=== PATIENT | female | born 1945 | race Caucasian/White ===

== ENCOUNTER 2016-10-20 08:09 | Inpatient (IN) | payer MEDICARE ==
[2016-10-20] MEDS ORDERED: MECLIZINE 12.5 MG TAB PO STA (08:30)
[2016-10-20] MEDS ORDERED: ONDANSETRON 4 MG/2 ML VIAL IVP STA (08:30)
[2016-10-20] MEDS ORDERED: SODIUM CHLORIDE 0.9% 1,000 ML IV STA (08:30)
--- NOTE | 2016-10-20 08:46 | ED ---
General Adult HPI - General Chief complaint: Dizziness Stated complaint: vertigo symptoms Time Seen by Provider: 10/20/16 08:23 Source: patient, RN notes reviewed Mode of arrival: wheelchair Limitations: no limitations - History of Present Illness Initial comments: Patient 71-year-old female who presents emergency room today with chief complaint of feeling lightheaded dizzy when she woke at 7 AM. She states she got up to get ready for work and began feeling lightheaded and dizzy and nauseous. She does admit that she had a headache 2 days ago right side of her head. She states it was somewhat sharp and tender to the touch. She states that the one away on its own. Currently does not have any headache but if she looks down she feels nauseous and dizzy. She states she feels unsteady on her feet. States never had some symptoms the past. Denies any other complaints or symptoms at this time. Patient denies any recent fever, chills, shortness of breath, chest pain, back pain, abdominal pain, nausea or vomiting, numbness or tingling, dysuria or hematuria, constipation or diarrhea, headaches or visual changes, or any other complaints. - Related Data Home Medications Medication Instructions Recorded Confirmed Aspirin 81 mg PO HS 09/16/13 02/03/16 Levothyroxine Sodium [Synthroid] 100 mcg PO HS 11/10/15 02/03/16 Multivit-Min/FA/Lycopen/Lutein 1 each PO HS 11/10/15 02/03/16 [Centrum Silver Tablet] Venlafaxine HCl ER [Effexor Xr] 300 mg PO HS 11/10/15 02/03/16 Atenolol [Tenormin] 25 mg PO DAILY 02/03/16 02/03/16 Timolol [Betimol 0.5% Ophth Soln] 1 drop BOTH EYES HS 02/03/16 02/03/16 Allergies Allergy/AdvReac Type Severity Reaction Status Date / Time No Known Allergies Allergy Verified 10/20/16 08:13 Review of Systems ROS Statement: Those systems with pertinent positive or pertinent negative responses have been documented in the HPI. ROS Other: All systems not noted in ROS Statement are negative. Past Medical History Past Medical History: Cancer, CVA/TIA, Osteoarthritis (OA), Skin Disorder, Thyroid Disorder Additional Past Medical History / Comment(s): TIA-no effects, heartburn, hx skin cancer, "extra heartbeat" History of Any Multi-Drug Resistant Organisms: None Reported Past Surgical History: Back Surgery, Breast Surgery, Cholecystectomy, Hysterectomy, Orthopedic Surgery, Tonsillectomy Additional Past Surgical History / Comment(s): alejandro bunionectomy, thyroidectomy, alejandro hand-"core vein release", rt breast biopsy, rt nipple removed, EGD, alejandro myringotomy Past Anesthesia/Blood Transfusion Reactions: Previous Problems w/ Anesthesia, Motion Sickness Additional Past Anesthesia/Blood Transfusion Reaction / Comment(s): diff intubation " I was told I need a fiberoptic intubation"( not sure what surgery or where she was told this) Past Psychological History: Anxiety Smoking Status: Current every day smoker Past Alcohol Use History: None Reported Past Drug Use History: None Reported - Past Family History Mother Family Medical History: Cancer Father Additional Family Medical History / Comment(s): blood clots-no sure where General Exam - General Exam Comments Initial Comments: General: The patient is awake and alert, in no distress, and does not appear acutely ill. Eye: Pupils are equal, round and reactive to light, extra-ocular movements are intact. No nystagmus. There is normal conjunctiva bilaterally. No signs of icterus. Ears, nose, mouth and throat: There are moist mucous membranes and no oral lesions. Neck: The neck is supple, there is no tenderness or JVD. Cardiovascular: There is a regular rate and rhythm. No murmur, rub or gallop is appreciated. Respiratory: Lungs are clear to auscultation, respirations are non-labored, breath sounds are equal. No wheezes, stridor, rales, or rhonchi. Gastrointestinal: Soft, non-distended, non-tender abdomen without masses or organomegaly noted. There is no rebound or guarding present. No CVA tenderness. Bowel sounds are unremarkable. Musculoskeletal: Normal ROM, no tenderness. Strength 5/5. Sensation intact. Pulses equal bilaterally 2+. Neurological: A&O x 3. CN II-XII intact, There are no obvious motor or sensory deficits. Coordination appears grossly intact. Speech is normal. Skin: Skin is warm and dry and no rashes or lesions are noted. Psychiatric: Cooperative, appropriate mood & affect, normal judgment. Limitations: no limitations Course Vital Signs 06/10/20/16 10/20/16 08:11 09:17 10:15 Temperature 97.4 F L 98.1 F Pulse Rate 61 67 Respiratory 20 16 Rate Blood Pressure 148/64 137/64 O2 Sat by Pulse 98 98 96 Oximetry EKG Findings - EKG Comments: EKG Findings:: EKG performed at 0849: Shows normal sinus rhythm at 63 bpm. IA interval 130. QRS 76. QT/QTc is 406/415. No acute ST changes. Medical Decision Making - Medical Decision Making Patient's CT reviewed and does show 1. Intracranial arthrosclerotic changes including focal calcification within the basilar artery. 2. No midline shift or mass effect. 3. Nonspecific white matter changes. 4. There is concern for an acute ischemia considered diffusion weighted MRI. As read by radiology doctor Jeffery. Patient reexamined at this time showing no signs of distress. Stroke scale negative. States feeling better after fluids and medications here. Case was discussed with Dr Nunez who spoke with DR Ram who will admit the patient with consult to DR Tolliver if avaible. - Lab Data Result diagrams: 10/20/16 08:45 10/20/16 08:45 Lab Results 10/20/16 10/20/16 10/20/16 Range/Units 08:45 08:45 08:45 WBC 11.2 H (3.8-10.6) k/uL RBC 5.08 (3.80-5.40) m/uL Hgb 15.4 (11.4-16.0) gm/dL Hct 47.1 H (34.0-46.0) % MCV 92.6 (80.0-100.0) fL MCH 30.4 (25.0-35.0) pg MCHC 32.8 (31.0-37.0) g/dL RDW 14.2 (11.5-15.5) % Plt Count 321 (150-450) k/uL Neutrophils % 68 % Lymphocytes % 23 % Monocytes % 4 % Eosinophils % 3 % Basophils % 1 % Neutrophils # 7.7 (1.3-7.7) k/uL Lymphocytes # 2.5 (1.0-4.8) k/uL Monocytes # 0.5 (0-1.0) k/uL Eosinophils # 0.3 (0-0.7) k/uL Basophils # 0.1 (0-0.2) k/uL PT (9.0-12.0) sec INR (<1.1) APTT (22.0-30.0) sec Sodium 143 (137-145) mmol/L Potassium 4.5 (3.5-5.1) mmol/L Chloride 110 H (98-107) mmol/L Carbon Dioxide 23 (22-30) mmol/L Anion Gap 10 mmol/L BUN 17 (7-17) mg/dL Creatinine 0.68 (0.52-1.04) mg/dL Est GFR (MDRD) Af Amer >60 (>60 ml/min/1.73 sqM) Est GFR (MDRD) Non-Af >60 (>60 ml/min/1.73 sqM) Glucose 103 H (74-99) mg/dL Calcium 9.7 (8.4-10.2) mg/dL Total Bilirubin 0.7 (0.2-1.3) mg/dL AST 24 (14-36) U/L ALT 22 (9-52) U/L Alkaline Phosphatase 117 (38-126) U/L Total Creatine Kinase 70 (30-135) U/L CK-MB (CK-2) 1.3 (0.0-2.4) ng/mL CK-MB (CK-2) Rel Index 1.9 Troponin I <0.012 (0.000-0.034) ng/mL Total Protein 7.2 (6.3-8.2) g/dL Albumin 4.4 (3.5-5.0) g/dL Urine Color Urine Appearance (Clear) Urine pH (5.0-8.0) Ur Specific [place] (1.001-1.035) Urine Protein (Negative) Urine Glucose (UA) (Negative) Urine Ketones (Negative) Urine Blood (Negative) Urine Nitrite (Negative) Urine Bilirubin (Negative) Urine Urobilinogen (<2.0) mg/dL Ur Leukocyte Esterase (Negative) Urine RBC (0-5) /hpf Urine WBC (0-5) /hpf Ur Squamous Epith Cells (0-4) /hpf Urine Bacteria (None) /hpf Urine Mucus (None) /hpf 10/20/16 10/20/16 Range/Units 08:45 09:15 WBC (3.8-10.6) k/uL RBC (3.80-5.40) m/uL Hgb (11.4-16.0) gm/dL Hct (34.0-46.0) % MCV (80.0-100.0) fL MCH (25.0-35.0) pg MCHC (31.0-37.0) g/dL RDW (11.5-15.5) % Plt Count (150-450) k/uL Neutrophils % % Lymphocytes % % Monocytes % % Eosinophils % % Basophils % % Neutrophils # (1.3-7.7) k/uL Lymphocytes # (1.0-4.8) k/uL Monocytes # (0-1.0) k/uL Eosinophils # (0-0.7) k/uL Basophils # (0-0.2) k/uL PT 10.0 (9.0-12.0) sec INR 1.0 (<1.1) APTT 22.0 (22.0-30.0) sec Sodium (137-145) mmol/L Potassium (3.5-5.1) mmol/L Chloride (98-107) mmol/L Carbon Dioxide (22-30) mmol/L Anion Gap mmol/L BUN (7-17) mg/dL Creatinine (0.52-1.04) mg/dL Est GFR (MDRD) Af Amer (>60 ml/min/1.73 sqM) Est GFR (MDRD) Non-Af (>60 ml/min/1.73 sqM) Glucose (74-99) mg/dL Calcium (8.4-10.2) mg/dL Total Bilirubin (0.2-1.3) mg/dL AST (14-36) U/L ALT (9-52) U/L Alkaline Phosphatase (38-126) U/L Total Creatine Kinase (30-135) U/L CK-MB (CK-2) (0.0-2.4) ng/mL CK-MB (CK-2) Rel Index Troponin I (0.000-0.034) ng/mL Total Protein (6.3-8.2) g/dL Albumin (3.5-5.0) g/dL Urine Color Yellow Urine Appearance Cloudy H (Clear) Urine pH 5.0 (5.0-8.0) Ur Specific [place] 1.018 (1.001-1.035) Urine Protein Trace H (Negative) Urine Glucose (UA) Negative (Negative) Urine Ketones Negative (Negative) Urine Blood Small H (Negative) Urine Nitrite Negative (Negative) Urine Bilirubin Negative (Negative) Urine Urobilinogen <2.0 (<2.0) mg/dL Ur Leukocyte Esterase Trace H (Negative) Urine RBC 14 H (0-5) /hpf Urine WBC 3 (0-5) /hpf Ur Squamous Epith Cells 3 (0-4) /hpf Urine Bacteria Many H (None) /hpf Urine Mucus Occasional H (None) /hpf Disposition Clinical Impression: Lightheaded, Dizziness, Nausea Disposition: ADMITTED IP TO THIS [facility] Condition: Stable Time of Disposition: 10:40
--- NOTE | 2016-10-20 09:22 | CT ---
EXAMINATION TYPE: CT brain wo con DATE OF EXAM: 10/20/2016 COMPARISON: NONE HISTORY: Vertigo CT DLP: 1017.9 mGycm Automated exposure control for dose reduction was used. FINDINGS: Calcification within the basilar artery additional intracranial atherosclerotic changes noted. No midline shift. Low attenuation in the white matter is nonspecific. If there is concern for acute i schemia recommend MRI. Low attenuation right basal ganglia is most typical remote lacunar infarction. Noted. IMPRESSION: INTRACRANIAL ATHEROSCLEROTIC CHANGES INCLUDING FOCAL CALCIFICATION WITHIN THE BASILAR ARTERY. 2. NO MIDLINE SHIFT OR MASS EFFECT 3. NONSPECIFIC WHITE MATTER CHANGES. #4 THERE IS CONCERN FOR ACUTE ISCHEMIA CONSIDER DIFFUSION-WEIGHT ED MRI.
[2016-10-20 09:23] LABS: Basophils # (A) 0.1 k/uL (0-0.2); Basophils % (A) 1 %; CH 30.7; CHCM 33.3; Eosinophils # (A) 0.3 k/uL (0-0.7); Eosinophils % (A) 3 %; HCT 47.1 % (34.0-46.0); HDW 2.46; HGB 15.4 gm/dL (11.4-16.0); Luc # (Auto) 0.16; Luc % (Auto) 1; Lymphocytes # (A) 2.5 k/uL (1.0-4.8); Lymphocytes % (A) 23 %; MCH 30.4 pg (25.0-35.0); MCHC 32.8 g/dL (31.0-37.0); MCV 92.6 fL (80.0-100.0); Mean Platelet Volume 6.7; Monocytes # (A) 0.5 k/uL (0-1.0); Monocytes % (A) 4 %; Neutrophils # (A) 7.7 k/uL (1.3-7.7); Neutrophils % (A) 68 %; RBC 5.08 m/uL (3.80-5.40); RDW 14.2 % (11.5-15.5); WBC 11.2 k/uL (3.8-10.6); WBC (Perox) 10.91
[2016-10-20 09:31] LABS: Anion Gap 10 mmol/L; Blood Urea Nitrogen 17 mg/dL (7-17); Carbon Dioxide 23 mmol/L (22-30); Chloride 110 mmol/L (98-107); Glucose 103 mg/dL (74-99); Sodium 143 mmol/L (137-145)
[2016-10-20 09:32] LABS: ALT 22 U/L (9-52); AST 24 U/L (14-36); Alkaline Phosphatase 117 U/L (38-126); Calcium 9.7 mg/dL (8.4-10.2); Non-African American GFR(MDRD) >60 (>60 ml/min/1.73 sqM); Total Bilirubin 0.7 mg/dL (0.2-1.3); Total Protein 7.2 g/dL (6.3-8.2)
[2016-10-20 09:33] LABS: Potassium 4.5 mmol/L (3.5-5.1)
[2016-10-20 09:34] LABS: Appearance,Urine Cloudy (Clear); Bacteria,Urine Many /hpf; Bilirubin,Urine Negative (Negative); Glucose,Urine (UA) Negative (Negative); Ketones,Urine Negative (Negative); Leukocyte Esterase,Urine Trace (Negative); Mucus,Urine Occasional /hpf; Nitrite,Urine Negative (Negative); Particle Count 5895; Protein,Urine Trace (Negative); RBC,Urine 14 /hpf (0-5); Specific Gravity,Urine 1.018 (1.001-1.035); Squamous Epithelial Cell,Urine 3 /hpf (0-4); UA Billing (MACRO vs. MICRO) MICRO; Urobilinogen,Urine <2.0 mg/dL (<2.0); WBC,Urine 3 /hpf (0-5)
[2016-10-20 09:43] LABS: Creatine Kinase 70 U/L (30-135)
--- NOTE | 2016-10-20 09:52 | XR ---
EXAMINATION TYPE: XR chest 2V DATE OF EXAM: 10/20/2016 COMPARISON: 02/27/2016 TECHNIQUE: PA and lateral views submitted. HISTORY: Dizziness FINDINGS: The lungs are clear and there is no pneumothorax, pleural effusion, or focal pneumonia. Apical pleu ral thickening seen and there is degenerative and hypertrophic change of the spine. IMPRESSION: 1. No acute process.
[2016-10-20 09:56] LABS: Creatine Kinase MB 1.3 ng/mL (0.0-2.4); Troponin I <0.012 ng/mL (0.000-0.034)
[2016-10-20] MEDS ORDERED: SODIUM CHLORIDE 0.9% 1,000 ML IV ONE (10:58)
[2016-10-20] MEDS ORDERED: ASPIRIN 325 MG TAB PO STA (11:02)
--- NOTE | 2016-10-20 12:20 | US ---
EXAMINATION TYPE: US carotid duplex BILAT DATE OF EXAM: 10/20/2016 COMPARISON: US 2016 CLINICAL HISTORY: Stenosis. EC patient with dizziness today; smoker x 37 years. EXAM MEASUREMENTS: RIGHT: Peak Systolic Velocity (PSV) cm/sec ----- Right CCA: 74.0 ----- Right ICA: 94.3 ----- Right ECA: 109.1 ICA/CCA ratio: 1.3 RIGHT: End Diastole cm/sec ----- Right CCA: 17.3 ----- Right ICA: 21.7 ----- Right ECA: 13.9 LEFT: Peak Systolic Velocity (PSV) cm/sec ----- Left CCA: 60.3 ----- Left ICA: 121.0 ----- Left ECA: 71.3 ICA/CCA ratio: 2.0 LEFT: End Diastole cm/sec ----- Left CCA: 21.9 ----- Left ICA: 45.1 ----- Left ECA: 8.7 VERTEBRALS (direction of flow): Right Vertebral: Antegrade Left Vertebral: Antegrade Irregular mild to moderate intimal wall changes noted at bilateral carotid bifurcation, but PSV is wn l bilaterally. IMPRESSION: 1. Atherosclerotic changes. With findings suggestive of a 50-69% stenosis involving the left internal carotid artery.
[2016-10-20] MEDS ORDERED: RX INFO: IV CONTRAST WAS GIVEN 1 EACH MISC MISCELLANE PRN (15:16)
--- NOTE | 2016-10-20 16:13 | MR ---
EXAMINATION TYPE: MR brain wo con DATE OF EXAM: 10/20/2016 COMPARISON: NONE HISTORY: stroke Standard multiplanar, multisequence MRI departmental protocol Multiplanar, multisequence images of the brain were acquired. Diffusion weighted imaging was performe d. FINDINGS: Ventricles of normal size. There is no mass effect nor midline shift. There is no evidence of intracranial hemorrhage. There is patchy abnormal increased signal in the robert bilaterally. There are multiple areas that measure up to 5 mm. There is no evidence of a cortical infarct. There is no s ign of posterior fossa mass. Corpus callosum appears normal. Sella turcica is normal. IMPRESSION: Patchy abnormal increased signal on the T2 and FLAIR images in the robert consistent with chronic small vessel ischemia and lacunar infarct. No evidence of cerebral cortical infarct.
--- NOTE | 2016-10-20 16:17 | MR ---
EXAMINATION TYPE: MR angio head wo con DATE OF EXAM: 10/20/2016 COMPARISON: NONE HISTORY: stroke TECHNIQUE: Time of flight images focusing on the [place] were performed without contrast. FINDINGS: There is arterial flow in the vertebrobasilar artery system. Left vertebral artery is large r than the right. I see no definite flow in the posterior communicating arteries. There is arterial f low in the anterior middle and posterior cerebral arteries. I see no evidence of aneurysm or neovascu larity. There is no mass effect. There is patency of distal internal carotid arteries. Exam is limite d slightly by motion. There is possible stenosis of the proximal right anterior cerebral artery. IMPRESSION: No evidence of aneurysm. Possible 1 cm segment of significant stenosis of the proximal right anterior cerebral artery. Limited exam due to motion.
[2016-10-20] MEDS: ATORVASTATIN 80 MG TAB PO SCH (17:07)
--- NOTE | 2016-10-20 17:12 | CT ---
EXAMINATION TYPE: CT angio neck DATE OF EXAM: 10/20/2016 HISTORY: Patient complains of dizziness. COMPARISON: NONE CT DLP: 222.4 mGycm. Automated Exposure Control for Dose Reduction was Utilized. TECHNIQUE: CTA scan of the neck is performed with IV Contrast, patient injected with 65 mL of Omnipa que 350, axial images are obtained, coronal and sagittal reformatted images are reviewed. Three-D rec onstructed images are created on an independent workstation and reviewed. FINDINGS: There is normal branching pattern of the great vessels on the aortic arch. There is bilateral patency of the vertebral arteries which appear widely patent. There is bilateral patency of the common inter nal and external carotid arteries. There is some atherosclerotic plaque at the left carotid artery bi furcation. There is probably 25% stenosis of the origin of the left internal carotid artery. There is patency of the vertebrobasilar artery system. There is mild mucosal thickening in the spheno id sinus. There is arterial flow in the anterior middle and posterior cerebral arteries. There is no evidence of arterial dissection. IMPRESSION: There is some atherosclerotic plaque with minimal stenosis at the origin of the left inte rnal carotid artery. No evidence of arterial dissection or aneurysm. Mild sphenoid sinusitis.
--- NOTE | 2016-10-20 17:17 | P.CONS ---
History of Present Illness - Reason for Consult Consult date: 10/20/16 Requesting physician: Toro Ram - Chief Complaint Dizziness - History of Present Illness Is a pleasant 71-year-old female being evaluated by the neurology service for dizziness. She awoke at 7 AM this morning feeling lightheaded and dizzy. She went to stand up and became nauseous with some mild vertigo. She thinks there was also some weakness. She says she has had a mild headache for a couple days on the right side of her head. She denies headache currently. He continues to have some dizziness. She denies numbness tingling weakness or loss of consciousness. Her was no trouble with speech or swallowing. She has been afebrile with relatively benign vital signs. Her EKG was normal. Labs show a mildly elevated white count at 11.2. Cardiac markers were negative. CT of the brain showed some basilar artery calcification and chronic small vessel ischemic changes. Flory the brain did also show chronic small vessel ischemia with a right lacunar infarct the age of which was not specified. MRA showed no evidence of aneurysm, with a 1 cm segment of significant stenosis of the right proximal anterior cerebral artery. Her carotid Doppler showed 56 Percent stenosis of the left internal carotid artery. A CT of the neck was ordered and is still pending. At the time of my evaluation she is resting comfortably in bed in no acute distress. Review of Systems All systems: negative Past Medical History Past Medical History: Cancer, CVA/TIA, Osteoarthritis (OA), Skin Disorder, Thyroid Disorder Additional Past Medical History / Comment(s): TIA-no effects, heartburn, hx skin cancer, "extra heartbeat" History of Any Multi-Drug Resistant Organisms: None Reported Past Surgical History: Back Surgery, Breast Surgery, Cholecystectomy, Hysterectomy, Orthopedic Surgery, Tonsillectomy Additional Past Surgical History / Comment(s): alejandro bunionectomy, thyroidectomy, alejandro hand-"core vein release", rt breast biopsy, rt nipple removed, EGD, alejandro myringotomy Past Anesthesia/Blood Transfusion Reactions: Previous Problems w/ Anesthesia, Motion Sickness Additional Past Anesthesia/Blood Transfusion Reaction / Comm: diff intubation " I was told I need a fiberoptic intubation"( not sure what surgery or where she was told this) Past Psychological History: Anxiety Smoking Status: Current every day smoker Past Alcohol Use History: None Reported Past Drug Use History: None Reported - Past Family History Mother Family Medical History: Cancer Father Additional Family Medical History / Comment(s): blood clots-no sure where Medications and Allergies Home Medications Medication Instructions Recorded Confirmed Type Aspirin 81 mg PO HS 09/16/13 10/20/16 History Levothyroxine Sodium [Synthroid] 100 mcg PO HS 11/10/15 10/20/16 History Multivit-Min/FA/Lycopen/Lutein 1 tab PO HS 11/10/15 10/20/16 History [Centrum Silver Tablet] Venlafaxine HCl ER [Effexor Xr] 300 mg PO HS 11/10/15 10/20/16 History Atenolol [Tenormin] 25 mg PO HS 02/03/16 10/20/16 History ALPRAZolam [Xanax] 1 mg PO BID 10/20/16 10/20/16 History Allergies Allergy/AdvReac Type Severity Reaction Status Date / Time No Known Allergies Allergy Verified 10/20/16 11:38 Physical Exam Vitals: Vital Signs Temp Pulse Pulse Resp BP BP Pulse Ox 10/20/16 12:35 97.6 F 74 16 134/63 90 L 10/20/16 11:44 98 F 67 18 143/67 95 10/20/16 11:31 97.6 F 74 16 134/63 90 L 10/20/16 10:15 98.1 F 67 16 137/64 96 10/20/16 09:17 98 10/20/16 08:11 97.4 F L 61 20 148/64 98 Intake and Output 10/20/16 10/20/16 10/20/16 06:59 14:59 22:59 Other: Weight 67.132 kg Patient Weight 10/21/16 06:59 Weight 67.132 kg - Constitutional General appearance: average body habitus, cooperative, no acute distress - EENT Eyes: no abnormal pupil, EOMI, PERRLA, no ptosis ENT: hearing grossly normal - Neck Neck: normal ROM, no rigidity - Respiratory Respiratory: negative: prolonged expiration, prolonged inspiration - Cardiovascular Rhythm: regular - Gastrointestinal General gastrointestinal: no distended, no tenderness - Neurologic Patient is alert awake and oriented 3. Speech-language are normal. There is no facial asymmetry. Strength is 5 out of 5 in bilateral lower and upper extremities. There is no sensory deficit of the face or any extremity. Cranial nerves II through XII are intact globally. There is no dysmetria. There is no nystagmus. No tremors or seizure-like activities are seen. Results CBC & Chem 7: 10/20/16 08:45 10/20/16 08:45 Labs: Abnormal Lab Results - Last 24 Hours (Table) 10/20/16 10/20/16 10/20/16 Range/Units 08:45 08:45 09:15 WBC 11.2 H (3.8-10.6) k/uL Hct 47.1 H (34.0-46.0) % Chloride 110 H (98-107) mmol/L Glucose 103 H (74-99) mg/dL Urine Appearance Cloudy H (Clear) Urine Protein Trace H (Negative) Urine Blood Small H (Negative) Ur Leukocyte Esterase Trace H (Negative) Urine RBC 14 H (0-5) /hpf Urine Bacteria Many H (None) /hpf Urine Mucus Occasional H (None) /hpf Assessment and Plan (1) Right-sided lacunar infarction Status: Acute (2) Hyperlipidemia Status: Chronic (3) Carotid stenosis Status: Chronic (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 MRA testing did show an area of significant stenosis of the right proximal anterior cerebral artery. This did not contribute to her stroke. It should however be followed up by a neuro-interventionalist. I will refer her for this in outpatient setting. I will order physical and occupational and speech therapy. A lipid panel serum homocysteine level and EEG have been ordered. She will continue Lipitor 80 mg and we will change her aspirin to Plavix 75 mg. Continue neurological checks. Continue to follow and make further recommendations based on the rest of the workup. I have reviewed the history and physical on the above patient. I have reviewed the above note, and agree.
--- NOTE | 2016-10-20 19:04 | HP ---
DATE OF ADMISSION: 10/20/2016 REASON FOR ADMISSION: Persistent dizziness. HISTORY OF PRESENT ILLNESS: This is a 71-year-old female with ongoing tobacco use. History of hypertension with a past history of TIAs. Comes in the hospital with sudden onset dizziness. Patient states that she feels the room is spinning around her, has had persistent symptoms for the last 10 to 12 hours. States that there is no relief. Has associated nausea. Patient has had episode of transient ischemic attack where she lost consciousness. Patient is currently taking aspirin 81 mg. No statin has been included her medications. Currently denies having any headaches, change in vision, nausea, vomiting, chest pain, difficulty breathing, abdominal pain, any focal motor weakness. Patient's main complaints are persistent dizziness, not changed with any movement, and weakness and a tendency to the fall to the right. REVIEW OF SYSTEMS: Fourteen-point review of system was done; none pertinent other than what was mentioned above. Home medications include: 1. Effexor. 2. Centrum. 3. Synthroid. 4. Tenormin. 5. Aspirin. 6. Xanax. Those were reviewed and appropriately reconciled. ALLERGIES: No known drug allergies. Past medical history includes ongoing tobacco use, hypothyroidism, hypertension, anxiety, previous TIAs. PAST SURGICAL HISTORY: None reported. SOCIAL HISTORY: Ongoing tobacco use. No illicit drug use or alcohol use. PHYSICAL EXAM: VITALS: Temperature is 97.6, heart rate 74, respiratory rate 16, blood pressure 134/63. Saturating 98% on room air. GENERALLY: Patient appears to be alert, oriented x3. HEENT: The pupils are equal and reactive to light and accommodation. HEART: S1, S2 present. No murmur appreciated. LUNGS: Good air entry. No wheezing or rhonchi noted. ABDOMINAL EXAM: Soft, nontender, no organomegaly appreciated. GENITOURINARY: No [place] in place. EXTREMITIES: Pulses can be palpated distally. Denies any tenderness on gross palpation. SKIN: On a gross skin exam does not appear to have any purpura or any skin rashes that were noted. NEUROLOGICALLY: Cranial nerves II through XII grossly intact. Complaints of persistent dizziness. No reproducible symptoms on [place]-Hallpike maneuver. No nystagmus is noted. Strength is 5/5 in all 4 extremities. No dyskinesia. Gait is reported to be abnormal. LABORATORY DATA: Hemoglobin is 15.4, hematocrit 47. White count 11.2, platelets of 321. Sodium 142, potassium 4.4, chloride 110, bicarb 23, BUN 17, creatinine 0.68. UA is positive. ASSESSMENT: 1. Acute left MCA territory stroke, likely a cerebellar region stroke. 2. Ongoing tobacco use. 3. Hypothyroidism. 4. Asymptomatic bacteria. 5. Hypertension. PLAN: There is stroke risk factor delineation including telemetry monitoring, carotid study and echocardiogram. Patient's current EKG does not appear to show any signs of atrial fibrillation. Blood pressure treatment, there is no need for any change in her blood pressure at this time. I will obtain an MRI of the brain without contrast. Start the patient on atorvastatin 80 mg with acute cerebrovascular accident. Meclizine does not improve any symptomatology. We will have physical therapy, occupational therapy involved. Depending on patient's functional status, disposition will be entertained. However, patient has had an acute stroke, maybe even need a rehab placement thereafter. Neurology recommendation will also be appreciated. A consultation to on-call neurology will be placed.
[2016-10-20] MEDS: ATENOLOL 25 MG TAB PO SCH (21:11)
[2016-10-20] MEDS: LEVOTHYROXINE 100 MCG TAB PO SCH (21:11)
[2016-10-20] MEDS: ALPRAZolam 0.5 MG TAB PO SCH (21:11)
[2016-10-20] MEDS: VENLAFAXINE HCL ER 150 MG CAP PO SCH (21:11)
[2016-10-21 06:51] LABS: ALT 22 U/L (9-52); AST 18 U/L (14-36); Alkaline Phosphatase 113 U/L (38-126); Anion Gap 9 mmol/L; Blood Urea Nitrogen 15 mg/dL (7-17); Carbon Dioxide 23 mmol/L (22-30); Chloride 111 mmol/L (98-107); Cholesterol 163 mg/dL (<200); Glucose 100 mg/dL (74-99); HDL Cholesterol 59 mg/dL (40-60); Non-African American GFR(MDRD) >60 (>60 ml/min/1.73 sqM); Potassium 4.5 mmol/L (3.5-5.1); Sodium 143 mmol/L (137-145); Total Bilirubin 0.4 mg/dL (0.2-1.3); Triglycerides 79 mg/dL (<150)
[2016-10-21] MEDS: CLOPIDOGREL 75 MG TAB PO SCH (08:32)
[2016-10-21] MEDS: ATORVASTATIN 80 MG TAB PO SCH (08:32)
[2016-10-21] MEDS: ALPRAZolam 0.5 MG TAB PO SCH ×2 (08:32→20:38)
[2016-10-21] MEDS ORDERED: ASPIRIN 325 MG TAB PO SCH (09:00)
--- NOTE | 2016-10-21 12:59 | P.PN ---
Subjective DATE OF ADMISSION: 10/20/2016 REASON FOR ADMISSION: Persistent dizziness. HISTORY OF PRESENT ILLNESS: This is a 71-year-old female with ongoing tobacco use. History of hypertension with a past history of TIAs. Comes in the hospital with sudden onset dizziness. Patient states that she feels the room is spinning around her, has had persistent symptoms for the last 10 to 12 hours. States that there is no relief. Has associated nausea. Patient has had episode of transient ischemic attack where she lost consciousness. Patient is currently taking aspirin 81 mg. No statin has been included her medications. Currently denies having any headaches, change in vision, nausea, vomiting, chest pain, difficulty breathing, abdominal pain, any focal motor weakness. Patient's main complaints are persistent dizziness, not changed with any movement, and weakness and a tendency to the fall to the right. 10/21/2016 Patient states to have persistent vertigo no change in vision or headaches blurry vision chest pain dizziness nausea vomiting diarrhea PHYSICAL EXAM: ir. GENERALLY: Patient appears to be alert, oriented x3. HEENT: The pupils are equal and reactive to light and accommodation. HEART: S1, S2 present. No murmur appreciated. LUNGS: Good air entry. No wheezing or rhonchi noted. ABDOMINAL EXAM: Soft, nontender, no organomegaly appreciated. GENITOURINARY: No Solano in place. EXTREMITIES: Pulses can be palpated distally. Denies any tenderness on gross palpation. SKIN: On a gross skin exam does not appear to have any purpura or any skin rashes that were noted. NEUROLOGICALLY: Cranial nerves II through XII grossly intact. Complaints of persistent dizziness. No reproducible symptoms on [place]-Hallpike maneuver. No nystagmus is noted. Strength is 5/5 in all 4 extremities. No dyskinesia. Gait is reported to be abnormal. Objective - Vital Signs Vital signs: Vital Signs Temp 98.1 F 10/21/16 08:00 Pulse 60 10/21/16 08:00 Resp 17 10/21/16 08:00 BP 118/70 10/21/16 08:00 Pulse Ox 93 L 10/21/16 08:00 Intake & Output 10/20/16 10/21/16 10/21/16 18:59 06:59 18:59 Intake Total 375 75 Balance 375 75 Weight 67.132 kg 72 kg Intake: Intake, IV Titration 375 75 Amount Sodium Chloride 0.9% 1, 375 75 000 ml @ 75 mls/hr IV . [id number] ONE Rx#:[id number] Other: Voiding Method Bedpan Bedpan - Labs CBC & Chem 7: 10/20/16 08:45 10/21/16 06:03 Labs: Abnormal Lab Results - Last 24 Hours (Table) 10/21/16 Range/Units 06:03 Chloride 111 H (98-107) mmol/L Glucose 100 H (74-99) mg/dL Total Protein 6.0 L (6.3-8.2) g/dL Albumin 3.4 L (3.5-5.0) g/dL Assessment and Plan Plan: ASSESSMENT: 1. Acute lacunar infarct 2. Ongoing tobacco use. 3. Hypothyroidism. 4. Asymptomatic bacteria. 5. Hypertension. 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
[2016-10-21] MEDS: ATENOLOL 25 MG TAB PO SCH (20:37)
[2016-10-21] MEDS: LEVOTHYROXINE 100 MCG TAB PO SCH (20:37)
[2016-10-21] MEDS: VENLAFAXINE HCL ER 150 MG CAP PO SCH (20:37)
[2016-10-22] MEDS: ALPRAZolam 0.5 MG TAB PO SCH (08:12)
[2016-10-22] MEDS: ATORVASTATIN 80 MG TAB PO SCH (08:13)
[2016-10-22] MEDS: CLOPIDOGREL 75 MG TAB PO SCH (08:13)
[2016-10-22 08:18] VITALS: BP 144/68; PULSE 64; RESP 17; TEMP 98
--- NOTE | 2016-10-22 10:57 | ECHOF ---
Referral Reason:cva MEASUREMENTS -------- HEIGHT: 152.4 cm WEIGHT: 67.1 kg BP: 147/66 RVIDd: 2.7 cm (< 3.3) IVSd: 1.2 cm (0.6 - 1.1) LVIDd: 3.8 cm (3.9 - 5.3) LVPWd: 1.2 cm (0.6 - 1.1) IVSs: 1.5 cm LVIDs: 2.7 cm LVPWs: 1.4 cm LA Diam: 3.9 cm (2.7 - 3.8) LAESV Index (A-L): 34.69 ml/m Ao Diam: 2.6 cm (2.0 - 3.7) AV Cusp: 2.0 cm (1.5 - 2.6) MV EXCURSION: 17.310 mm (> 18.000) MV EF SLOPE: 141 mm/s (70 - 150) EPSS: 0.4 cm MV E Familia: 0.84 m/s MV DecT: 156 ms MV A Familia: 0.57 m/s MV E/A Ratio: 1.48 AR PHT: 555 ms RAP: 5.00 mmHg RVSP: 40.75 mmHg FINDINGS -------- This was a technically good study. The left ventricular size is normal. There is borderline concentric left ventricular hypertrophy. Overall left ventricular systolic function is normal with, an EF between 55 - 60 %. Mitral Doppler inflow pattern suggests diastolic filling abnormality 14.49. The right ventricle is normal in size and function. LA is midly dilated 29-33ml/m2. The right atrium is normal in size. There is mild aortic valve sclerosis. There is mild aortic regurgitation. The mitral valve leaflets are mildly thickened. Mild mitral regurgitation is present. Mild tricuspid regurgitation present. There is mild pulmonary hypertension. The right ventricular systolic pressure, as measured by Doppler, is 40.75mmHg. The pulmonic valve is normal. The aortic root size is normal. Normal inferior vena cava with normal inspiratory collapse consistent with estimated right atrial pressure of 5 mmHg. The pericardium is normal. CONCLUSIONS -------- 1. This was a technically good study. 2. The mitral valve leaflets are mildly thickened. 3. Mild mitral regurgitation is present. 4. There is mild pulmonary hypertension. 5. The right ventricular systolic pressure, as measured by Doppler, is 40.75mmHg. 6. The pulmonic valve is normal. 7. The aortic root size is normal. 8. Normal inferior vena cava with normal inspiratory collapse consistent with estimated right atrial pressure of 5 mmHg. 9. The pericardium is normal. 10. The left ventricular size is normal. 11. There is borderline concentric left ventricular hypertrophy. 12. Overall left ventricular systolic function is normal with, an EF between 55 - 60 %. 13. Mitral Doppler inflow pattern suggest diastolic filling abnormality 14.49. 14. The right ventricle is normal in size and function. 15. LA is midly dilated 29-33ml/m2. 16. There is mild aortic valve sclerosis. 17. There is mild aortic regurgitation. IT MANAGER: Mary Ann Campos RDCS
--- NOTE | 2016-10-22 18:23 | P.DS ---
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 HISTORY OF PRESENT ILLNESS: This is a 71-year-old female with ongoing tobacco use. History of hypertension with a past history of TIAs. Comes in the hospital with sudden onset dizziness. Patient states that she feels the room is spinning around her, has had persistent symptoms for the last 10 to 12 hours. States that there is no relief. Has associated nausea. Patient has had episode of transient ischemic attack where she lost consciousness. Patient is currently taking aspirin 81 mg. No statin has been included her medications. Currently denies having any headaches, change in vision, nausea, vomiting, chest pain, difficulty breathing, abdominal pain, any focal motor weakness. Patient's main complaints are persistent dizziness, not changed with any movement, and weakness and a tendency to the fall to the right. 10/21/2016 Patient states to have persistent vertigo no change in vision or headaches blurry vision chest pain dizziness nausea vomiting diarrhea 10/22/16 continues to have dizziness no headaches, blurry vision nausea, vomiting gait is stable PHYSICAL EXAM: ir. GENERALLY: Patient appears to be alert, oriented x3. HEENT: The pupils are equal and reactive to light and accommodation. HEART: S1, S2 present. No murmur appreciated. LUNGS: Good air entry. No wheezing or rhonchi noted. ABDOMINAL EXAM: Soft, nontender, no organomegaly appreciated. GENITOURINARY: No Solano in place. EXTREMITIES: Pulses can be palpated distally. Denies any tenderness on gross palpation. SKIN: On a gross skin exam does not appear to have any purpura or any skin rashes that were noted. NEUROLOGICALLY: Cranial nerves II through XII grossly intact. Complaints of persistent dizziness. No reproducible symptoms on [place]-Hallpike maneuver. No nystagmus is noted. Strength is 5/5 in all 4 extremities. No dyskinesia. Gait is reported to be abnormal. ASSESSMENT: 1. Acute lacunar infarct 2. Ongoing tobacco use. 3. Hypothyroidism. 4. Asymptomatic bacteria. 5. Hypertension. aspirin, statin to continue . Although pt has right TERRI occlusion her symptoms arent from that lesion. Risks are higher with dual anitplatelet therapy for post ischemic bleed in the future Patient does have a right TERRI occlusion which will be defer to neuro interventional was on a later date. Follow up with Dr Chahal for possible angiogram dc home Driving restriction SYncopal episodes: discussed follow up with cardiology may need a holter moniter Patient Condition at Discharge: Stable Plan - Discharge Summary New Discharge Prescriptions: New Atorvastatin [Lipitor] 80 mg PO DAILY #30 tab Continue Aspirin 81 mg PO HS Levothyroxine Sodium [Synthroid] 100 mcg PO HS Venlafaxine HCl ER [Effexor XR] 300 mg PO HS Multivit-Min/FA/Lycopen/Lutein [Centrum Silver Tablet] 1 tab PO HS Atenolol [Tenormin] 25 mg PO HS ALPRAZolam [Xanax] 1 mg PO BID Discharge Medication List Aspirin 81 mg PO HS 09/16/13 [History] Levothyroxine Sodium [Synthroid] 100 mcg PO HS 11/10/15 [History] Multivit-Min/FA/Lycopen/Lutein [Centrum Silver Tablet] 1 tab PO HS 11/10/15 [ History] Venlafaxine HCl ER [Effexor XR] 300 mg PO HS 11/10/15 [History] Atenolol [Tenormin] 25 mg PO HS 02/03/16 [History] ALPRAZolam [Xanax] 1 mg PO BID 10/20/16 [History] Atorvastatin [Lipitor] 80 mg PO DAILY #30 tab 10/22/16 [Rx] Follow up Appointment(s)/Referral(s): Jorge Shah MD [STAFF PHYSICIAN] - 1 Week (MRA shows Possible 1cm segment of significant proximal right anterior cerebral artery occlusion. Office will call with appointment. ) Neville Mike III, MD [Primary Care Provider] - 1-2 days Patient Instructions/Handouts: Stroke (DC) Activity/Diet/Wound Care/Special Instructions: No driving until follow-up with primary care provider. Discharge Disposition: HOME SELF-CARE
--- NOTE | 2016-10-23 18:56 | EEG ---
DATE OF SERVICE: 10/22/2016 INDICATIONS FOR EXAMINATION: Dizziness. AGE: 71Y DESCRIPTION OF PROCEDURE: This EEG was performed using a 21 channel digital electroencephalograph following international 10-20 system. DESCRIPTION OF THE RECORDING: From the beginning of the tracing, with the patient's eyes closed, the background rhythm was mostly consisting of 8 Hz alpha frequency in the posterior occipital lead. No obvious asymmetry was seen. Photic stimulation was performed with a minimal driving response seen. No pathological waves were elicited. Occasional movement and muscle artifacts are seen. Hyperventilation was not performed. The patient remained awake throughout the tracing. No epileptiform discharges were seen. Her EKG lead showed occasional irregularity. INTERPRETATION: This awake EEG can be considered within normal limits except her EKG lead showed occasional irregularity in rhythm. No epileptiform discharges were seen. The absence of epileptiform discharges does not rule out the diagnosis of epilepsy. Therefore, clinical correlation is recommended.
== END 2016-10-22 11:56 | disposition home or self-care (01) | DRG 66 ==
LOC: EC 08:09 → 6SEL 10:59 → OBSVTOIN 10-21 11:13
PROVIDERS: ADMIT Internal Medicine; ATTEND Internal Medicine
DX: I63.9 Cerebral infarction, unspecified (principal); I66.11 Occlusion and stenosis of right anterior cerebral artery; I10 Essential (primary) hypertension; E78.5 Hyperlipidemia, unspecified; F41.9 Anxiety disorder, unspecified; M19.90 Unspecified osteoarthritis, unspecified site; R26.81 Unsteadiness on feet; R11.2 Nausea with vomiting, unspecified; F17.200 Nicotine dependence, unspecified, uncomplicated; R29.700 NIHSS score 0; E89.0 Postprocedural hypothyroidism; I67.9 Cerebrovascular disease, unspecified; I65.22 Occlusion and stenosis of left carotid artery; R55 Syncope and collapse; R82.71 Bacteriuria; R11.0 Nausea; R53.1 Weakness; R12 Heartburn; D72.829 Elevated white blood cell count, unspecified; R51 Headache; Z79.82 Long term (current) use of aspirin; Z87.2 Personal history of diseases of the skin and subcutaneous tissue; Z80.9 Family history of malignant neoplasm, unspecified; Z82.49 Family history of ischemic heart disease and other diseases of the circulatory system; Z90.49 Acquired absence of other specified parts of digestive tract; Z90.710 Acquired absence of both cervix and uterus; Z86.73 Personal history of transient ischemic attack (TIA), and cerebral infarction without residual deficits; Z85.828 Personal history of other malignant neoplasm of skin; Z90.11 Acquired absence of right breast and nipple; Z79.899 Other long term (current) drug therapy
CPT/HCPCS: 36415; 70450; 70498; 70544; 70551; 71020; 80053; 80061; 81001; 82550; 82553; 83090; 84484; 85025; 85610; 85730; 93005; 93306; 93880; 95819; 96361; 96374; 99285

== ENCOUNTER → 2016-11-21 | Outpatient (CLI) | payer MEDICARE ==
--- NOTE | 2016-11-23 06:41 | ENG ---
VNG REPORT VNG INDICATIONS: A 71-year-old female with sudden onset of dizziness associated with a stroke, staying the same and constant. Dizziness can be precipitated by positional changes such as going from a lying to a seated position, looking up or head back position, turning the head left or right or bending over. No difficulty with hearing reported. Tinnitus bilateral and steady. VNG FINDINGS: Saccades shows intact peak velocities, accuracies and latencies. Gaze with fixation shows no nystagmus in any of the directions of gaze including centrally with vision denied. Tracking shows mild impairment at both faster and slower speeds. Optokinetic nystagmus shows no significant asymmetry. Static position testing in 6 different positions, eyes opened and with vision denied shows a weak upbeat nystagmus in the supine and left side position. [place]-Hallpike maneuvers are negative bilaterally. Caloric testing shows 30% unilateral left caloric weakness. IMPRESSION: This is an abnormal VNG with mixed findings. There are mild abnormalities of tracking and there are 2 mild responses to position of vertigo nystagmus. Both of these are features that suggest central nervous system dysfunction. The second finding is of left caloric weaknesses consistent with a mild chronic well compensated left vestibulopathy. Clinical correlation necessary. EDD
== END | disposition home or self-care (01) ==
LOC: NEUROMAIN 10:47
PROVIDERS: ATTEND Otolaryngology
DX: R93.0 Abnormal findings on diagnostic imaging of skull and head, not elsewhere classified (principal); R42 Dizziness and giddiness
CPT/HCPCS: 92537; 92540

== ENCOUNTER → 2016-12-20 | Outpatient (CLI) | payer MEDICARE ==
--- NOTE | 2016-12-20 20:07 | CT ---
EXAMINATION TYPE: CT abdomen pelvis w con DATE OF EXAM: 12/20/2016 COMPARISON: 07/27/2012 HISTORY: Left lower quadrant pain x [address] DLP: 497.10 mGycm Automated exposure control for dose reduction was used. TECHNIQUE: Helical acquisition of images was performed from the lung bases through the pelvis. CONTRAST: Performed with Oral Contrast and with IV Contrast, patient injected with 100 mL of Omnipaque 300. FINDINGS: Lung bases are clear of consolidation. There is no pleural effusion. Heart size is fairly normal. Liver spleen pancreas appear normal. There are clips from cholecystectomy. Bile ducts are not dilated . There is no adrenal mass. Kidneys show satisfactory contrast opacification. There is no hydronephro sis. There is no retroperitoneal adenopathy. There is no ascites. Bladder distends smoothly. I see no pelvic mass. Appendix is not seen. There is no sign of appendicitis. There is mild thoracolumbar dextroscoliosis. I see no intestinal wall thickening. There are no dilated loops. There is no sign of a hernia. There are spondylotic changes in the lumbar spine. IMPRESSION: DEXTROSCOLIOSIS. SPONDYLOTIC CHANGES IN THE LUMBAR SPINE. NO SIGN OF ACUTE ABDOMEN AND PELVIS. NO ADV ERSE CHANGE COMPARED TO OLD EXAM.
== END ==
LOC: RADCTMAIN 19:34
PROVIDERS: ATTEND Family Medicine
DX: R10.32 Left lower quadrant pain (principal); R11.0 Nausea
CPT/HCPCS: 74177; Q9967

== ENCOUNTER → 2018-09-19 | Outpatient (CLI) | payer MEDICARE ==
--- NOTE | 2018-09-19 13:47 | ECHOF ---
Referral Reason:I65.29 Occulsion and Stenosis, R00.2 Palptiations MEASUREMENTS -------- HEIGHT: 152.4 cm WEIGHT: 63.5 kg BP: RVIDd: 2.7 cm (< 3.3) IVSd: 1.3 cm (0.6 - 1.1) LVIDd: 3.9 cm (3.9 - 5.3) LVPWd: 1.4 cm (0.6 - 1.1) IVSs: 1.6 cm LVIDs: 2.9 cm LVPWs: 1.6 cm LAESV Index (A-L): 29.80 ml/m Ao Diam: 2.3 cm (2.0 - 3.7) AV Cusp: 1.8 cm (1.5 - 2.6) LA Diam: 3.9 cm (2.7 - 3.8) EPSS: 0.8 cm MV E Familia: 0.60 m/s MV DecT: 274 ms MV A Familia: 0.69 m/s MV E/A Ratio: 0.86 AR PHT: 541 ms RAP: 5.00 mmHg RVSP: 43.49 mmHg MV EF SLOPE: 86.83 mm/s (70 - 150) MV EXCURSION: 1.50 cm (> 18.000) FINDINGS -------- Sinus rhythm. This was a technically adequate study. The left ventricular size is normal. There is mild concentric left ventricular hypertrophy. Overa ll left ventricular systolic function is normal with, an EF between 55 - 60 %. The right ventricle is normal in size. LA is midly dilated 29-33ml/m2. The right atrial size is normal. Interatrial and interventricular septum intact. The aortic valve is trileaflet and appears structurally normal. There is mild aortic regurgitation. The mitral valve is normal. Zfrz-bw-ydwdzdho mitral regurgitation is present. Cljj-yg-vcxdbmxy tricuspid regurgitation present. There is mild pulmonary hypertension. The right ventricular systolic pressure, as measured by Doppler, is 43.49mmHg. Trace/mild (physiologic) pulmonic regurgitation. The aortic root size is normal. Normal inferior vena cava with normal inspiratory collapse consistent with estimated right atrial pre ssure of 5 mmHg. Echo free space indicative of a pericardial fat pad. CONCLUSIONS -------- 1. Sinus rhythm. 2. This was a technically adequate study. 3. The left ventricular size is normal. 4. There is mild concentric left ventricular hypertrophy. 5. Overall left ventricular systolic function is normal with, an EF between 55 - 60 %. 6. The right ventricle is normal in size. 7. LA is midly dilated 29-33ml/m2. 8. The right atrial size is normal. 9. Interatrial and interventricular septum intact. 10. The aortic valve is trileaflet and appears structurally normal. 11. There is mild aortic regurgitation. 12. The mitral valve is normal. 13. Eajl-kp-ppadozcl mitral regurgitation is present. 14. Ahhz-sa-hsviqtxl tricuspid regurgitation present. 15. There is mild pulmonary hypertension. 16. The right ventricular systolic pressure, as measured by Doppler, is 43.49mmHg. 17. Trace/mild (physiologic) pulmonic regurgitation. 18. The aortic root size is normal. 19. Normal inferior vena cava with normal inspiratory collapse consistent with estimated right atrial pressure of 5 mmHg. 20. Echo free space indicative of a pericardial fat pad. RABBET OPERATOR: Edith Cornell RDCS
--- NOTE | 2018-09-19 13:50 | US ---
EXAMINATION TYPE: US carotid duplex BILAT DATE OF EXAM: 09/19/2018 COMPARISON: 10/20/2016 CLINICAL HISTORY: I65.29 Occulsion and Stenosis. No HTN, current smoker EXAM MEASUREMENTS: RIGHT: Peak Systolic Velocity (PSV) cm/sec ----- Right CCA: 63.4 ----- Right ICA: 69.5 ----- Right ECA: 119.0 ICA/CCA ratio: 1.1 RIGHT: End Diastole cm/sec ----- Right CCA: 18.3 ----- Right ICA: 25.0 ----- Right ECA: 13.9 LEFT: Peak Systolic Velocity (PSV) cm/sec ----- Left CCA: 72.2 ----- Left ICA: 109.3 ----- Left ECA: 117.4 ICA/CCA ratio: 1.5 LEFT: End Diastole cm/sec ----- Left CCA: 20.5 ----- Left ICA: 38.2 ----- Left ECA: 18.8 VERTEBRALS (direction of flow): Right Vertebral: Antegrade Left Vertebral: Antegrade Rhythm: Arrhythmia Plaque seen in bilateral bulbs. No wall thickening, significant stenosis or elevated velocities. IMPRESSION: 1. Bilateral atherosclerotic plaque with no significant hemodynamic stenosis. 2. Correlate for cardiac dysrhythmia. Criteria for Assigning % of Stenosis / Diameter reduction (Estimation based on the indirect measurements of the internal carotid artery velocities (ICA PSV). 1. Normal (no stenosis)=ICA PSV < 125 cm/s: ratio < 2.0: ICA EDV<40 cm/s. 2. Less than 50% stenosis=ICA PSV < 125 cm/s: ratio < 2.0: ICA EDV<40 cm/s. 3. 50 to 69% stenosis=ICA PSV of 125 to 230 cm/s: ration 2.0 ? 4.0: ICA EDV 40-100 cm/s. 4. Greater than 70% stenosis to near occlusion= ICA PSV > 230 cm/s: ratio > 4.0: ICA EDV > 100 cm/s. 5. Near occlusion= ICA PSV velocities may be low or undetectable: variable ratio and ICA EDV. 6. Total occlusion=unable to detect flow.
== END | disposition home or self-care (01) ==
LOC: RADECHMAIN 11:36
PROVIDERS: ATTEND Family Medicine
DX: I65.23 Occlusion and stenosis of bilateral carotid arteries (principal); I08.3 Combined rheumatic disorders of mitral, aortic and tricuspid valves; I27.0 Primary pulmonary hypertension; I49.1 Atrial premature depolarization
CPT/HCPCS: 93225; 93226; 93306; 93880

== ENCOUNTER 2019-02-22 20:43 | Inpatient (IN) | payer MEDICARE ==
[2019-02-22] MEDS ORDERED: ASPIRIN 81 MG PO STA (20:58)
[2019-02-22] MEDS ORDERED: SODIUM CHLORIDE 0.9% 1,000 ML IV STA (20:58)
--- NOTE | 2019-02-22 21:04 | ED ---
Chest Pain HPI - General Chief Complaint: Chest Pain Stated Complaint: Chest pressure Time Seen by Provider: 02/22/19 20:50 Source: patient, family, RN notes reviewed Mode of arrival: ambulatory Limitations: no limitations - History of Present Illness Initial Comments: This is a 73-year-old female with a history of valvular heart disease and family history heart disease who states she's been having episodes of chest pain that feels like a heaviness over last week or so. It is intermittent and initially started 3 second bursts of discomfort today she had one lasted 30-45 minutes. She has shortness of breath with it no fevers or sweats she does states she has some chills. No nausea no vomiting. 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 She denies any other modifying factors at this time. No recent illnesses no cough or phlegm production she has had a cholecystectomy in the past. MD Complaint: chest pain - Related Data Home Medications Medication Instructions Recorded Confirmed Aspirin 81 mg PO HS 09/16/13 02/22/19 Levothyroxine Sodium [Synthroid] 100 mcg PO HS 11/10/15 02/22/19 Multivit-Min/FA/Lycopen/Lutein 1 tab PO HS 11/10/15 02/22/19 [Centrum Silver Tablet] Venlafaxine HCl ER [Effexor XR] 150 mg PO BID 11/10/15 02/22/19 ALPRAZolam [Xanax] 1 mg PO BID 10/20/16 02/22/19 Metoprolol Tartrate [Lopressor] 50 mg PO BID 02/22/19 02/22/19 Allergies Allergy/AdvReac Type Severity Reaction Status Date / Time No Known Allergies Allergy Verified 02/22/19 21:16 Review of Systems ROS Statement: Those systems with pertinent positive or pertinent negative responses have been documented in the HPI. ROS Other: All systems not noted in ROS Statement are negative. EKG Findings - EKG Results: EKG: interpreted by ZAK, sinus rhythm (Sinus rhythm rate is 84. Interval 114 QRS 76 QT since QTC 364/4:[address]-T wave configuration inferior leads compared to an EKG dated this is a change of. Today shows some T-wave inversion in leads II, III, and F aVF this was during pain) Past Medical History Past Medical History: Cancer, CVA/TIA, Osteoarthritis (OA), Skin Disorder, Thyroid Disorder Additional Past Medical History / Comment(s): TIA-no effects, heartburn, hx skin cancer, "extra heartbeat" History of Any Multi-Drug Resistant Organisms: None Reported Past Surgical History: Back Surgery, Breast Surgery, Cholecystectomy, Hysterectomy, Orthopedic Surgery, Tonsillectomy Additional Past Surgical History / Comment(s): alejandro bunionectomy, thyroidectomy, alejandro hand-"core vein release", rt breast biopsy, rt nipple removed, EGD, alejandro myringotomy Past Anesthesia/Blood Transfusion Reactions: Previous Problems w/ Anesthesia, Motion Sickness Additional Past Anesthesia/Blood Transfusion Reaction / Comment(s): diff intubation " I was told I need a fiberoptic intubation"( not sure what surgery or where she was told this) Past Psychological History: Anxiety Smoking Status: Current every day smoker Past Alcohol Use History: None Reported Past Drug Use History: None Reported - Past Family History Mother Family Medical History: Cancer Father Additional Family Medical History / Comment(s): blood clots-no sure where General Exam - General Exam Comments Initial Comments: This a well-developed well-nourished awake alert oriented 3 female Limitations: no limitations General appearance: alert, in no apparent distress Head exam: Present: atraumatic, normocephalic, normal inspection Eye exam: Present: normal appearance, PERRL, EOMI. Absent: scleral icterus, conjunctival injection, periorbital swelling ENT exam: Present: normal exam, mucous membranes moist Neck exam: Present: normal inspection, full ROM (No stridor JVD or bruits). Absent: tenderness, meningismus, lymphadenopathy Respiratory exam: Present: normal lung sounds bilaterally. Absent: respiratory distress, wheezes, rales, rhonchi, stridor Cardiovascular Exam: Present: regular rate, normal rhythm, normal heart sounds. Absent: systolic murmur, diastolic murmur, rubs, gallop, clicks GI/Abdominal exam: Present: soft, normal bowel sounds. Absent: distended, tenderness, guarding, rebound, rigid Extremities exam: Present: normal inspection, full ROM, normal capillary refill. Absent: tenderness, pedal edema, joint swelling, calf tenderness Back exam: Present: normal inspection Neurological exam: Present: alert, oriented X3, CN II-XII intact Psychiatric exam: Present: normal affect, normal mood Skin exam: Present: warm, dry, intact, normal color. Absent: rash Course Vital Signs 02/22/19 02/22/19 02/22/19 20:45 21:25 22:18 Temperature 97.7 F Pulse Rate 100 65 67 Respiratory 16 16 18 Rate Blood Pressure 168/82 159/78 144/88 O2 Sat by Pulse 97 92 L 92 L Oximetry 02/22/19 02/22/19 22:56 23:43 Temperature 98.7 F Pulse Rate 74 Respiratory 17 Rate Blood Pressure 149/62 O2 Sat by Pulse 92 L 90 L Oximetry - Reevaluation(s) Reevaluation #1: 02/22/19 23:31 Examine patient reveals she does still somewhat improved chest pain is improved the. Reevaluation #2: 02/22/19 23:44 Discussed with the patient family she was diagnosed with COPD many years ago. She's not had any issues with it since. Chest Pain MDM - MDM Imaging was reviewed initially the x-ray showed no acute findings CAT scan negative for PE. Patient does have elevated troponin however and does have evidence of a non-STEMI. Patient be admitted with evaluation by cardiology. Dr. Truong has been paged Critical Care Time Critical Care Time: Yes Critical Care Time: 39 minutes of critical care time which includes initial presentation with history physical labs x-rays multiple reevaluation the patient discussed with multiple family members as well as the patient discussion with the admitting physician Dr. Barrera admission orders and documentation of the above Disposition Clinical Impression: Acute non-ST elevation myocardial infarction (NSTEMI), Chest pain, CHF (congestive heart failure) Disposition: ADMITTED IP TO THIS HOSP Condition: Fair
--- NOTE | 2019-02-22 21:43 | XR ---
EXAMINATION TYPE: XR chest 2V DATE OF EXAM: 02/22/2019 COMPARISON: 01/16/2019 HISTORY: Chest pain TECHNIQUE: Frontal and lateral views of the chest are obtained. FINDINGS: There is no heart failure nor confluent pneumonic infiltrate. Costophrenic angles are barry r. There are chest leads. Bony thorax is intact. IMPRESSION: No active cardiopulmonary disease. Normal heart. No change.
[2019-02-22 22:11] LABS: INR 0.9 (<1.2); Prothrombin Time 9.7 sec (9.0-12.0)
[2019-02-22 22:14] LABS: Basophils # (A) 0.2 k/uL (0-0.2); Basophils % (A) 1 %; Eosinophils # (A) 0.3 k/uL (0-0.7); Eosinophils % (A) 2 %; HCT 41.9 % (34.0-46.0); HGB 13.1 gm/dL (11.4-16.0); Lymphocytes # (A) 2.2 k/uL (1.0-4.8); Lymphocytes % (A) 15 %; MCH 29.1 pg (25.0-35.0); MCHC 31.2 g/dL (31.0-37.0); MCV 93.1 fL (80.0-100.0); Mean Platelet Volume 6.9; Monocytes # (A) 0.6 k/uL (0-1.0); Monocytes % (A) 4 %; Neutrophils # (A) 11.6 k/uL (1.3-7.7); Neutrophils % (A) 77 %; Platelet Count 334 k/uL (150-450); WBC 15.1 k/uL (3.8-10.6)
[2019-02-22 22:17] LABS: ALT 16 U/L (9-52); AST 25 U/L (14-36); African American GFR (CKD) >90 (>60 ml/min/1.73 sqM); Albumin 4.2 g/dL (3.5-5.0); Alkaline Phosphatase 134 U/L (38-126); Anion Gap 10 mmol/L; Blood Urea Nitrogen 16 mg/dL (7-17); Calcium 9.9 mg/dL (8.4-10.2); Carbon Dioxide 23 mmol/L (22-30); Chloride 109 mmol/L (98-107); Creatine Kinase 93 U/L (30-135); Glucose 120 mg/dL (74-99); Magnesium 1.9 mg/dL (1.6-2.3); Potassium 3.6 mmol/L (3.5-5.1); Sodium 142 mmol/L (137-145); Total Bilirubin 0.2 mg/dL (0.2-1.3); Total Protein 6.9 g/dL (6.3-8.2)
[2019-02-22 22:18] LABS: D-Dimer 0.64 mg/L FEU (<0.60)
--- NOTE | 2019-02-22 23:13 | CT ---
EXAMINATION TYPE: CT angio chest DATE OF EXAM: 02/22/2019 10:50 PM COMPARISON: HISTORY: Chest pain, hypoxemia, and elevated d-dimer. CT DLP: 244.9 mGycm Automated exposure control for dose reduction was used. CONTRAST: CTA scan of the thorax is performed with IV Contrast, patient injected with 65ml mL of Isovue 370, pu lmonary embolism protocol. . FINDINGS: There are 3-D post processed images. There is coarse groundglass interstitial infiltrate in the posterior lung jennings. There is no pleural effusion. There is some pleural thickening and atelectasis at the right posterior lung base. There is no pericardial effusion. There are few mediastinal lymph nodes that measure up to 1 cm. Ther e are no hilar masses. There are multiple bronchial lymph nodes that measure up to 12 mm. There is normal contrast opacification of the pulmonary arteries. There are no filling defects. There is spurring in the thoracic spine. I see no bony destructive process. There is no compression fractu re. The ribs appear intact. IMPRESSION: NO EVIDENCE OF PULMONARY EMBOLISM. MILD MEDIASTINAL AND BRONCHIAL ADENOPATHY. COARSE INTERSTITIAL PUL MONARY DENSITY. THIS COULD RELATE TO SARCOIDOSIS.
[2019-02-22] MEDS ORDERED: HEPARIN SODIUM,PORCINE 5,000 UNIT/ML 1 ML VIAL IV PRN (23:29)
[2019-02-22] MEDS ORDERED: HEPARIN SODIUM,PORCINE 5,000 UNIT/ML 1 ML VIAL IV ONE (23:29)
[2019-02-22] MEDS ORDERED: FUROSEMIDE 10 MG/ML 4 ML VIAL IV STA (23:31)
[2019-02-22] MEDS ORDERED: NITROGLYCERIN SL TABS 0.4 MG TAB SUBLINGUAL PRN (23:37)
[2019-02-23] MEDS ORDERED: FUROSEMIDE 10 MG/ML 4 ML VIAL IV STA (00:07)
[2019-02-23] MEDS: NITROGLYCERIN OINT 1 INCH/GM PACKET TOPICAL SCH ×4 (00:19→17:16)
[2019-02-23] MEDS: HEPARIN SOD,PORK IN 0.45% NACL 25,000 UNIT in 0.45% NACL 1 250ML.BAG IV SCH (00:23)
[2019-02-23] MEDS ORDERED: IPRATROPIUM-ALBUTEROL 3 ML NEB INHALATION PRN (00:29)
[2019-02-23] MEDS ORDERED: IPRATROPIUM-ALBUTEROL 3 ML NEB INHALATION SCH (06:00)
[2019-02-23 06:16] LABS: Basophils # (A) 0.2 k/uL (0-0.2); Basophils % (A) 1 %; Eosinophils # (A) 0.3 k/uL (0-0.7); Eosinophils % (A) 2 %; HCT 40.9 % (34.0-46.0); Lymphocytes # (A) 2.3 k/uL (1.0-4.8); Lymphocytes % (A) 15 %; MCHC 31.7 g/dL (31.0-37.0); MCV 91.7 fL (80.0-100.0); Mean Platelet Volume 6.8; Monocytes # (A) 0.5 k/uL (0-1.0); Monocytes % (A) 3 %; Neutrophils # (A) 12.2 k/uL (1.3-7.7); Neutrophils % (A) 78 %; Platelet Count 301 k/uL (150-450); RBC 4.46 m/uL (3.80-5.40); RDW 14.1 % (11.5-15.5); WBC 15.7 k/uL (3.8-10.6)
[2019-02-23 06:46] LABS: Cholesterol 172 mg/dL (<200); HDL Cholesterol 57 mg/dL (40-60); LDL Cholesterol,Calculated 93 mg/dL (0-99); Triglycerides 108 mg/dL (<150)
[2019-02-23] MEDS: IPRATROPIUM-ALBUTEROL 3 ML NEB INHALATION SCH ×3 (07:24→19:07)
--- NOTE | 2019-02-23 07:54 | P.HPIM ---
History of Present Illness This is a pleasant 73 years old female with past medical history of CVA/TIA, osteoarthritis, hypothyroidism. Patient presents because of chest pain of 7 days duration. Her pain is on and off. Mainly central radiating to the back, Jaw and ears. Felled like heaviness with no precipitating or aggravating factors. It was 5/10 in severity when she came in. Associated with dyspnea and some dry cough mainly at night. However patient denies fever or chills. No change in urine or bowel habits or rash. No documented fever. She follow up with personal support worker Dr. Hernandez about 2 months ago for extra beat and possible vertigo and she had a monitor at that time. She supposed to follow up with her personal support worker today however she is being admitted to the hospital this time. She is currently smoking close to 1 pack per day, no alcohol or illicit tracts Vitals are stable. leukocytosis of 15.7 k, d-dimer is elevated at 0.6 while she has negative ctpa for pulmonary embolism, however it showing course ground glass appearance with interstitial infiltrate in the posterior lung jennings, with multiple bronchial lymph nodes measuring up to 12 mm. however on chest x-ray there was no acute process bmp and liver enzymes are unremarkable and not elevated, troponin is elevated at 0.3 and 0.5, nitro probnp is 2770. ekg showing normal sinus rhythm at [address]-t changes. On admission patient was started on aspirin, normal saline at 50 mL per hour with 40 mg of IV Lasix every 8 hours. Also she was started on heparin drip Review of Systems CONSTITUTIONAL: No fever, no malaise, no fatigue. HEENT: No recent visual problems or hearing problems. Denied any sore throat. CARDIOVASCULAR: No orthopnea, PND, no palpitations, no syncope. PULMONARY: No shortness of breath, no cough, no hemoptysis. GASTROINTESTINAL: No diarrhea, no nausea, no vomiting, no abdominal pain. Normoactive bowel sounds. NEUROLOGICAL: No headaches, no weakness, no numbness. HEMATOLOGICAL: Denies any bleeding or petechiae. GENITOURINARY: Denies any burning micturition, frequency, or urgency. MUSCULOSKELETAL/RHEUMATOLOGICAL: Denies any joint pain, swelling, or any muscle pain. ENDOCRINE: Denies any polyuria or polydipsia. Past Medical History Past Medical History: Cancer, CVA/TIA, Osteoarthritis (OA), Skin Disorder, Thyroid Disorder Additional Past Medical History / Comment(s): TIA-no effects, heartburn, hx skin cancer, "extra heartbeat" History of Any Multi-Drug Resistant Organisms: None Reported Past Surgical History: Back Surgery, Breast Surgery, Cholecystectomy, Hysterectomy, Orthopedic Surgery, Tonsillectomy Additional Past Surgical History / Comment(s): alejandro bunionectomy, thyroidectomy, alejandro hand-"core vein release", rt breast biopsy, rt nipple removed, EGD, alejandro myringotomy Past Anesthesia/Blood Transfusion Reactions: Previous Problems w/ Anesthesia, Motion Sickness Additional Past Anesthesia/Blood Transfusion Reaction / Comment(s): diff intubation " I was told I need a fiberoptic intubation"( not sure what surgery or where she was told this) Past Psychological History: Anxiety Smoking Status: Current every day smoker Past Alcohol Use History: None Reported Past Drug Use History: None Reported - Past Family History Mother Family Medical History: Cancer Father Additional Family Medical History / Comment(s): blood clots-no sure where Medications and Allergies Home Medications Medication Instructions Recorded Confirmed Type Aspirin 81 mg PO HS 09/16/13 02/22/19 History Levothyroxine Sodium [Synthroid] 100 mcg PO HS 11/10/15 02/22/19 History Multivit-Min/FA/Lycopen/Lutein 1 tab PO HS 11/10/15 02/22/19 History [Centrum Silver Tablet] Venlafaxine HCl ER [Effexor XR] 150 mg PO BID 11/10/15 02/22/19 History ALPRAZolam [Xanax] 1 mg PO BID 10/20/16 02/22/19 History Metoprolol Tartrate [Lopressor] 50 mg PO BID 02/22/19 02/22/19 History Allergies Allergy/AdvReac Type Severity Reaction Status Date / Time No Known Allergies Allergy Verified 02/22/19 21:16 Physical Exam Vitals: Vital Signs Temp Pulse Resp BP Pulse Ox 02/23/19 07:33 69 02/23/19 07:25 71 02/23/19 06:07 98.8 F 67 18 135/64 95 02/23/19 05:40 68 19 95 02/23/19 02:36 95 02/23/19 02:33 18 91 L 02/23/19 00:23 70 19 159/74 89 L 02/22/19 23:43 98.7 F 74 17 149/62 90 L 02/22/19 22:56 92 L 02/22/19 22:18 67 18 144/88 92 L 02/22/19 21:25 65 16 159/78 92 L 02/22/19 20:45 97.7 F 100 16 168/82 97 Intake and Output 02/22/19 02/23/19 02/23/19 22:59 06:59 14:59 Other: # Voids 2 Weight 64.41 kg GENERAL: The patient is alert and oriented x3, not in any acute distress. Well developed, well nourished. HEENT: Pupils are round and equally reacting to light. EOMI. No scleral icterus. No conjunctival pallor. Normocephalic, atraumatic. No pharyngeal erythema. No thyromegaly. CARDIOVASCULAR: S1 and S2 present. No murmurs, rubs, or gallops. PULMONARY: Chest is clear to auscultation, no wheezing or crackles. ABDOMEN: Soft, nontender, nondistended, normoactive bowel sounds. No palpable organomegaly. MUSCULOSKELETAL: No joint swelling or deformity. EXTREMITIES: No cyanosis, clubbing, or pedal edema. NEUROLOGICAL: Gross neurological examination did not reveal any focal deficits. SKIN: No rashes. No petechiae Results CBC & Chem 7: 02/23/19 05:56 02/22/19 21:24 Labs: Abnormal Lab Results - Last 24 Hours (Table) 02/22/19 02/22/19 02/22/19 Range/Units 21:24 21:24 21:24 WBC 15.1 H (3.8-10.6) k/uL Neutrophils # 11.6 H (1.3-7.7) k/uL APTT (22.0-30.0) sec D-Dimer 0.64 H (<0.60) mg/L FEU Chloride 109 H (98-107) mmol/L Glucose 120 H (74-99) mg/dL Alkaline Phosphatase 134 H (38-126) U/L Troponin I (0.000-0.034) ng/mL 02/22/19 02/23/19 02/23/19 Range/Units 21:24 02:41 05:56 WBC (3.8-10.6) k/uL Neutrophils # (1.3-7.7) k/uL APTT 52.4 H (22.0-30.0) sec D-Dimer (<0.60) mg/L FEU Chloride (98-107) mmol/L Glucose (74-99) mg/dL Alkaline Phosphatase (38-126) U/L Troponin I 0.312 H* 0.502 H* (0.000-0.034) ng/mL 02/23/19 Range/Units 05:56 WBC 15.7 H (3.8-10.6) k/uL Neutrophils # 12.2 H (1.3-7.7) k/uL APTT (22.0-30.0) sec D-Dimer (<0.60) mg/L FEU Chloride (98-107) mmol/L Glucose (74-99) mg/dL Alkaline Phosphatase (38-126) U/L Troponin I (0.000-0.034) ng/mL Assessment and Plan Assessment: Elevated troponin, rule out non-STEMI Interstitial infiltrate in the posterior lung jennings suspicious for pneumonia, versus sarcoidosis Nicotine dependence Hypothyroidism Primary osteoarthritis History of TIA/CVA Plan: This is a pleasant 73 years old female who presents with elevated troponin and pulmonary infiltrates. Continue with heparin and aspirin. Follow-up serial troponins, call cardiology consult on follow-up the recommendation. Start antibiotics. Check for influenza and call pulmonary consult Labs and medication were reviewed.. Continue same treatment. Continue with symptomatic treatment. Resume home medication. Monitor lytes and vitals. DVT and GI prophylaxis. Further recommendations of the clinical course of the patient DVT prophylaxis: Subcutaneous heparin GI Prophylaxis: Pepcid PT/OT: Pending Prognosis is guarded
[2019-02-23] MEDS: FUROSEMIDE 10 MG/ML 4 ML VIAL IV SCH ×3 (10:32→23:27)
[2019-02-23] MEDS: METOPROLOL TARTRATE 50 MG TAB PO SCH ×2 (10:33→21:09)
[2019-02-23] MEDS: FAMOTIDINE 20 MG/2 ML VIAL IV SCH ×2 (10:33→21:08)
[2019-02-23] MEDS: ALPRAZolam 1 MG TAB PO SCH ×2 (10:34→20:49)
[2019-02-23] MEDS: ASPIRIN 325 MG TAB PO SCH (10:34)
[2019-02-23] MEDS: NICOTINE 21MG/24HR PATCH TRANSDERM SCH (10:35)
[2019-02-23] MEDS: SODIUM CHLORIDE 0.9% 1,000 ML IV SCH (10:35)
[2019-02-23] MEDS: VENLAFAXINE HCL ER 150 MG CAP PO SCH ×2 (11:05→21:21)
--- NOTE | 2019-02-23 11:07 | ECHOF ---
Referral Reason:N STEMI MEASUREMENTS -------- HEIGHT: 152.4 cm WEIGHT: 64.4 kg BP: 135/64 RVIDd: 3.2 cm (< 3.3) IVSd: 1.2 cm (0.6 - 1.1) LVIDd: 4.2 cm (3.9 - 5.3) LVPWd: 1.2 cm (0.6 - 1.1) IVSs: 1.5 cm LVIDs: 3.1 cm LVPWs: 1.5 cm LA Diam: 4.0 cm (2.7 - 3.8) LAESV Index (A-L): 38.78 ml/m Ao Diam: 2.5 cm (2.0 - 3.7) AV Cusp: 2.0 cm (1.5 - 2.6) MV EXCURSION: 15.184 mm (> 18.000) MV EF SLOPE: 109 mm/s (70 - 150) EPSS: 1.0 cm MV E Familia: 0.84 m/s MV DecT: 153 ms MV A Familia: 0.56 m/s MV E/A Ratio: 1.49 AR PHT: 505 ms RAP: 5.00 mmHg RVSP: 59.61 mmHg TAPSE: 16.31 mm FINDINGS -------- Sinus rhythm. This was a technically good study. The left ventricular size is normal. There is borderline concentric left ventricular hypertrophy. Overall left ventricular systolic function is mildly impaired with, an EF between 45 - 50 %. Basal posterior LV wall motion is hypokinetic. Basal inferior LV wall motion is hypokinetic. Basal i nferoseptal LV wall motion is hypokinetic. The right ventricle is normal in size. LA is moderately dilated 34-39 ml/m2 The right atrium is normal in size. Interatrial and interventricular septum intact. There is mild aortic valve sclerosis. There is moderate aortic regurgitation. The mitral valve leaflets are mildly thickened. Mild mitral annular calcification present. Modera te mitral regurgitation is present. Moderate tricuspid regurgitation present. There is severe pulmonary hypertension. The right ventr icular systolic pressure, as measured by Doppler, is 59.61mmHg. Trace/mild (physiologic) pulmonic regurgitation. The aortic root size is normal. Normal inferior vena cava with normal inspiratory collapse consistent with estimated right atrial pre ssure of 5 mmHg. There is no pericardial effusion. CONCLUSIONS -------- 1. Sinus rhythm. 2. This was a technically good study. 3. The left ventricular size is normal. 4. There is borderline concentric left ventricular hypertrophy. 5. Overall left ventricular systolic function is mildly impaired with, an EF between 45 - 50 %. 6. Basal posterior LV wall motion is hypokinetic. 7. Basal inferior LV wall motion is hypokinetic. 8. Basal inferoseptal LV wall motion is hypokinetic. 9. The right ventricle is normal in size. 10. LA is moderately dilated 34-39 ml/m2 11. The right atrium is normal in size. 12. Interatrial and interventricular septum intact. 13. There is mild aortic valve sclerosis. 14. There is moderate aortic regurgitation. 15. The mitral valve leaflets are mildly thickened. 16. Mild mitral annular calcification present. 17. Moderate mitral regurgitation is present. 18. Moderate tricuspid regurgitation present. 19. There is severe pulmonary hypertension. 20. The right ventricular systolic pressure, as measured by Doppler, is 59.61mmHg. 21. Trace/mild (physiologic) pulmonic regurgitation. 22. The aortic root size is normal. 23. Normal inferior vena cava with normal inspiratory collapse consistent with estimated right atrial pressure of 5 mmHg. 24. There is no pericardial effusion. DOCUMENTATION CONSULTANT: Mary Ann Campos RDCS
[2019-02-23] MEDS ORDERED: SODIUM CHLORIDE 0.9% 1,000 ML in EMPTY BAG 1 BAG IV ONE (12:52)
[2019-02-23] MEDS ORDERED: ALPRAZolam 0.25 MG TAB PO PRN (12:52)
[2019-02-23] MEDS ORDERED: ALPRAZolam 0.5 MG TAB PO PRN (12:52)
--- NOTE | 2019-02-23 13:24 | P.CNPUL ---
History of Present Illness Consult date: 02/23/19 Requesting physician: Elvin Flores Reason for consult: dyspnea, chest pain Chief complaint: chest pain, dyspnea History of present illness: 73-year-old white female patient with history of valvular heart disease and family history of heart disease, COPD, chronic smoker, previous history of CVA /TIA, hypothyroidism, anxiety, presented to the hospital on 02/22/2019 with complaints of intermittent midsternal chest pain with radiation to her shoulders to her back into her jaw for the past week, lasting from 30 seconds up to half an hour. These episodes were accompanied by shortness of breath, but no fever, no sweats, no diaphoresis, no nausea no vomiting. She denies any cough or congestion, no phlegm production, no wheezing. Her family reports some mild lower extremity swelling. Currently patient follows with Dr. Hernandez, and last week she was supposed to have a Holter monitor for palpitations, and frequent PVCs. Patient had previously had a transesophageal echocardiogram in February 2016 revealing normal left ventricular size and systolic function, [id number] mitral with mild aortic and moderate tricuspid regurgitation and moderate pulmonary hypertension. There was mild atherosclerotic changes of the descending thoracic aorta, and no evidence of shunting across the in terstitial septum. EKG showed normal sinus rhythm with T-wave inversion in leads 2,3 and aVF with consideration of inferior ischemia. Subsequent EKG showed sinus rhythm with premature ventricular complexes, and T-wave inversion in inferior and lateral leads. Echocardiogram has been completed showing borderline concentric left ventricular hypertrophy, mildly impaired left surgical systolic function with an EF of 45-50%, hypokinetic basal posterior LV wall, inferior LV wall and inferior septal LV wall. Mild aortic sclerosis, moderate aortic regurgitation, mild mitral annular calcification and moderate mitral regurgitation, moderate tricuspid regurgitation and severe pulmonary hypertension with PA systolic of 59.6 mmHg. Lab work revealed one vessel, 15.1, d-dimer was 0.64, electrolytes and renal profile were unremarkable, troponins were 0.312, 0.502, and 0.619, proBNP was elevated at 2770, influenza screen was negative. Chest x-ray showed no active cardiopulmonary disease, CT angios chest showed no evidence of pulmonary embolism, but mild mediastinal and bronchial adenopathy, coarse interstitial pulmonary density in the posterior lung jennings, no pleural effusion, pleural thickening and atelectasis at the right posterior lung base. Patient has been afebrile, she currently denies any chest pain, she has been given IV diuretics, 40 mg every 8 hours, maintain negative fluid bal ance. Cardiology evaluation is underway and patient has been scheduled for cardiac catheterization for 02/24/[address] Hernandez Review of Systems All systems: negative Constitutional: Denies chills, Denies fever Eyes: denies blurred vision, denies pain Ears, nose, mouth and throat: Denies headache, Denies sore throat Cardiovascular: Reports chest pain, Reports irregular heart beat, Reports leg edema, Denies shortness of breath Respiratory: Reports dyspnea, Denies cough Gastrointestinal: Denies abdominal pain, Denies diarrhea, Denies nausea, Denies vomiting Genitourinary: Denies dysuria, Denies hematuria Musculoskeletal: Denies myalgias Integumentary: Denies pruritus, Denies rash Neurological: Denies numbness, Denies weakness Psychiatric: Denies anxiety, Denies depression Endocrine: Denies fatigue, Denies weight change Past Medical History Past Medical History: Cancer, CVA/TIA, Osteoarthritis (OA), Skin Disorder, Thyroid Disorder Additional Past Medical History / Comment(s): TIA-no effects, heartburn, hx skin cancer, "extra heartbeat" History of Any Multi-Drug Resistant Organisms: None Reported Past Surgical History: Back Surgery, Breast Surgery, Cholecystectomy, Hysterectomy, Orthopedic Surgery, Tonsillectomy Additional Past Surgical History / Comment(s): alejandro bunionectomy, thyroidectomy, alejandro hand-"core vein release", rt breast biopsy, rt nipple removed, EGD, alejandro myringotomy Past Anesthesia/Blood Transfusion Reactions: Previous Problems w/ Anesthesia, Motion Sickness Additional Past Anesthesia/Blood Transfusion Reaction / Comment(s): diff intubation " I was told I need a fiberoptic intubation"( not sure what surgery or where she was told this) Past Psychological History: Anxiety Smoking Status: Current every day smoker Past Alcohol Use History: None Reported Past Drug Use History: None Reported - Past Family History Mother Family Medical History: Cancer Father Additional Family Medical History / Comment(s): blood clots-no sure where Medications and Allergies Home Medications Medication Instructions Recorded Confirmed Type Aspirin 81 mg PO HS 09/16/13 02/22/19 History Levothyroxine Sodium [Synthroid] 100 mcg PO HS 11/10/15 02/22/19 History Multivit-Min/FA/Lycopen/Lutein 1 tab PO HS 11/10/15 02/22/19 History [Centrum Silver Tablet] Venlafaxine HCl ER [Effexor XR] 150 mg PO BID 11/10/15 02/22/19 History ALPRAZolam [Xanax] 1 mg PO BID 10/20/16 02/22/19 History Metoprolol Tartrate [Lopressor] 50 mg PO BID 02/22/19 02/22/19 History Allergies Allergy/AdvReac Type Severity Reaction Status Date / Time No Known Allergies Allergy Verified 02/22/19 21:16 Physical Exam Vitals: Vital Signs Temp Pulse Pulse Resp BP BP Pulse Ox 02/23/19 12:50 62 16 02/23/19 11:18 97.3 F L 73 18 148/72 95 02/23/19 07:33 69 02/23/19 07:31 98.1 F 68 18 146/73 95 02/23/19 07:25 71 02/23/19 06:07 98.8 F 67 18 135/64 95 02/23/19 05:40 68 19 95 02/23/19 02:36 95 02/23/19 02:33 18 91 L 02/23/19 00:23 70 19 159/74 89 L 02/22/19 23:43 98.7 F 74 17 149/62 90 L 02/22/19 22:56 92 L 02/22/19 22:18 67 18 144/88 92 L 02/22/19 21:25 65 16 159/78 92 L 02/22/19 20:45 97.7 F 100 16 168/82 97 Intake and Output 02/22/19 02/23/19 02/23/19 22:59 06:59 14:59 Intake Total 240 Output Total 650 Balance -410 Intake: Intake, IV Titration 240 Amount Sodium Chloride 0.9% 1, 240 000 ml @ 20 mls/hr IV . Q24H [facility] Rx#:[id number] Output: Urine 650 Other: Voiding Method Toilet # Voids 2 2 Weight 64.41 kg GENERAL EXAM: Alert, pleasant, 73-year-old white female, comfortable in no apparent distress. HEAD: Normocephalic/atraumatic. EYES: Normal reaction of pupils, equal size. Conjunctiva pink, sclera white. NOSE: Clear with pink turbinates. THROAT: No erythema or exudates. NECK: No masses, no JVD, no thyroid enlargement, no adenopathy. CHEST: No chest wall deformity. Symmetrical expansion. LUNGS: Equal air entry with no crackles, wheeze, rhonchi or dullness. CVS: Regular rate and rhythm, normal S1 and S2, no gallops, no murmurs, no rubs ABDOMEN: Soft, nontender. No hepatosplenomegaly, normal bowel sounds, no guarding or rigidity. EXTREMITIES: No clubbing, no edema, no cyanosis, 2+ pulses and upper and lower extremities. MUSCULOSKELETAL: Muscle strength and tone normal. SPINE: No scoliosis or deformity SKIN: No rashes CENTRAL NERVOUS SYSTEM: Alert and oriented -3. No focal deficits, tone is normal in all 4 extremities. PSYCHIATRIC: Alert and oriented -3. Appropriate affect. Intact judgment and insight. Results - Laboratory Findings CBC and BMP: 02/23/19 05:56 02/22/19 21:24 PT/INR, D-dimer PT 9.7 sec (9.0-12.0) 02/22/19 21:24 INR 0.9 (<1.2) 02/22/19 21:24 D-Dimer 0.64 mg/L FEU (<0.60) H 02/22/19 21:24 Abnormal lab findings: Abnormal Labs 02/22/19 02/22/19 02/22/19 21:24 21:24 21:24 WBC 15.1 H Neutrophils # 11.6 H APTT D-Dimer 0.64 H Chloride 109 H Glucose 120 H Alkaline Phosphatase 134 H Troponin I 02/22/19 02/23/19 02/23/19 21:24 02:41 05:56 WBC Neutrophils # APTT 52.4 H D-Dimer Chloride Glucose Alkaline Phosphatase Troponin I 0.312 H* 0.502 H* 02/23/19 02/23/19 05:56 09:46 WBC 15.7 H Neutrophils # 12.2 H APTT D-Dimer Chloride Glucose Alkaline Phosphatase Troponin I 0.619 H* - Diagnostic Findings Chest x-ray: report reviewed, image reviewed CT scan - chest: report reviewed, image reviewed Additional studies: EKG reviewed Assessment and Plan Plan: Assessment: #1. Chest pain and shortness of breath likely related to acute exacerbation of CHF with mildly impaired left ventricular systolic function and EF of 45-50% #2. Rule out non-ST elevated NE #3. Interstitial infiltrate in the posterior lung jennings seen on the CTA chest, rule out infectious etiology as to sarcoidosis #4. History of COPD the severity of which is unknown at this time, not on home oxygen at baseline #5. Chronic smoker #6. Valvular heart disease moderate aortic regurgitation, mild aortic valve sclerosis, moderate mitral regurgitation, mild mitral annular calcification, moderate tricuspid regurgitation, severe pulmonary hypertension with PA pressure of 59 mmHg #7. History of CVA/TIA #8. Osteoarthritis #9. Hypothyroidism #10. Anxiety Plan: Denies any shortness of breath currently, no evidence of congestion or wheezing, no complaint of chest pain, he reports history of COPD for which she is on no treatment. Seems to be currently stable, no evidence of exacerbation. No fever or chills, CTA chest results have been reviewed, showing no evidence of pulmonary embolism, mild mediastinal and bronchial adenopathy, and interstitial pulmonary density. We'll send a pro-calcitonin, patient has had no fever or chills. She has been scheduled for cardiac catheterization tomorrow with Dr. Hernandez. Will continue to follow and make further recommendations depending on the clinical course. She has been counseled on smoking cessation I performed a history & physical examination of the patient and discussed their management with my nurse practitioner, Shilpi Dick. I reviewed the nurse practitioner's note and agree with the documented findings and plan of care. Lung sounds are positive for clear. The findings and the impression was discussed with the patient. I attest to the documentation by the nurse practitioner. Time with Patient: Greater than 30
--- NOTE | 2019-02-23 15:32 | P.CRDCN ---
History of Present Illness History of present illness: This is Candice Yin PA-C dictating a consult on this patient The patient was interviewed and examined by me as well as by Dr. Truong Case discussed with Dr. Truong and he agrees with the plan of care IMPRESSION / ASSESSMENT: intermittent chest discomfort, abnormal troponin trending up, possible non-ST elevation PR LV systolic function mildly impaired with EF 40-45% with posterior basal, basal inferior, basal infero-septal hypokinesis, new finding compared to previous echo in the office Abnormal chest CT, concerning for possible sarcoidosis, pulmonology has been consulted Valvular heart disease History of TIA Current smoker PLAN: Dr. Truong spoke with Dr. Hernandez, plan for cath tomorrow Atorvastatin 80 mg Continue Lasix Continue metoprolol HPI Patient is a 73-year-old female with a past medical history significant for PVCs, TIA, valvular heart disease, and current smoker who presented with complaints of chest discomfort. Patient follows with Dr. Hernandez in the office. States that she has had intermittent episodes of heaviness in her chest, back, shoulders, and teeth with associated shortness of breath and nausea for the last few days. The episodes can last anywhere from 30 seconds up to 45 minutes. They have no identifiable triggers and seemed to resolve on their own. She states she has had them while she has been at work and they sometimes to get wo rse with exertion. Denies any dizziness or palpitations. She thought they were panic attacks. States she has slept comfortably last few nights, denies orthopnea or PND. She did recently see Dr. Hernandez in the office and states that her recent stress test over the summer was negative. He told her that she had "extra beats". Patient's family urged her to come into the emergency department and get it checked out. Upon presentation her blood pressure was elevated at 168/82, pulse was 100. Chest x-ray showed no acute process. Chest CTA showed mild mediastinal and bronchial adenopathy, coarse interstitial pulmonary density concerning for possible sarcoidosis, no evidence of PE. EKG showed ST depression in V4, and asymmetrical T-wave inversions inferiorly and in V5 and V6. Labs are significant for abnormal troponin. Echocardiogram showed LV systolic function mildly impaired with EF 40-45% with posterior basal, basal inferior, basal infero-septal hypokinesis. Previous echo at the office showed normal EF. Patient seen and examined sitting in bed in the emergency department. States her symptoms did improve after the Lasix and nitroglycerin. No chest pain currently. ROS: No fevers, chills or rigors, no cough, phlegm or expectoration, no nausea, vomiting or diarrhea, no hematuria, dysuria, no musculoskeletal complaints, Positive for History of TIA no skin lesions. EXAMINATION: Temperature 97.3F, pulse 73, respirations blood pressure 148/72, oxygen saturation 95% on 3 L nasal cannula Patient seen and examined resting in bed, in no acute distress Lungs are diminished at the bases with few scattered crackles Heart is regular, normal S1-S2, no audible murmurs Slightly elevated JVD noted No lower extremity edema Abdomen soft, nontender REVIEW OF LABS, ECG & MEDICAL DATA WBC 15.7, hemoglobin 13.0, platelets 301, potassium 3.6, BUN 16, creatinine 0.68, magnesium 1.9 LDL 93 Troponin is 0.619, 0.502, 0.312, BNP 2770 Echocardiogram showed LV systolic function mildly impaired with EF 40-45% with posterior basal, basal inferior, basal infero-septal hypokinesis, moderate AR, moderate MR, moderate TR, severe pulmonary hypertension, previous echo at the office showed normal EF Past Medical History Past Medical History: Cancer, CVA/TIA, Osteoarthritis (OA), Skin Disorder, Thyroid Disorder Additional Past Medical History / Comment(s): TIA-no effects, heartburn, hx skin cancer, "extra heartbeat" History of Any Multi-Drug Resistant Organisms: None Reported Past Surgical History: Back Surgery, Breast Surgery, Cholecystectomy, Hystere ctomy, Orthopedic Surgery, Tonsillectomy Additional Past Surgical History / Comment(s): alejandro bunionectomy, thyroidectomy, alejandro hand-"core vein release", rt breast biopsy, rt nipple removed, EGD, alejandro myringotomy Past Anesthesia/Blood Transfusion Reactions: Previous Problems w/ Anesthesia, Motion Sickness Additional Past Anesthesia/Blood Transfusion Reaction / Comment(s): diff intubation " I was told I need a fiberoptic intubation"( not sure what surgery or where she was told this) Past Psychological History: Anxiety Smoking Status: Current every day smoker Past Alcohol Use History: None Reported Past Drug Use History: None Reported - Past Family History Mother Family Medical History: Cancer Father Additional Family Medical History / Comment(s): blood clots-no sure where Medications and Allergies Home Medications Medication Instructions Recorded Confirmed Type Aspirin 81 mg PO HS 09/16/13 02/22/19 History Levothyroxine Sodium [Synthroid] 100 mcg PO HS 11/10/15 02/22/19 History Multivit-Min/FA/Lycopen/Lutein 1 tab PO HS 11/10/15 02/22/19 History [Centrum Silver Tablet] Venlafaxine HCl ER [Effexor XR] 150 mg PO BID 11/10/15 02/22/19 History ALPRAZolam [Xanax] 1 mg PO BID 10/20/16 02/22/19 History Metoprolol Tartrate [Lopressor] 50 mg PO BID 02/22/19 02/22/19 History Allergies Allergy/AdvReac Type Severity Reaction Status Date / Time No Known Allergies Allergy Verified 02/22/19 21:16 Physical Exam Vitals: Vital Signs Temp Pulse Pulse Resp BP BP Pulse Ox 02/23/19 15:19 98.4 F 62 20 130/71 97 02/23/19 13:00 64 16 02/23/19 12:50 62 16 02/23/19 11:18 97.3 F L 73 18 148/72 95 02/23/19 07:33 69 02/23/19 07:31 98.1 F 68 18 146/73 95 02/23/19 07:25 71 02/23/19 06:07 98.8 F 67 18 135/64 95 02/23/19 05:40 68 19 95 02/23/19 02:36 95 02/23/19 02:33 18 91 L 02/23/19 00:23 70 19 159/74 89 L 02/22/19 23:43 98.7 F 74 17 149/62 90 L 02/22/19 22:56 92 L 02/22/19 22:18 67 18 144/88 92 L 02/22/19 21:25 65 16 159/78 92 L 02/22/19 20:45 97.7 F 100 16 168/82 97 Intake and Output 02/23/19 02/23/19 02/23/19 06:59 14:59 22:59 Intake Total 400 Output Total 650 Balance -250 Intake: Intake, IV Titration 240 Amount Sodium Chloride 0.9% 1, 240 000 ml @ 20 mls/hr IV . Q24H [facility] Rx#:[id number] Oral 160 Output: Urine 650 Other: Voiding Method Toilet Toilet # Voids 2 2 Results 02/23/19 05:56 02/22/19 21:24 Cardiac Enzymes 02/22/19 02/22/19 02/23/19 Range/Units 21:24 21:24 02:41 AST 25 (14-36) U/L Troponin I 0.312 H* 0.502 H* (0.000-0.034) ng/mL 02/23/19 Range/Units 09:46 AST (14-36) U/L Troponin I 0.619 H* (0.000-0.034) ng/mL Coagulation 02/22/19 02/23/19 02/23/19 Range/Units 21:24 05:56 12:40 PT 9.7 (9.0-12.0) sec APTT 23.0 52.4 H 33.2 H (22.0-30.0) sec Lipids 02/23/19 Range/Units 06:30 Triglycerides 108 (<150) mg/dL Cholesterol 172 (<200) mg/dL HDL Cholesterol 57 (40-60) mg/dL CBC 02/22/19 02/23/19 Range/Units 21:24 05:56 WBC 15.1 H 15.7 H (3.8-10.6) k/uL RBC 4.50 4.46 (3.80-5.40) m/uL Hgb 13.1 13.0 (11.4-16.0) gm/dL Hct 41.9 40.9 (34.0-46.0) % Plt Count 334 301 (150-450) k/uL Comprehensive Metabolic Panel 02/22/19 Range/Units 21:24 Sodium 142 (137-145) mmol/L Potassium 3.6 (3.5-5.1) mmol/L Chloride 109 H (98-107) mmol/L Carbon Dioxide 23 (22-30) mmol/L BUN 16 (7-17) mg/dL Creatinine 0.68 (0.52-1.04) mg/dL Glucose 120 H (74-99) mg/dL Calcium 9.9 (8.4-10.2) mg/dL AST 25 (14-36) U/L ALT 16 (9-52) U/L Alkaline Phosphatase 134 H (38-126) U/L Total Protein 6.9 (6.3-8.2) g/dL Albumin 4.2 (3.5-5.0) g/dL Current Medications Generic Name Dose Route Start Last Admin Trade Name Freq PRN Reason Stop Dose Admin Albuterol/Ipratropium 3 ml 02/23/19 08:00 02/23/19 12:50 Duoneb 0.5 Mg-3 Mg/3 Ml Soln INHALATION 3 ml RT-TID CED[facility]ICK Administration Albuterol/Ipratropium 3 ml 02/23/19 00:29 Duoneb 0.5 Mg-3 Mg/3 Ml Soln INHALATION RT-Q2H PRN Shortness Of Breath Or Wheezing Alprazolam 1 mg 02/23/19 09:00 02/23/19 10:34 Xanax PO 1 mg BID CEDRICK Administration Alprazolam 0.25 mg 02/23/19 12:52 Xanax PO Q6HR PRN Mild Anxiety Alprazolam 0.5 mg 02/23/19 12:52 Xanax PO Q6HR PRN Moderate Anxiety Aspirin 325 mg 02/23/19 09:00 02/23/19 10:34 Aspirin PO 325 mg DAILY CEDRICK Administration Atorvastatin Calcium 80 mg 02/24/19 05:00 Lipitor PO 02/24/19 05:01 ONCE ONE Atorvastatin Calcium 40 mg 02/25/19 21:00 Lipitor PO HS CEDRICK Famotidine 20 mg 02/23/19 09:00 02/23/19 10:33 Pepcid IV 20 mg Q12HR [facility]ICK Administration Furosemide 40 mg 02/23/19 08:00 02/23/19 10:32 Lasix IV 40 mg Q8HR C[facility]ICK Administration Heparin Sodium (Porcine) 0 unit 02/22/19 23:29 Heparin IV PER PROTOCOL PRN Low PTT Protocol Heparin Sodium/Sodium Chloride 250 mls @ 7.729 mls/hr 02/22/19 23:30 02/23/19 00:23 25,000 unit/ Sodium Chloride IV 12 units/kg/hr .Q24H C[facility]RICK 7.729 mls/hr Administration Protocol 12 UNITS/KG/HR Sodium Chloride 1,000 mls @ 20 mls/hr 02/22/19 23:45 02/23/19 10:35 Saline 0.9% IV 20 mls/hr .Q24H [facility]ICK Administration Sodium Chloride 1,000 ml/ IV 1,000 mls @ 64.41 mls/hr 02/23/19 12:52 Solution IV 02/24/19 04:23 .[id number] ONE 1 ML/KG/HR Levothyroxine Sodium 100 mcg 02/23/19 21:00 Synthroid PO HS CEDRICK Metoprolol Tartrate 50 mg 02/23/19 09:00 02/23/19 10:33 Lopressor PO 50 mg BID CEDRICK Administration Multivitamins 1 each 02/23/19 21:00 Theragran PO HS CEDRICK Nicotine 1 patch 02/23/19 09:00 02/23/19 10:35 Habitrol 21mg/24hr Patch TRANSDERM 1 patch DAILY [facility]ICK Administration Nitroglycerin 0.4 mg 02/22/19 23:37 Nitrostat SUBLINGUAL Q5M PRN Chest Pain Nitroglycerin 1 inch 02/23/19 00:00 02/23/19 11:02 Nitro-Bid Oint TOPICAL 1 inch Q6HR C[facility]ICK Administration Venlafaxine HCl 150 mg 02/23/19 09:00 02/23/19 11:05 Effexor Xr PO Not Given BID CEDRICK Intake and Output 02/23/19 02/23/19 02/23/19 06:59 14:59 22:59 Intake Total 400 Output Total 650 Balance -250 Intake: Intake, IV Titration 240 Amount Sodium Chloride 0.9% 1, 240 000 ml @ 20 mls/hr IV . Q24H [facility] Rx#:[id number] Oral 160 Output: Urine 650 Other: Voiding Method Toilet Toilet # Voids 2 2 02/23/19 05:56 02/22/19 21:24
[2019-02-23] MEDS ORDERED: ATORVASTATIN 40 MG TAB PO SCH (21:00)
[2019-02-23] MEDS: LEVOTHYROXINE 100 MCG TAB PO SCH (21:08)
[2019-02-23] MEDS: MULTIVITAMINS, THERA 1 EACH TAB PO SCH (21:08)
[2019-02-24] MEDS: NITROGLYCERIN OINT 1 INCH/GM PACKET TOPICAL SCH ×3 (02:35→16:06)
[2019-02-24] MEDS: HEPARIN SOD,PORK IN 0.45% NACL 25,000 UNIT in 0.45% NACL 1 250ML.BAG IV SCH (02:40)
[2019-02-24] MEDS: SODIUM CHLORIDE 0.9% 1,000 ML IV SCH (02:43)
[2019-02-24] MEDS ORDERED: ATORVASTATIN 80 MG TAB PO ONE (05:00)
[2019-02-24 05:59] LABS: Glucose,Whole Blood 108 mg/dL (75-99)
[2019-02-24 06:54] LABS: Basophils # (A) 0.1 k/uL (0-0.2); Basophils % (A) 1 %; Eosinophils # (A) 0.3 k/uL (0-0.7); Eosinophils % (A) 2 %; HCT 42.4 % (34.0-46.0); Lymphocytes # (A) 2.8 k/uL (1.0-4.8); Lymphocytes % (A) 20 %; MCH 30.5 pg (25.0-35.0); MCHC 33.1 g/dL (31.0-37.0); MCV 92.3 fL (80.0-100.0); Mean Platelet Volume 5.9; Monocytes # (A) 0.6 k/uL (0-1.0); Monocytes % (A) 5 %; Neutrophils # (A) 9.8 k/uL (1.3-7.7); Neutrophils % (A) 71 %; Platelet Count 327 k/uL (150-450); RDW 13.7 % (11.5-15.5); WBC 13.7 k/uL (3.8-10.6)
[2019-02-24 07:08] LABS: Potassium 3.3 mmol/L (3.5-5.1)
[2019-02-24] MEDS: IPRATROPIUM-ALBUTEROL 3 ML NEB INHALATION SCH ×3 (07:26→19:34)
--- NOTE | 2019-02-24 08:06 | P.PN ---
Subjective This is a pleasant 73 years old female with past medical history of CVA/TIA, osteoarthritis, hypothyroidism. Patient presents because of chest pain of 7 days duration. Her pain is on and off. Mainly central radiating to the back, Jaw and ears. Felled like heaviness with no precipitating or aggravating factors. It was 5/10 in severity when she came in. Associated with dyspnea and some dry cough mainly at night. However patient denies fever or chills. No change in urine or bowel habits or rash. No documented fever. She follow up with crew director Dr. Hernandez about 2 months ago for extra beat and possible vertigo and she had a monitor at that time. She supposed to follow up with her crew director today however she is being admitted to the hospital this time. She is currently smoking close to 1 pack per day, no alcohol or illicit tracts Vitals are stable. leukocytosis of 15.7 k, d-dimer is elevated at 0.6 while she has negative ctpa for pulmonary embolism, however it showing course ground glass appearance with interstitial infiltrate in the posterior lung jennings, with multiple bronchial lymph nodes measuring up to 12 mm. however on chest x-ray there was no acute process bmp and liver enzymes are unremarkable and not elevated, troponin is elevated at 0.3 and 0.5, nitro probnp is 2770. ekg showing normal sinus rhythm at [address]-t changes. On admission patient was started on aspirin, normal saline at 50 mL per hour with 40 mg of IV Lasix every 8 hours. Also she was started on heparin drip 02/24/2019 Patient is lying flat in bed, she denies chest pain or dyspnea. She is fully awake and oriented. She has mild this with crepitation but no leg edema. Currently on Lasix 40 mg every 8 hours, we will order to increase 12 hours. Patient is going for cardiac cath today. Pulmonary evaluated the patient and found her lesions on the CAT scan of the chest is nonspecific. Precalcitonin is within normal limits. Patient remains on heparin drip and sinus as needed. Patient is on aspirin. She is hemodynamically stable. Her WBC is coming down spontaneously mostly to 13.7 K. Mildly low potassium is been replaced. Review of systems CONSTITUTIONAL: No fever, no malaise, no fatigue. HEENT: No recent visual problems or hearing problems. Denied any sore throat. CARDIOVASCULAR: No orthopnea, PND, no palpitations, no syncope. PULMONARY: No shortness of breath, no cough, no hemoptysis. GASTROINTESTINAL: No diarrhea, no nausea, no vomiting, no abdominal pain. Normoactive bowel sounds. NEUROLOGICAL: No headaches, no weakness, no numbness. HEMATOLOGICAL: Denies any bleeding or petechiae. GENITOURINARY: Denies any burning micturition, frequency, or urgency. MUSCULOSKELETAL/RHEUMATOLOGICAL: Denies any joint pain, swelling, or any muscle pain. ENDOCRINE: Denies any polyuria or polydipsia. Active Medications Generic Name Dose Route Start Last Admin Trade Name Freq PRN Reason Stop Dose Admin Albuterol/Ipratropium 3 ml 02/23/19 08:00 02/24/19 07:26 Duoneb 0.5 Mg-3 Mg/3 Ml Soln INHALATION 3 ml RT-TID CEDRICK Administration Albuterol/Ipratropium 3 ml 02/23/19 00:29 Duoneb 0.5 Mg-3 Mg/3 Ml Soln INHALATION RT-Q2H PRN Shortness Of Breath Or Wheezing Alprazolam 1 mg 02/23/19 09:00 02/23/19 20:49 Xanax PO Not Given BID CEDRICK Alprazolam 0.25 mg 02/23/19 12:52 Xanax PO Q6HR PRN Mild Anxiety Alprazolam 0.5 mg 02/23/19 12:52 Xanax PO Q6HR PRN Moderate Anxiety Aspirin 325 mg 02/23/19 09:00 02/23/19 10:34 Aspirin PO 325 mg DAILY CEDRICK Administration Atorvastatin Calcium 40 mg 02/25/19 21:00 Lipitor PO HS CEDRICK Famotidine 20 mg 02/23/19 09:00 02/23/19 21:08 Pepcid IV 20 mg Q12HR [facility] Administration Furosemide 40 mg 02/24/19 09:00 Lasix IV Q12HR [facility] Heparin Sodium (Porcine) 0 unit 02/22/19 23:29 02/23/19 18:57 Heparin IV 3,200 unit PER PROTOCOL PRN Administration Low PTT Protocol Heparin Sodium/Sodium Chloride 250 mls @ 7.729 mls/hr 02/22/19 23:30 02/24/19 02:40 25,000 unit/ Sodium Chloride IV 15 units/kg/hr .Q24H [facility] 9.662 mls/hr Administration Protocol 12 UNITS/KG/HR Sodium Chloride 1,000 mls @ 20 mls/hr 02/22/19 23:45 02/24/19 02:43 Saline 0.9% IV Not Given .Q24H [facility] Levothyroxine Sodium 100 mcg 02/23/19 21:00 02/23/19 21:08 Synthroid PO 100 mcg HS CEDRICK Administration Metoprolol Tartrate 50 mg 02/23/19 09:00 02/23/19 21:09 Lopressor PO 50 mg BID CEDRICK Administration Multivitamins 1 each 02/23/19 21:00 02/23/19 21:08 Theragran PO 1 each HS CEDRICK Administration Nicotine 1 patch 02/23/19 09:00 02/23/19 10:35 Habitrol 21mg/24hr Patch TRANSDERM 1 patch DAILY [facility] Administration Nitroglycerin 0.4 mg 02/22/19 23:37 Nitrostat SUBLINGUAL Q5M PRN Chest Pain Nitroglycerin 1 inch 02/23/19 00:00 02/24/19 04:39 Nitro-Bid Oint TOPICAL Not Given Q6HR [facility] Potassium Chloride 40 meq 02/24/19 08:15 K-Dur 20 PO 02/24/19 12:01 Q6HR [facility] Venlafaxine HCl 150 mg 02/23/19 09:00 02/23/19 21:21 Effexor Xr PO 150 mg BID CEDRICK Administration Objective - Vital Signs Vital signs: Vital Signs Temp 98.6 F 02/24/19 05:00 Pulse 64 02/24/19 07:37 Resp 18 02/24/19 05:00 BP 135/63 02/24/19 05:00 Pulse Ox 91 L 02/24/19 05:00 Intake & Output 02/23/19 02/24/19 02/24/19 18:59 06:59 18:59 Intake Total 543.115 374.719 Output Total 650 350 Balance -106.885 24.719 Weight 63.3 kg Intake: Intake, IV Titration 383.115 74.719 Amount Heparin Sod,Pork in 0.45% 143.115 74.719 NaCl 25,000 unit In 0.45 % NaCl 1 250ml.bag @ 12 UNITS/KG/HR 7.729 mls/hr IV .Q24H [facility] Rx#: [id number] Sodium Chloride 0.9% 1, 240 000 ml @ 20 mls/hr IV . Q24H [facility] Rx#:[id number] Oral 160 300 Output: Urine 650 350 Other: Voiding Method Toilet Toilet # Voids 2 1 - Exam GENERAL: The patient is alert and oriented x3, not in any acute distress. Well developed, well nourished. HEENT: Pupils are round and equally reacting to light. EOMI. No scleral icterus. No conjunctival pallor. Normocephalic, atraumatic. No pharyngeal erythema. No thyromegaly. CARDIOVASCULAR: S1 and S2 present. No murmurs, rubs, or gallops. -PULMONARY: Chest is clear to auscultation, no wheezing. Mild basal crepitation ABDOMEN: Soft, nontender, nondistended, normoactive bowel sounds. No palpable organomegaly. MUSCULOSKELETAL: No joint swelling or deformity. EXTREMITIES: No cyanosis, clubbing, or pedal edema. NEUROLOGICAL: Gross neurological examination did not reveal any focal deficits. SKIN: No rashes. no petechiae. - Labs CBC & Chem 7: 02/24/19 06:19 02/24/19 06:19 Labs: Abnormal Lab Results - Last 24 Hours (Table) 02/23/19 02/23/19 02/23/19 Range/Units 09:46 12:40 18:16 WBC (3.8-10.6) k/uL Neutrophils # (1.3-7.7) k/uL APTT 33.2 H 33.4 H (22.0-30.0) sec Potassium (3.5-5.1) mmol/L Glucose (74-99) mg/dL POC Glucose (mg/dL) (75-99) mg/dL Troponin I 0.619 H* (0.000-0.034) ng/mL 02/24/19 02/24/19 02/24/19 Range/Units 01:34 05:57 06:19 WBC 13.7 H (3.8-10.6) k/uL Neutrophils # 9.8 H (1.3-7.7) k/uL APTT 57.2 H (22.0-30.0) sec Potassium (3.5-5.1) mmol/L Glucose (74-99) mg/dL POC Glucose (mg/dL) 108 H (75-99) mg/dL Troponin I (0.000-0.034) ng/mL 02/24/19 02/24/19 Range/Units 06:19 06:19 WBC (3.8-10.6) k/uL Neutrophils # (1.3-7.7) k/uL APTT 55.7 H (22.0-30.0) sec Potassium 3.3 L (3.5-5.1) mmol/L Glucose 102 H (74-99) mg/dL POC Glucose (mg/dL) (75-99) mg/dL Troponin I (0.000-0.034) ng/mL Assessment and Plan Assessment: Elevated troponin, rule out non-STEMI Interstitial infiltrate in the posterior lung jennings suspicious for pneumonia, versus sarcoidosis Nicotine dependence Hypothyroidism Primary osteoarthritis History of TIA/CVA Plan: This is a pleasant 73 years old female who presents with elevated troponin and pulmonary infiltrates. Continue with heparin and aspirin. Follow-up serial troponins, call cardiology consult on follow-up the recommendation. Follow-up pulmonary consult recommendation. Patient is going for cardiac cath. Labs and medication were reviewed.. Continue same treatment. Continue with symptomatic treatment. Resume home medication. Monitor lytes and vitals. DVT and GI prophylaxis. Further recommendations of the clinical course of the patient DVT prophylaxis: heparin GI Prophylaxis: Pepcid PT/OT: Pending Prognosis is guarded
[2019-02-24] MEDS: NICOTINE 21MG/24HR PATCH TRANSDERM SCH (08:12)
[2019-02-24] MEDS: METOPROLOL TARTRATE 50 MG TAB PO SCH ×2 (08:12→21:01)
[2019-02-24] MEDS: ASPIRIN 325 MG TAB PO SCH (08:12)
[2019-02-24] MEDS: FAMOTIDINE 20 MG/2 ML VIAL IV SCH (08:12)
[2019-02-24] MEDS: VENLAFAXINE HCL ER 150 MG CAP PO SCH ×2 (08:12→21:01)
[2019-02-24] MEDS: POTASSIUM CHLORIDE ER 20 MEQ TAB.ER PO SCH ×2 (08:12→16:16)
[2019-02-24] MEDS: ALPRAZolam 1 MG TAB PO SCH ×2 (08:21→20:56)
[2019-02-24] MEDS: FUROSEMIDE 10 MG/ML 4 ML VIAL IV SCH (08:39)
[2019-02-24] MEDS ORDERED: FUROSEMIDE 10 MG/ML 4 ML VIAL IV SCH (09:00)
[2019-02-24] MEDS ORDERED: SODIUM CHLORIDE 0.9% 1,000 ML IV ONE (11:28)
[2019-02-24] MEDS ORDERED: fentaNYL (PF) 50 MCG/ML 2 ML AMP IV ONE (11:43)
[2019-02-24] MEDS ORDERED: LIDOCAINE 1% INJ 10MG/ML (20 ML MDV) SQ ONE (11:49)
[2019-02-24] MEDS ORDERED: VERAPAMIL SYRINGE (5 MG/10 ML) INTRAARTER ONE (11:50)
[2019-02-24] MEDS ORDERED: BIVALIRUDIN BOLUS 250 MG/50 ML IV ONE (12:00)
[2019-02-24] MEDS ORDERED: BIVALIRUDIN 250 MG in SODIUM CHLORIDE 0.9% 50 ML IV ONE (12:01)
[2019-02-24] MEDS ORDERED: CLOPIDOGREL 75 MG TAB PO ONE (12:03)
[2019-02-24] MEDS ORDERED: NITROGLYCERIN 1000MCG/10ML SYRINGE INTRACORON ONE (12:09)
[2019-02-24] MEDS ORDERED: IOPAMIDOL-370 125ML BTL INJ ONE (12:26)
[2019-02-24] MEDS ORDERED: MAG HYDROX/AL HYDROX/SIMETH 30 ML CUP PO PRN (12:45)
[2019-02-24] MEDS ORDERED: ZOLPIDEM 5 MG TAB PO PRN (12:45)
[2019-02-24] MEDS ORDERED: SODIUM CHLORIDE 0.9% 1,000 ML IV SCH (12:45)
[2019-02-24] MEDS ORDERED: NITROGLYCERIN SL TABS 0.4 MG TAB SUBLINGUAL PRN (12:45)
[2019-02-24] MEDS ORDERED: RX INFO: IV CONTRAST WAS GIVEN 1 EACH MISC MISCELLANE PRN (12:45)
[2019-02-24] MEDS ORDERED: ATROPINE SULFATE 0.1 MG/ML 10ML SYRINGE IV PRN (12:45)
[2019-02-24 13:10] VITALS: BMI 27.2
[2019-02-24] MEDS ORDERED: ONDANSETRON 4 MG/2 ML VIAL IVP PRN (13:12)
--- NOTE | 2019-02-24 15:19 | P.PN ---
Subjective Progress Note Date: 02/24/19 Principal diagnosis: Acute non-ST elevation myocardial infarction 73-year-old white female patient with history of valvular heart disease and family history of heart disease, COPD, chronic smoker, previous history of CVA/TIA, hypothyroidism, anxiety, presented to the hospital on 02/22/2019 with complaints of intermittent midsternal chest pain with radiation to her shoulders to her back into her jaw for the past week, lasting from 30 seconds up to half an hour. These episodes were accompanied by shortness of breath, but no fever, no sweats, no diaphoresis, no nausea no vomiting. She denies any cough or congestion, no phlegm production, no wheezing. Her family reports some mild lower extremity swelling. Currently patient follows with Dr. Hernandez, and last week she was supposed to have a Holter monitor for palpitations, and frequent PVCs. Patient had previously had a transesophageal echocardiogram in February 2016 revealing normal left ventricular size and systolic function, ijab-ja-uhsazlaj mitral with mild aortic and moderate tricuspid regurgitation and moderate pulmonary hypertension. There was mild atherosclerotic changes of the descending thoracic aorta, and no evidence of shunting across the interstitial septum. EKG showed normal sinus rhythm with T-wave inversion in leads 2,3 and aVF with consideration of inferior ischemia. Subsequent EKG showed sinus rhythm with premature ventricular complexes, and T-wave inversion in inferior and lateral leads. Echocardiogram has been completed showing borderline concentric left ventricular hypertrophy, mildly impaired left surgical systolic function with an EF of 45-50%, hypokinetic basal posterior LV wall, inferior LV wall and inferior septal LV wall. Mild aortic sclerosis, moderate aortic regurgitation, mild mitral annular calcification and moderate mitral regurgitation, moderate tricuspid regurgitation and severe pulmonary hypertension with PA systolic of 59.6 mmHg. Lab work revealed one vessel, 15.1, d-dimer was 0.64, electrolytes and renal profile were unremarkable, troponins were 0.312, 0.502, and 0.619, proBNP was elevated at 2770, influenza screen was negative. Chest x-ray showed no active cardiopulmonary disease, CT angios chest showed no evidence of pulmonary embolism, but mild mediastinal and bronchial adenopathy, coarse interstitial pulmonary density in the posterior lung jennings, no pleural effusion, pleural thickening and atelectasis at the right posterior lung base. Patient has been afebrile, she currently denies any chest pain, she has been given IV diuretics, 40 mg every 8 hours, maintain negative fluid balance. Cardiology evaluation is underway and patient has been scheduled for cardiac catheterization for 02/24/[address] Hernandez Patient was reevaluated today on 02/24/2019, underwent cardiac catheterization today, and PTCA/stenting 2. Final official report is pending. Patient is doing well, asymptomatic, denies any cough no wheezing no shortness of breath and no chest pain. Objective - Vital Signs Vital signs: Vital Signs Temp 98.5 F 02/24/19 08:00 Pulse 65 02/24/19 14:00 Resp 18 02/24/19 14:00 BP 144/81 02/24/19 14:00 Pulse Ox 96 02/24/19 14:00 Intake & Output 02/23/19 02/24/19 02/24/19 18:59 06:59 18:59 Intake Total 543.115 374.719 132 Output Total 650 350 300 Balance -106.885 24.719 -168 Weight 63.3 kg 63.3 kg Intake: IV 132 Intake, IV Titration 383.115 74.719 Amount Heparin Sod,Pork in 0.45% 143.115 74.719 NaCl 25,000 unit In 0.45 % NaCl 1 250ml.bag @ 12 UNITS/KG/HR 7.729 mls/hr IV .Q24H [facility] Rx#: [id number] Sodium Chloride 0.9% 1, 240 000 ml @ 20 mls/hr IV . Q24H [facility] Rx#:[id number] Oral 160 300 Output: Urine 650 350 300 Other: Voiding Method Toilet Toilet Toilet # Voids 2 1 - Exam Physical Exam: Revealed 73-year-old female in no distress Head: Atraumatic normocephalic. HEENT:[Neck is supple.] [No neck masses.] [No thyromegaly.] [No JVD.] Chest: [Clear throughout, no crackles, no rhonchi, no wheezes.] Cardiac Exam: [Normal S1 and S2, no S3 gallop, no murmur.] Abdomen: [Soft, nontender, no megaly, no rebound, no guarding, normal bowel sounds.] Extremities: [No clubbing, no edema, no cyanosis.] Neurological Exam: [No focal neurologic deficit.] skin: No rashes. Psychiatric: Normal mood affect and normal mental status examination - Labs CBC & Chem 7: 02/24/19 06:19 02/24/19 06:19 Labs: Abnormal Lab Results - Last 24 Hours (Table) 02/23/19 02/24/19 02/24/19 Range/Units 18:16 01:34 05:57 WBC (3.8-10.6) k/uL Neutrophils # (1.3-7.7) k/uL APTT 33.4 H 57.2 H (22.0-30.0) sec Potassium (3.5-5.1) mmol/L Glucose (74-99) mg/dL POC Glucose (mg/dL) 108 H (75-99) mg/dL 02/24/19 02/24/19 02/24/19 Range/Units 06:19 06:19 06:19 WBC 13.7 H (3.8-10.6) k/uL Neutrophils # 9.8 H (1.3-7.7) k/uL APTT 55.7 H (22.0-30.0) sec Potassium 3.3 L (3.5-5.1) mmol/L Glucose 102 H (74-99) mg/dL POC Glucose (mg/dL) (75-99) mg/dL Microbiology - Last 24 Hours (Table) 02/23/19 09:46 Blood Culture - Preliminary Blood No Growth after 24 hours Assessment and Plan Assessment: #1. Chest pain and shortness of breath likely related to acute exacerbation of CHF with mildly impaired left ventricular systolic function and EF of 45-50% #2. acute non-ST elevated DC, status post cardiac catheterization and stents placement 2. #3. nonspecific findings on the CT of the chest, no clinical significance, could be evaluated on outpatient basis. #4. History of COPD the severity of which is unknown at this time, will need outpatient follow-up upon discharge for evaluation of her COPD. #5. Chronic smoker #6. Valvular heart disease moderate aortic regurgitation, mild aortic valve sclerosis, moderate mitral regurgitation, mild mitral annular calcification, moderate tricuspid regurgitation, severe pulmonary hypertension with PA pressure of 59 mmHg #7. History of CVA/TIA #8. Osteoarthritis #9. Hypothyroidism #10. Anxiety Recommendation: Continue present treatment plan as per cardiology, we will sign off for now, patient could see us on outpatient basis post discharge. We'll see on when necessary basis. Time with Patient: Less than 30
--- NOTE | 2019-02-24 16:41 | CC ---
CARDIAC CATHETERIZATION REPORT Mrs. Castle is a 73-year-old female with known history of hypertension who presented with symptoms of chest discomfort and mild troponin elevation. In view of that, recommendation was made regarding cardiac catheterization. The procedure, its risks and complications were discussed with the patient, who was in full understanding and agreement. PROCEDURE: Patient was brought to the irrigation laborer in a fasting, semi-sedated state after receiving fentanyl and Benadryl and achieving moderate conscious sedated state. Using Xylocaine anesthesia and Seldinger technique, a 6-Tongan sheath was introduced in the right radial artery. Selective right and left coronary angiography was performed using 5- Tongan 3-1/2 bend right and left Radha catheters. Multiple views were taken of the coronary arteries, including hemiaxial views. Following that, angioplasty and stenting was performed. Following that, a 5-Tongan tight pigtail catheter was introduced in the left ventricle and pressures were calculated. Following that, catheter and sheaths were removed. Hemostasis was obtained with deployment of a TR band. There was no immediate complication. Patient was returned to her room in stable condition. Of note, the patient received intra-arterial verapamil. FINDINGS: FLUOROSCOPY: There was calcification involving the right coronary artery as well as the left anterior descending artery. LEFT MAIN: This is a short-sized vessel bifurcating into left circumflex and left anterior descending artery. Left main coronary artery has no evidence of high-grade stenosis. LEFT ANTERIOR DESCENDING ARTERY: This is a large-sized vessel reaching toward the apex with a wrap around apex segment giving rise to 2 diagonal branches. The left anterior descending artery proximally has 20% plaque. At the takeoff of the second diagonal branch there is another 30% plaque. There is a plaque of 60% to 70% involving the ostium of the diagonal branch. The rest of the vessel has no high-grade stenosis. LEFT CIRCUMFLEX: This is a nondominant vessel giving rise to one obtuse marginal branch. The obtuse marginal branch has a plaque of 30% to 40% proximally. The rest of the vessel has no high-grade stenosis. RIGHT CORONARY ARTERY: This is a large dominant vessel bifurcating distally into PDA and posterolateral segment and branches, calcified in the mid segment. It has long diffuse disease in the mid segment with stenosis up to 99%. The rest of the vessel has no high-grade stenosis. LEFT VENTRICULOGRAM: Left ventriculogram was not performed. HEMODYNAMICS: There was no gradient across the aortic valve. The left ventricular end- diastolic pressure was 12 mmHg. CONCLUSION: 1. Calcified coronary arteries. 2. Critical stenosis in a long segment of the proximal mid right coronary artery. 3. Mild to moderate disease involving the LAD and the left circumflex. RECOMMENDATIONS: In view of findings and anatomy, I have recommended proceeding with angioplasty and stenting. The procedure, its risks and complications were discussed with the patient, who is in full understanding and agreement. MMODL / IJN: [id number] /
--- NOTE | 2019-02-24 16:50 | PTCA ---
PERCUTANEOUSTRANS CORORONARY ANGIOGRAPHY Mrs. Castle is a 73-year-old female who presented with symptoms of chest discomfort and troponin elevation consistent with non-STEMI, underwent cardiac catheterization, was found to have a long segment of significant disease involving the proximal and mid right coronary artery. In view of that, recommendation was made regarding angioplasty and stenting. The procedure as well as risks and complications were discussed with the patient, who was in full understanding and agreement. PROCEDURE: A 6-Dominican 3.5 FR guiding catheter was introduced in the system. After cannulating the right coronary ostium, a 0.014 balanced medium weight J-wire was advanced across the lesion, positioned distally. Then a 2.5 x 12 mm Trek balloon was advanced and multiple inflations to a maximum of 10 atmospheres were done. Following that the balloon was removed and a 3.5 x 28 mm Xience Henrietta stent was advanced, deployed and post-dilated at 16 atmospheres. Following that, the balloon was removed and a 4.0 x 12 mm Xience Henrietta stent was deployed proximal to the first one and post-dilated at 16 atmospheres. Following that, the 4.0 balloon was advanced and multiple inflations in the first stent were done at a maximum of 14 atmospheres. Following that, the balloon was withdrawn and an IVUS catheter was introduced and ultrasound images were obtained. Following that, catheter and wire were removed. Images were obtained and repeated. Those images revealed stable successful stenting. At that point, left ventricular end-diastolic pressure was calculated. Following that, the sheath was removed and hemostasis was obtained with deployment of a TR band. There was no immediate complication. Patient was returned to her room in stable condition. Of note, the patient received Angiomax per protocol as well as oral loading dose of Plavix. She had EKG changes with the inflations that resolved at the end of the procedure but no chest discomfort. RESULTS: Successful stenting of a long segment of the right coronary artery involving the proximal and mid with reduction of stenosis from 99% to 0% with good position of the stent by intravascular ultrasound. RECOMMENDATIONS: Patient will be continued on aspirin, Plavix, beta shawanda, LATONIA inhibitor and statin. The importance of dual antiplatelet treatment was discussed with the patient and her family, and they are in full understanding and agreement. Duration of procedure was 46 minutes. MMODL / IJN: [id number] /
--- NOTE | 2019-02-24 16:56 | LTR ---
To: Dr. Mike Re: Stephanie Castle (49) Dear Dr. Mike: I had the pleasure of performing cardiac catheterization and coronary angioplasty and stenting on Mrs. Castle at [facility] on February 24. A full copy of the procedure note will be forwarded to you. In brief, she was found to have significant obstructive disease involving the mid right coronary artery, underwent successful stenting of that vessel using two drug-eluting stents. I am hopeful that this procedure will stabilize her status. Thank you again for allowing me to participate in her cough. Please feel free to call with any questions. Sincerely yours, Katherin Hernandez M.D. ANGELES / FAMILIA: [id number] /
[2019-02-24] MEDS ORDERED: ATORVASTATIN 80 MG TAB PO SCH (21:00)
[2019-02-24] MEDS: FAMOTIDINE 20 MG TAB PO SCH (21:00)
[2019-02-24] MEDS: MULTIVITAMINS, THERA 1 EACH TAB PO SCH (21:01)
[2019-02-24] MEDS: LEVOTHYROXINE 100 MCG TAB PO SCH (21:01)
[2019-02-25] MEDS ORDERED: HYDROcodone/APAP 5-325MG 1 EACH TAB PO PRN (01:25)
[2019-02-25 07:29] LABS: African American GFR (CKD) >90 (>60 ml/min/1.73 sqM); Anion Gap 5 mmol/L; Blood Urea Nitrogen 16 mg/dL (7-17); Calcium 9.4 mg/dL (8.4-10.2); Carbon Dioxide 28 mmol/L (22-30); Chloride 108 mmol/L (98-107); Glucose 110 mg/dL (74-99); Potassium 4.7 mmol/L (3.5-5.1); Sodium 141 mmol/L (137-145)
[2019-02-25] MEDS: METOPROLOL TARTRATE 50 MG TAB PO SCH (08:31)
[2019-02-25] MEDS: NICOTINE 21MG/24HR PATCH TRANSDERM SCH (08:31)
[2019-02-25] MEDS: VENLAFAXINE HCL ER 150 MG CAP PO SCH (08:31)
[2019-02-25] MEDS: FAMOTIDINE 20 MG TAB PO SCH (08:31)
[2019-02-25] MEDS: ALPRAZolam 1 MG TAB PO SCH (08:37)
[2019-02-25] MEDS ORDERED: ASPIRIN 81 MG PO SCH (09:00)
[2019-02-25 09:06] VITALS: TEMP 98.1
[2019-02-25] MEDS: IPRATROPIUM-ALBUTEROL 3 ML NEB INHALATION SCH ×2 (09:45→12:57)
[2019-02-25] MEDS ORDERED: LISINOPRIL 2.5 MG TAB PO SCH (10:45)
[2019-02-25 10:46] LABS: HCT 40.3 % (34.0-46.0); HGB 13.1 gm/dL (11.4-16.0); MCH 30.9 pg (25.0-35.0); MCHC 32.5 g/dL (31.0-37.0); MCV 95.1 fL (80.0-100.0); Mean Platelet Volume 6.5; Platelet Count 301 k/uL (150-450); RBC 4.23 m/uL (3.80-5.40); RDW 13.7 % (11.5-15.5); WBC 15.2 k/uL (3.8-10.6)
[2019-02-25 11:47] VITALS: BP 130/58; RESP 20
[2019-02-25] MEDS ORDERED: CLOPIDOGREL 75 MG TAB PO SCH (12:00)
--- NOTE | 2019-02-25 12:19 | P.PN ---
Subjective Progress Note Date: 02/25/19 This is a 73-year-old female who presented to the hospital with non-Q-wave myocardial infarction, she was taken to the cardiac catheterization lab where she underwent angioplasty and stenting of a calcified right coronary artery. She was seen and examined this morning, denied any chest pain or d ifficulty in breathing. Hemodynamically stable. Blood pressure 130/58 with a heart rate in the 70s, 92% on 2 L of oxygen. Sodium 141, potassium 4.7, BUN 16 and creatinine 0.6, magnesium 2.0. Objective - Vital Signs Vital signs: Vital Signs Temp 98.1 F 02/25/19 08:00 Pulse 70 02/25/19 11:46 Resp 20 02/25/19 11:46 BP 130/58 02/25/19 11:46 Pulse Ox 92 L 02/25/19 11:46 Intake & Output 02/24/19 02/25/19 02/25/19 18:59 06:59 18:59 Intake Total 432 780 222 Output Total 300 300 Balance 132 480 222 Weight 63.3 kg 64.7 kg Intake: IV 132 Intake, IV Titration 300 Amount Sodium Chloride 0.9% 1, 300 000 ml @ 100 mls/hr IV . Q10H [facility] Rx#:[id number] Oral 780 222 Output: Urine 300 300 Other: Voiding Method Toilet Toilet # Voids 2 1 - Exam Patient seen and examined resting in bed, in no acute distress Lungs are diminished at the bases with few scattered crackles Heart is regular, normal S1-S2, no audible murmurs Slightly elevated JVD noted No lower extremity edema Abdomen soft, nontender Right radial site clean and dry, good distal pulse. - Labs CBC & Chem 7: 02/25/19 06:00 02/25/19 06:25 Labs: Abnormal Lab Results - Last 24 Hours (Table) 02/25/19 02/25/19 Range/Units 06:00 06:25 WBC 15.2 H (3.8-10.6) k/uL Chloride 108 H (98-107) mmol/L Glucose 110 H (74-99) mg/dL Microbiology - Last 24 Hours (Table) 02/23/19 09:46 Blood Culture - Preliminary Blood No Growth after 24 hours Assessment and Plan Plan: Assessment and plan #1 non-Q-wave myocardial infarction status post angioplasty and stenting of the right coronary artery #2 nicotine dependence #3 history of TIA #4 hypertension #5 hyperlipidemia Plan Patient may be discharged home today. We'll make a follow-up appointment with Dr. Hernandez in the office post discharge. Patient has been instructed strongly regarding the importance of nicotine cessation. DNP note has been reviewed, I agree with a documented findings and plan of care. Patient was seen and examined.
[2019-02-25 13:00] VITALS: PULSE 72
--- NOTE | 2019-02-25 15:47 | P.DS ---
Providers Date of admission: 02/22/19 23:40 Attending physician: Jeaneth Barrera MD Consults: 02/23/19 07:53 Consult Physician Urgent Consulting Provider: Jesus Bustamante Consult Reason/Comments: pulmonary infilterate Do you want consulting provider notified?: Yes 02/23/19 09:02 Consult Physician Stat Consulting Provider: Shree Truong Consult Reason/Comments: CHF Do you want consulting provider notified?: Yes 02/24/19 12:45 Consult Physician Routine Consulting Provider: [facility] Consult Reason/Comments: Post Interventional patient Do you want consulting provider notified?: Already Contacted Primary care physician: Neville Yanez [facility] Hospital Course: Diagnoses: non-STEMI, status post cardiac cath Acute on chronic systolic CHF with ejection fraction 45-50% and Interstitial infiltrate in the posterior lung jennings on CAT scan of the chest Leukocytosis, mostly reactive to her cardiac lesion Nicotine dependence Hypothyroidism Primary osteoarthritis History of TIA/CVA Hospital course: This is a pleasant 73 years old female with past medical history of CVA/TIA, osteoarthritis, hypothyroidism. Patient presents because of chest pain of 7 days duration. Her pain is on and off. Mainly central radiating to the back, Jaw and ears. troponin is elevated at 0.3 and 0.5,patient underwent cardiac cath with 2 stents placements in the right coronary artery. Patient was started on dual antiplatelet therapy. Post the procedure patient feels better with no chest pain or dyspnea. On admission d-dimer is elevated at 0.6 while she has negative ctpa for pulmonary embolism, however it showing course ground glass appearance with interstitial infiltrate in the posterior lung jennings, with multiple bronchial lymph nodes measuring up to 12 mm. steam flattener evaluated and he recommended to continue with the current therapy per salesperson hearing aids on the day of discharge patient denies chest pain or dyspnea. No change in urine or bowel habits. No fever. patient also will need home oxygen upon discharge patient was cleared for discharge by cardiology and pulmonary team Problems and management plan were discussed with the patient and he verbalized understanding and acceptance Patient was found stable and can be discharged home however he needs follow-up as an outpatient. Patient was instructed to follow up with PCP and salesperson hearing aids within one week and patient agrees. pt agrees with appointment made for her with her pcp Dr.Adams fuentes ,although she sees one of his PA/BOTTOM TURNER , i called him and discussed the case with him including but not limited to rechecking wbc as it is still elevated and he kindly took note of this Gen: patient is a AAOx3, no distress CVS: S1-S2, RRR, no murmur Lungs: B/L CTA, no wheezing Abdomen: soft, no distention, no tenderness, positive bowel sounds Extremity: no leg edema or induration Time spent more than 35 minutes Patient Condition at Discharge: Fair Plan - Discharge Summary Discharge Rx Participant: Yes New Discharge Prescriptions: New Nicotine 21Mg/24Hr Patch [Habitrol] 1 patch TRANSDERM DAILY #30 patch Atorvastatin [Lipitor] 80 mg PO HS #30 tab Nitroglycerin Sl Tabs [Nitrostat] 0.4 mg SUBLINGUAL Q5M PRN #25 tab PRN Reason: Chest Pain Clopidogrel [Plavix] 75 mg PO DAILY #30 tab Lisinopril [Zestril] 2.5 mg PO DAILY #30 tab Continue Aspirin 81 mg PO HS Levothyroxine Sodium [Synthroid] 100 mcg PO HS Venlafaxine HCl ER [Effexor XR] 150 mg PO BID Multivit-Min/FA/Lycopen/Lutein [Centrum Silver Tablet] 1 tab PO HS Metoprolol Tartrate [Lopressor] 50 mg PO BID Discontinued ALPRAZolam [Xanax] 1 mg PO BID Discharge Medication List Aspirin 81 mg PO HS 09/16/13 [History] Levothyroxine Sodium [Synthroid] 100 mcg PO HS 11/10/15 [History] Multivit-Min/FA/Lycopen/Lutein [Centrum Silver Tablet] 1 tab PO HS 11/10/15 [History] Venlafaxine HCl ER [Effexor XR] 150 mg PO BID 11/10/15 [History] Metoprolol Tartrate [Lopressor] 50 mg PO BID 02/22/19 [History] Atorvastatin [Lipitor] 80 mg PO HS #30 tab 02/25/19 [Rx] Clopidogrel [Plavix] 75 mg PO DAILY #30 tab 02/25/19 [Rx] Lisinopril [Zestril] 2.5 mg PO DAILY #30 tab 02/25/19 [Rx] Nicotine 21Mg/24Hr Patch [Habitrol] 1 patch TRANSDERM DAILY #30 patch 02/25/19 [Rx] Nitroglycerin Sl Tabs [Nitrostat] 0.4 mg SUBLINGUAL Q5M PRN #25 tab 02/25/19 [Rx] Follow up Appointment(s)/Referral(s): Katherin Hernandez MD [STAFF PHYSICIAN] - 1 Week (Office to call with follow up appointment. ) Huseyin Finn MD [REFERRING] - 03/02/19 10:00 am (Saturday Dr. Mike is unavailable ) Patient Instructions/Handouts: *Surgery [facility] - After Heart Catheterization - Diamond Blender Instructions, Left Heart Catheterization (DC), Using Oxygen at Home (DC) Activity/Diet/Wound Care/Special Instructions: Patient requires home oxygen at discharged secondary to hypoxia from dx: copd
[2019-02-25] MEDS ORDERED: ATORVASTATIN 40 MG TAB PO SCH (21:00)
== END 2019-02-25 17:24 | disposition home or self-care (01) | DRG 246 ==
LOC: EC 20:43 → 3SCARD 23:40
PROVIDERS: ADMIT Internal Medicine; ATTEND Internal Medicine
PROC: 027035Z Dilation of Coronary Artery, One Artery with Two Drug-eluting Intraluminal Devices, Percutaneous Approach (ICD-10-PCS; principal; 2019-02-24 09:00)
PROC: 4A023N7 Measurement of Cardiac Sampling and Pressure, Left Heart, Percutaneous Approach (ICD-10-PCS; 2019-02-24 09:00)
PROC: B2111ZZ Fluoroscopy of Multiple Coronary Arteries using Low Osmolar Contrast (ICD-10-PCS; 2019-02-24 09:00)
DX: I21.4 Non-ST elevation (NSTEMI) myocardial infarction (principal); I50.23 Acute on chronic systolic (congestive) heart failure; D72.829 Elevated white blood cell count, unspecified; E78.5 Hyperlipidemia, unspecified; E89.0 Postprocedural hypothyroidism; F17.210 Nicotine dependence, cigarettes, uncomplicated; F41.9 Anxiety disorder, unspecified; I08.3 Combined rheumatic disorders of mitral, aortic and tricuspid valves; I11.0 Hypertensive heart disease with heart failure; I27.20 Pulmonary hypertension, unspecified; I49.3 Ventricular premature depolarization; I70.0 Atherosclerosis of aorta; J44.9 Chronic obstructive pulmonary disease, unspecified; M19.91 Primary osteoarthritis, unspecified site; Z79.82 Long term (current) use of aspirin; Z79.890 Hormone replacement therapy; Z79.899 Other long term (current) drug therapy; Z82.49 Family history of ischemic heart disease and other diseases of the circulatory system; Z86.73 Personal history of transient ischemic attack (TIA), and cerebral infarction without residual deficits; Z90.710 Acquired absence of both cervix and uterus; Z85.828 Personal history of other malignant neoplasm of skin; R91.8 Other nonspecific abnormal finding of lung field; Z90.49 Acquired absence of other specified parts of digestive tract; Z90.11 Acquired absence of right breast and nipple; Z83.2 Family history of diseases of the blood and blood-forming organs and certain disorders involving the immune mechanism; Z80.9 Family history of malignant neoplasm, unspecified; R79.1 Abnormal coagulation profile
CPT/HCPCS: 36415; 71046; 71275; 80048; 80053; 80061; 82550; 83690; 83735; 83880; 84145; 84484; 85025; 85027; 85347; 85379; 85610; 85730; 87040; 87502; 92978; 93005; 93306; 93458; 94640; 96365; 96366; 96375; 96376; 99291; C1874

== ENCOUNTER → 2019-03-18 | Outpatient (CLI) | payer MEDICARE ==
--- NOTE | 2019-03-19 07:20 | US ---
EXAMINATION TYPE: US pelvis complete transvag DATE OF EXAM: 03/18/2019 COMPARISON: NONE CLINICAL HISTORY: R10.32 left lower quad pain. Pain LLQ. Partial hysterectomy 35 years ago due to fib roids. TECHNIQUE: Transvaginal (TV) and Transabdominal (TA) . Transabdominal sonographic images of the pel vis were acquired. Transvaginal sonographic images were medically necessary to better assess the fol lowing anatomy: Ovaries. EXAM MEASUREMENTS: Uterus: Surgically absent cm Endometrial Stripe: Surgically absent cm 1. Uterus: Surgically absent 2. Endometrium: Surgically absent 3. Right Ovary: Obscured by overlying bowel gas 4. Left Ovary: Obscured by overlying bowel gas 5. Bilateral Adnexa: wnl 6. Posterior cul-de-sac: wnl IMPRESSION: Postoperative pelvis. No distinct abnormality seen.
== END ==
LOC: RADUSWWP 16:11
PROVIDERS: ATTEND Family Medicine
DX: R10.32 Left lower quadrant pain (principal); Z98.890 Other specified postprocedural states
CPT/HCPCS: 76830; 76856

== ENCOUNTER → 2019-03-25 | Outpatient (CLI) | payer MEDICARE ==
[2019-03-25 14:36] LABS: African American GFR (CKD) >90 (>60 ml/min/1.73 sqM); Blood Urea Nitrogen 17 mg/dL (7-17); Non-African American GFR(CKD) 83 (>60 ml/min/1.73 sqM)
--- NOTE | 2019-03-25 15:28 | CT ---
EXAMINATION TYPE: CT abdomen pelvis w con DATE OF EXAM: 03/25/2019 HISTORY: Left lower quadrant pain on and off x 1 month. Patient states when she has a bowel movement, she also vomits. CT DLP: 511.6mGycm Automated Exposure Control for Dose Reduction was Utilized. CONTRAST: CT scan of the abdomen and pelvis is performed with IV Contrast, patient injected with 100 mL of Isov ue M300. COMPARISON: CT abdomen and pelvis December 20, 2016 FINDINGS: LUNG BASES: Partial visualization of right coronary stent on superior most axial images. LIVER/GB: Cholecystectomy clips are redemonstrated. PANCREAS: No significant abnormality is seen. SPLEEN: No significant abnormality is seen. ADRENALS: Persistent low density thickening to both adrenal glands favoring benign lipid rich hyperpl tori. KIDNEYS: No significant abnormality is seen. BOWEL: Oral contrast reaches level of proximal transverse colon making evaluation of distal bowel sub optimal. There is no suspicious small or large bowel dilatation. There is mild wall thickening mid tr ansverse colon through the splenic flexure into the left colon sigmoid colon and rectum continuously. UTERUS/ADNEXA: Uterus surgically absent or markedly atrophic LYMPH NODES: No greater than 1cm abdominal or pelvic lymph nodes are appreciated. OSSEOUS STRUCTURES: Extra convex scoliosis centered at L1-L2 level. Moderate multilevel disc space na rrowing and vacuum disc phenomenon along with spurring in the mid to lower thoracic spine and upper l umbar spine. OTHER: Moderate mixed plaque of the mid to distal abdominal aorta extending into iliac artery shows p rogression from 2017 study. IMPRESSION: Fairly long segment contiguous mild colonic wall thickening from rectum to mid sigmoid co esa is felt more prominent from prior CT suggestive of a mild long segment colitis. Differential incl udes infectious inflammatory and ischemic etiologies including ulcerative colitis. Correlate clinical ly.
== END ==
LOC: RADCTMAIN 13:23
PROVIDERS: ATTEND Physician Assistant Medical
DX: K63.89 Other specified diseases of intestine (principal)
CPT/HCPCS: 82565; 84520; 74177; 36415; Q9967 ×2

== ENCOUNTER → 2019-05-19 | Outpatient (CLI) | payer MEDICARE ==
[~2019-05-19] MED LIST: HEPARIN SODIUM 1,000 UN/ML (10ML VL) ONE; LIDOCAINE 1% INJ 10MG/ML (20 ML MDV) ONE; VERAPAMIL 2.5 MG/ML 2 ML AMP ONE; fentaNYL (PF) 50 MCG/ML 2 ML AMP ONE
[2019-05-19 13:14] LABS: HCT 43.1 % (34.0-46.0); MCH 30.2 pg (25.0-35.0); MCHC 32.4 g/dL (31.0-37.0); MCV 93.4 fL (80.0-100.0); Mean Platelet Volume 7.1; Platelet Count 332 k/uL (150-450); RBC 4.62 m/uL (3.80-5.40)
[2019-05-19 13:16] LABS: African American GFR (CKD) >90 (>60 ml/min/1.73 sqM); Anion Gap 6 mmol/L; Blood Urea Nitrogen 14 mg/dL (7-17); Carbon Dioxide 29 mmol/L (22-30); Chloride 107 mmol/L (98-107); Non-African American GFR(CKD) 87 (>60 ml/min/1.73 sqM); Potassium 4.3 mmol/L (3.5-5.1); Sodium 142 mmol/L (137-145)
== END | disposition home or self-care (01) ==
LOC: LABPAT 12:12
PROVIDERS: ATTEND Internal Medicine Interventional Cardiology
DX: Z01.812 Encounter for preprocedural laboratory examination (principal); R07.9 Chest pain, unspecified
CPT/HCPCS: 36415; 80051; 82565; 84520; 85027

== ENCOUNTER 2019-05-20 10:50 | Day surgery (SDC) | payer MEDICARE ==
[2019-05-19 14:10] VITALS: BMI 27.3
[~2019-05-20 10:50] MED LIST changes: +ALPRAZolam 0.25 MG TAB PO PRN; +ALPRAZolam 0.5 MG TAB PO PRN; +ASPIRIN 325 MG TAB PO STA; +ATORVASTATIN 80 MG TAB PO STA; -HEPARIN SODIUM 1,000 UN/ML (10ML VL) ONE; -LIDOCAINE 1% INJ 10MG/ML (20 ML MDV) ONE; +NITROGLYCERIN SL TABS 0.4 MG TAB SUBLINGUAL PRN; +SODIUM CHLORIDE 0.9% 1,000 ML in EMPTY BAG 1 BAG IV ONE; -VERAPAMIL 2.5 MG/ML 2 ML AMP ONE; -fentaNYL (PF) 50 MCG/ML 2 ML AMP ONE
[2019-05-20] MEDS ORDERED: SODIUM CHLORIDE 0.9% 1,000 ML IV ONE (11:34)
[2019-05-20] MEDS ORDERED: fentaNYL (PF) 50 MCG/ML 2 ML AMP IVP ONE (12:57)
[2019-05-20] MEDS ORDERED: LIDOCAINE 1% INJ 10MG/ML (20 ML MDV) SQ ONE (13:00)
[2019-05-20] MEDS ORDERED: VERAPAMIL SYRINGE (5 MG/10 ML) INTRAARTER ONE (13:07)
[2019-05-20] MEDS: NITROGLYCERIN 1000MCG/10ML SYRINGE INTRACORON ONE ×2 (13:14→13:24)
[2019-05-20] MEDS: HEPARIN SODIUM 1,000 UN/ML (10ML VL) IV ONE ×2 (13:17→13:32)
[2019-05-20] MEDS ORDERED: ADENOSINE 90 MG in SODIUM CHLORIDE 0.9% 60 ML IVP ONE (13:26)
[2019-05-20] MEDS ORDERED: IOPAMIDOL-370 125ML BTL INJ ONE (13:44)
[2019-05-20] MEDS ORDERED: NITROGLYCERIN SL TABS 0.4 MG TAB SUBLINGUAL PRN (14:02)
[2019-05-20] MEDS ORDERED: ZOLPIDEM 5 MG TAB PO PRN (14:02)
[2019-05-20] MEDS ORDERED: MAG HYDROX/AL HYDROX/SIMETH 30 ML CUP PO PRN (14:02)
[2019-05-20] MEDS ORDERED: RX INFO: IV CONTRAST WAS GIVEN 1 EACH MISC MISCELLANE PRN (14:02)
[2019-05-20] MEDS ORDERED: ATROPINE SULFATE 0.1 MG/ML 10ML SYRINGE IV PRN (14:02)
[2019-05-20] MEDS ORDERED: SODIUM CHLORIDE 0.9% 1,000 ML IV SCH (14:15)
--- NOTE | 2019-05-20 14:19 | PTCA ---
PERCUTANEOUSTRANS CORORONARY ANGIOGRAPHY Mrs. Castle is a 73-year-old female with known history of coronary artery disease who presented with symptoms of chest discomfort, underwent cardiac catheterization, was found to have patent stent to the right coronary artery and borderline significant lesion in the LAD. In view of that, recommendations were made regarding instantaneous fraction flow reserve measurement and depending on that, proceed with angioplasty and stenting. Those findings and recommendation were discussed with the patient and her family who are in full understanding and agreement. PROCEDURE: A 6-Namibian FL 3.5 guiding catheter introduced into the system after cannulating the left main . A Doppler flow wire [place] was introduced, positioned distal LAD. Following that, IFR was measured at 0.82 and FFR at 0.81 after adenosine infusion per protocol. At that point, a 3.0 x 15 mm Xience Henrietta stent was advanced, deployed and post dilated at 16 atmospheres. After removing the balloon, a 2.5 x 12 mm NC Trek balloon was advanced and one inflation at 16 atmospheres was done. After the last inflation, after appropriate wait, the balloon and the guidewire were withdrawn back in the guiding catheter. Images were obtained and repeated. Those images reveal stable successful stenting. At that point, the guiding catheter, the balloon and guidewire were removed. The sheath was removed. Hemostasis was obtained with deployment of a TR band. There was no immediate complication. Patient was returned to her room in stable condition. Of note, the patient received a total of 7000 units of intravenous heparin, her ACT was monitored and she received intra-arterial verapamil. She had chest discomfort and EKG changes with the inflation, that resulted in procedure. RESULTS: Successful stenting of the proximal mid segment of the LAD with reduction of stenosis from 60%-70% percent to 0% with a predilatation positive IFR. RECOMMENDATION: Patient will be continued on aspirin, Plavix, statin and beta shawanda. The importance of dual antiplatelet treatment were discussed with the patient and her family and they are in full understanding and agreement. Duration of procedure is 53 minutes. MMODL / IJN: [id number] /
--- NOTE | 2019-05-20 14:19 | CC ---
CARDIAC CATHETERIZATION REPORT Mrs. Castle is a 73-year-old female with a known history of coronary artery disease, status post stenting of her right coronary artery in February 2019, history of hyperlipidemia, chronic tobacco use, who presented with symptoms of chest heaviness. In view of that, recommendation was made regarding cardiac catheterization. The procedures, risks, and complication were discussed with the patient who is in full understanding and agreement. PROCEDURE: Patient was brought to solar lab technician in a fasting state after receiving fentanyl and Benadryl and achieving moderate conscious sedated state. Using Xylocaine anesthesia and Seldinger technique, a 6-Micronesian sheath was introduced in the right radial artery. Selective right and left coronary angiography performed using 5-Micronesian 3.5 bend right and left Radha catheter. Multiple views of the coronary artery including hemiaxial views obtained. Following that, a 5-Micronesian right Radha was used to cross the aortic valve and left ventricular end-diastolic pressure was calculated. Following that, catheters were removed, images were reviewed. FINDINGS: FLUOROSCOPY: There was calcification involving the left anterior descending artery and distal left main. LEFT MAIN: This is a short size vessel, bifurcating into left circumflex, left anterior descending artery. Left main coronary artery has no evidence of high- grade stenosis. LEFT ANTERIOR DESCENDING ARTERY: This is a calcified vessel, large in caliber, reaching towards the apex with a wraparound apex segment, giving rise to 2 diagonal branch. At the takeoff of the second diagonal branch, there is an eccentric 60% to 70% plaque. The takeoff of the diagonal branch has an 80% lesion. The rest of the vessel has no high-grade stenosis. LEFT CIRCUMFLEX: This is a nondominant vessel, giving rise to 2 obtuse marginal branches, the first one is large in caliber at the takeoff of the first obtuse marginal branch. There is a 40% to 50% plaque. The rest of the vessel has no high-grade stenosis. RIGHT CORONARY ARTERY: This is a large dominant vessel, bifurcating into PDA and posterolateral segment and branches. The stented segment and proximal mid right coronary artery is patent. There is about a 10% to 20% plaque. The rest of the vessel has no high-grade stenosis. LEFT VENTRICULOGRAM: Left ventriculogram is not performed. HEMODYNAMICS: There was no gradient across the aortic valve. The left ventricular end diastolic pressure was 12 mmHg. CONCLUSION: 1. Patent stent to the right coronary artery with no evidence of in-stent thrombosis or significant restenosis. 2. Calcified coronary arteries. 3. Borderline significant lesion in the proximal mid LAD . 4. Moderate disease in the left circumflex. RECOMMENDATION: In view of finding anatomy, I recommend proceeding with an IFR measurement of the left anterior descending artery and if significant, proceed with angioplasty and stenting. Those findings and recommendation were discussed with the patient and she was in full understanding and agreement. MMODL / IJN: [id number] / EDD
[2019-05-20] MEDS: LISINOPRIL 2.5 MG TAB PO SCH (20:32)
[2019-05-20] MEDS: VENLAFAXINE HCL ER 150 MG CAP PO SCH (20:32)
[2019-05-20] MEDS: LATANOPROST 0.005% OPHTH DROPS 2.5 ML BTL BOTH EYES SCH ×2 (20:32→20:36)
[2019-05-20] MEDS: METOPROLOL TARTRATE 50 MG TAB PO SCH (20:32)
[2019-05-20] MEDS ORDERED: DILTIAZEM DRIP BOLUS FROM BAG 1 MG SOLN IV ONE (20:56)
[2019-05-20] MEDS ORDERED: ASPIRIN 81 MG PO SCH (21:00)
[2019-05-20] MEDS ORDERED: LEVOTHYROXINE 100 MCG TAB PO SCH (21:00)
[2019-05-20] MEDS ORDERED: ATORVASTATIN 80 MG TAB PO SCH (21:00)
[2019-05-20] MEDS ORDERED: DILTIAZEM 125 MG in SODIUM CHLORIDE 0.9% 100 ML IV SCH (21:00)
[2019-05-20 21:47] LABS: African American GFR (CKD) >90 (>60 ml/min/1.73 sqM); Anion Gap 7 mmol/L; Blood Urea Nitrogen 12 mg/dL (7-17); Calcium 9.3 mg/dL (8.4-10.2); Carbon Dioxide 25 mmol/L (22-30); Chloride 110 mmol/L (98-107); Glucose 118 mg/dL (74-99); Magnesium 1.9 mg/dL (1.6-2.3); Non-African American GFR(CKD) >90 (>60 ml/min/1.73 sqM); Potassium 3.5 mmol/L (3.5-5.1); Sodium 142 mmol/L (137-145)
[2019-05-21 01:16] VITALS: RESP 18
[2019-05-21 07:04] LABS: African American GFR (CKD) >90 (>60 ml/min/1.73 sqM); Anion Gap 5 mmol/L; Blood Urea Nitrogen 12 mg/dL (7-17); Calcium 8.9 mg/dL (8.4-10.2); Carbon Dioxide 26 mmol/L (22-30); Chloride 111 mmol/L (98-107); Glucose 104 mg/dL (74-99); Non-African American GFR(CKD) 82 (>60 ml/min/1.73 sqM); Potassium 4.1 mmol/L (3.5-5.1); Sodium 142 mmol/L (137-145)
--- NOTE | 2019-05-21 08:56 | PN ---
PROGRESS NOTE Mrs. Castle is a 73-year-old female with known history of coronary artery disease who has underwent percutaneous revascularization of her right coronary artery in February, presented with symptoms of chest discomfort and was found to have borderline significant lesion in the LAD with positive iFR and underwent stenting of that vessel. She is doing well this morning. Denying any chest pain or dizziness. During the night, she had an had an episode of paroxysmal atrial fibrillation that is back in sinus mechanism and short lasting. She had no dizziness with it. She continues to be on aspirin once a day, Plavix 75 mg daily, Lipitor 80 mg daily, lisinopril 2.5 mg twice a day, metoprolol tartrate 50 mg twice a day, venlafaxine 150 mg twice a day. PHYSICAL EXAMINATION: Blood pressure 140/70 with the heart rate in the 60s. LUNGS: Clear. HEART: Regular rate and rhythm. S1, S2. No S3. No rub. With a systolic murmur. ABDOMEN: Soft, nontender. EXTREMITIES: No edema. Right radial pulse intact. LAB DATA: Lab data revealed BUN and creatinine 12 and 0.74. Potassium 4.1. EKG revealed no acute changes. IMPRESSION: 1. Status post stenting of the left anterior descending artery. 2. One episode of paroxysmal atrial fibrillation, not documented in the past. 3. History of hypertension. 4. Hyperlipidemia. 5. Chronic tobacco use. RECOMMENDATION: Patient will be discharged home today and will be scheduled to undergo an event monitor as an outpatient to see if any recurrence of atrial fibrillation then anticoagulation will be initiated. Those findings and recommendations were discussed with the patient and she is in full understanding and agreement. MMODL / RANJITHN: [id number] /
[2019-05-21] MEDS ORDERED: CLOPIDOGREL 75 MG TAB PO SCH (09:00)
[2019-05-21] MEDS: METOPROLOL TARTRATE 50 MG TAB PO SCH (09:36)
[2019-05-21] MEDS: VENLAFAXINE HCL ER 150 MG CAP PO SCH (09:36)
[2019-05-21] MEDS: LISINOPRIL 2.5 MG TAB PO SCH (09:36)
[2019-05-21 10:04] VITALS: BP 139/69; PULSE 65; TEMP 97.8
== END 2019-05-21 10:36 | disposition home or self-care (01) ==
LOC: CATHCVL 10:50 → 3SCARD 13:47 → CATHCVL 05-21 10:36
PROVIDERS: ATTEND Internal Medicine Interventional Cardiology
DX: I25.110 Atherosclerotic heart disease of native coronary artery with unstable angina pectoris (principal); I49.3 Ventricular premature depolarization; I48.0 Paroxysmal atrial fibrillation; I10 Essential (primary) hypertension; E78.2 Mixed hyperlipidemia; F17.210 Nicotine dependence, cigarettes, uncomplicated; Z79.02 Long term (current) use of antithrombotics/antiplatelets; Z79.82 Long term (current) use of aspirin; Z79.890 Hormone replacement therapy; Z79.899 Other long term (current) drug therapy; Z95.5 Presence of coronary angioplasty implant and graft; Z86.73 Personal history of transient ischemic attack (TIA), and cerebral infarction without residual deficits; Z82.49 Family history of ischemic heart disease and other diseases of the circulatory system
CPT/HCPCS: 93571; 93458; 85347; 80048 ×2; 83735; C9600; C1887; C1725; C1874; C1769; C1894; J2001; J3010; J1644; J0153; Q9967

== ENCOUNTER 2020-05-01 22:04 | Emergency (ER) | payer MEDICARE ==
[2020-05-01 22:16] VITALS: TEMP 99.6
[2020-05-01] MEDS ORDERED: ASPIRIN 81 MG PO STA (22:30)
--- NOTE | 2020-05-01 22:34 | ED ---
General Adult HPI - General Chief complaint: Chest Pain Stated complaint: Chest pain Time Seen by Provider: 05/01/20 22:12 Source: patient Mode of arrival: wheelchair Limitations: no limitations - History of Present Illness Initial comments: This patient is 74-year-old woman with history of having 3 previous stent placements who presents to be evaluated for constellation of symptoms. She states that about 3 days ago she began noticing what she is describing as "pings" in her chest which she goes on to describe and appear to be palpitations. She will noticed an extra beat occasionally. She states that there has been no pain associated. She just feels a flutter lasting less than a second. Today in the evening she states that she was "puttering around" and she briefly felt lightheaded. She did not have any chest pain. No dyspnea, diaphoresis, nausea or vomiting. She did not have a syncopal episode. She states that this in combination with the alterations made her want to the evaluated. She is currently symptom-free. During the history and physical exam she did have a PVC on the monitor and stated that this correlated with one of the "pings." Onset/Timin -: days(s) Location: chest Severity scale (1-10): 0 Consistency: constant Improves with: none Worsens with: none Associated Symptoms: denies other symptoms Treatments Prior to Arrival: none - Related Data Home Medications Medication Instructions Recorded Confirmed Aspirin 81 mg PO HS 09/16/13 05/20/19 Levothyroxine Sodium [Synthroid] 100 mcg PO HS 11/10/15 05/20/19 Multivit-Min/FA/Lycopen/Lutein 1 tab PO HS 11/10/15 05/19/19 [Centrum Silver Tablet] Venlafaxine HCl ER [Effexor XR] 150 mg PO BID 11/10/15 05/20/19 Metoprolol Tartrate [Lopressor] 50 mg PO BID 02/22/19 05/20/19 Latanoprost/Pf [Latanoprost 0.005% 1 drop BOTH EYES HS 05/19/19 05/20/19 Eye Drop] Previous Rx's Medication Instructions Recorded Atorvastatin [Lipitor] 80 mg PO HS #30 tab 02/25/19 Clopidogrel [Plavix] 75 mg PO DAILY #30 tab 02/25/19 Nitroglycerin Sl Tabs [Nitrostat] 0.4 mg SUBLINGUAL Q5M PRN #25 tab 02/25/19 lisinopriL [Zestril] 2.5 mg PO BID #60 tab 05/21/19 Allergies Allergy/AdvReac Type Severity Reaction Status Date / Time adhesive tape Allergy "tears Verified 05/01/20 22:12 skin" Review of Systems ROS Statement: Those systems with pertinent positive or pertinent negative responses have been documented in the HPI. ROS Other: All systems not noted in ROS Statement are negative. Constitutional: Denies: fever, chills Respiratory: Denies: cough, dyspnea Cardiovascular: Reports: palpitations. Denies: chest pain, edema, syncope Gastrointestinal: Denies: abdominal pain, nausea, vomiting Genitourinary: Denies: dysuria, frequency Musculoskeletal: Denies: back pain Skin: Denies: rash Neurological: Denies: headache, weakness, numbness Past Medical History Past Medical History: Cancer, CVA/TIA, Hyperlipidemia, Hypertension, Myocardial Infarction ([place]), Osteoarthritis (OA), Skin Disorder, Thyroid Disorder Additional Past Medical History / Comment(s): TIA-no effects, heartburn, hx skin cancer, Last Myocardial Infarction Date:: 02/22/19 History of Any Multi-Drug Resistant Organisms: None Reported Past Surgical History: Back Surgery, Breast Surgery, Cholecystectomy, Heart Catheterization, Heart Catheterization With Stent, Hysterectomy, Orthopedic Surgery, Tonsillectomy Additional Past Surgical History / Comment(s): 2 stents, alejandro bunionectomy, thyroidectomy, alejandro hand-"core vein release", rt breast biopsy, rt nipple removed, EGD, alejandro myringotomy Past Anesthesia/Blood Transfusion Reactions: Previous Problems w/ Anesthesia, Motion Sickness Additional Past Anesthesia/Blood Transfusion Reaction / Comment(s): diff intubation " I was told I need a fiberoptic intubation" (not sure what surgery or where she was told this) Date of Last Stent Placement:: 02/22/19 Past Psychological History: Anxiety Smoking Status: Former smoker Past Alcohol Use History: None Reported Past Drug Use History: None Reported - Past Family History Mother Family Medical History: Cancer Father Additional Family Medical History / Comment(s): blood clots-no sure where General Exam Limitations: no limitations General appearance: alert, in no apparent distress Head exam: Present: atraumatic, normocephalic Eye exam: Present: normal appearance. Absent: scleral icterus, conjunctival injection ENT exam: Present: normal oropharynx Neck exam: Present: normal inspection Respiratory exam: Present: normal lung sounds bilaterally. Absent: respiratory distress, wheezes, rales, rhonchi, stridor, chest wall tenderness Cardiovascular Exam: Present: regular rate, normal rhythm, normal heart sounds. Absent: systolic murmur, diastolic murmur, rubs, gallop GI/Abdominal exam: Present: soft. Absent: distended, tenderness, guarding, rebound, rigid, mass Extremities exam: Present: normal inspection, normal capillary refill. Absent: pedal edema, calf tenderness Back exam: Present: normal inspection. Absent: CVA tenderness (R), CVA tenderness (L) Neurological exam: Present: alert Skin exam: Present: warm, dry, intact, normal color. Absent: rash Course Vital Signs 05/01/20 22:12 Temperature 99.6 F Pulse Rate 100 Respiratory 18 Rate Blood Pressure 205/86 O2 Sat by Pulse 97 Oximetry EKG Findings - EKG Results: EKG: interpreted by ERMD, sinus rhythm (Sinus rhythm with a PVC, rate 100 bpm), normal axis, normal QRS - Blocks, [place], Hypertrophy, ST Abn: Repolarization changes or abnormalities: nonspecific abnormality, ST segment, and/or T wave Medical Decision Making - Lab Data Result diagrams: 05/01/20 22:30 05/01/20 22:31 Lab Results 05/01/20 05/01/20 05/01/20 Range/Units 22:30 22:31 22:31 WBC 14.2 H (3.8-10.6) k/uL RBC 4.92 (3.80-5.40) m/uL Hgb 14.6 (11.4-16.0) gm/dL Hct 46.0 (34.0-46.0) % MCV 93.5 (80.0-100.0) fL MCH 29.8 (25.0-35.0) pg MCHC 31.8 (31.0-37.0) g/dL RDW 13.6 (11.5-15.5) % Plt Count 416 (150-450) k/uL MPV 6.9 Neutrophils % 61 % Lymphocytes % 29 % Monocytes % 6 % Eosinophils % 2 % Basophils % 1 % Neutrophils # 8.6 H (1.3-7.7) k/uL Lymphocytes # 4.1 (1.0-4.8) k/uL Monocytes # 0.8 (0-1.0) k/uL Eosinophils # 0.3 (0-0.7) k/uL Basophils # 0.1 (0-0.2) k/uL PT 9.4 (9.0-12.0) sec INR 0.9 (<1.2) APTT 22.0 (22.0-30.0) sec Sodium 143 (137-145) mmol/L Potassium 3.8 (3.5-5.1) mmol/L Chloride 106 (98-107) mmol/L Carbon Dioxide 28 (22-30) mmol/L Anion Gap 9 mmol/L BUN 23 H (7-17) mg/dL Creatinine 0.93 (0.52-1.04) mg/dL Est GFR (CKD-EPI)AfAm 72 (>60 ml/min/1.73 sqM) Est GFR (CKD-EPI)NonAf 62 (>60 ml/min/1.73 sqM) Glucose 92 (74-99) mg/dL Calcium 10.1 (8.4-10.2) mg/dL Magnesium 2.0 (1.6-2.3) mg/dL Total Bilirubin 0.2 (0.2-1.3) mg/dL AST 27 (14-36) U/L ALT 18 (4-34) U/L Alkaline Phosphatase 123 (38-126) U/L Troponin I (0.000-0.034) ng/mL Total Protein 7.8 (6.3-8.2) g/dL Albumin 4.8 (3.5-5.0) g/dL 05/01/20 Range/Units 22:31 WBC (3.8-10.6) k/uL RBC (3.80-5.40) m/uL Hgb (11.4-16.0) gm/dL Hct (34.0-46.0) % MCV (80.0-100.0) fL MCH (25.0-35.0) pg MCHC (31.0-37.0) g/dL RDW (11.5-15.5) % Plt Count (150-450) k/uL MPV Neutrophils % % Lymphocytes % % Monocytes % % Eosinophils % % Basophils % % Neutrophils # (1.3-7.7) k/uL Lymphocytes # (1.0-4.8) k/uL Monocytes # (0-1.0) k/uL Eosinophils # (0-0.7) k/uL Basophils # (0-0.2) k/uL PT (9.0-12.0) sec INR (<1.2) APTT (22.0-30.0) sec Sodium (137-145) mmol/L Potassium (3.5-5.1) mmol/L Chloride (98-107) mmol/L Carbon Dioxide (22-30) mmol/L Anion Gap mmol/L BUN (7-17) mg/dL Creatinine (0.52-1.04) mg/dL Est GFR (CKD-EPI)AfAm (>60 ml/min/1.73 sqM) Est GFR (CKD-EPI)NonAf (>60 ml/min/1.73 sqM) Glucose (74-99) mg/dL Calcium (8.4-10.2) mg/dL Magnesium (1.6-2.3) mg/dL Total Bilirubin (0.2-1.3) mg/dL AST (14-36) U/L ALT (4-34) U/L Alkaline Phosphatase (38-126) U/L Troponin I <0.012 (0.000-0.034) ng/mL Total Protein (6.3-8.2) g/dL Albumin (3.5-5.0) g/dL Disposition Clinical Impression: Palpitations Disposition: HOME SELF-CARE Condition: Good Instructions (If sedation given, give patient instructions): Heart Palpitations (ED) Is patient prescribed a controlled substance at d/c from ED?: No Referrals: Sadia Celestin, CASSIDY [REFERRING] - 1-2 days
--- NOTE | 2020-05-01 22:47 | XR ---
EXAMINATION TYPE: XR chest 2V DATE OF EXAM: 05/01/2020 COMPARISON: 02/22/2019 HISTORY: Chest pain TECHNIQUE: FINDINGS: Heart and mediastinum are normal. Lungs are clear. Costophrenic angles are clear. There are chest leads. Bony thorax is intact. IMPRESSION: Normal chest. No change.
[2020-05-01 23:05] LABS: Basophils # (A) 0.1 k/uL (0-0.2); Basophils % (A) 1 %; Eosinophils # (A) 0.3 k/uL (0-0.7); Eosinophils % (A) 2 %; HGB 14.6 gm/dL (11.4-16.0); Lymphocytes # (A) 4.1 k/uL (1.0-4.8); Lymphocytes % (A) 29 %; MCH 29.8 pg (25.0-35.0); MCHC 31.8 g/dL (31.0-37.0); MCV 93.5 fL (80.0-100.0); Mean Platelet Volume 6.9; Monocytes # (A) 0.8 k/uL (0-1.0); Monocytes % (A) 6 %; Neutrophils # (A) 8.6 k/uL (1.3-7.7); Neutrophils % (A) 61 %; Platelet Count 416 k/uL (150-450); RBC 4.92 m/uL (3.80-5.40); RDW 13.6 % (11.5-15.5); WBC 14.2 k/uL (3.8-10.6)
[2020-05-01 23:09] LABS: INR 0.9 (<1.2); Prothrombin Time 9.4 sec (9.0-12.0)
[2020-05-01 23:11] LABS: Albumin 4.8 g/dL (3.5-5.0); Calcium 10.1 mg/dL (8.4-10.2); Potassium 3.8 mmol/L (3.5-5.1); Total Bilirubin 0.2 mg/dL (0.2-1.3); Total Protein 7.8 g/dL (6.3-8.2)
[2020-05-01] MEDS ORDERED: SODIUM CHLORIDE 0.9% 500 ML 500 ML IV STA (23:59)
[2020-05-02 00:11] VITALS: BP 138/66; PULSE 63; RESP 19
== END 2020-05-02 00:11 | disposition home or self-care (01) ==
LOC: EC 22:04
DX: R00.2 Palpitations (principal); E07.9 Disorder of thyroid, unspecified; I10 Essential (primary) hypertension; I25.2 Old myocardial infarction; Z85.828 Personal history of other malignant neoplasm of skin; Z95.5 Presence of coronary angioplasty implant and graft; Z79.82 Long term (current) use of aspirin; Z79.890 Hormone replacement therapy; Z79.899 Other long term (current) drug therapy; Z91.048 Other nonmedicinal substance allergy status; Z87.891 Personal history of nicotine dependence
CPT/HCPCS: 36415; 71046; 80053; 83735; 84484; 85025; 85610; 85730; 93005; 99285

== ENCOUNTER 2020-08-31 09:28 | Observation (INO) | payer MEDICARE ==
[2020-08-31] MEDS ORDERED: SODIUM CHLORIDE 0.9% 500 ML 500 ML IV ONE (10:25)
[2020-08-31 10:46] LABS: Basophils # (A) 0.1 k/uL (0-0.2); Basophils % (A) 1 %; Eosinophils # (A) 0.2 k/uL (0-0.7); Eosinophils % (A) 1 %; HCT 31.7 % (34.0-46.0); HGB 10.5 gm/dL (11.4-16.0); Hypochromasia Slight; Lymphocytes # (A) 1.6 k/uL (1.0-4.8); Lymphocytes % (A) 13 %; MCH 29.4 pg (25.0-35.0); Mean Platelet Volume 6.8; Monocytes # (A) 0.5 k/uL (0-1.0); Monocytes % (A) 4 %; Neutrophils # (A) 9.2 k/uL (1.3-7.7); Neutrophils % (A) 79 %; Platelet Count 341 k/uL (150-450); RBC 3.57 m/uL (3.80-5.40); RDW 14.4 % (11.5-15.5); WBC 11.7 k/uL (3.8-10.6)
[2020-08-31 10:57] LABS: Partial Thromboplastin Time 22.2 sec (22.0-30.0); Prothrombin Time 10.7 sec (9.0-12.0)
[2020-08-31 10:59] LABS: Albumin 3.8 g/dL (3.5-5.0); Potassium 5.1 mmol/L (3.5-5.1); Total Bilirubin 0.1 mg/dL (0.2-1.3); Total Protein 6.2 g/dL (6.3-8.2)
--- NOTE | 2020-08-31 11:32 | ED ---
GI Bleed HPI - General Chief complaint: GI Bleed Stated complaint: GI Bleed/dizziness Time Seen by Provider: 08/31/20 09:40 Source: patient Mode of arrival: EMS Limitations: no limitations - History of Present Illness Initial comments: Pt is a 75-year-old female past medical history of hypertension, hyperlipidemia who presents to the emergency department with reported bright red blood per rectum. Patient reports that she was having some abdominal cramping in around 3:30 AM in the morning she got up to the bathroom. Noted that she had some bright red blood in her stool. She had 2 large bowel movements both consisting of blood and has not had any since. Patient was placed on Xarelto yesterday. Reports she had cataract surgery a few weeks ago and was told that she was in A. fib. She saw Dr. Hernandez's PA and placed her on Xarelto. Denies previous issue with rectal bleeding. Patient tolerated Plavix before in the past. She denies any current abdominal pain. No vomiting. Admits to generalized fatigue angulating across the room. She told her son about her symptoms and he recommended she come in for evaluation. Patient states she has not had a colonoscopy in 5-7 years. Last colonoscopy did demonstrate polyps. Patient denies any rectal pain. No fevers. No other alleviating, precipitating or modifying factors. - Related Data Home Medications Medication Instructions Recorded Confirmed Levothyroxine Sodium [Synthroid] 100 mcg PO HS 11/10/15 08/31/20 Multivit-Min/FA/Lycopen/Lutein 1 tab PO HS 11/10/15 08/31/20 [Centrum Silver Tablet] Venlafaxine HCl ER [Effexor XR] 300 mg PO HS 11/10/15 08/31/20 ALPRAZolam [Xanax] 1 mg PO BID PRN 08/31/20 08/31/20 Prednisolone Acetate/Pf 1 drop RIGHT EYE TID 08/31/20 08/31/20 [Prednisolone Acet 1% Eye Drop] lisinopriL [Zestril] 2.5 mg PO HS 08/31/20 08/31/20 Previous Rx's Medication Instructions Recorded Nitroglycerin Sl Tabs [Nitrostat] 0.4 mg SUBLINGUAL Q5M PRN #25 tab 02/25/19 Pantoprazole Sodium [Protonix] 40 mg PO DAILY #30 tablet. 09/02/20 Allergies Allergy/AdvReac Type Severity Reaction Status Date / Time adhesive tape Allergy "tears Verified 08/31/20 12:40 skin" Review of Systems ROS Statement: Those systems with pertinent positive or pertinent negative responses have been documented in the HPI. ROS Other: All systems not noted in ROS Statement are negative. Past Medical History Past Medical History: Cancer, CVA/TIA, Hyperlipidemia, Hypertension, Myocardial Infarction ([place]), Osteoarthritis (OA), Skin Disorder, Thyroid Disorder Additional Past Medical History / Comment(s): TIA-no effects, heartburn, hx skin cancer, Last Myocardial Infarction Date:: 02/22/19 History of Any Multi-Drug Resistant Organisms: None Reported Past Surgical History: Back Surgery, Breast Surgery, Cholecystectomy, Heart Catheterization, Heart Catheterization With Stent, Hysterectomy, Orthopedic Surgery, Tonsillectomy Additional Past Surgical History / Comment(s): 2 stents, alejandro bunionectomy, thyroidectomy, alejandro hand-"core vein release", rt breast biopsy, rt nipple removed, EGD, alejandro myringotomy Past Anesthesia/Blood Transfusion Reactions: Previous Problems w/ Anesthesia, Motion Sickness Additional Past Anesthesia/Blood Transfusion Reaction / Comment(s): diff intub ation " I was told I need a fiberoptic intubation" (not sure what surgery or where she was told this) Date of Last Stent Placement:: 02/22/19 Past Psychological History: Anxiety Smoking Status: Former smoker Past Alcohol Use History: None Reported Past Drug Use History: None Reported - Past Family History Mother Family Medical History: Cancer Father Additional Family Medical History / Comment(s): blood clots-no sure where General Exam Limitations: no limitations General appearance: alert, in no apparent distress Head exam: Present: atraumatic, normocephalic, normal inspection Eye exam: Present: normal appearance, PERRL, EOMI. Absent: scleral icterus, conjunctival injection, periorbital swelling ENT exam: Present: normal exam, mucous membranes moist Neck exam: Present: normal inspection. Absent: tenderness, meningismus, lymphadenopathy Respiratory exam: Present: normal lung sounds bilaterally. Absent: respiratory distress, wheezes, rales, rhonchi, stridor Cardiovascular Exam: Present: regular rate, normal rhythm, normal heart sounds. Absent: systolic murmur, diastolic murmur, rubs, gallop, clicks GI/Abdominal exam: Present: soft, normal bowel sounds. Absent: distended, tenderness, guarding, rebound, rigid Rectal exam: Present: bloody stool Extremities exam: Present: normal inspection, full ROM, normal capillary refill. Absent: tenderness, pedal edema, joint swelling, calf tenderness Back exam: Present: normal inspection Neurological exam: Present: alert, oriented X3, CN II-XII intact Psychiatric exam: Present: normal affect, normal mood Skin exam: Present: warm, dry, intact, normal color. Absent: rash Course Vital Signs 08/31/20 08/31/20 08/31/20 09:37 10:00 11:00 Temperature 98.3 F Pulse Rate 94 90 88 Respiratory 16 16 16 Rate Blood Pressure 117/57 117/57 110/70 O2 Sat by Pulse 97 96 100 Oximetry 08/31/20 08/31/20 12:00 12:41 Temperature 98.2 F Pulse Rate 91 Respiratory 16 Rate Blood Pressure 135/68 O2 Sat by Pulse 96 Oximetry Medical Decision Making - Medical Decision Making Upon arrival the patient is placed in room 26. A thorough history and physical exam was performed. Laboratory studies are conducted. Rectal exam does demonstrate a moderate amount of maroon-colored stool. Laboratory studies are reviewed and demonstrated a hemoglobin of 10 5 which is a change from the patient's previous value of 14.6 in April. Occult does come back positive. Results are discussed with the patient. Did recommend hospital admission for which the patient did agree to. Spoke with Dr. Pham who agreed to admit the patient. Will consult GI. Patients blood pressure remained stable, awaiting a be d. - Lab Data Result diagrams: 09/02/20 04:49 09/01/20 06:22 Lab Results 08/31/20 08/31/20 08/31/20 Range/Units 10:32 10:32 10:32 WBC 11.7 H (3.8-10.6) k/uL RBC 3.57 L (3.80-5.40) m/uL Hgb 10.5 L (11.4-16.0) gm/dL Hct 31.7 L (34.0-46.0) % MCV 89.0 (80.0-100.0) fL MCH 29.4 (25.0-35.0) pg MCHC 33.0 (31.0-37.0) g/dL RDW 14.4 (11.5-15.5) % Plt Count 341 (150-450) k/uL MPV 6.8 Neutrophils % 79 % Lymphocytes % 13 % Monocytes % 4 % Eosinophils % 1 % Basophils % 1 % Neutrophils # 9.2 H (1.3-7.7) k/uL Lymphocytes # 1.6 (1.0-4.8) k/uL Monocytes # 0.5 (0-1.0) k/uL Eosinophils # 0.2 (0-0.7) k/uL Basophils # 0.1 (0-0.2) k/uL Hypochromasia Slight PT 10.7 (9.0-12.0) sec INR 1.0 (<1.2) APTT 22.2 (22.0-30.0) sec Sodium 141 (137-145) mmol/L Potassium 5.1 (3.5-5.1) mmol/L Chloride 113 H (98-107) mmol/L Carbon Dioxide 24 (22-30) mmol/L Anion Gap 4 mmol/L BUN 24 H (7-17) mg/dL Creatinine 1.07 H (0.52-1.04) mg/dL Est GFR (CKD-EPI)AfAm 60 (>60 ml/min/1.73 sqM) Est GFR (CKD-EPI)NonAf 52 (>60 ml/min/1.73 sqM) Glucose 120 H (74-99) mg/dL Plasma Lactic Acid Harinder (0.7-2.0) mmol/L Calcium 9.0 (8.4-10.2) mg/dL Magnesium 2.0 (1.6-2.3) mg/dL Total Bilirubin 0.1 L (0.2-1.3) mg/dL AST 23 (14-36) U/L ALT 14 (4-34) U/L Alkaline Phosphatase 90 (38-126) U/L Troponin I (0.000-0.034) ng/mL Total Protein 6.2 L (6.3-8.2) g/dL Albumin 3.8 (3.5-5.0) g/dL Stool Occult Blood (Negative) 08/31/20 08/31/20 08/31/20 Range/Units 10:32 10:32 10:32 WBC (3.8-10.6) k/uL RBC (3.80-5.40) m/uL Hgb (11.4-16.0) gm/dL Hct (34.0-46.0) % MCV (80.0-100.0) fL MCH (25.0-35.0) pg MCHC (31.0-37.0) g/dL RDW (11.5-15.5) % Plt Count (150-450) k/uL MPV Neutrophils % % Lymphocytes % % Monocytes % % Eosinophils % % Basophils % % Neutrophils # (1.3-7.7) k/uL Lymphocytes # (1.0-4.8) k/uL Monocytes # (0-1.0) k/uL Eosinophils # (0-0.7) k/uL Basophils # (0-0.2) k/uL Hypochromasia PT (9.0-12.0) sec INR (<1.2) APTT (22.0-30.0) sec Sodium (137-145) mmol/L Potassium (3.5-5.1) mmol/L Chloride (98-107) mmol/L Carbon Dioxide (22-30) mmol/L Anion Gap mmol/L BUN (7-17) mg/dL Creatinine (0.52-1.04) mg/dL Est GFR (CKD-EPI)AfAm (>60 ml/min/1.73 sqM) Est GFR (CKD-EPI)NonAf (>60 ml/min/1.73 sqM) Glucose (74-99) mg/dL Plasma Lactic Acid Harinder 1.3 (0.7-2.0) mmol/L Calcium (8.4-10.2) mg/dL Magnesium (1.6-2.3) mg/dL Total Bilirubin (0.2-1.3) mg/dL AST (14-36) U/L ALT (4-34) U/L Alkaline Phosphatase (38-126) U/L Troponin I <0.012 (0.000-0.034) ng/mL Total Protein (6.3-8.2) g/dL Albumin (3.5-5.0) g/dL Stool Occult Blood Positive H (Negative) Disposition Clinical Impression: GI bleed Disposition: ADMITTED IP TO THIS HOSP Condition: Stable Is patient prescribed a controlled substance at d/c from ED?: No Decision to Admit Reason: Admit from EC Decision Date: 08/31/20 Decision Time: 11:33
[2020-08-31] MEDS ORDERED: NALOXONE 0.4 MG/ML 1 ML VIAL IV PRN (11:33)
[2020-08-31] MEDS ORDERED: PANTOPRAZOLE 40 MG/10 ML VIAL IVP ONE (11:34)
--- NOTE | 2020-08-31 13:21 | P.HPIM ---
History of Present Illness Pat is a 75-year-old female past medical history of hypertension, hyperlipidemia who presents to the emergency department with reported bright red blood per rectum. Patient reports that she was having some abdominal cramping in around 3:30 AM in the morning she got up to the bathroom. Nol. She had 2 large bowel movements both consisting of blood and has not had any since. Patient was placed on Xarelto yesterday for atrial fibrillation. and patient is also on aspirin for because of her coronary artery disease in LAD stent was in May 2019. Reports she had cataract surgery a few weeks ago and was told that she was in A. fib. She denies any abdominal pain. No vomiting. Admits to generalized fatigue angulating across the room. She told her son about her symptoms and he recommended she come in for evaluation. Patient states she has not had a colonoscopy in 5-7 years. Last colonoscopy did demonstrate polyps. Patient denies any rectal pain. No fevers. No other alleviating, precipitating or modifying factors. Review of Systems REVIEW OF SYSTEMS: CONSTITUTIONAL: No fever, no malaise, no fatigue. HEENT: No recent visual problems or hearing problems. Denied any sore throat. CARDIOVASCULAR: No chest pain, orthopnea, PND, no palpitations, no syncope. PULMONARY: No shortness of breath, no cough, no hemoptysis. GASTROINTESTINAL: As mentioned in HPI NEUROLOGICAL: No headaches, no weakness, no numbness. HEMATOLOGICAL: Denies any bleeding or petechiae. GENITOURINARY: Denies any burning micturition, frequency, or urgency. MUSCULOSKELETAL/RHEUMATOLOGICAL: Denies any joint pain, swelling, or any muscle pain. ENDOCRINE: Denies any polyuria or polydipsia. The rest of the 14-point review of systems is negative. Past Medical History Past Medical History: Cancer, CVA/TIA, Hyperlipidemia, Hypertension, Myocardial Infarction ([place]), Osteoarthritis (OA), Skin Disorder, Thyroid Disorder Additional Past Medical History / Comment(s): TIA-no effects, heartburn, hx skin cancer, Last Myocardial Infarction Date:: 02/22/19 History of Any Multi-Drug Resistant Organisms: None Reported Past Surgical History: Back Surgery, Breast Surgery, Cholecystectomy, Heart Catheterization, Heart Catheterization With Stent, Hysterectomy, Orthopedic Surgery, Tonsillectomy Additional Past Surgical History / Comment(s): 2 stents, alejandro bunionectomy, thyroidectomy, alejandro hand-"core vein release", rt breast biopsy, rt nipple removed, EGD, alejandro myringotomy Past Anesthesia/Blood Transfusion Reactions: Previous Problems w/ Anesthesia, Motion Sickness Additional Past Anesthesia/Blood Transfusion Reaction / Comment(s): diff intubation " I was told I need a fiberoptic intubation" (not sure what surgery or where she was told this) Date of Last Stent Placement:: 02/22/19 Past Psychological History: Anxiety Smoking Status: Former smoker Past Alcohol Use History: None Reported Past Drug Use History: None Reported - Past Family History Mother Family Medical History: Cancer Father Additional Family Medical History / Comment(s): blood clots-no sure where Medications and Allergies Home Medications Medication Instructions Recorded Confirmed Type Aspirin 81 mg PO HS 09/16/13 08/31/20 History Levothyroxine Sodium [Synthroid] 100 mcg PO HS 11/10/15 08/31/20 History Multivit-Min/FA/Lycopen/Lutein 1 tab PO HS 11/10/15 08/31/20 History [Centrum Silver Tablet] Venlafaxine HCl ER [Effexor XR] 300 mg PO HS 11/10/15 08/31/20 History Nitroglycerin Sl Tabs [Nitrostat] 0.4 mg SUBLINGUAL Q5M PRN #25 tab 02/25/19 08/31/20 Rx ALPRAZolam [Xanax] 1 mg PO BID PRN 08/31/20 08/31/20 History Prednisolone Acetate/Pf 1 drop RIGHT EYE TID 08/31/20 08/31/20 History [Prednisolone Acet 1% Eye Drop] Rivaroxaban [Xarelto] 20 mg PO HS 08/31/20 08/31/20 History lisinopriL [Zestril] 2.5 mg PO HS 08/31/20 08/31/20 History Allergies Allergy/AdvReac Type Severity Reaction Status Date / Time adhesive tape Allergy "tears Verified 08/31/20 12:40 skin" Physical Exam Vitals: Vital Signs Temp Pulse Resp BP Pulse Ox 08/31/20 12:41 98.2 F 08/31/20 12:00 91 16 135/68 96 08/31/20 11:00 88 16 110/70 100 08/31/20 10:00 90 16 117/57 96 08/31/20 09:37 98.3 F 94 16 117/57 97 Intake and Output 08/30/20 08/31/20 08/31/20 22:59 06:59 14:59 Other: Weight 64.864 kg PHYSICAL EXAMINATION: GENERAL: The patient is alert and oriented x3, not in any acute distress. Well developed, well nourished. HEENT: Pupils are round and equally reacting to light. EOMI. No scleral icterus. Does have conjunctival pallor. Normocephalic, atraumatic. No pharyngeal erythema. No thyromegaly. CARDIOVASCULAR: S1 and S2 present. No murmurs, rubs, or gallops. PULMONARY: Chest is clear to auscultation, no wheezing or crackles. ABDOMEN: Soft, nontender, nondistended, normoactive bowel sounds. No palpable organomegaly. MUSCULOSKELETAL: No joint swelling or deformity. EXTREMITIES: No cyanosis, clubbing, or pedal edema. NEUROLOGICAL: Gross neurological examination did not reveal any focal deficits. SKIN: No rashes. Results CBC & Chem 7: 08/31/20 10:32 08/31/20 10:32 Labs: Abnormal Lab Results - Last 24 Hours (Table) 08/31/20 08/31/20 08/31/20 Range/Units 10:32 10:32 10:32 WBC 11.7 H (3.8-10.6) k/uL RBC 3.57 L (3.80-5.40) m/uL Hgb 10.5 L (11.4-16.0) gm/dL Hct 31.7 L (34.0-46.0) % Neutrophils # 9.2 H (1.3-7.7) k/uL Chloride 113 H (98-107) mmol/L BUN 24 H (7-17) mg/dL Creatinine 1.07 H (0.52-1.04) mg/dL Glucose 120 H (74-99) mg/dL Total Bilirubin 0.1 L (0.2-1.3) mg/dL Total Protein 6.2 L (6.3-8.2) g/dL Stool Occult Blood Positive H (Negative) Assessment and Plan Plan: -Acute lower GI bleed: Patient with anticoagulation which will be held along with the aspirin. Gastroneurology will be consulted possibly diverticular bleed. Atrial fibrillation for which patient was recently started on anticoagulation which is yesterday on Xarelt which will be held and patient is presently rate controlled I don't have an EKG available at this time -Hyperlipidemia -Hypertension next and heparin coronary artery disease previous stent in May 2019 -Hypothyroidism
--- NOTE | 2020-08-31 15:18 | CONS ---
CONSULTATION DATE OF DICTATION: 08/31/2020 REASON FOR CONSULTATION: Acute GI bleed. HISTORY OF PRESENT ILLNESS: The patient is a 75-year-old pleasant white female admitted to the hospital with two episodes of bright red blood per rectum that started around 3:30 a.m. this morning. She had two episodes with a large amount of blood with no clots. The patient has a history of atrial fibrillation and was initially on aspirin and Plavix but yesterday was started on Xarelto; she only took one dose. She had a cardiac cath with angioplasty and stent placement in May of 2019. She came to the emergency room and her hemoglobin was 10.4 g/dL. Her baseline hemoglobin three months ago was 14 g/dL. Her last colonoscopy was about 5 years ago, and according to the patient she was noted to have a polyp. She was supposed to have another colonoscopy last year, but because of the COVID situation she did not have it done. She reports no abdominal pain. No nausea, no vomiting. PAST MEDICAL HISTORY: Significant for hypertension, coronary artery disease, status post angioplasty with stent placement, history of atrial fibrillation, hypothyroidism, anxiety, depression. MEDICATIONS: Medications at home include Zestril, Xarelto, Xanax, Nitrostat, Effexor, multivitamin, Synthroid and aspirin. ALLERGIES: NO KNOWN DRUG ALLERGIES. SOCIAL HISTORY: No smoking. No alcohol use. FAMILY HISTORY: Mother had some cancer and father had DVT. PAST SURGICAL HISTORY: Back surgery, breast surgery, cholecystectomy, cardiac catheterization with stent placement, tonsillectomy, bilateral bunionectomy, thyroidectomy, right breast biopsy. REVIEW OF SYSTEMS: CARDIOPULMONARY: No chest pain or shortness of breath. GENITOURINARY: No dysuria or hematuria. MUSCULOSKELETAL: Unremarkable. SKIN: Unremarkable. ENDOCRINE: Unremarkable. PSYCHIATRIC: Unremarkable. NEUROLOGY: Unremarkable. ENT/VISION: Unremarkable. CONSTITUTIONAL: No recent weight loss. No fever, chills, night sweats. PHYSICAL EXAMINATION: She appears comfortable. No apparent distress. VITAL SIGNS: Stable. Blood pressure is 135/68, pulse rate 91, temperature 98.2. HEENT examination unremarkable. Conjunctivae pink. Sclerae anicteric. Oral cavity no lesions. NECK: No JVD or lymph node enlargement. CHEST: Clear to auscultation. HEART: Regular rate and rhythm. ABDOMEN: Soft. It was non-tender, non-distended. Bowel sounds are positive. No organomegaly. EXTREMITIES: No pedal edema. SKIN: No rashes. NEUROLOGIC: Alert and oriented x3. No focal deficits. LABS: WBC 11.7, hemoglobin 10.5, platelets normal. Basic metabolic panel is within normal limits. BUN is 24, creatinine 1.09, PT/INR is within normal limits. Stool occult blood is positive. IMPRESSION: 1. Acute gastrointestinal bleed; possible colonic source, but cannot rule out upper GI source of bleeding, most likely diverticular in nature. The patient had 2 episodes of bright red blood per rectum. Hemoglobin is 10.5 g/dL. Baseline hemoglobin 3 months ago was 14 g/dL. She received a dose of Xarelto yesterday for new-onset atrial fibrillation, which is currently on hold. 2. Atrial fibrillation, on Xarelto, started yesterday, currently on hold. 3. History of coronary artery disease, status post angioplasty with stent placement, on aspirin and Plavix, which are also currently on hold. 4. History of hypertension. RECOMMENDATIONS: 1. Start her on a clear liquid diet. 2. Monitor CBC every 6 hours and transfuse if the hemoglobin is less than 7. 3. Will proceed with EGD and colonoscopy tomorrow. Discussed with the patient risks, benefits and complications, and she is agreeable to it. Thank you for this consultation. MMODL / IJN: [id number] /
[2020-08-31] MEDS ORDERED: PEG 3350-NA SULF,BICARB,CL/KCL 4,000 ML BOTTLE PO ONE (17:00)
[2020-08-31 20:13] LABS: HCT 27.7 % (34.0-46.0); Hypochromasia Slight; MCH 28.4 pg (25.0-35.0); MCHC 31.6 g/dL (31.0-37.0); MCV 89.9 fL (80.0-100.0); Platelet Count 319 k/uL (150-450); RBC 3.08 m/uL (3.80-5.40); RDW 14.7 % (11.5-15.5); WBC 10.5 k/uL (3.8-10.6)
[2020-08-31 20:16] LABS: HGB 8.8 gm/dL (11.4-16.0)
[2020-09-01] MEDS ORDERED: PANTOPRAZOLE 40 MG/10 ML VIAL IVP SCH (09:00)
[2020-09-01 09:20] LABS: Basophils # (A) 0.07 X 10*3/uL (0.00-0.10); Basophils % (A) 0.8 %; Eosinophils # (A) 0.22 X 10*3/uL (0.04-0.35); Eosinophils % (A) 2.4 %; HCT 27.1 % (37.2-46.3); HGB 8.3 g/dL (12.0-15.0); Lymphocytes # (A) 3.21 X 10*3/uL (0.90-5.00); Lymphocytes % (A) 35.7 %; MCH 28.1 pg (27.0-32.0); MCHC 30.6 g/dL (32.0-37.0); MCV 91.9 fL (80.0-97.0); Mean Platelet Volume 10.1 fL (9.5-12.2); Monocytes # (A) 0.61 X 10*3/uL (0.20-1.00); Monocytes % (A) 6.8 %; Neutrophils # (A) 4.84 X 10*3/uL (1.80-7.70); Neutrophils % (A) 53.9 %; Platelet Count 317 X 10*3/uL (140-440); RBC 2.95 X 10*6/uL (4.10-5.20); RDW 14.6 % (11.5-14.5); WBC 8.99 X 10*3/uL (4.50-10.00)
[2020-09-01 09:41] LABS: African American GFR (CKD) 84.8 (60.0-200.0); Anion Gap 3.5 mmol/L (4.00-12.00); BUN/Creat Ratio 28.75 Ratio (12.00-20.00); Calcium 8.7 mg/dL (8.7-10.3); Carbon Dioxide 25.5 mmol/L (21.6-31.8); Non-African American GFR(CKD) 73.1 (60.0-200.0); Potassium 4.4 mmol/L (3.5-5.5)
[2020-09-01] MEDS ORDERED: NITROGLYCERIN SL TABS 0.4 MG TAB SUBLINGUAL PRN (10:10)
[2020-09-01] MEDS ORDERED: PEG 3350-NA SULF,BICARB,CL/KCL 4,000 ML BOTTLE PO ONE (15:52)
--- NOTE | 2020-09-01 15:55 | P.PN ---
Subjective Progress Note Date: 09/01/20 Principal diagnosis: Acute GI bleed Assessment pleasant 75-year-old white female admitted to the hospital with 2 episodes of bright red blood per rectum that started around 3:30 AM yesterday morning. She had 2 episodes of large amount of blood with no clots. The patient has a history of atrial fibrillation and it been initially on aspirin and Plavix, but yesterday was started on Zaroxolyn however only had one dose. She had cardiac cath with angioplasty and stent placement in May 2019. Her last colonoscopy she states was about 5 years ago and according to the patient was noted to have a polyp. She is post have a repeat colonoscopy however due to pandemic she did not have it done. The plan was for EGD and colonoscopy today, however the patient did not prep. She only drinks 3 glasses of her prep and had 3 bowel movements which she reports as bloody. She denies any nausea or vomiting. Denies abdominal pain. Plan is to complete her bowel prep and have colonoscopy tomorrow. Objective - Vital Signs Vital signs: Vital Signs Temp 98.5 F 09/01/20 09:30 Pulse 83 09/01/20 09:30 Resp 18 09/01/20 09:30 BP 145/63 09/01/20 09:30 Pulse Ox 95 09/01/20 09:30 Intake & Output 08/31/20 09/01/20 09/01/20 18:59 06:59 18:59 Intake Total 600 Balance 600 Weight 64.864 kg Intake: Oral 600 Other: Voiding Method Toilet Toilet Toilet # Voids 2 # Bowel Movements 1 1 - Exam General appearance: The patient is alert, oriented, appears in no acute distress. HET: Head is normocephalic and atraumatic. Conjunctiva pink. Sclera anicteric. Neck: Supple without lymphadenopathy. Abdomen: Soft, nontender, nondistended with bowel sounds. No guarding or rigidity. Extremities: Normal skin color and turgor. No pedal edema Skin: No rashes, no jaundice Neurological: No focal deficits. Alert and oriented 3. - Labs CBC & Chem 7: 09/01/20 06:22 09/01/20 06:22 Labs: Abnormal Lab Results - Last 24 Hours (Table) 08/31/20 09/01/20 09/01/20 Range/Units 19:38 06:22 06:22 RBC 3.08 L 2.95 L (3.80-5.40) m/uL Hgb 8.8 L D 8.3 L (11.4-16.0) gm/dL Hct 27.7 L 27.1 L (34.0-46.0) % MCHC 30.6 L (32.0-37.0) g/dL RDW 14.6 H (11.5-14.5) % Chloride 114 H (96-109) mmol/L Anion Gap 3.50 L (4.00-12.00) mmol/L BUN/Creatinine Ratio 28.75 H (12.00-20.00) Ratio Glucose 123 H (70-110) mg/dL Assessment and Plan (1) GI bleed Narrative/Plan: Acute Stroke intestinal bleed possible clonic course but cannot rule out upper GI source of bleeding, most likely diverticular in nature. Patient had 2 episodes of bright red blood per rectum prior to coming into the emergency department with a hemoglobin of 10.5 with a baseline of 14 3 months ago. She received 2 doses around to yesterday for new onset atrial fibrillation which currently is on hold. And as for upper and lower endoscopy. Current Visit: Yes Status: Acute Code(s): K92.2 - GASTROINTESTINAL HEMORRHAGE, UNSPECIFIED SNOMED Code(s): 10999087 (2) Chronic atrial fibrillation Narrative/Plan: on Xarelto which is currently on hold Current Visit: Yes Status: Acute Code(s): I48.20 - CHRONIC ATRIAL FIBRILLATI ON, UNSPECIFIED SNOMED Code(s): 346692455 Plan: 1. Clear liquid diet, nothing by mouth after midnight 2. Complete bowel prep today 3. Patient re-scheduled for EGD and colonoscopy tomorrow 4. Continue to hold Xarelto Thank you for this consultation, we will continue to follow Dr. Bill Gilmore I agree with the dictator's note, documented as a scribe by Deandra Pulido.
[2020-09-01] MEDS: prednisoLONE ACETATE 1% OPHTH DROPS 5 ML BTL RIGHT EYE SCH ×2 (16:15→20:55)
--- NOTE | 2020-09-01 16:20 | P.PN ---
Subjective Progress Note Date: 09/01/20 76-year-old female was sent in from oncology office as patient was hypotensive found to be dyspneic with low blood pressures. Patient is found to be dehydrated was started on IV fluids were also started on antibiotics but there is no evidence of infection at this time and medics were dyspnea and patient was recently admitted for Covid 19 with an infection. Patient has history of lung cancer patient is receiving chemotherapy at this time.` 09/01/2020 Patient is seen and evaluated this morning apparently has not completed the bowel prep and will not be having EGD with colonoscopy today and is scheduled for this tomorrow with GI following. Patient hemoglobin is 8.3 today and patient reports to continued bloody bowel movements noted. Patient was maintained on IV fluids and creatinine has improved to 0.8, current sodium is 143, potassium is 4.4. Patient to continue with bowel prep and clear liquids and will be nothing by mouth at midnight and tentative colonoscopy in the morning. Will repeat a.m. labs and monitor CBC closely Review of systems: Constitutional: No reports of fatigue, fever, or chills Cardiovascular: No reports of chest pain or palpitations Respiratory: No reports of shortness of breath or cough GI: No reports of nausea, vomiting, reports continued bloody stools : No reports of dysuria or retention Neurovascular: No reports of weakness or numbness All medications have been reviewed Objective - Vital Signs Vital signs: Vital Signs Temp 98.0 F 09/01/20 02:23 Pulse 79 09/01/20 02:23 Resp 20 09/01/20 02:23 BP 131/66 09/01/20 02:23 Pulse Ox 94 L 09/01/20 02:23 Intake & Output 08/31/20 09/01/20 09/01/20 18:59 06:59 18:59 Intake Total 600 Balance 600 Weight 64.864 kg Intake: Oral 600 Other: Voiding Method Toilet Toilet # Voids 2 # Bowel Movements 1 1 - Exam GENERAL: The patient is alert and oriented x3, not in any acute distress. Well developed, well nourished. HEENT: Pupils are round and equally reacting to light. EOMI. No scleral icterus. Does have conjunctival pallor. Normocephalic, atraumatic. No pharyngeal erythema. No thyromegaly. CARDIOVASCULAR: S1 and S2 present. No murmurs, rubs, or gallops. PULMONARY: Chest is clear to auscultation, no wheezing or crackles. ABDOMEN: Soft, nontender, nondistended, normoactive bowel sounds. No palpable organomegaly. MUSCULOSKELETAL: No joint swelling or deformity. EXTREMITIES: No cyanosis, clubbing, or pedal edema. NEUROLOGICAL: Gross neurological examination did not reveal any focal deficits. SKIN: No rashes. - Labs CBC & Chem 7: 09/01/20 06:22 09/01/20 06:22 Labs: Abnormal Lab Results - Last 24 Hours (Table) 08/31/20 08/31/20 08/31/20 Range/Units 10:32 10:32 10:32 WBC 11.7 H (3.8-10.6) k/uL RBC 3.57 L (3.80-5.40) m/uL Hgb 10.5 L (11.4-16.0) gm/dL Hct 31.7 L (34.0-46.0) % MCHC (32.0-37.0) g/dL RDW (11.5-14.5) % Neutrophils # 9.2 H (1.3-7.7) k/uL Chloride 113 H (98-107) mmol/L BUN 24 H (7-17) mg/dL Creatinine 1.07 H (0.52-1.04) mg/dL Glucose 120 H (74-99) mg/dL Total Bilirubin 0.1 L (0.2-1.3) mg/dL Total Protein 6.2 L (6.3-8.2) g/dL Stool Occult Blood Positive H (Negative) 08/31/20 09/01/20 Range/Units 19:38 06:22 WBC (3.8-10.6) k/uL RBC 3.08 L 2.95 L (3.80-5.40) m/uL Hgb 8.8 L D 8.3 L (11.4-16.0) gm/dL Hct 27.7 L 27.1 L (34.0-46.0) % MCHC 30.6 L (32.0-37.0) g/dL RDW 14.6 H (11.5-14.5) % Neutrophils # (1.3-7.7) k/uL Chloride (98-107) mmol/L BUN (7-17) mg/dL Creatinine (0.52-1.04) mg/dL Glucose (74-99) mg/dL Total Bilirubin (0.2-1.3) mg/dL Total Protein (6.3-8.2) g/dL Stool Occult Blood (Negative) Assessment and Plan Assessment: -Acute lower GI bleed: Patient with anticoagulation which will be held along with the aspirin. GI following and planning for colonoscopy. Colonoscopy was scheduled for today although patient did not complete bowel prep and has continued bloody stools noted -Atrial fibrillation for which patient was recently started on anticoagulation Xarelto which will be held and patient is presently rate controlled I don't have an EKG available at this time -Hyperlipidemia -Hypertension -coronary artery disease previous stent in May 2019 -Hypothyroidism Plan: Continue with Bowel prep as patient was scheduled for colonoscopy today although did not complete bowel prep and has continued bloody stools noted. Patient to continue with clear liquids and bowel prep with nothing by mouth at midnight and plans for colonoscopy with GI in the morning. Hemoglobin today is 8.3 and will continue to monitor closely and transfuse if becomes less than 7. Will repeat a.m. labs and monitor closely. Possible discharge in 24 hours.
[2020-09-01] MEDS: PANTOPRAZOLE 40 MG/10 ML VIAL IVP SCH (20:55)
[2020-09-01] MEDS ORDERED: MULTIVITAMINS, THERA 1 EACH TAB PO SCH (21:00)
[2020-09-01] MEDS ORDERED: LEVOTHYROXINE 100 MCG TAB PO SCH (21:00)
[2020-09-01] MEDS ORDERED: VENLAFAXINE HCL ER 150 MG CAP PO SCH (21:00)
[2020-09-02 02:49] VITALS: RESP 18
[2020-09-02 08:10] VITALS: BP 149/64; PULSE 83; TEMP 98.4
[2020-09-02] MEDS: PANTOPRAZOLE 40 MG/10 ML VIAL IVP SCH (09:26)
[2020-09-02] MEDS: prednisoLONE ACETATE 1% OPHTH DROPS 5 ML BTL RIGHT EYE SCH (09:27)
[2020-09-02 11:05] LABS: HCT 24.3 % (37.2-46.3); HGB 7.6 g/dL (12.0-15.0); MCH 28.3 pg (27.0-32.0); MCHC 31.3 g/dL (32.0-37.0); MCV 90.3 fL (80.0-97.0); Platelet Count 303 X 10*3/uL (140-440); RBC 2.69 X 10*6/uL (4.10-5.20); RDW 14.6 % (11.5-14.5); WBC 8.33 X 10*3/uL (4.50-10.00)
[2020-09-02] MEDS ORDERED: PROPOFOL 10 MG/ML 20 ML VIAL IV ONE (13:17)
[2020-09-02] MEDS ORDERED: SODIUM CHLORIDE 0.9% 500 ML 500 ML IV ONE ×2 (13:21)
--- NOTE | 2020-09-02 13:53 | P.PCN ---
Date of Procedure: 09/02/20 Procedure(s) Performed: Brief history: Patient is a pleasant 75-year-old white female admitted hospital with acute GI bleed she is scheduled for an upper endoscopy as well as colonoscopy as a part of evaluation of evaluation of acute GI bleed. Patient presented to the hospital with multiple episodes of maroon-colored stools. Hemoglobin from 10- 7.6 g/dL. Procedure performed: Esophagogastroduodenoscopy Colonoscopy with argon plasma coagulation Preoperative diagnosis: Acute GI bleed/anemia Anesthesia: MAC Procedure: After informed consent was obtained from the patient was brought into the endoscopy unit and IV sedation was administered by anesthesia under continuous monitoring. Initially upper endoscopy was done. The Olympus GF 160 video endoscope was inserted inserted into the mouth and esophagus intubated without any difficulty and was gradually advanced into the stomach and duodenum and carefully examined. The bulb and second part of the duodenum appeared normal. The scope was then withdrawn into the stomach adequately insufflated with air and upon careful examination the antrum and body, cardia and fundus appeared normal. The scope was then withdrawn into the esophagus. The GE junction was located at 40 cm to the incisors. It appeared regular with no erythema erosions or ulcerations. Rest of the esophagus appeared normal. Patient tolerated the procedure well. At this time the patient continued to remain sedation. Initial digital rectal examination was normal. Olympus CF 160 video colonoscope was then inserted into the rectum and gradually advanced to the cecum without any difficulty. Careful examination was performed as the scope was gradually being withdrawn. The prep was excellent. No active bleeding seen. In the base of the cecum she had 2 nonbleeding arteriovenous malformation measuring about 1 cm and 2 cm in size both of which may coagulated with argon plasma. Rest of the ascending colon, transverse colon, descending colon, sigmoid colon and rectum appeared normal. Retroflexion was performed in the rectum and small internal hemorrhoids noted. Patient tolerated the procedure well. Impression: 1. Upper endoscopy revealed small hiatal hernia but no evidence of peptic ulcer disease. 2. 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 Rest of the colon appeared normal. Small internal hemorrhoids seen. Recommendations: Findings of this examination were discussed with the patient as well as a family. Diet will be advanced as tolerated. she can be discharged home today. .
--- NOTE | 2020-09-02 14:37 | P.DS ---
Providers Date of admission: 08/31/20 11:53 Expected date of discharge: 09/02/20 Attending physician: Flor Pham Consults: 08/31/20 11:34 Consult Physician Urgent Consulting Provider: Nakita Gilmore Consult Reason/Comments: acute gi bleed Do you want consulting provider notified?: Yes Primary care physician: Shae Langston Hospital Course: Final diagnosis -Acute lower GI bleed that is post colonoscopy showing nonbleeding AVM in the base of the cecum measuring 1 cm into centimeter in size status post argon plasma coagulation with small internal hemorrhoids noted -Status post EGD revealed small hiatal hernia with no evidence of peptic ulcer disease -Atrial fibrillation for which patient was recently started on anticoagulation -Hyperlipidemia -Hypertension -coronary artery disease previous stent in May 2019 -Hypothyroidism -Full code Discharge disposition Patient is being discharged in a stable condition with guarded prognosis to home. Patient will follow-up with Dr. Shae langston upon discharge. Patient will also need to follow-up with cardiology Dr. Hernandez and GI as needed in the outpatient setting. Patient instructed to hold aspirin for 24-48 hours before resuming and continue to hold Xarelto until follow-up with cardiology. Total time taken is 35 minutes. Hospital course Pat is a 75-year-old female past medical history of hypertension, hyperlipidemia who presents to the emergency department with reported bright red blood per rectum. Patient reports that she was having some abdominal cramping in around 3:30 AM in the morning she got up to the bathroom. Nol. She had 2 large bowel movements both consisting of blood and has not had any since. Patient was placed on Xarelto yesterday for atrial fibrillation. and patient is also on aspirin for because of her coronary artery disease in LAD stent was in May 2019. Reports she had cataract surgery a few weeks ago and was told that she was in A. fib. She denies any abdominal pain. No vomiting. Admits to generalized fatigue angulating across the room. She told her son about her symptoms and he recommended she come in for evaluation. Patient states she has not had a col onoscopy in 5-7 years. Last colonoscopy did demonstrate polyps. Patient denies any rectal pain. No fevers. No other alleviating, precipitating or modifying factors. 09/01/2020 Patient is seen and evaluated this morning apparently has not completed the bowel prep and will not be having EGD with colonoscopy today and is scheduled for this tomorrow with GI following. Patient hemoglobin is 8.3 today and patient reports to continued bloody bowel movements noted. Patient was maintained on IV fluids and creatinine has improved to 0.8, current sodium is 143, potassium is 4.4. Patient to continue with bowel prep and clear liquids and will be nothing by mouth at midnight and tentative colonoscopy in the morning. Will repeat a.m. labs and monitor CBC closely 09/02/2020 Patient is seen and evaluated with no acute overnight issues. 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 Will continue the patient on Protonix for the next few weeks and instructed the patient to hold aspirin for 24-48 hours before resuming. Patient does not want to resume h er Xarelto as she feels this was the cause of the issue and she was recently just started on this with cardiology. Patient instructed to follow-up with cardiology Dr. Hernandez to discuss this. Hemoglobin was 7.6 with no further bleeding episodes noted and prescription provided for repeat labs to monitor hemoglobin closely. Patient also instructed to follow-up with her primary care provider upon discharge. Currently no reports of chest pain, shortness of breath, or palpitations. Patient is afebrile. No reports of nausea or vomiting and patient is tolerating diet. On exam vital signs are stable. Cardio S1, S2 are muffled. Respiratory shows diminished breath sounds at the bases with no wheezing or rhonchi noted. Abdomen is soft and nontender. Nervous system shows no focal deficits. Please refer to medication reconciliation sheet for a list of medications. Patient Condition at Discharge: Stable Plan - Discharge Summary Discharge Rx Participant: No New Discharge Prescriptions: New Pantoprazole Sodium [Protonix] 40 mg PO DAILY #30 tablet. Continue Levothyroxine Sodium [Synthroid] 100 mcg PO HS Venlafaxine HCl ER [Effexor XR] 300 mg PO HS Multivit-Min/FA/Lycopen/Lutein [Centrum Silver Tablet] 1 tab PO HS Nitroglycerin Sl Tabs [Nitrostat] 0.4 mg SUBLINGUAL Q5M PRN #25 tab PRN Reason: Chest Pain ALPRAZolam [Xanax] 1 mg PO BID PRN PRN Reason: Anxiety lisinopriL [Zestril] 2.5 mg PO HS Prednisolone Acetate/Pf [Prednisolone Acet 1% Eye Drop] 1 drop RIGHT EYE TID Discontinued Aspirin 81 mg PO HS Rivaroxaban [Xarelto] 20 mg PO HS Discharge Medication List Levothyroxine Sodium [Synthroid] 100 mcg PO HS 11/10/15 [History] Multivit-Min/FA/Lycopen/Lutein [Centrum Silver Tablet] 1 tab PO HS 11/10/15 [History] Venlafaxine HCl ER [Effexor XR] 300 mg PO HS 11/10/15 [History] Nitroglycerin Sl Tabs [Nitrostat] 0.4 mg SUBLINGUAL Q5M PRN #25 tab 02/25/19 [Rx] ALPRAZolam [Xanax] 1 mg PO BID PRN 08/31/20 [History] Prednisolone Acetate/Pf [Prednisolone Acet 1% Eye Drop] 1 drop RIGHT EYE TID 08/31/20 [History] lisinopriL [Zestril] 2.5 mg PO HS 08/31/20 [History] Pantoprazole Sodium [Protonix] 40 mg PO DAILY #30 tablet. 09/02/20 [Rx] Follow up Appointment(s)/Referral(s): Shae Langston MD [Primary Care Provider] - 1-2 days Katherin Hernandez MD [STAFF PHYSICIAN] - 1 Week Nakita Gilmore MD [STAFF PHYSICIAN] - 3 Weeks Ambulatory/Diagnostic Orders: Complete Blood Count w/diff [LAB.AMB] Location: None Selected Activity/Diet/Wound Care/Special Instructions: Activity Limited until follow-up Follow-up with primary care provider upon discharge follow up with GI in the outpatient setting in 3-4 weeks Continue with Protonix daily until follow-up Continue to hold aspirin for another 24-48 hours and continue to hold Xarelto for at least 3 days or until follow-up with cardiology Dr. Hernandez Follow-up cardiology in one week Continue current diet Discharge Disposition: HOME SELF-CARE
== END 2020-09-02 15:29 | disposition home or self-care (01) ==
LOC: EC 09:28 → 6NMEDSUR 11:53 → INTOOBSV 11:53 → 6NMEDSUR 12:24
PROVIDERS: ADMIT Internal Medicine; ATTEND Internal Medicine
DX: K92.2 Gastrointestinal hemorrhage, unspecified (principal); K44.9 Diaphragmatic hernia without obstruction or gangrene; K64.8 Other hemorrhoids; Q27.33 Arteriovenous malformation of digestive system vessel; K92.1 Melena; E89.0 Postprocedural hypothyroidism; D64.9 Anemia, unspecified; I25.10 Atherosclerotic heart disease of native coronary artery without angina pectoris; I25.2 Old myocardial infarction; I10 Essential (primary) hypertension; M19.90 Unspecified osteoarthritis, unspecified site; F32.9 Major depressive disorder, single episode, unspecified; E78.5 Hyperlipidemia, unspecified; I48.20 Chronic atrial fibrillation, unspecified; F41.9 Anxiety disorder, unspecified; Z20.822 Contact with and (suspected) exposure to COVID-19; Z79.890 Hormone replacement therapy; Z79.899 Other long term (current) drug therapy; Z79.01 Long term (current) use of anticoagulants; Z79.82 Long term (current) use of aspirin; Z91.048 Other nonmedicinal substance allergy status; Z95.5 Presence of coronary angioplasty implant and graft; Z90.710 Acquired absence of both cervix and uterus; Z90.49 Acquired absence of other specified parts of digestive tract; Z86.73 Personal history of transient ischemic attack (TIA), and cerebral infarction without residual deficits; Z87.891 Personal history of nicotine dependence; Z85.828 Personal history of other malignant neoplasm of skin; Z80.9 Family history of malignant neoplasm, unspecified; Z83.2 Family history of diseases of the blood and blood-forming organs and certain disorders involving the immune mechanism; Z82.49 Family history of ischemic heart disease and other diseases of the circulatory system
CPT/HCPCS: 96361; 96374; 99285; 36415; 80053; 80048; 83605; 83735; 84484; 85025 ×2; 85027 ×2; 85610; 85730; 82272; 87636; 45382; 43235; G0378 ×3; J2704; C9113 ×3

== ENCOUNTER 2021-02-22 22:52 | Observation (INO) | payer MEDICARE ==
[2021-02-22] MEDS ORDERED: ONDANSETRON 4 MG/2 ML VIAL IVP STA (23:02)
[2021-02-22] MEDS ORDERED: SODIUM CHLORIDE 0.9% 500 ML 500 ML IV STA (23:02)
[2021-02-22] MEDS ORDERED: SODIUM CHLORIDE 0.9% 1,000 ML IV STA (23:02)
[2021-02-22] MEDS ORDERED: PANTOPRAZOLE 40 MG/10 ML VIAL IVP STA (23:02)
--- NOTE | 2021-02-22 23:02 | ED ---
GI Bleed HPI - General Chief complaint: GI Bleed Stated complaint: GI Bleed Time Seen by Provider: 02/22/21 23:00 Source: patient, RN notes reviewed, old records reviewed Mode of arrival: ambulatory Limitations: no limitations - History of Present Illness Initial comments: This is a 75-year-old female to the emergency room today. Patient since today for evaluation of dark stools bloody stools with episode of the same about 6 months ago. Patient recently restarted on blood thinner for her heart. Patient feels weak lightheaded and dizzy and symptoms of been increasing. One day of dark stools she has had history of prior colonoscopy. MD complaint: melena - Related Data Home Medications Medication Instructions Recorded Confirmed Levothyroxine Sodium [Synthroid] 100 mcg PO HS 11/10/15 08/31/20 Multivit-Min/FA/Lycopen/Lutein 1 tab PO HS 11/10/15 08/31/20 [Centrum Silver Tablet] Venlafaxine HCl ER [Effexor XR] 300 mg PO HS 11/10/15 08/31/20 ALPRAZolam [Xanax] 1 mg PO BID PRN 08/31/20 08/31/20 Prednisolone Acetate/Pf 1 drop RIGHT EYE TID 08/31/20 08/31/20 [Prednisolone Acet 1% Eye Drop] lisinopriL [Zestril] 2.5 mg PO HS 08/31/20 08/31/20 Previous Rx's Medication Instructions Recorded Nitroglycerin Sl Tabs [Nitrostat] 0.4 mg SUBLINGUAL Q5M PRN #25 tab 02/25/19 Pantoprazole Sodium [Protonix] 40 mg PO DAILY #30 tablet. 09/02/20 Allergies Allergy/AdvReac Type Severity Reaction Status Date / Time adhesive tape Allergy "tears Verified 02/22/21 22:56 skin" Review of Systems ROS Statement: Those systems with pertinent positive or pertinent negative responses have been documented in the HPI. ROS Other: All systems not noted in ROS Statement are negative. Past Medical History Past Medical History: Cancer, CVA/TIA, Hyperlipidemia, Hypertension, Myocardial Infarction ([place]), Osteoarthritis ([place]), Skin Disorder, Thyroid Disorder Additional Past Medical History / Comment(s): TIA-no effects, heartburn, hx skin cancer, Last Myocardial Infarction Date:: 02/22/19 History of Any Multi-Drug Resistant Organisms: None Reported Past Surgical History: Back Surgery, Breast Surgery, Cholecystectomy, Heart Catheterization, Heart Catheterization With Stent, Hysterectomy, Orthopedic Surgery, Tonsillectomy Additional Past Surgical History / Comment(s): 2 stents, alejandro bunionectomy, thyroidectomy, alejandro hand-"core vein release", rt breast biopsy, rt nipple r emoved, EGD, alejandro myringotomy Past Anesthesia/Blood Transfusion Reactions: Previous Problems w/ Anesthesia, Motion Sickness Additional Past Anesthesia/Blood Transfusion Reaction / Comment(s): diff intubation " I was told I need a fiberoptic intubation" (not sure what surgery or where she was told this) Date of Last Stent Placement:: 02/22/19 Past Psychological History: Anxiety Smoking Status: Former smoker Past Alcohol Use History: None Reported Past Drug Use History: None Reported - Past Family History Mother Family Medical History: Cancer Father Additional Family Medical History / Comment(s): blood clots-no sure where General Exam Limitations: no limitations General appearance: alert, in no apparent distress Head exam: Present: atraumatic, normocephalic, normal inspection Eye exam: Present: normal appearance, PERRL, EOMI. Absent: scleral icterus, conjunctival injection, periorbital swelling ENT exam: Present: normal exam, mucous membranes moist Neck exam: Present: normal inspection. Absent: tenderness, meningismus, lymphadenopathy Respiratory exam: Present: normal lung sounds bilaterally. Absent: respiratory distress, wheezes, rales, rhonchi, stridor Cardiovascular Exam: Present: normal rhythm, tachycardia, normal heart sounds. Absent: systolic murmur, diastolic murmur, rubs, gallop, clicks GI/Abdominal exam: Present: soft, normal bowel sounds. Absent: distended, tenderness, guarding, rebound, rigid Extremities exam: Present: normal inspection, full ROM, normal capillary refill. Absent: tenderness, pedal edema, joint swelling, calf tenderness Back exam: Present: normal inspection Neurological exam: Present: alert, oriented X3, CN II-XII intact Psychiatric exam: Present: normal affect, normal mood Skin exam: Present: warm, dry, intact, normal color. Absent: rash Course Vital Signs 02/22/21 02/23/21 22:53 01:25 Temperature 98.2 F 98.6 F Pulse Rate 100 102 H Respiratory 16 16 Rate Blood Pressure 190/74 136/60 O2 Sat by Pulse 99 95 Oximetry - Reevaluation(s) Reevaluation #1: 02/23/21 01:47 Medical record is reviewed Reevaluation #2: 02/23/21 01:47 Patient has no active bleeding here in the ER - Consultations Consultation #1: Spoke with [facility] who agrees to admit the patient Medical Decision Making - Medical Decision Making 75 female to the ER for evaluation. Patient be admitted for lower GI bleed and anemia for transfusion and monitoring. Patient has currently stopped [place] - Lab Data Result diagrams: 02/22/21 23:33 02/22/21 23:33 Lab Results 02/22/21 02/22/21 02/22/21 Range/Units 23:33 23:33 23:33 WBC 4.7 (3.8-10.6) k/uL RBC 2.36 L (3.80-5.40) m/uL Hgb 6.3 L* (11.4-16.0) gm/dL Hct 20.1 L (34.0-46.0) % MCV 85.3 (80.0-100.0) fL MCH 26.6 (25.0-35.0) pg MCHC 31.1 (31.0-37.0) g/dL RDW 14.2 (11.5-15.5) % Plt Count 147 L (150-450) k/uL MPV 7.8 Neutrophils % 67 % Lymphocytes % 24 % Monocytes % 5 % Eosinophils % 1 % Basophils % 0 % Neutrophils # 3.2 (1.3-7.7) k/uL Lymphocytes # 1.2 (1.0-4.8) k/uL Monocytes # 0.2 (0-1.0) k/uL Eosinophils # 0.1 (0-0.7) k/uL Basophils # 0.0 (0-0.2) k/uL Hypochromasia Moderate Poikilocytosis Slight PT 9.6 (9.0-12.0) sec INR 0.9 (<1.2) APTT 16.8 L (22.0-30.0) sec Sodium 136 L (137-145) mmol/L Potassium 4.0 (3.5-5.1) mmol/L Chloride 103 (98-107) mmol/L Carbon Dioxide 23 (22-30) mmol/L Anion Gap 10 mmol/L BUN 23 H (7-17) mg/dL Creatinine 0.95 (0.52-1.04) mg/dL Est GFR (CKD-EPI)AfAm 69 (>60 ml/min/1.73 sqM) Est GFR (CKD-EPI)NonAf 60 (>60 ml/min/1.73 sqM) Glucose 122 H (74-99) mg/dL Calcium 9.9 (8.4-10.2) mg/dL Magnesium 1.9 (1.6-2.3) mg/dL Total Bilirubin <0.1 L (0.2-1.3) mg/dL AST 22 (14-36) U/L ALT 15 (4-34) U/L Alkaline Phosphatase 92 (38-126) U/L Troponin I (0.000-0.034) ng/mL Total Protein 6.8 (6.3-8.2) g/dL Albumin 4.3 (3.5-5.0) g/dL Lipase 103 (23-300) U/L Blood Type Blood Type Confirm Blood Type Recheck Bld Type Recheck Status Antibody Screen Spec Expiration Date 02/22/21 02/22/21 02/22/21 Range/Units 23:33 23:33 23:39 WBC (3.8-10.6) k/uL RBC (3.80-5.40) m/uL Hgb (11.4-16.0) gm/dL Hct (34.0-46.0) % MCV (80.0-100.0) fL MCH (25.0-35.0) pg MCHC (31.0-37.0) g/dL RDW (11.5-15.5) % Plt Count (150-450) k/uL MPV Neutrophils % % Lymphocytes % % Monocytes % % Eosinophils % % Basophils % % Neutrophils # (1.3-7.7) k/uL Lymphocytes # (1.0-4.8) k/uL Monocytes # (0-1.0) k/uL Eosinophils # (0-0.7) k/uL Basophils # (0-0.2) k/uL Hypochromasia Poikilocytosis PT (9.0-12.0) sec INR (<1.2) APTT (22.0-30.0) sec Sodium (137-145) mmol/L Potassium (3.5-5.1) mmol/L Chloride (98-107) mmol/L Carbon Dioxide (22-30) mmol/L Anion Gap mmol/L BUN (7-17) mg/dL Creatinine (0.52-1.04) mg/dL Est GFR (CKD-EPI)AfAm (>60 ml/min/1.73 sqM) Est GFR (CKD-EPI)NonAf (>60 ml/min/1.73 sqM) Glucose (74-99) mg/dL Calcium (8.4-10.2) mg/dL Magnesium (1.6-2.3) mg/dL Total Bilirubin (0.2-1.3) mg/dL AST (14-36) U/L ALT (4-34) U/L Alkaline Phosphatase (38-126) U/L Troponin I <0.012 (0.000-0.034) ng/mL Total Protein (6.3-8.2) g/dL Albumin (3.5-5.0) g/dL Lipase (23-300) U/L Blood Type O Positive Blood Type Confirm O Positive Blood Type Recheck No Previous Record Bld Type Recheck Status CABO Indicated Antibody Screen NEGATIVE Spec Expiration Date 02/25/20212332 Disposition Clinical Impression: Anemia, GI bleed, Lower gastrointestinal hemorrhage Disposition: ADMITTED IP TO THIS HOSP Condition: Fair Is patient prescribed a controlled substance at d/c from ED?: No Referrals: Shae Spian MD [Primary Care Provider] - 1-2 days
[2021-02-22 23:43] LABS: Basophils % (A) 0 %; Eosinophils # (A) 0.1 k/uL (0-0.7); Eosinophils % (A) 1 %; HCT 20.1 % (34.0-46.0); Hypochromasia Moderate; Lymphocytes # (A) 1.2 k/uL (1.0-4.8); Lymphocytes % (A) 24 %; MCH 26.6 pg (25.0-35.0); MCHC 31.1 g/dL (31.0-37.0); MCV 85.3 fL (80.0-100.0); Mean Platelet Volume 7.8; Monocytes # (A) 0.2 k/uL (0-1.0); Monocytes % (A) 5 %; Neutrophils # (A) 3.2 k/uL (1.3-7.7); Neutrophils % (A) 67 %; Platelet Count 147 k/uL (150-450); Poikilocytosis Slight; RBC 2.36 m/uL (3.80-5.40); RDW 14.2 % (11.5-15.5); WBC 4.7 k/uL (3.8-10.6)
[2021-02-22 23:58] LABS: ALT 15 U/L (4-34); AST 22 U/L (14-36); African American GFR (CKD) 69 (>60 ml/min/1.73 sqM); Albumin 4.3 g/dL (3.5-5.0); Alkaline Phosphatase 92 U/L (38-126); Anion Gap 10 mmol/L; Blood Urea Nitrogen 23 mg/dL (7-17); Calcium 9.9 mg/dL (8.4-10.2); Carbon Dioxide 23 mmol/L (22-30); Chloride 103 mmol/L (98-107); Glucose 122 mg/dL (74-99); Lipase 103 U/L (23-300); Magnesium 1.9 mg/dL (1.6-2.3); Non-African American GFR(CKD) 60 (>60 ml/min/1.73 sqM); Sodium 136 mmol/L (137-145); Total Bilirubin <0.1 mg/dL (0.2-1.3); Total Protein 6.8 g/dL (6.3-8.2)
[2021-02-23 00:14] LABS: HGB 6.3 gm/dL (11.4-16.0)
[2021-02-23 00:26] LABS: INR 0.9 (<1.2); Prothrombin Time 9.6 sec (9.0-12.0)
[2021-02-23 00:29] LABS: Partial Thromboplastin Time 16.8 sec (22.0-30.0)
[2021-02-23] MEDS ORDERED: NALOXONE 0.4 MG/ML 1 ML VIAL IV PRN (01:44)
[2021-02-23] MEDS ORDERED: MORPHINE SULFATE 4 MG/ML SYRINGE IV PRN (01:44)
[2021-02-23] MEDS ORDERED: ONDANSETRON 4 MG/2 ML VIAL IVP PRN (01:44)
[2021-02-23] MEDS: SODIUM CHLORIDE 0.9% 1,000 ML IV SCH ×2 (02:29→18:47)
[2021-02-23] MEDS: PANTOPRAZOLE 40 MG/10 ML VIAL IV SCH ×2 (08:51→19:59)
[2021-02-23 09:08] LABS: Potassium 4.2 mmol/L (3.5-5.1)
[2021-02-23 10:15] LABS: Basophils # (A) 0.1 k/uL (0-0.2); Basophils % (A) 1 %; Eosinophils # (A) 0.2 k/uL (0-0.7); Eosinophils % (A) 2 %; HCT 33.1 % (34.0-46.0); Hypochromasia Slight; Lymphocytes # (A) 2.6 k/uL (1.0-4.8); Lymphocytes % (A) 29 %; MCH 28.8 pg (25.0-35.0); MCV 87.1 fL (80.0-100.0); Mean Platelet Volume 7.1; Monocytes # (A) 0.6 k/uL (0-1.0); Monocytes % (A) 6 %; Neutrophils # (A) 5.3 k/uL (1.3-7.7); Neutrophils % (A) 59 %; Poikilocytosis Moderate; RDW 14.5 % (11.5-15.5); WBC 8.9 k/uL (3.8-10.6)
[2021-02-23 10:20] LABS: HGB 10.9 gm/dL (11.4-16.0); Platelet Count 377 k/uL (150-450)
--- NOTE | 2021-02-23 12:05 | P.HPIM ---
History of Present Illness This is a pleasant 75 years old female with past medical history of CVA/TIA, GI Bleed, Hyperlipidemia, Hypertension, Osteoarthritis , hypothyroidism, anxiety Patient presents because of feeling weak for 3 days associated with dark-colored stool with blood in stool for the last 2-3 days. Patient is already on aspirin and Plavix and she was on a blood thinner for A. fib but stopped in August for GI bleed. She wanted to see her director packaging Dr. Rawls and after discussing the case with Bill Langston from GI service she was okay to start her xarelto , from which she took 1 pill and then developed this problem of GI bleed. No chest pain or dyspnea. No abdominal pain or vomiting. No diarrhea or dysuria. No fever vitals are stable. hemoglobin on admission was 6.3, it was 9.0 on 09/2020. INR is normal 0.9, BMP and liver enzymes are unremarkable. Troponin and lipase are normal. Coe virus not detected. On emergency room patient received Protonix, IV fluids and pain medication. Review of Systems CONSTITUTIONAL: No fever, no malaise, no fatigue. HEENT: No recent visual problems or hearing problems. Denied any sore throat. CARDIOVASCULAR: No orthopnea, PND, no palpitations, no syncope. PULMONARY: No shortness of breath, no cough, no hemoptysis. GASTROINTESTINAL: No diarrhea, no nausea, no vomiting, no abdominal pain. Normoactive bowel sounds. NEUROLOGICAL: No headaches, no weakness, no numbness. HEMATOLOGICAL: Denies any bleeding or petechiae. GENITOURINARY: Denies any burning micturition, frequency, or urgency. MUSCULOSKELETAL/RHEUMATOLOGICAL: Denies any joint pain, swelling, or any muscle pain. ENDOCRINE: Denies any polyuria or polydipsia. Past Medical History Past Medical History: Cancer, CVA/TIA, GI Bleed, Hyperlipidemia, Hypertension, Myocardial Infarction (HI), Osteoarthritis (OA), Skin Disorder, Thyroid Disorder Additional Past Medical History / Comment(s): TIA-no effects, heartburn, hx skin cancer, Last Myocardial Infarction Date:: 02/22/19 History of Any Multi-Drug Resistant Organisms: None Reported Past Surgical History: Back Surgery, Breast Surgery, Cholecystectomy, Heart Catheterization, Heart Catheterization With Stent, Hysterectomy, Orthopedic Surgery, Tonsillectomy Additional Past Surgical History / Comment(s): 3 stents, alejandro bunionectomy, thyroidectomy, alejandro hand-"core vein release", rt breast biopsy, rt nipple removed, EGD, alejandro myringotomy, 2 eye stents Past Anesthesia/Blood Transfusion Reactions: Previous Problems w/ Anesthesia, Motion Sickness Additional Past Anesthesia/Blood Transfusion Reaction / Comment(s): diff intubation " I was told I need a fiberoptic intubation" (not sure what surgery or where she was told this) Date of Last Stent Placement:: 02/22/19 Past Psychological History: Anxiety Smoking Status: Vaper Past Alcohol Use History: None Reported Additional Past Alcohol Use History / Comment(s): smokes dispoasable vape Past Drug Use History: None Reported - Past Family History Mother Family Medical History: Cancer Father Additional Family Medical History / Comment(s): blood clots-no sure where Medications and Allergies Home Medications Medication Instructions Recorded Confirmed Type Levothyroxine Sodium [Synthroid] 100 mcg PO HS 11/10/15 02/23/21 History Multivit-Min/FA/Lycopen/Lutein 1 tab PO HS 11/10/15 02/23/21 History [Centrum Silver Tablet] Venlafaxine HCl ER [Effexor XR] 300 mg PO HS 11/10/15 02/23/21 History Nitroglycerin Sl Tabs [Nitrostat] 0.4 mg SUBLINGUAL Q5M PRN #25 tab 02/25/19 02/23/21 Rx ALPRAZolam [Xanax] 1 mg PO BID PRN 08/31/20 02/23/21 History lisinopriL [Zestril] 2.5 mg PO HS 08/31/20 02/23/21 History Aspirin EC [Ecotrin Low Dose] 81 mg PO HS 02/23/21 02/23/21 History Clopidogrel Bisulfate [Plavix] 75 mg PO HS 02/23/21 02/23/21 History Allergies Allergy/AdvReac Type Severity Reaction Status Date / Time adhesive tape AdvReac "tears Verified 02/23/21 07:15 skin" Physical Exam Vitals: Vital Signs Temp Pulse Pulse Resp BP BP Pulse Ox 02/23/21 06:15 98.1 F 80 17 129/66 93 L 02/23/21 05:45 97.7 F 82 16 134/71 92 L 02/23/21 05:35 98.4 F 84 16 134/67 91 L 02/23/21 05:15 98.1 F 86 18 133/69 92 L 02/23/21 03:39 97.8 F 88 18 122/68 92 L 02/23/21 03:34 97.8 F 88 18 122/68 92 L 02/23/21 03:04 98.5 F 81 16 128/72 92 L 02/23/21 02:54 98.4 F 88 18 150/69 91 L 02/23/21 02:41 98.7 F 92 18 153/72 94 L 02/23/21 02:18 87 18 129/54 95 02/23/21 01:25 98.6 F 102 H 16 136/60 95 02/22/21 22:53 98.2 F 100 16 190/74 99 Intake and Output 02/22/21 02/23/21 02/23/21 22:59 06:59 14:59 Intake Total 310 Balance 310 Intake: Oral 0 Blood Product 310 Rc As-1 Unit 0 [id number] Rc As-1 Unit 310 [id number] Other: Voiding Method Toilet # Voids 1 Weight 63.503 kg 65.2 kg GENERAL: The patient is alert and oriented x3, not in any acute distress. Well developed, well nourished. HEENT: Pupils are round and equally reacting to light. EOMI. No scleral icterus. No conjunctival pallor. Normocephalic, atraumatic. No pharyngeal erythema. No thyromegaly. CARDIOVASCULAR: S1 and S2 present. No murmurs, rubs, or gallops. PULMONARY: Chest is clear to auscultation, no wheezing or crackles. ABDOMEN: Soft, nontender, nondistended, normoactive bowel sounds. No palpable organomegaly. MUSCULOSKELETAL: No joint swelling or deformity. EXTREMITIES: No cyanosis, clubbing, or pedal edema. NEUROLOGICAL: Gross neurological examination did not reveal any focal deficits. SKIN: No rashes. No petechiae Results CBC & Chem 7: 02/23/21 08:30 02/23/21 08:30 Labs: Abnormal Lab Results - Last 24 Hours (Table) 02/22/21 02/22/21 02/22/21 Range/Units 23:33 23:33 23:33 RBC 2.36 L (3.80-5.40) m/uL Hgb 6.3 L* (11.4-16.0) gm/dL Hct 20.1 L (34.0-46.0) % Plt Count 147 L (150-450) k/uL APTT 16.8 L (22.0-30.0) sec Sodium 136 L (137-145) mmol/L BUN 23 H (7-17) mg/dL Glucose 122 H (74-99) mg/dL Total Bilirubin <0.1 L (0.2-1.3) mg/dL Crossmatch 02/22/21 Range/Units 23:33 RBC (3.80-5.40) m/uL Hgb (11.4-16.0) gm/dL Hct (34.0-46.0) % Plt Count (150-450) k/uL APTT (22.0-30.0) sec Sodium (137-145) mmol/L BUN (7-17) mg/dL Glucose (74-99) mg/dL Total Bilirubin (0.2-1.3) mg/dL Crossmatch See Detail Thrombosis Risk Factor Assmnt - Choose All That Apply Each Risk Factor Represents 2 Points: Age 61-74 years Thrombosis Risk Factor Assessment Total Risk Factor Score: 2 Thrombosis Risk Factor Assessment Level: Low Risk Assessment and Plan Assessment: acute GI bleed Acute blood loss anemia Hyperlipidemia Hypertension History of osteoarthritis Hypothyroidism History of anxiety, not an active issue History of GI bleed History of skin cancer Plan: This is a pleasant 75 years old female who presents with GI bleed Continue with Protonix Transfuse blood if hemoglobin less than 7 Surgery consult Keep holding aspirin and Plavix as patient is high-risk and actively bleeding Labs and medication were reviewed.. Continue same treatment. Continue with symptomatic treatment. Resume home medication. Monitor lytes and vitals. DVT and GI prophylaxis. Further recommendations depends on the clinical course of the patient DVT prophylaxis: no Subcutaneous heparin for GI bleed. S CD GI Prophylaxis: Ppi PT/OT: Pending Prognosis is guarded
[2021-02-23] MEDS ORDERED: ALPRAZolam 1 MG TAB PO PRN (12:54)
--- NOTE | 2021-02-23 12:59 | P.GSCN ---
History of Present Illness Consult date: 02/23/21 History of present illness: CHIEF COMPLAINT: GI bleed HISTORY OF PRESENT ILLNESS: This is a 75-year-old female who presented to the hospital with complaints of one black bowel movement that started yesterday. Patient has been feeling weak over the last 1 week. She has been feeling lightheaded and dizzy. She had been on aspirin and Plavix at home. She was recently restarted on her Xarelto on Saturday of this week per her collections curator. Patient had previous EGD and colonoscopy done in August with Dr. Gilmore which had shown a nonbleeding AVM status post argon plasma coagulation, small haital hernia and small internal hemorrhoid. Patient's hemoglobin on admission was 6.3 she did receive 1 unit of blood. Repeat hemoglobin 10.9. Patient denies any abdominal pain or abdominal cramping. She's had no further bowel movement. PAST MEDICAL HISTORY: Atrial fibrillation, TIA, Hyperlipidemia, Hypertension, Myocardial Infarction (NM), Osteoarthritis (OA), Skin Disorder, Thyroid Disorder, skin cancer PAST SURGICAL HISTORY: Back Surgery, Breast Surgery, Cholecystectomy, Heart Catheterization, Heart Catheterization With Stent, Hysterectomy, Orthopedic Surgery, Tonsillectomy MEDICATIONS: See list. ALLERGIES: See list. SOCIAL HISTORY: No illicit drug use. REVIEW OF SYSTEMS: CONSTITUTIONAL: Denies fever or chills. HEENT: Denies blurred vision, vision changes, or eye pain. Denies hemoptysis CARDIOVASCULAR: Denies chest pain or pressure. RESPIRATORY: No shortness of breath. GASTROINTESTINAL: See HPI for pertinent findings HEMATOLOGIC: Denies bleeding disorders. GENITOURINARY: Denies any blood in urine or increased urinary frequency. SKIN: Denies pruitis. Denies rash. PHYSICAL EXAM: VITAL SIGNS: Reviewed GENERAL: Well-developed in no acute distress. HEENT: No sclera icterus. Extraocular movements grossly intact. Moist buccal mucosa. Head is atraumatic, normocephalic. No nasal drainage. ABDOMEN: Soft. Nondistended. Nondistended NEUROLOGIC: Alert and oriented. Cranial nerves II through XII grossly intact. LABORATORY DATA: WBC is 8.9 hemoglobin 6.3 up to 10.9 platelets 377 Sodium 139 potassium 4.2 BUN 17 creatinine 0.89 LFTs normal lipase 103 COVID-19 not detected IMAGING: ASSESSMENT: 1. Anemia with acute lower GI bleed. Patient having black stools. On aspirin, Plavix and Xarelto at home PLAN: -Continue to hold aspirin, Plavix and Xarelto -Continue to monitor for signs or symptoms of bleeding -Repeat CBC in a.m. -Start clear liquid diet -Plan for colonoscopy on 02/27/2021. Colonoscopy possibly could be completed outpatient depending on if patient has any further signs of symptoms of bleeding. Thank you For this consultation Physician Linux Kernel Developer note has been reviewed by physician. Signing provider agrees with the documented findings, assessment, and plan of care. Past Medical History Past Medical History: Cancer, CVA/TIA, GI Bleed, Hyperlipidemia, Hypertension, Myocardial Infarction (NM), Osteoarthritis (OA), Skin Disorder, Thyroid Disorder Additional Past Medical History / Comment(s): TIA-no effects, heartburn, hx skin cancer, Last Myocardial Infarction Date:: 02/22/19 History of Any Multi-Drug Resistant Organisms: None Reported Past Surgical History: Back Surgery, Breast Surgery, Cholecystectomy, Heart Catheterization, Heart Catheterization With Stent, Hysterectomy, Orthopedic Surgery, Tonsillectomy Additional Past Surgical History / Comment(s): 3 stents, alejandro bunionectomy, thyroidectomy, alejandro hand-"core vein release", rt breast biopsy, rt nipple removed, EGD, alejandro myringotomy, 2 eye stents Past Anesthesia/Blood Transfusion Reactions: Previous Problems w/ Anesthesia, Motion Sickness Additional Past Anesthesia/Blood Transfusion Reaction / Comm: diff intubation " I was told I need a fiberoptic intubation" (not sure what surgery or where she was told this) Date of Last Stent Placement:: 02/22/19 Past Psychological History: Anxiety Smoking Status: Vaper Past Alcohol Use History: None Reported Additional Past Alcohol Use History / Comment(s): smokes dispoasable vape Past Drug Use History: None Reported - Past Family History Mother Family Medical History: Cancer Father Additional Family Medical History / Comment(s): blood clots-no sure where Medications and Allergies Home Medications Medication Instructions Recorded Confirmed Type Levothyroxine Sodium [Synthroid] 100 mcg PO HS 11/10/15 02/23/21 History Multivit-Min/FA/Lycopen/Lutein 1 tab PO HS 11/10/15 02/23/21 History [Centrum Silver Tablet] Venlafaxine HCl ER [Effexor XR] 300 mg PO HS 11/10/15 02/23/21 History Nitroglycerin Sl Tabs [Nitrostat] 0.4 mg SUBLINGUAL Q5M PRN #25 tab 02/25/19 02/23/21 Rx ALPRAZolam [Xanax] 1 mg PO BID PRN 08/31/20 02/23/21 History lisinopriL [Zestril] 2.5 mg PO HS 08/31/20 02/23/21 History Aspirin EC [Ecotrin Low Dose] 81 mg PO HS 02/23/21 02/23/21 History Clopidogrel Bisulfate [Plavix] 75 mg PO HS 02/23/21 02/23/21 History Allergies Allergy/AdvReac Type Severity Reaction Status Date / Time adhesive tape AdvReac "tears Verified 02/23/21 07:15 skin" Surgical - Exam Vital Signs Temp Pulse Resp BP Pulse Ox 98.2 F 100 16 190/74 99 02/22/21 22:53 02/22/21 22:53 02/22/21 22:53 02/22/21 22:53 02/22/21 22:53 Results - Labs 02/23/21 08:30 02/23/21 08:30 Abnormal Lab Results - Last 24 Hours (Table) 02/22/21 02/22/21 02/22/21 Range/Units 23:33 23:33 23:33 RBC 2.36 L (3.80-5.40) m/uL Hgb 6.3 L* (11.4-16.0) gm/dL Hct 20.1 L (34.0-46.0) % Plt Count 147 L (150-450) k/uL APTT 16.8 L (22.0-30.0) sec Sodium 136 L (137-145) mmol/L Chloride (98-107) mmol/L BUN 23 H (7-17) mg/dL Glucose 122 H (74-99) mg/dL Total Bilirubin <0.1 L (0.2-1.3) mg/dL Crossmatch 02/22/21 02/23/21 02/23/21 Range/Units 23:33 08:30 08:30 RBC (3.80-5.40) m/uL Hgb 10.9 L D (11.4-16.0) gm/dL Hct 33.1 L (34.0-46.0) % Plt Count (150-450) k/uL APTT (22.0-30.0) sec Sodium (137-145) mmol/L Chloride 111 H (98-107) mmol/L BUN (7-17) mg/dL Glucose 102 H (74-99) mg/dL Total Bilirubin (0.2-1.3) mg/dL Crossmatch See Detail Diabetes panel 02/22/21 02/23/21 Range/Units 23:33 08:30 Sodium 136 L 139 (137-145) mmol/L Potassium 4.0 4.2 (3.5-5.1) mmol/L Chloride 103 111 H (98-107) mmol/L Carbon Dioxide 23 23 (22-30) mmol/L BUN 23 H 17 (7-17) mg/dL Creatinine 0.95 0.89 (0.52-1.04) mg/dL Glucose 122 H 102 H (74-99) mg/dL Calcium 9.9 9.0 (8.4-10.2) mg/dL AST 22 (14-36) U/L ALT 15 (4-34) U/L Alkaline Phosphatase 92 (38-126) U/L Total Protein 6.8 (6.3-8.2) g/dL Albumin 4.3 (3.5-5.0) g/dL Calcium panel 02/22/21 02/23/21 Range/Units 23:33 08:30 Calcium 9.9 9.0 (8.4-10.2) mg/dL Albumin 4.3 (3.5-5.0) g/dL Pituitary panel 02/22/21 02/23/21 Range/Units 23:33 08:30 Sodium 136 L 139 (137-145) mmol/L Potassium 4.0 4.2 (3.5-5.1) mmol/L Chloride 103 111 H (98-107) mmol/L Carbon Dioxide 23 23 (22-30) mmol/L BUN 23 H 17 (7-17) mg/dL Creatinine 0.95 0.89 (0.52-1.04) mg/dL Glucose 122 H 102 H (74-99) mg/dL Calcium 9.9 9.0 (8.4-10.2) mg/dL Adrenal panel 02/22/21 02/23/21 Range/Units 23:33 08:30 Sodium 136 L 139 (137-145) mmol/L Potassium 4.0 4.2 (3.5-5.1) mmol/L Chloride 103 111 H (98-107) mmol/L Carbon Dioxide 23 23 (22-30) mmol/L BUN 23 H 17 (7-17) mg/dL Creatinine 0.95 0.89 (0.52-1.04) mg/dL Glucose 122 H 102 H (74-99) mg/dL Calcium 9.9 9.0 (8.4-10.2) mg/dL Total Bilirubin <0.1 L (0.2-1.3) mg/dL AST 22 (14-36) U/L ALT 15 (4-34) U/L Alkaline Phosphatase 92 (38-126) U/L Total Protein 6.8 (6.3-8.2) g/dL Albumin 4.3 (3.5-5.0) g/dL
[2021-02-23] MEDS ORDERED: VENLAFAXINE HCL ER 150 MG CAP PO SCH (21:00)
[2021-02-23] MEDS ORDERED: LEVOTHYROXINE 100 MCG TAB PO SCH (21:00)
[2021-02-24] MEDS: SODIUM CHLORIDE 0.9% 1,000 ML IV SCH (04:20)
[2021-02-24 07:17] LABS: Basophils # (A) 0.1 k/uL (0-0.2); Basophils % (A) 1 %; Eosinophils # (A) 0.2 k/uL (0-0.7); Eosinophils % (A) 2 %; HCT 35.1 % (34.0-46.0); HGB 11.1 gm/dL (11.4-16.0); Hypochromasia Moderate; Lymphocytes % (A) 17 %; MCH 28.5 pg (25.0-35.0); MCHC 31.6 g/dL (31.0-37.0); MCV 90.2 fL (80.0-100.0); Mean Platelet Volume 6.8; Monocytes # (A) 0.7 k/uL (0-1.0); Monocytes % (A) 6 %; Neutrophils # (A) 8.4 k/uL (1.3-7.7); Neutrophils % (A) 72 %; Platelet Count 368 k/uL (150-450); Poikilocytosis Moderate; RBC 3.89 m/uL (3.80-5.40); RDW 14.1 % (11.5-15.5); WBC 11.7 k/uL (3.8-10.6)
[2021-02-24 08:23] VITALS: RESP 16
[2021-02-24] MEDS: PANTOPRAZOLE 40 MG/10 ML VIAL IV SCH (09:12)
[2021-02-24 11:31] VITALS: BP 152/67; PULSE 78; TEMP 98.7
--- NOTE | 2021-02-24 13:17 | P.PN ---
Subjective Progress Note Date: 02/24/21 CHIEF COMPLAINT: Anemia HISTORY OF PRESENT ILLNESS: Patient's hemoglobin continues to show improvement. Hemoglobin on admission 6.3. Hemoglobin today is 11.7. She's received a total of 2 units of blood during her this admission. Patient denies any abdominal pain. She's had no further black stools. Afebrile. WBC is up at 11.7 PHYSICAL EXAM: VITAL SIGNS: Reviewed. GENERAL: Well-developed in no acute distress. HEENT: No sclera icterus. Extraocular movements grossly intact. Moist buccal mucosa. Head is atraumatic, normocephalic. ABDOMEN: Soft. Nondistended. Nontender. NEUROLOGIC: Alert and oriented. Cranial nerves II through XII grossly intact. ASSESSMENT: 1. Acute upper GI with black stools 2. Acute blood loss anemia 3. History of AVMs PLAN: -Plan for EGD and colonoscopy outpatient on 02/27/[address] joseph -Continue to hold aspirin, Plavix and Xarelto -Patient can be discharged from surgical standpoint Physician Steel Finisher note has been reviewed by physician. Signing provider agrees with the documented findings, assessment, and plan of care. Objective - Vital Signs Vital signs: Vital Signs Temp 98.0 F 02/24/21 08:22 Pulse 77 02/24/21 08:22 Resp 16 02/24/21 08:22 BP 147/69 02/24/21 08:22 Pulse Ox 95 02/24/21 08:22 Intake & Output 02/23/21 02/24/21 02/24/21 18:59 06:59 18:59 Intake Total 790 485 240 Output Total 80 Balance 790 405 240 Weight 66 kg Intake: Oral 480 485 240 Blood Product 310 Rc As-1 Unit 310 [id number] Output: Urine 80 Other: Voiding Method Toilet Toilet Toilet # Voids 1 2 - Labs CBC & Chem 7: 02/24/21 06:48 02/23/21 08:30 Labs: Abnormal Lab Results - Last 24 Hours (Table) 02/24/21 Range/Units 06:48 WBC 11.7 H (3.8-10.6) k/uL Hgb 11.1 L (11.4-16.0) gm/dL Neutrophils # 8.4 H (1.3-7.7) k/uL
--- NOTE | 2021-02-25 02:19 | P.DS ---
Providers Date of admission: 02/23/21 01:45 Attending physician: Alejandrina Rider Consults: 02/23/21 01:45 Consult Physician Routine Consulting Provider: Lul Campbell Consult Reason/Comments: gbi Do you want consulting provider notified?: Yes Primary care physician: Shae Spain Hospital Course: Diagnoses: acute GI bleed, status post 2 units of blood transfusion Acute blood loss anemia, improved History of coronary artery disease status post stent 2 years ago as per patient on aspirin and Plavix which are felt upon discharge. Hyperlipidemia Hypertension History of osteoarthritis Hypothyroidism History of anxiety, not an active issue History of GI bleed History of skin cancer Hospital course: This is a pleasant 75 years old female with past medical history of CVA/TIA, GI Bleed, Hyperlipidemia, Hypertension, Osteoarthritis , hypothyroidism, anxiety Patient presents because of feeling weak for 3 days associated with dark-colored stool with blood in stool for the last 2-3 days. Patient is already on aspirin and Plavix and she was on a blood thinner for A. fib but stopped in August for GI bleed. She wanted to see her step down nurse Dr. Rawls and after discussing the case with Bill Langston from GI service she was okay to start her xarelto , from which she took 1 pill and then developed this problem of GI bleed. On admission hemoglobin was 6.3 Went up to 11.1 upon discharge after 2 units of blood transfusion. No GI coverage in this facility this week and next week Patient evaluated by surgical team and they recommended colonoscopy on this coming Saturday on 02/27 and patient can be discharged home over the weekend. Also the recommended to keep holding aspirin and Plavix upon discharge. Patient informed and she agrees. Patient aware she'll be at higher risk of heart attack while she is off her dual antiplatelet therapy and she agrees with this risk. On the day of discharge she denies dizziness or headache. No dyspnea. No change in urine or bowel habits. No abdominal pain. No vomiting. No fever Patient was cleared For discharge by surgery team. Patient was adamant to go home today and she did not want to wait in the hospital Problems and management plan were discussed with the patient and he verbalized understanding and acceptance Patient was found stable and can be discharged home in guarded prognosis however he needs follow-up as an outpatient. Patient was instructed to follow up with PCP Dr. Shae Mehul within one week and patient agrees Patient was instructed to follow up with Dr. Kwan on 02/27 and she agrees. Also she was instructed to follow up with Dr. Hernandez her step down nurse on 03/10 and she agrees Physical exam Gen: patient is a AAOx3, no distress CVS: S1-S2, RRR, no murmur Lungs: B/L CTA, no wheezing Abdomen: soft, no distention, no tenderness, positive bowel sounds Extremity: no leg edema or induration Time spent more than 35 minutes Patient Condition at Discharge: Fair Plan - Discharge Summary Discharge Rx Participant: No New Discharge Prescriptions: New Pantoprazole Sodium [Protonix] 40 mg PO BID 30 Days #60 tab Continue Levothyroxine Sodium [Synthroid] 100 mcg PO HS Venlafaxine HCl ER [Effexor XR] 300 mg PO HS Multivit-Min/FA/Lycopen/Lutein [Centrum Silver Tablet] 1 tab PO HS Nitroglycerin Sl Tabs [Nitrostat] 0.4 mg SUBLINGUAL Q5M PRN #25 tab PRN Reason: Chest Pain ALPRAZolam [Xanax] 1 mg PO BID PRN PRN Reason: Anxiety lisinopriL [Zestril] 2.5 mg PO HS Discontinued Clopidogrel Bisulfate [Plavix] 75 mg PO HS Aspirin EC [Ecotrin Low Dose] 81 mg PO HS Discharge Medication List Levothyroxine Sodium [Synthroid] 100 mcg PO HS 11/10/15 [History] Multivit-Min/FA/Lycopen/Lutein [Centrum Silver Tablet] 1 tab PO HS 11/10/15 [History] Venlafaxine HCl ER [Effexor XR] 300 mg PO HS 11/10/15 [History] Nitroglycerin Sl Tabs [Nitrostat] 0.4 mg SUBLINGUAL Q5M PRN #25 tab 02/25/19 [Rx] ALPRAZolam [Xanax] 1 mg PO BID PRN 08/31/20 [History] lisinopriL [Zestril] 2.5 mg PO HS 08/31/20 [History] Pantoprazole Sodium [Protonix] 40 mg PO BID 30 Days #60 tab 02/24/21 [Rx] Follow up Appointment(s)/Referral(s): Katherin Hernandez MD [STAFF PHYSICIAN] - 03/10/21 4:15 pm (Follow up with Dr. Hernandez at [facility]) hSae Spain MD [Primary Care Provider] - 1-2 days (Office closed. Call Saturday to schedule follow up) Lul Campbell MD [STAFF PHYSICIAN] - 02/27/21 (Follow up will be scheduled after colonoscopy) Patient Instructions/Handouts: Gastrointestinal Bleeding (ED), Colonoscopy (GEN) Activity/Diet/Wound Care/Special Instructions: Do not take Aspirin and Plavix until after colonoscopy Saturday Patient will be contacted by Jacquelyn Hinojosa OR scheduling later today for time and instructions for her EGD and colonoscopy on Saturday heart healthy diet activity is restricted till you see your doctor Discharge Disposition: HOME SELF-CARE
== END 2021-02-24 16:11 | disposition home or self-care (01) ==
LOC: EC 22:52 → INTOOBSV 02-23 01:45 → 3SCARD 02-23 01:45 → UNDODISIN 02-24 16:11
PROVIDERS: ADMIT Hospitalist; ATTEND Hospitalist
PROC: 30233N1 Transfusion of Nonautologous Red Blood Cells into Peripheral Vein, Percutaneous Approach (ICD-10-PCS; principal; 2021-02-23)
DX: K92.2 Gastrointestinal hemorrhage, unspecified (principal); D62 Acute posthemorrhagic anemia; E78.5 Hyperlipidemia, unspecified; I10 Essential (primary) hypertension; Z20.822 Contact with and (suspected) exposure to COVID-19; I25.10 Atherosclerotic heart disease of native coronary artery without angina pectoris; M19.90 Unspecified osteoarthritis, unspecified site; I48.91 Unspecified atrial fibrillation; K64.8 Other hemorrhoids; E89.0 Postprocedural hypothyroidism; F41.9 Anxiety disorder, unspecified; I25.2 Old myocardial infarction; Z79.890 Hormone replacement therapy; Z79.899 Other long term (current) drug therapy; Z79.01 Long term (current) use of anticoagulants; Z79.82 Long term (current) use of aspirin; Z90.710 Acquired absence of both cervix and uterus; Z85.828 Personal history of other malignant neoplasm of skin; Z90.49 Acquired absence of other specified parts of digestive tract; Z91.048 Other nonmedicinal substance allergy status; Z87.39 Personal history of other diseases of the musculoskeletal system and connective tissue; Z87.891 Personal history of nicotine dependence; Z86.73 Personal history of transient ischemic attack (TIA), and cerebral infarction without residual deficits; Z95.5 Presence of coronary angioplasty implant and graft; Z82.49 Family history of ischemic heart disease and other diseases of the circulatory system; Z80.9 Family history of malignant neoplasm, unspecified
CPT/HCPCS: 99285 ×2; 96375; 96376 ×2; 96361 ×2; 36430; 96374; 36415; 86900; 86901; 80053; 80048; 83690; 83735; 84484; 85025 ×3; 85610; 85730; 86850; 86920; 87635; G0378 ×2; P9016; J2405; C9113 ×3

== ENCOUNTER 2021-03-06 13:44 | Day surgery (SDC) | payer MEDICARE ==
[2021-03-03 12:41] VITALS: BMI 27.9
[~2021-03-06 13:44] MED LIST changes: -ALPRAZolam 0.25 MG TAB PO PRN; -ALPRAZolam 0.5 MG TAB PO PRN; -ASPIRIN 325 MG TAB PO STA; -ATORVASTATIN 80 MG TAB PO STA; +LACTATED RINGERS 1,000 ML IV SCH; +LIDOCAINE 1% (10MG/ML) FOR IV START INTRADERMA PRN; -NITROGLYCERIN SL TABS 0.4 MG TAB SUBLINGUAL PRN; -SODIUM CHLORIDE 0.9% 1,000 ML in EMPTY BAG 1 BAG IV ONE
[2021-03-06 14:50] VITALS: RESP 16; TEMP 97.4
[2021-03-06] MEDS ORDERED: LIDOCAINE 1% (10MG/ML) FOR IV START SQ ONE (15:02)
[2021-03-06] MEDS ORDERED: PROPOFOL 10 MG/ML 20 ML VIAL IV ONE (16:31)
[2021-03-06] MEDS ORDERED: LIDOCAINE 1% INJ 10MG/ML (20 ML MDV) ONE (16:31)
--- NOTE | 2021-03-06 16:33 | P.GSHP ---
History of Present Illness H&P Date: 03/06/21 Chief Complaint: History of GI bleed 's is a 75-year-old female who presents today for EGD colonoscopy. Patient had a history of GI bleed. She was admitted to the hospital received 2 units of packed red cells. Patient denies any further bleeding since her blood thinners have been discontinued. Past Medical History Past Medical History: Coronary Artery Disease (CAD), Cancer, CVA/TIA, GERD/Reflux, GI Bleed, Hyperlipidemia, Hypertension, Myocardial Infarction ([place]), Osteoarthritis (OA), Skin Disorder, Thyroid Disorder Additional Past Medical History / Comment(s): hx TIA., skin cancer, colitis, kidney stones, glaucoma., hospitalized with GI bleed -02/24/21 at [facility] and received blood transfusions. Last Myocardial Infarction Date:: 02/22/19 History of Any Multi-Drug Resistant Organisms: None Reported Past Surgical History: Back Surgery, Breast Surgery, Cholecystectomy, Heart Catheterization, Heart Catheterization With Stent, Hysterectomy, Orthopedic Surgery, Tonsillectomy Additional Past Surgical History / Comment(s): 3 stents, alejandro bunionectomy, thyroidectomy, alejandro hand-"core vein release", rt breast biopsy, rt nipple removed, EGD, alejandro myringotomy, 2 eye stents Past Anesthesia/Blood Transfusion Reactions: Previous Problems w/ Anesthesia, Motion Sickness, Postoperative Nausea & Vomiting (PONV) Additional Past Anesthesia/Blood Transfusion Reaction / Comment(s): diff intubation " I was told I need a fiberoptic intubation" Date of Last Stent Placement:: 02/22/19 Past Psychological History: No Psychological Hx Reported Smoking Status: Former smoker, Vaper Past Alcohol Use History: None Reported Additional Past Alcohol Use History / Comment(s): currently vapes, hx of cigarettes- quit 1 month ago, smoked less than 1 pack per week, started smoking age 34. Past Drug Use History: None Reported - Past Family History Mother Family Medical History: Cancer Father Additional Family Medical History / Comment(s): blood clots Medications and Allergies Home Medications Medication Instructions Recorded Confirmed Type Levothyroxine Sodium [Synthroid] 100 mcg PO HS 11/10/15 03/06/21 History Venlafaxine HCl ER [Effexor XR] 300 mg PO HS 11/10/15 03/06/21 History Nitroglycerin Sl Tabs [Nitrostat] 0.4 mg SUBLINGUAL Q5M PRN #25 tab 02/25/19 03/06/21 Rx lisinopriL [Zestril] 2.5 mg PO HS 08/31/20 03/06/21 History Pantoprazole Sodium [Protonix] 40 mg PO BID 30 Days #60 tab 02/24/21 03/06/21 Rx Aspirin [Adult Low Dose Aspirin EC] 81 mg PO DAILY 03/03/21 03/03/21 History Clopidogrel [Plavix] 75 mg PO HS 03/03/21 03/03/21 History Multivitamin/Iron/Folic Acid 1 each PO DAILY 03/03/21 03/03/21 History [Centrum Women Tablet] Allergies Allergy/AdvReac Type Severity Reaction Status Date / Time adhesive tape AdvReac "tears Verified 03/03/21 12:27 skin" Surgical - Exam Vital Signs Temp Pulse Resp BP Pulse Ox 97.4 F L 82 16 142/63 94 L 03/06/21 14:49 03/06/21 14:49 03/06/21 14:49 03/06/21 14:49 03/06/21 14:49 - General well developed, well nourished, no distress - Eyes PERRL - ENT normal pinna - Neck no masses - Respiratory normal expansion - Cardiovascular Rhythm: regular - Abdomen Abdomen: soft, non tender Assessment and Plan Assessment: History of GI bleed. We'll perform colonoscopy. EGD
--- NOTE | 2021-03-06 16:59 | P.OP ---
Date of Procedure: 03/06/21 Preoperative Diagnosis: GI bleed Postoperative Diagnosis: Antral gastritis Rectal polyp Hemorrhoids Procedure(s) Performed: EGD Colonoscopy Anesthesia: MAC Surgeon: Lul Campbell Pathology: other (Antrum, rectal polyp) Condition: stable Disposition: PACU Description of Procedure: The patient's placed on the endoscopy table in the lateral position. She received IV sedation. The gastroscope placed oropharynx passed in the esophagus into the stomach. Scope was placed through the pylorus. First and second portion of the duodenum. Normal. Scope was then brought back the antrum and this was minimal inflamed. A biopsies performed. The scope was unretroflexed and remainder the stomach appeared normal. The GE junction was at 40 cm the distal esophagus appeared normal. The proximal esophagus.. Scope was withdrawn for patient. There was no evidence of blood in the upper GI tract. Next digital rectal exam was performed which revealed sternal hemorrhoids. Flexible colonoscope was then placed patient anus passed throughout the entire colon. Ileocecal valve lesions. The cecum, ascending and transverse colon appeared normal. The descending and sigmoid colon.. Scope was brought back the rectum and a small sessile polyp was seen. The cold forcep. Scope was withdrawn for patient. There is no unsteady lower GI bleed. If present patient's previous anemia mainly due to hemorrhoidal bleeding or gastritis.
[2021-03-06 17:15] VITALS: BP 145/73; PULSE 70
== END 2021-03-06 18:03 | disposition home or self-care (01) ==
LOC: ORWHC2ENDO 13:44
PROVIDERS: ATTEND Surgery
DX: K92.2 Gastrointestinal hemorrhage, unspecified (principal); E78.5 Hyperlipidemia, unspecified; I10 Essential (primary) hypertension; I25.10 Atherosclerotic heart disease of native coronary artery without angina pectoris; I25.2 Old myocardial infarction; K21.9 Gastro-esophageal reflux disease without esophagitis; K62.1 Rectal polyp; M19.90 Unspecified osteoarthritis, unspecified site; Z79.02 Long term (current) use of antithrombotics/antiplatelets; Z79.82 Long term (current) use of aspirin; Z79.899 Other long term (current) drug therapy; Z85.828 Personal history of other malignant neoplasm of skin; Z86.73 Personal history of transient ischemic attack (TIA), and cerebral infarction without residual deficits; Z87.442 Personal history of urinary calculi; Z87.891 Personal history of nicotine dependence; Z90.49 Acquired absence of other specified parts of digestive tract
CPT/HCPCS: 45380; 43239; J2001; J2704; 88305

== ENCOUNTER 2021-05-02 22:11 | Emergency (ER) | payer MEDICARE ==
--- NOTE | 2021-05-02 23:00 | ED ---
General Adult HPI - General Chief complaint: Weakness Stated complaint: Weakness Time Seen by Provider: 05/02/21 22:22 Source: patient Mode of arrival: wheelchair Limitations: no limitations - History of Present Illness Initial comments: 75-year-old female patient presents to the emergency department today reporting generalized weakness and fatigue over the last 3 days. States she feels like she could sleep all day. States she has no energy to do her general activities. States she has had anemia in the past requiring blood transfusion. She reports mild shortness of breath. Denies any cough or congestion. Denies any fever or chills. Denies any hematuria, dysuria, urinary frequency, urinary urgency. Denies any chest pain. States she is eating and drinking without difficulty. His any hematochezia or melena. Does take Plavix for history of AL with stents. She is vaccinated for COVID, last dose in July. - Related Data Home Medications Medication Instructions Recorded Confirmed Levothyroxine Sodium [Synthroid] 100 mcg PO HS 11/10/15 03/06/21 Venlafaxine HCl ER [Effexor XR] 300 mg PO HS 11/10/15 03/06/21 lisinopriL [Zestril] 2.5 mg PO HS 08/31/20 03/06/21 Aspirin [Adult Low Dose Aspirin EC] 81 mg PO DAILY 03/03/21 03/03/21 Clopidogrel [Plavix] 75 mg PO HS 03/03/21 03/03/21 Multivitamin/Iron/Folic Acid 1 each PO DAILY 03/03/21 03/03/21 [Centrum Women Tablet] Previous Rx's Medication Instructions Recorded Nitroglycerin Sl Tabs [Nitrostat] 0.4 mg SUBLINGUAL Q5M PRN #25 tab 02/25/19 Pantoprazole Sodium [Protonix] 40 mg PO BID 30 Days #60 tab 02/24/21 Ferrous Sulfate [Feosol] 325 mg PO DAILY #30 tab 05/03/21 Allergies Allergy/AdvReac Type Severity Reaction Status Date / Time adhesive tape AdvReac "tears Verified 05/02/21 22:15 skin" Review of Systems ROS Statement: Those systems with pertinent positive or pertinent negative responses have been documented in the HPI. ROS Other: All systems not noted in ROS Statement are negative. Past Medical History Past Medical History: Coronary Artery Disease (CAD), Cancer, CVA/TIA, GERD/Reflux, GI Bleed, Hyperlipidemia, Hypertension, Myocardial Infarction ([place]), Osteoarthritis (OA), Skin Disorder, Thyroid Disorder Additional Past Medical History / Comment(s): hx TIA., skin cancer, colitis, kidney stones, glaucoma., hospitalized with GI bleed -02/24/21 at [facility] and received blood transfusions. Last Myocardial Infarction Date:: 02/22/19 History of Any Multi-Drug Resistant Organisms: None Reported Past Surgical History: Back Surgery, Breast Surgery, Cholecystectomy, Heart Catheterization, Heart Catheterization With Stent, Hysterectomy, Orthopedic Surgery, Tonsillectomy Additional Past Surgical History / Comment(s): 3 stents, alejandro bunionectomy, thyroidectomy, alejandro hand-"core vein release", rt breast biopsy, rt nipple removed, EGD, alejandro myringotomy, 2 eye stents Past Anesthesia/Blood Transfusion Reactions: Previous Problems w/ Anesthesia, Motion Sickness, Postoperative Nausea & Vomiting (PONV) Additional Past Anesthesia/Blood Transfusion Reaction / Comment(s): diff intubation " I was told I need a fiberoptic intubation" Date of Last Stent Placement:: 02/22/19 Past Psychological History: No Psychological Hx Reported Smoking Status: Former smoker, Vaper Past Alcohol Use History: None Reported Past Drug Use History: None Reported - Past Family History Mother Family Medical History: Cancer Father Additional Family Medical History / Comment(s): blood clots General Exam Limitations: no limitations General appearance: alert, in no apparent distress, other (This is a well- developed, well-nourished adult female in no acute distress.) Eye exam: Present: normal appearance, PERRL, EOMI. Absent: scleral icterus, conjunctival injection, periorbital swelling ENT exam: Present: normal exam, normal oropharynx, mucous membranes moist Respiratory exam: Present: normal lung sounds bilaterally. Absent: respiratory distress, wheezes, rales, rhonchi, stridor Cardiovascular Exam: Present: regular rate, normal rhythm, normal heart sounds. Absent: systolic murmur, diastolic murmur, rubs, gallop, clicks GI/Abdominal exam: Present: soft, normal bowel sounds. Absent: distended, tenderness, guarding, rebound, rigid Neurological exam: Present: alert, oriented X3, CN II-XII intact Psychiatric exam: Present: normal affect, normal mood Skin exam: Present: warm, dry, intact, normal color. Absent: rash Course Vital Signs 05/02/21 05/02/21 05/02/21 22:11 22:14 23:14 Temperature 99.2 F 98.1 F Pulse Rate 98 79 86 Respiratory 18 18 Rate Blood Pressure 182/71 148/79 179/87 O2 Sat by Pulse 99 99 95 Oximetry EKG Findings - EKG Comments: EKG Findings:: EKG obtained at 2226 shows sinus rhythm with a sinus arrhythmia and occasional premature ventricular complexes. Ventricular rate is 98, MN interval 116, QRS duration 84, QT 346, QTc 441. No evidence of ST elevation or depression. Medical Decision Making - Medical Decision Making 75-year-old female patient presents to the emergency department today for evaluation of fatigue and weakness for the last couple of days. Physical examination is unremarkable. She is neurologically intact with no focal deficits. Labs reviewed and did reveal hemoglobin 9.9, BUN 22, urinalysis showed 20 white blood cells with moderate leukocyte esterase and moderate bacteria. This is sent for culture. I did discuss findings and results with her. She will be started on iron supplement. She is instructed to follow-up with her primary care physician for recheck in 1-2 days. She is instructed to have repeat hemoglobin level in 2 days and she is given a lab slip for this. Return parameters were discussed in detail. She verbalizes understanding and agrees with this plan. My attending is Dr. Kimble. - Lab Data Result diagrams: 05/02/21 22:59 05/02/21 22:59 Lab Results 05/02/21 05/02/21 05/02/21 Range/Units 22:36 22:59 22:59 WBC 10.0 (3.8-10.6) k/uL RBC 3.79 L (3.80-5.40) m/uL Hgb 9.9 L (11.4-16.0) gm/dL Hct 33.0 L (34.0-46.0) % MCV 87.2 (80.0-100.0) fL MCH 26.1 (25.0-35.0) pg MCHC 29.9 L (31.0-37.0) g/dL RDW 16.4 H (11.5-15.5) % Plt Count 547 H (150-450) k/uL MPV 6.8 Neutrophils % 68 % Lymphocytes % 21 % Monocytes % 6 % Eosinophils % 2 % Basophils % 1 % Neutrophils # 6.8 (1.3-7.7) k/uL Lymphocytes # 2.1 (1.0-4.8) k/uL Monocytes # 0.6 (0-1.0) k/uL Eosinophils # 0.2 (0-0.7) k/uL Basophils # 0.1 (0-0.2) k/uL Hypochromasia Marked Anisocytosis Slight PT 9.5 (9.0-12.0) sec INR 0.9 (<1.2) APTT 20.9 L (22.0-30.0) sec Sodium (137-145) mmol/L Potassium (3.5-5.1) mmol/L Chloride (98-107) mmol/L Carbon Dioxide (22-30) mmol/L Anion Gap mmol/L BUN (7-17) mg/dL Creatinine (0.52-1.04) mg/dL Est GFR (CKD-EPI)AfAm (>60 ml/min/1.73 sqM) Est GFR (CKD-EPI)NonAf (>60 ml/min/1.73 sqM) Glucose (74-99) mg/dL Plasma Lactic Acid Harinder (0.7-2.0) mmol/L Calcium (8.4-10.2) mg/dL Total Bilirubin (0.2-1.3) mg/dL AST (14-36) U/L ALT (4-34) U/L Alkaline Phosphatase (38-126) U/L Troponin I (0.000-0.034) ng/mL Total Protein (6.3-8.2) g/dL Albumin (3.5-5.0) g/dL Urine Color Urine Appearance (Clear) Urine pH (5.0-8.0) Ur Specific Festus (1.001-1.035) Urine Protein (Negative) Urine Glucose (UA) (Negative) Urine Ketones (Negative) Urine Blood (Negative) Urine Nitrite (Negative) Urine Bilirubin (Negative) Urine Urobilinogen (<2.0) mg/dL Ur Leukocyte Esterase (Negative) Urine RBC (0-5) /hpf Urine WBC (0-5) /hpf Ur Squamous Epith Cells (0-4) /hpf Urine Bacteria (None) /hpf Hyaline Casts (0-2) /lpf Urine Mucus (None) /hpf Coronavirus (PCR) Not Detected (Not Detectd) 05/02/21 05/02/21 05/02/21 Range/Units 22:59 22:59 22:59 WBC (3.8-10.6) k/uL RBC (3.80-5.40) m/uL Hgb (11.4-16.0) gm/dL Hct (34.0-46.0) % MCV (80.0-100.0) fL MCH (25.0-35.0) pg MCHC (31.0-37.0) g/dL RDW (11.5-15.5) % Plt Count (150-450) k/uL MPV Neutrophils % % Lymphocytes % % Monocytes % % Eosinophils % % Basophils % % Neutrophils # (1.3-7.7) k/uL Lymphocytes # (1.0-4.8) k/uL Monocytes # (0-1.0) k/uL Eosinophils # (0-0.7) k/uL Basophils # (0-0.2) k/uL Hypochromasia Anisocytosis PT (9.0-12.0) sec INR (<1.2) APTT (22.0-30.0) sec Sodium 138 (137-145) mmol/L Potassium 4.7 (3.5-5.1) mmol/L Chloride 105 (98-107) mmol/L Carbon Dioxide 23 (22-30) mmol/L Anion Gap 10 mmol/L BUN 22 H (7-17) mg/dL Creatinine 1.03 (0.52-1.04) mg/dL Est GFR (CKD-EPI)AfAm 62 (>60 ml/min/1.73 sqM) Est GFR (CKD-EPI)NonAf 54 (>60 ml/min/1.73 sqM) Glucose 132 H (74-99) mg/dL Plasma Lactic Acid Harinder 1.1 (0.7-2.0) mmol/L Calcium 9.7 (8.4-10.2) mg/dL Total Bilirubin 0.3 (0.2-1.3) mg/dL AST 46 H (14-36) U/L ALT 20 (4-34) U/L Alkaline Phosphatase 96 (38-126) U/L Troponin I (0.000-0.034) ng/mL Total Protein 7.3 (6.3-8.2) g/dL Albumin 4.4 (3.5-5.0) g/dL Urine Color Yellow Urine Appearance Clear (Clear) Urine pH 6.5 (5.0-8.0) Ur Specific Festus 1.022 (1.001-1.035) Urine Protein 1+ H (Negative) Urine Glucose (UA) Negative (Negative) Urine Ketones Negative (Negative) Urine Blood Negative (Negative) Urine Nitrite Negative (Negative) Urine Bilirubin Negative (Negative) Urine Urobilinogen <2.0 (<2.0) mg/dL Ur Leukocyte Esterase Moderate H (Negative) Urine RBC 4 (0-5) /hpf Urine WBC 20 H (0-5) /hpf Ur Squamous Epith Cells 2 (0-4) /hpf Urine Bacteria Rare H (None) /hpf Hyaline Casts 3 H (0-2) /lpf Urine Mucus Rare H (None) /hpf Coronavirus (PCR) (Not Detectd) 05/02/21 Range/Units 22:59 WBC (3.8-10.6) k/uL RBC (3.80-5.40) m/uL Hgb (11.4-16.0) gm/dL Hct (34.0-46.0) % MCV (80.0-100.0) fL MCH (25.0-35.0) pg MCHC (31.0-37.0) g/dL RDW (11.5-15.5) % Plt Count (150-450) k/uL MPV Neutrophils % % Lymphocytes % % Monocytes % % Eosinophils % % Basophils % % Neutrophils # (1.3-7.7) k/uL Lymphocytes # (1.0-4.8) k/uL Monocytes # (0-1.0) k/uL Eosinophils # (0-0.7) k/uL Basophils # (0-0.2) k/uL Hypochromasia Anisocytosis PT (9.0-12.0) sec INR (<1.2) APTT (22.0-30.0) sec Sodium (137-145) mmol/L Potassium (3.5-5.1) mmol/L Chloride (98-107) mmol/L Carbon Dioxide (22-30) mmol/L Anion Gap mmol/L BUN (7-17) mg/dL Creatinine (0.52-1.04) mg/dL Est GFR (CKD-EPI)AfAm (>60 ml/min/1.73 sqM) Est GFR (CKD-EPI)NonAf (>60 ml/min/1.73 sqM) Glucose (74-99) mg/dL Plasma Lactic Acid Harinder (0.7-2.0) mmol/L Calcium (8.4-10.2) mg/dL Total Bilirubin (0.2-1.3) mg/dL AST (14-36) U/L ALT (4-34) U/L Alkaline Phosphatase (38-126) U/L Troponin I <0.012 (0.000-0.034) ng/mL Total Protein (6.3-8.2) g/dL Albumin (3.5-5.0) g/dL Urine Color Urine Appearance (Clear) Urine pH (5.0-8.0) Ur Specific Festus (1.001-1.035) Urine Protein (Negative) Urine Glucose (UA) (Negative) Urine Ketones (Negative) Urine Blood (Negative) Urine Nitrite (Negative) Urine Bilirubin (Negative) Urine Urobilinogen (<2.0) mg/dL Ur Leukocyte Esterase (Negative) Urine RBC (0-5) /hpf Urine WBC (0-5) /hpf Ur Squamous Epith Cells (0-4) /hpf Urine Bacteria (None) /hpf Hyaline Casts (0-2) /lpf Urine Mucus (None) /hpf Coronavirus (PCR) (Not Detectd) Disposition Clinical Impression: Weakness, Anemia Disposition: HOME SELF-CARE Condition: Good Instructions (If sedation given, give patient instructions): Weakness (ED), Anemia (ED) Additional Instructions: Repeat hemoglobin level drawn in 2 days. Take iron supplement as directed. Follow-up with the primary care physician for recheck as soon as possible. Return for any new, worsening, or concerning symptoms. Prescriptions: Ferrous Sulfate [Feosol] 325 mg PO DAILY #30 tab Is patient prescribed a controlled substance at d/c from ED?: No Referrals: Shae Spain MD [Primary Care Provider] - 1-2 days Time of Disposition: 00:06
[2021-05-02 23:14] LABS: Anisocytosis Slight; Basophils # (A) 0.1 k/uL (0-0.2); Basophils % (A) 1 %; Eosinophils # (A) 0.2 k/uL (0-0.7); Eosinophils % (A) 2 %; HGB 9.9 gm/dL (11.4-16.0); Hypochromasia Marked; Lymphocytes # (A) 2.1 k/uL (1.0-4.8); Lymphocytes % (A) 21 %; MCH 26.1 pg (25.0-35.0); MCHC 29.9 g/dL (31.0-37.0); MCV 87.2 fL (80.0-100.0); Mean Platelet Volume 6.8; Monocytes # (A) 0.6 k/uL (0-1.0); Monocytes % (A) 6 %; Neutrophils # (A) 6.8 k/uL (1.3-7.7); Neutrophils % (A) 68 %; Platelet Count 547 k/uL (150-450); RBC 3.79 m/uL (3.80-5.40); RDW 16.4 % (11.5-15.5)
[2021-05-02 23:28] LABS: Albumin 4.4 g/dL (3.5-5.0); Calcium 9.7 mg/dL (8.4-10.2); Potassium 4.7 mmol/L (3.5-5.1); Total Bilirubin 0.3 mg/dL (0.2-1.3); Total Protein 7.3 g/dL (6.3-8.2)
[2021-05-02 23:30] LABS: Appearance,Urine Clear (Clear); Bacteria,Urine Rare /hpf; Bilirubin,Urine Negative (Negative); Blood,Urine Negative (Negative); Color,Urine Yellow; Glucose,Urine (UA) Negative (Negative); Hyaline Casts,Urine 3 /lpf (0-2); INR 0.9 (<1.2); Ketones,Urine Negative (Negative); Leukocyte Esterase,Urine Moderate (Negative); Mucus,Urine Rare /hpf; Nitrite,Urine Negative (Negative); PH, Urine 6.5 (5.0-8.0); Protein,Urine 1+ (Negative); Prothrombin Time 9.5 sec (9.0-12.0); RBC,Urine 4 /hpf (0-5); Specific Gravity,Urine 1.022 (1.001-1.035); Squamous Epithelial Cell,Urine 2 /hpf (0-4); Urobilinogen,Urine <2.0 mg/dL (<2.0); WBC,Urine 20 /hpf (0-5)
[2021-05-02 23:37] LABS: Partial Thromboplastin Time 20.9 sec (22.0-30.0)
[2021-05-03 00:33] VITALS: BP 174/63; PULSE 85; RESP 19; TEMP 98.6
== END 2021-05-03 00:33 | disposition home or self-care (01) ==
LOC: EC 22:11
DX: D64.9 Anemia, unspecified (principal); I25.10 Atherosclerotic heart disease of native coronary artery without angina pectoris; F17.200 Nicotine dependence, unspecified, uncomplicated; T78.40XA Allergy, unspecified, initial encounter; Z79.890 Hormone replacement therapy; Z79.84 Long term (current) use of oral hypoglycemic drugs; Z79.02 Long term (current) use of antithrombotics/antiplatelets
CPT/HCPCS: 36415; 80053; 81001; 83605; 84484; 85025; 85610; 85730; 87086; 87635; 93005; 99284

== ENCOUNTER 2021-08-14 15:10 | Observation (INO) | payer MEDICARE ==
[2021-08-14 16:10] LABS: Basophils # (A) 0.1 k/uL (0-0.2); Basophils % (A) 1 %; Eosinophils # (A) 0.1 k/uL (0-0.7); Eosinophils % (A) 1 %; HCT 31.3 % (34.0-46.0); HGB 9.8 gm/dL (11.4-16.0); Hypochromasia Moderate; Lymphocytes # (A) 1.3 k/uL (1.0-4.8); Lymphocytes % (A) 12 %; MCH 29.1 pg (25.0-35.0); MCHC 31.2 g/dL (31.0-37.0); MCV 93.4 fL (80.0-100.0); Mean Platelet Volume 7.1; Monocytes # (A) 0.4 k/uL (0-1.0); Monocytes % (A) 4 %; Neutrophils % (A) 81 %; Platelet Count 411 k/uL (150-450); RBC 3.35 m/uL (3.80-5.40); RDW 14.6 % (11.5-15.5); WBC 11.1 k/uL (3.8-10.6)
[2021-08-14 16:17] LABS: Albumin 4.2 g/dL (3.5-5.0); Calcium 8.8 mg/dL (8.4-10.2); Magnesium 2.1 mg/dL (1.6-2.3); Total Bilirubin 0.3 mg/dL (0.2-1.3); Total Protein 7.1 g/dL (6.3-8.2)
[2021-08-14 16:32] LABS: INR 0.9 (<1.2); Prothrombin Time 9.9 sec (9.0-12.0)
--- NOTE | 2021-08-14 16:43 | ED ---
General Adult HPI - General Chief complaint: GI Bleed Stated complaint: GI Problem Re-Check, Here yesterday Time Seen by Provider: 08/14/21 15:21 Source: patient, RN notes reviewed, old records reviewed Mode of arrival: ambulatory Limitations: no limitations - History of Present Illness Initial comments: 76-year-old female presenting for reevaluation of bright red rectal bleeding. Patient was seen in the emergency department yesterday, had stable hemoglobin and discharged with return parameters. She had a second episode of bright red rectal bleeding with stool. She is currently on aspirin and Plavix with history of CAD. She states she has very little energy and has been fatigued. She's had previous GI bleed in the past and she reports that they were unable to find a source of the bleeding. - Related Data Home Medications Medication Instructions Recorded Confirmed Levothyroxine Sodium [Synthroid] 100 mcg PO HS 11/10/15 08/13/21 Venlafaxine HCl ER [Effexor XR] 150 mg PO BID 11/10/15 08/13/21 lisinopriL [Zestril] 2.5 mg PO HS 08/31/20 08/13/21 Aspirin [Adult Low Dose Aspirin EC] 81 mg PO DAILY 03/03/21 08/13/21 Clopidogrel [Plavix] 75 mg PO HS 03/03/21 08/13/21 ALPRAZolam [Xanax] 1 mg PO BID PRN 08/13/21 08/13/21 Ascorbic Acid [Vitamin C] 500 mg PO DAILY 08/13/21 08/13/21 Cholecalciferol [Vitamin D3 (25 25 mcg PO DAILY 08/13/21 08/13/21 Mcg = 1000 Iu)] Previous Rx's Medication Instructions Recorded Nitroglycerin Sl Tabs [Nitrostat] 0.4 mg SUBLINGUAL Q5M PRN #25 tab 02/25/19 Allergies Allergy/AdvReac Type Severity Reaction Status Date / Time adhesive tape AdvReac "tears Verified 08/14/21 15:15 skin" Review of Systems ROS Statement: Those systems with pertinent positive or pertinent negative responses have been documented in the HPI. ROS Other: All systems not noted in ROS Statement are negative. Past Medical History Past Medical History: Blood Disorder, Coronary Artery Disease (CAD), Cancer, CVA/TIA, GERD/Reflux, GI Bleed, Hyperlipidemia, Hypertension, Myocardial Infarction ([place]), Osteoarthritis (OA), Skin Disorder, Thyroid Disorder Additional Past Medical History / Comment(s): hx TIA., skin cancer, colitis, kidney stones, glaucoma., hospitalized with GI bleed -02/24/21 at [facility] and received blood transfusions. IRON DEFICIENCY ANEMIA. Last Myocardial Infarction Date:: 02/22/19 History of Any Multi-Drug Resistant Organisms: None Reported Past Surgical History: Back Surgery, Breast Surgery, Cholecystectomy, Heart Catheterization, Heart Catheterization With Stent, Hysterectomy, Orthopedic Surgery, Tonsillectomy Additional Past Surgical History / Comment(s): 3 stents, alejandro bunionectomy, thyroidectomy, alejandro hand-"core vein release", rt breast biopsy, rt nipple removed, EGD, alejandro myringotomy, 2 eye stents Past Anesthesia/Blood Transfusion Reactions: Previous Problems w/ Anesthesia, Motion Sickness, Postoperative Nausea & Vomiting (PONV) Additional Past Anesthesia/Blood Transfusion Reaction / Comment(s): diff intubation " I was told I need a fiberoptic intubation" Date of Last Stent Placement:: 02/22/19 Past Psychological History: No Psychological Hx Reported Smoking Status: Former smoker Past Alcohol Use History: None Reported Past Drug Use History: None Reported - Past Family History Mother Family Medical History: Cancer Father Additional Family Medical History / Comment(s): blood clots General Exam Limitations: no limitations General appearance: alert, in no apparent distress Head exam: Present: atraumatic, normocephalic Eye exam: Present: normal appearance, PERRL ENT exam: Present: normal exam Neck exam: Present: normal inspection. Absent: tenderness, meningismus Respiratory exam: Present: normal lung sounds bilaterally. Absent: respiratory distress, wheezes Cardiovascular Exam: Present: regular rate, normal rhythm GI/Abdominal exam: Present: soft. Absent: distended, tenderness, guarding Rectal exam: Present: bloody stool, hemorrhoids (Nonthrombosed, nonbleeding). Absent: black stool Extremities exam: Present: normal inspection, normal capillary refill Back exam: Present: normal inspection, full ROM Neurological exam: Present: alert, oriented X3, CN II-XII intact. Absent: motor sensory deficit Psychiatric exam: Present: normal affect, normal mood Skin exam: Present: warm, dry, intact, pallor. Absent: cyanosis, diaphoretic Course Vital Signs 08/14/21 15:15 Temperature 97.2 F L Pulse Rate 97 Respiratory 16 Rate Blood Pressure 126/74 O2 Sat by Pulse 97 Oximetry EKG Findings - EKG Comments: EKG Findings:: Sinus rhythm rate of 89, [place] interval 121, QRS duration 90, QTC 390, no ST segment elevation. Medical Decision Making - Medical Decision Making 76-year-old female presenting for bright red rectal bleeding. One episode today. Patient was seen in the emergency department yesterday. Repeat hemoglobin is 9.8. It was 10.9 yesterday. She does have some bright red blood on rectal exam. There is one hemorrhoid which is not actively bleeding and nonthrombosed. I discussed case with general surgery on-call, Dr. Campbell who will see this patient in consultation. Her Plavix will be held, she'll be on a clear liquid diet. Case discussed with [facility] physician group for admission. - Lab Data Result diagrams: 08/14/21 15:56 08/14/21 15:56 Lab Results 08/14/21 08/14/21 08/14/21 Range/Units 15:56 15:56 15:56 WBC 11.1 H (3.8-10.6) k/uL RBC 3.35 L (3.80-5.40) m/uL Hgb 9.8 L (11.4-16.0) gm/dL Hct 31.3 L (34.0-46.0) % MCV 93.4 (80.0-100.0) fL MCH 29.1 (25.0-35.0) pg MCHC 31.2 (31.0-37.0) g/dL RDW 14.6 (11.5-15.5) % Plt Count 411 (150-450) k/uL MPV 7.1 Neutrophils % 81 % Lymphocytes % 12 % Monocytes % 4 % Eosinophils % 1 % Basophils % 1 % Neutrophils # 9.0 H (1.3-7.7) k/uL Lymphocytes # 1.3 (1.0-4.8) k/uL Monocytes # 0.4 (0-1.0) k/uL Eosinophils # 0.1 (0-0.7) k/uL Basophils # 0.1 (0-0.2) k/uL Hypochromasia Moderate PT 9.9 (9.0-12.0) sec INR 0.9 (<1.2) APTT 17.7 L (22.0-30.0) sec Sodium 139 (137-145) mmol/L Potassium 4.0 (3.5-5.1) mmol/L Chloride 106 (98-107) mmol/L Carbon Dioxide 23 (22-30) mmol/L Anion Gap 10 mmol/L BUN 29 H (7-17) mg/dL Creatinine 0.90 (0.52-1.04) mg/dL Est GFR (CKD-EPI)AfAm 73 (>60 ml/min/1.73 sqM) Est GFR (CKD-EPI)NonAf 64 (>60 ml/min/1.73 sqM) Glucose 126 H (74-99) mg/dL Calcium 8.8 (8.4-10.2) mg/dL Magnesium 2.1 (1.6-2.3) mg/dL Total Bilirubin 0.3 (0.2-1.3) mg/dL AST 30 (14-36) U/L ALT 19 (4-34) U/L Alkaline Phosphatase 81 (38-126) U/L Total Protein 7.1 (6.3-8.2) g/dL Albumin 4.2 (3.5-5.0) g/dL Disposition Clinical Impression: Rectal bleeding, GI bleed Disposition: ADMITTED IP TO THIS [facility] Condition: Stable Is patient prescribed a controlled substance at d/c from ED?: No Referrals: Sadia Celestin, PAC [Primary Care Provider] - 1-2 days Decision to Admit Reason: Admit from EC Decision Date: 08/14/21 Decision Time: 17:05
[2021-08-14 16:44] LABS: Partial Thromboplastin Time 17.7 sec (22.0-30.0)
[2021-08-14] MEDS ORDERED: ACETAMINOPHEN TAB 325 MG TAB PO PRN (17:12)
[2021-08-14] MEDS ORDERED: NALOXONE 0.4 MG/ML 1 ML VIAL IV PRN (17:12)
[2021-08-14] MEDS ORDERED: SODIUM CHLORIDE 0.9% 1,000 ML IV SCH (17:15)
[2021-08-14] MEDS: PANTOPRAZOLE 40 MG/10 ML VIAL IV SCH (17:27)
[2021-08-15 00:58] LABS: Basophils # (A) 0.1 k/uL (0-0.2); Basophils % (A) 1 %; Eosinophils # (A) 0.1 k/uL (0-0.7); Eosinophils % (A) 1 %; HCT 26.5 % (34.0-46.0); HGB 8.4 gm/dL (11.4-16.0); Hypochromasia Marked; Lymphocytes # (A) 2.1 k/uL (1.0-4.8); Lymphocytes % (A) 25 %; MCH 30.1 pg (25.0-35.0); MCHC 31.6 g/dL (31.0-37.0); MCV 95.3 fL (80.0-100.0); Monocytes # (A) 0.3 k/uL (0-1.0); Monocytes % (A) 4 %; Neutrophils # (A) 5.6 k/uL (1.3-7.7); Neutrophils % (A) 66 %; Platelet Count 371 k/uL (150-450); RBC 2.78 m/uL (3.80-5.40); RDW 15.1 % (11.5-15.5); WBC 8.6 k/uL (3.8-10.6)
[2021-08-15] MEDS ORDERED: NITROGLYCERIN SL TABS 0.4 MG TAB SUBLINGUAL PRN (01:26)
[2021-08-15] MEDS ORDERED: ALPRAZolam 0.5 MG TAB PO PRN (01:26)
--- NOTE | 2021-08-15 01:28 | P.HPIM ---
History of Present Illness H&P Date: 08/14/21 The patient is a 76-year-old female with a PMH of A. fib (previously on Xarelto, discontinued due to GI bleeding, currently on aspirin and Plavix), CAD, history of CVA, hyperlipidemia, hypertension, hypothyroidism who presents to the emergency room with complaints of GI bleeding. Patient reports that she initially noticed bright red blood in her stools yesterday, at which time she came to the emergency room. The patient's hemoglobin was noted to be at baseline and she was subsequently discharged home. She reports ongoing black tarry stools with small amounts of bright red blood 2-3 times throughout the day today, for which she came back to the emergency room. She denies experiencing abdominal pain, nausea, vomiting. Also denies fever, chills, chest pain, shortness of breath. Patient previously had lower GI bleeding in 08/2020 at which time colonoscopy revealed a nonbleeding AVM in the cecum. She was again admitted for GI bleeding in 02/23 and received 2 units of PRBCs and underwent a post discharge colonoscopy by surgery which as per the patient revealed no identifiable source of bleeding. In the emergency room, laboratory evaluation revealed a hemoglobin of 9.8, down from 10.9 on the day prior. Review of systems: Pertinent positives and negatives as discussed in HPI, a complete review of systems was performed and all other systems are negative. Physical examination: General: non toxic, no distress, appears at stated age, overweight Derm: no unusual rashes/lesions no unusual ecchymoses, warm, dry Head: atraumatic, normocephalic, symmetric Eyes: EOMI, no lid lag, anicteric sclera, pupils equal round reactive to light ENT: Nose and ears atraumatic, no thrush, no pharyngeal erythema Neck: No thyromegaly, no cervical lymphadenopathy, trachea midline, supple Mouth: no lip lesion, mucus membranes moist Cardiovascular: S1S2 reg, no murmur, positive posterior tibial pulse bilateral, no edema, capillary refill less than 2 seconds Lungs: CTA bilateral, no rhonchi, no rales , no accessory muscle use Abdominal: soft, nontender to palpation, no guarding, no appreciable organomegaly, normal bowel sounds Ext: no gross muscle atrophy, muscle strength 5 out of 5 in all 4 extremities grossly, no contractures, Neuro: CN II-XI grossly intact, light touch intact all 4 extremities, finger to nose within normal limits, Psych: Alert, oriented, appropriate affect Assessment/plan Acute GI bleeding -Continue IV Protonix -Surgery consulted -Nothing by mouth for now -Hold antiplatelets -IV fluids -Monitor CBC and transfuse as needed Chronic conditions: Hypertension, hyperlipidemia, history of CVA, A. fib, hypothyroidism -Continue remaining medications aside from antiplatelets DVT prophylaxis -IPCDs The patient is admitted with an anticipated less than 2 midnight stay for evaluation of GIB CODE STATUS: Full Code Discussed with: Patient Anticipated discharge date: in am Anticipated discharge place: Home Past Medical History Past Medical History: Blood Disorder, Coronary Artery Disease (CAD), Cancer, CVA/TIA, GERD/Reflux, GI Bleed, Hyperlipidemia, Hypertension, Myocardial Infarction ([place]), Osteoarthritis (OA), Skin Disorder, Thyroid Disorder Additional Past Medical History / Comment(s): hx TIA., skin cancer, colitis, kidney stones, glaucoma., hospitalized with GI bleed -02/24/21 at [facility] and received blood transfusions. IRON DEFICIENCY ANEMIA. Last Myocardial Infarction Date:: 02/22/19 History of Any Multi-Drug Resistant Organisms: None Reported Past Surgical History: Back Surgery, Breast Surgery, Cholecystectomy, Heart Catheterization, Heart Catheterization With Stent, Hysterectomy, Orthopedic Surgery, Tonsillectomy Additional Past Surgical History / Comment(s): 3 stents, alejandro bunionectomy, thyroidectomy, alejandro hand-"core vein release", rt breast biopsy, rt nipple removed, EGD, alejandro myringotomy, 2 eye stents Past Anesthesia/Blood Transfusion Reactions: Previous Problems w/ Anesthesia, Motion Sickness, Postoperative Nausea & Vomiting (PONV) Additional Past Anesthesia/Blood Transfusion Reaction / Comment(s): diff intuba tion " I was told I need a fiberoptic intubation" Date of Last Stent Placement:: 02/22/19 Past Psychological History: No Psychological Hx Reported Smoking Status: Former smoker Past Alcohol Use History: None Reported Additional Past Alcohol Use History / Comment(s): currently vapes, hx of cigarettes- quit 1 month ago, smoked less than 1 pack per week, started smoking age 34. Past Drug Use History: None Reported - Past Family History Mother Family Medical History: Cancer Father Additional Family Medical History / Comment(s): blood clots Medications and Allergies Home Medications Medication Instructions Recorded Confirmed Type Levothyroxine Sodium [Synthroid] 100 mcg PO DAILY 11/10/15 08/14/21 History Venlafaxine HCl ER [Effexor XR] 150 mg PO BID 11/10/15 08/14/21 History Nitroglycerin Sl Tabs [Nitrostat] 0.4 mg SUBLINGUAL Q5M PRN #25 tab 02/25/19 08/14/21 Rx lisinopriL [Zestril] 2.5 mg PO DAILY 08/31/20 08/14/21 History Aspirin [Adult Low Dose Aspirin EC] 81 mg PO DAILY 03/03/21 08/14/21 History Clopidogrel [Plavix] 75 mg PO DAILY 03/03/21 08/14/21 History ALPRAZolam [Xanax] 1 mg PO BID PRN 08/13/21 08/14/21 History Ascorbic Acid [Vitamin C] 500 mg PO DAILY 08/13/21 08/14/21 History Cholecalciferol [Vitamin D3 (25 25 mcg PO DAILY 08/13/21 08/14/21 History Mcg = 1000 Iu)] Zinc 50 mg PO DAILY 08/14/21 08/14/21 History Allergies Allergy/AdvReac Type Severity Reaction Status Date / Time adhesive tape AdvReac "tears Verified 08/14/21 17:51 skin" Physical Exam Vitals: Vital Signs Temp Pulse Resp BP Pulse Ox 08/14/21 17:40 86 16 129/57 98 08/14/21 15:15 97.2 F L 97 16 126/74 97 Intake and Output 08/14/21 08/14/21 08/14/21 06:59 14:59 22:59 Other: Weight 64.864 kg Results CBC & Chem 7: 08/15/21 00:30 08/14/21 15:56 Labs: Abnormal Lab Results - Last 24 Hours (Table) 08/14/21 08/14/21 08/14/21 Range/Units 15:56 15:56 15:56 WBC 11.1 H (3.8-10.6) k/uL RBC 3.35 L (3.80-5.40) m/uL Hgb 9.8 L (11.4-16.0) gm/dL Hct 31.3 L (34.0-46.0) % Neutrophils # 9.0 H (1.3-7.7) k/uL APTT 17.7 L (22.0-30.0) sec BUN 29 H (7-17) mg/dL Glucose 126 H (74-99) mg/dL
[2021-08-15 04:03] VITALS: RESP 16
[2021-08-15] MEDS ORDERED: LEVOTHYROXINE 100 MCG TAB PO SCH (06:30)
[2021-08-15] MEDS: PANTOPRAZOLE 40 MG/10 ML VIAL IV SCH (08:43)
[2021-08-15 08:57] LABS: ALT 16 U/L (4-34); AST 21 U/L (14-36); African American GFR (CKD) 79 (>60 ml/min/1.73 sqM); Albumin 3.4 g/dL (3.5-5.0); Albumin/Globulin Ratio 1.4; Alkaline Phosphatase 62 U/L (38-126); Anion Gap 4 mmol/L; Blood Urea Nitrogen 20 mg/dL (7-17); Calcium 8.6 mg/dL (8.4-10.2); Carbon Dioxide 27 mmol/L (22-30); Chloride 113 mmol/L (98-107); Globulin 2.4 g/dL; Glucose 107 mg/dL (74-99); Magnesium 2.2 mg/dL (1.6-2.3); Non-African American GFR(CKD) 69 (>60 ml/min/1.73 sqM); Potassium 4.4 mmol/L (3.5-5.1); Sodium 144 mmol/L (137-145); Total Bilirubin 0.2 mg/dL (0.2-1.3); Total Protein 5.8 g/dL (6.3-8.2)
[2021-08-15] MEDS ORDERED: CHOLECALCIFEROL 25 MCG (1000 IU) TABLET PO SCH (09:00)
[2021-08-15] MEDS ORDERED: VENLAFAXINE HCL ER 150 MG CAP PO SCH (09:00)
[2021-08-15 09:09] LABS: HCT 27.4 % (37.2-46.3); HGB 8.1 g/dL (12.0-15.0); MCH 27.7 pg (27.0-32.0); MCHC 29.6 g/dL (32.0-37.0); MCV 93.8 fL (80.0-97.0); Mean Platelet Volume 9.6 fL (9.5-12.2); NRBC Per 100 WBC 0 /100 WBCS (0.0-0.0); Platelet Count 387 X 10*3/uL (140-440); RBC 2.92 X 10*6/uL (4.10-5.20); RDW 14.5 % (11.5-14.5)
--- NOTE | 2021-08-15 10:47 | P.CRDCN ---
History of Present Illness History of present illness: HISTORY OF PRESENT ILLNESS: This is a 76-year-old female with a past medical history significant for paroxysmal atrial fibrillation not on anticoagulation secondary to GI bleeding, coronary artery disease with previous stenting, hypertension, hyperlipidemia, and former nicotine dependence. Patient follows in the office with Dr. Hernandez. We have been asked to see the patient in consultation for risk stratification for patient with recurrent GI bleed and antiplatelets. Patient examined at the bedside. Patient presented to the hospital with a chief complaint of dark stools and bright red blood per rectum. Patient used to be prescribes her also for her atrial fibrillation however this was discontinued due to GI bleeding. She is currently taking aspirin and Plavix. Patient's hemoglobin this morning 8.1. Down from 9.8 on admission. The patient is known to have a history of GI bleeding. She was admitted to the hospital in March 2021. She required a bl ood transfusion at that time and also underwent EGD and colonoscopy revealing antral gastritis, rectal polyp, and hemorrhoids. The patient denies any chest pain or pressure. She denies any shortness of breath. Vital signs are stable this morning. * EKG reveals sinus mechanism with no signs of acute ischemia * Laboratory data: WBC 8.4. Hemoglobin 8.1. Platelet count 387. Sodium 144. Potassium 4.4. BUN 20. Creatinine 0.84. * Current home cardiac medications include lisinopril 2.5 mg daily, Plavix 75 mg daily, aspirin 81 mg daily * Most recent echocardiogram obtained in August 2020 revealed ejection fraction 55-60%, moderate aortic regurgitation, [id number] mitral regurgitation, [id number] tricuspid regurgitation. * Patient underwent stress test in May 2019 at the cardiology office which was nondiagnostic due to baseline EKG abnormalities * Cardiac catheterization history: May 2019 with PCI to the LAD REVIEW OF SYSTEMS: At the time of my exam: CONSTITUTIONAL: Denies fever or chills. HEENT: Denies blurred vision, vision changes, or eye pain. Denies hemoptysis CARDIOVASCULAR: Denies chest pain. Denies orthopnea. Denies PND. Denies palpitations RESPIRATORY: Denies shortness of breath. GASTROINTESTINAL: Denies abdominal pain. Denies nausea or vomiting. HEMATOLOGIC: Denies bleeding disorders. GENITOURINARY: Denies any blood in urine. SKIN: Denies pruitis. Denies rash. PHYSICAL EXAM: VITAL SIGNS: Reviewed. GENERAL: Well-developed in no acute distress. HEENT: Head is normocephalic. Pupils are equal, round. Sclerae anicteric. Mucous membranes of the mouth are moist. Neck supple. No JVD or thyromegaly LUNGS: Respirations even and unlabored. Lungs essentially clear to auscultation bilaterally. HEART: Regular rate and rhythm. S1 and S2 heard. Systolic murmur noted ABDOMEN: Soft. Nondistended. Nontender. EXTREMITIES: Normal range of motion. No clubbing or cyanosis. Peripheral pulses intact. No lower extremity edema NEUROLOGIC: Awake and alert. Oriented x 3. ASSESSMENT: GI bleed Paroxysmal atrial fibrillation not on anticoagulation secondary to history of GI bleeding Coronary artery disease with previous stenting Hypertension Hyperlipidemia Hypothyroidism History of TIA Former nicotine dependence PLAN: No need to repeat echo at this time Continue to monitor hemoglobin Await surgery recommendations May discontinue Plavix from a cardiac standpoint due to GI bleeding Recommend resuming aspirin 81mg daily when okay with general surgery Further recommendations pending patient course Nurse practitioner note has been reviewed by physician. Signing provider agrees with the documented findings, assessment, and plan of care. Past Medical History Past Medical History: Blood Disorder, Coronary Artery Disease (CAD), Cancer, CVA/TIA, GERD/Reflux, GI Bleed, Hyperlipidemia, Hypertension, Myocardial Infarction ([place]), Osteoarthritis (OA), Skin Disorder, Thyroid Disorder Additional Past Medical History / Comment(s): hx TIA., skin cancer, colitis, kidney stones, glaucoma., hospitalized with GI bleed -02/24/21 at [facility] and received blood transfusions. IRON DEFICIENCY ANEMIA. Last Myocardial Infarction Date:: 02/22/19 History of Any Multi-Drug Resistant Organisms: None Reported Past Surgical History: Back Surgery, Breast Surgery, Cholecystectomy, Heart Catheterization, Heart Catheterization With Stent, Hysterectomy, Orthopedic Surgery, Tonsillectomy Additional Past Surgical History / Comment(s): 3 stents, alejandro bunionectomy, thyroidectomy, alejandro hand-"core vein release", rt breast biopsy, rt nipple removed, EGD, alejandro myringotomy, 2 eye stents Past Anesthesia/Blood Transfusion Reactions: Previous Problems w/ Anesthesia, Motion Sickness, Postoperative Nausea & Vomiting (PONV) Additional Past Anesthesia/Blood Transfusion Reaction / Comment(s): diff intubation " I was told I need a fiberoptic intubation" Date of Last Stent Placement:: 02/22/19 Past Psychological History: No Psychological Hx Reported Smoking Status: Former smoker Past Alcohol Use History: None Reported Additional Past Alcohol Use History / Comment(s): currently vapes, hx of cigarettes- quit 1 month ago, smoked less than 1 pack per week, started smoking age 34. Past Drug Use History: None Reported - Past Family History Mother Family Medical History: Cancer Father Additional Family Medical History / Comment(s): blood clots Medications and Allergies Home Medications Medication Instructions Recorded Confirmed Type Levothyroxine Sodium [Synthroid] 100 mcg PO DAILY 11/10/15 08/14/21 History Venlafaxine HCl ER [Effexor XR] 150 mg PO BID 11/10/15 08/14/21 History Nitroglycerin Sl Tabs [Nitrostat] 0.4 mg SUBLINGUAL Q5M PRN #25 tab 02/25/19 08/14/21 Rx lisinopriL [Zestril] 2.5 mg PO DAILY 08/31/20 08/14/21 History Aspirin [Adult Low Dose Aspirin EC] 81 mg PO DAILY 03/03/21 08/14/21 History Clopidogrel [Plavix] 75 mg PO DAILY 03/03/21 08/14/21 History ALPRAZolam [Xanax] 1 mg PO BID PRN 08/13/21 08/14/21 History Ascorbic Acid [Vitamin C] 500 mg PO DAILY 08/13/21 08/14/21 History Cholecalciferol [Vitamin D3 (25 25 mcg PO DAILY 08/13/21 08/14/21 History Mcg = 1000 Iu)] Zinc 50 mg PO DAILY 08/14/21 08/14/21 History Allergies Allergy/AdvReac Type Severity Reaction Status Date / Time adhesive tape AdvReac "tears Verified 08/14/21 17:51 skin" Physical Exam Vitals: Vital Signs Temp Pulse Pulse Resp BP BP Pulse Ox 08/15/21 07:14 98.2 F 80 16 117/55 96 08/15/21 02:17 98.4 F 79 16 106/64 95 08/14/21 18:59 99.6 F 92 17 155/77 95 08/14/21 17:40 86 16 129/57 98 08/14/21 15:15 97.2 F L 97 16 126/74 97 Intake and Output 08/14/21 08/15/21 08/15/21 22:59 06:59 14:59 Other: Voiding Method Toilet Toilet # Voids 1 2 Weight 64.864 kg Results 08/15/21 05:54 08/15/21 05:54 Cardiac Enzymes 08/14/21 Range/Units 15:56 AST 30 (14-36) U/L Coagulation 08/14/21 Range/Units 15:56 PT 9.9 (9.0-12.0) sec APTT 17.7 L (22.0-30.0) sec CBC 08/14/21 08/15/21 Range/Units 15:56 00:30 WBC 11.1 H 8.6 (3.8-10.6) k/uL RBC 3.35 L 2.78 L (3.80-5.40) m/uL Hgb 9.8 L 8.4 L (11.4-16.0) gm/dL Hct 31.3 L 26.5 L (34.0-46.0) % Plt Count 411 371 (150-450) k/uL Comprehensive Metabolic Panel 08/14/21 Range/Units 15:56 Sodium 139 (137-145) mmol/L Potassium 4.0 (3.5-5.1) mmol/L Chloride 106 (98-107) mmol/L Carbon Dioxide 23 (22-30) mmol/L BUN 29 H (7-17) mg/dL Creatinine 0.90 (0.52-1.04) mg/dL Glucose 126 H (74-99) mg/dL Calcium 8.8 (8.4-10.2) mg/dL AST 30 (14-36) U/L ALT 19 (4-34) U/L Alkaline Phosphatase 81 (38-126) U/L Total Protein 7.1 (6.3-8.2) g/dL Albumin 4.2 (3.5-5.0) g/dL Current Medications Generic Name Dose Route Start Last Admin Trade Name Freq PRN Reason Stop Dose Admin Acetaminophen 650 mg 08/14/21 17:12 Acetaminophen Tab 325 Mg Tab PO Q6HR PRN Mild Pain or Fever > 100.5 Alprazolam 1 mg 08/15/21 01:26 Alprazolam 0.5 Mg Tab PO BID PRN Anxiety Cholecalciferol 25 mcg 08/15/21 09:00 Cholecalciferol 25 Mcg (1000 Iu) Tablet PO DAILY [facility] Sodium Chloride 1,000 mls @ 75 mls/hr 08/14/21 17:15 08/14/21 17:26 Saline 0.9% IV 75 mls/hr .[id number] CEDRICK Administration Levothyroxine Sodium 100 mcg 08/15/21 06:30 08/15/21 05:56 Levothyroxine 100 Mcg Tab PO 100 mcg DAILY@0630 CEDRICK Administration Lisinopril 2.5 mg 08/15/21 09:00 Lisinopril 2.5 Mg Tab PO DAILY CEDRICK Naloxone HCl 0.2 mg 08/14/21 17:12 Naloxone 0.4 Mg/Ml 1 Ml Vial IV Q2M PRN Opioid Reversal Nitroglycerin 0.4 mg 08/15/21 01:26 Nitroglycerin Sl Tabs 0.4 Mg Tab SUBLINGUAL Q5M PRN Chest Pain Pantoprazole Sodium 40 mg 08/14/21 17:15 08/15/21 08:43 Pantoprazole 40 Mg/10 Ml Vial IV 40 mg DAILY CEDRICK Administration Venlafaxine HCl 150 mg 08/15/21 09:00 Venlafaxine Hcl Er 150 Mg Cap PO BID CEDRICK Intake and Output 08/14/21 08/15/21 08/15/21 22:59 06:59 14:59 Other: Voiding Method Toilet Toilet # Voids 1 2 Weight 64.864 kg 08/15/21 00:30 08/14/21 15:56
[2021-08-15 11:09] LABS: Basophils # (A) 0.06 X 10*3/uL (0.00-0.10); Basophils % (A) 0.7 %; Eosinophils # (A) 0.16 X 10*3/uL (0.04-0.35); Eosinophils % (A) 1.9 %; Immature Grans, Automated 0.4 %; Lymphocytes # (A) 2.95 X 10*3/uL (0.90-5.00); Lymphocytes % (A) 35.1 %; Monocytes # (A) 0.63 X 10*3/uL (0.20-1.00); Monocytes % (A) 7.5 %; Neutrophils # (A) 4.57 X 10*3/uL (1.80-7.70); Neutrophils % (A) 54.4 %
--- NOTE | 2021-08-15 13:15 | P.GSCN ---
History of Present Illness Consult date: 08/15/21 History of present illness: CHIEF COMPLAINT: GI bleed HISTORY OF PRESENT ILLNESS: This is a 76-year-old female who presented to the hospital with complaints of weakness. She reports that she had bright red blood one episode about 2 days ago. She has a history of coronary disease and is on aspirin and Plavix. She her last EGD and colonoscopy was March 2021 which did reveal gastritis, rectal polyp and hemorrhoids. She does reports occasionally have bleeding from the hemorrhoids when she has to strain due to constipation. She denies any abdominal pain. Denies any rectal pain. Denies any nausea or vomiting. Hemoglobin is down to 8.1 Patient was seen and examined with Dr. joseph PAST MEDICAL HISTORY: TIA, paroxysmal atrial fibrillation not on anticoagulation secondary to history of GI bleeding, hypertension, hypothyroidism PAST SURGICAL HISTORY: See list. MEDICATIONS: See list. ALLERGIES: See list. SOCIAL HISTORY: No illicit drug use. REVIEW OF SYSTEMS: CONSTITUTIONAL: Denies fever or chills. HEENT: Denies blurred vision, vision changes, or eye pain. Denies hemoptysis CARDIOVASCULAR: Denies chest pain or pressure. RESPIRATORY: No shortness of breath. GASTROINTESTINAL: See HPI for pertinent findings HEMATOLOGIC: Denies bleeding disorders. GENITOURINARY: Denies any blood in urine or increased urinary frequency. SKIN: Denies pruitis. Denies rash. PHYSICAL EXAM: VITAL SIGNS: Reviewed GENERAL: Well-developed in no acute distress. HEENT: No sclera icterus. Extraocular movements grossly intact. Moist buccal mucosa. Head is atraumatic, normocephalic. No nasal drainage. ABDOMEN: Soft. Nondistended. Nontender NEUROLOGIC: Alert and oriented. Cranial nerves II through XII grossly intact. LABORATORY DATA: WBC 11.1 down to 8.40 hemoglobin 9.8 down to 8.1 platelets 387 Sodium 144 potassium 4.4 creatinine 0.84 IMAGING: ASSESSMENT: 1. Anemia 2. Acute lower GI bleed PLAN: -Patient scheduled for EGD and colonoscopy on , 08/17/[address] joseph. -Nursing staff reports that patient's family has requested possible transfer to the another facility. If patient does remain hospitalized at [facility] would plan for endoscopies on -Patient can have clear liquid diet -Continue to hold Plavix and aspirin -Patient being evaluated by cardiology they recommended that Plavix can be d iscontinued from their standpoint -Continue PPI -Continue supportive care -Continue IV fluids Thank you for this consultation [employer] Consultant note has been reviewed by physician. Signing provider agrees with the documented findings, assessment, and plan of care. Past Medical History Past Medical History: Blood Disorder, Coronary Artery Disease (CAD), Cancer, CVA/TIA, GERD/Reflux, GI Bleed, Hyperlipidemia, Hypertension, Myocardial Infarction ([place]), Osteoarthritis ([place]), Skin Disorder, Thyroid Disorder Additional Past Medical History / Comment(s): hx TIA., skin cancer, colitis, kidney stones, glaucoma., hospitalized with GI bleed -02/24/21 at [facility] and received blood transfusions. IRON DEFICIENCY ANEMIA. Last Myocardial Infarction Date:: 02/22/19 History of Any Multi-Drug Resistant Organisms: None Reported Past Surgical History: Back Surgery, Breast Surgery, Cholecystectomy, Heart Catheterization, Heart Catheterization With Stent, Hysterectomy, Orthopedic Surgery, Tonsillectomy Additional Past Surgical History / Comment(s): 3 stents, alejandro bunionectomy, thyroidectomy, alejandro hand-"core vein release", rt breast biopsy, rt nipple removed, EGD, alejandro myringotomy, 2 eye stents Past Anesthesia/Blood Transfusion Reactions: Previous Problems w/ Anesthesia, Motion Sickness, Postoperative Nausea & Vomiting (PONV) Additional Past Anesthesia/Blood Transfusion Reaction / Comm: diff intubation " I was told I need a fiberoptic intubation" Date of Last Stent Placement:: 02/22/19 Past Psychological History: No Psychological Hx Reported Smoking Status: Former smoker Past Alcohol Use History: None Reported Additional Past Alcohol Use History / Comment(s): currently vapes, hx of cigarettes- quit 1 month ago, smoked less than 1 pack per week, started smoking age 34. Past Drug Use History: None Reported - Past Family History Mother Family Medical History: Cancer Father Additional Family Medical History / Comment(s): blood clots Medications and Allergies Home Medications Medication Instructions Recorded Confirmed Type Levothyroxine Sodium [Synthroid] 100 mcg PO DAILY 11/10/15 08/14/21 History Venlafaxine HCl ER [Effexor XR] 150 mg PO BID 11/10/15 08/14/21 History Nitroglycerin Sl Tabs [Nitrostat] 0.4 mg SUBLINGUAL Q5M PRN #25 tab 02/25/19 08/14/21 Rx lisinopriL [Zestril] 2.5 mg PO DAILY 08/31/20 08/14/21 History Aspirin [Adult Low Dose Aspirin EC] 81 mg PO DAILY 03/03/21 08/14/21 History Clopidogrel [Plavix] 75 mg PO DAILY 03/03/21 08/14/21 History ALPRAZolam [Xanax] 1 mg PO BID PRN 08/13/21 08/14/21 History Ascorbic Acid [Vitamin C] 500 mg PO DAILY 08/13/21 08/14/21 History Cholecalciferol [Vitamin D3 (25 25 mcg PO DAILY 08/13/21 08/14/21 History Mcg = 1000 Iu)] Zinc 50 mg PO DAILY 08/14/21 08/14/21 History Allergies Allergy/AdvReac Type Severity Reaction Status Date / Time adhesive tape AdvReac "tears Verified 08/14/21 17:51 skin" Surgical - Exam Vital Signs Temp Pulse Resp BP Pulse Ox 97.2 F L 97 16 126/74 97 08/14/21 15:15 08/14/21 15:15 08/14/21 15:15 08/14/21 15:15 08/14/21 15:15 Results - Labs 08/15/21 05:54 08/15/21 05:54 Abnormal Lab Results - Last 24 Hours (Table) 08/14/21 08/14/21 08/14/21 Range/Units 15:56 15:56 15:56 WBC 11.1 H (3.8-10.6) k/uL RBC 3.35 L (3.80-5.40) m/uL Hgb 9.8 L (11.4-16.0) gm/dL Hct 31.3 L (34.0-46.0) % MCHC (32.0-37.0) g/dL Neutrophils # 9.0 H (1.3-7.7) k/uL APTT 17.7 L (22.0-30.0) sec Chloride (98-107) mmol/L BUN 29 H (7-17) mg/dL Glucose 126 H (74-99) mg/dL Total Protein (6.3-8.2) g/dL Albumin (3.5-5.0) g/dL 08/15/21 08/15/21 08/15/21 Range/Units 00:30 05:54 05:54 WBC (3.8-10.6) k/uL RBC 2.78 L 2.92 L (3.80-5.40) m/uL Hgb 8.4 L 8.1 L (11.4-16.0) gm/dL Hct 26.5 L 27.4 L (34.0-46.0) % MCHC 29.6 L (32.0-37.0) g/dL Neutrophils # (1.3-7.7) k/uL APTT (22.0-30.0) sec Chloride 113 H (98-107) mmol/L BUN 20 H (7-17) mg/dL Glucose 107 H (74-99) mg/dL Total Protein 5.8 L (6.3-8.2) g/dL Albumin 3.4 L (3.5-5.0) g/dL Diabetes panel 08/14/21 08/15/21 Range/Units 15:56 05:54 Sodium 139 144 (137-145) mmol/L Potassium 4.0 4.4 (3.5-5.1) mmol/L Chloride 106 113 H (98-107) mmol/L Carbon Dioxide 23 27 (22-30) mmol/L BUN 29 H 20 H (7-17) mg/dL Creatinine 0.90 0.84 (0.52-1.04) mg/dL Glucose 126 H 107 H (74-99) mg/dL Calcium 8.8 8.6 (8.4-10.2) mg/dL AST 30 21 (14-36) U/L ALT 19 16 (4-34) U/L Alkaline Phosphatase 81 62 (38-126) U/L Total Protein 7.1 5.8 L (6.3-8.2) g/dL Albumin 4.2 3.4 L (3.5-5.0) g/dL Calcium panel 08/14/21 08/15/21 Range/Units 15:56 05:54 Calcium 8.8 8.6 (8.4-10.2) mg/dL Albumin 4.2 3.4 L (3.5-5.0) g/dL Pituitary panel 08/14/21 08/15/21 Range/Units 15:56 05:54 Sodium 139 144 (137-145) mmol/L Potassium 4.0 4.4 (3.5-5.1) mmol/L Chloride 106 113 H (98-107) mmol/L Carbon Dioxide 23 27 (22-30) mmol/L BUN 29 H 20 H (7-17) mg/dL Creatinine 0.90 0.84 (0.52-1.04) mg/dL Glucose 126 H 107 H (74-99) mg/dL Calcium 8.8 8.6 (8.4-10.2) mg/dL Adrenal panel 08/14/21 08/15/21 Range/Units 15:56 05:54 Sodium 139 144 (137-145) mmol/L Potassium 4.0 4.4 (3.5-5.1) mmol/L Chloride 106 113 H (98-107) mmol/L Carbon Dioxide 23 27 (22-30) mmol/L BUN 29 H 20 H (7-17) mg/dL Creatinine 0.90 0.84 (0.52-1.04) mg/dL Glucose 126 H 107 H (74-99) mg/dL Calcium 8.8 8.6 (8.4-10.2) mg/dL Total Bilirubin 0.3 0.2 (0.2-1.3) mg/dL AST 30 21 (14-36) U/L ALT 19 16 (4-34) U/L Alkaline Phosphatase 81 62 (38-126) U/L Total Protein 7.1 5.8 L (6.3-8.2) g/dL Albumin 4.2 3.4 L (3.5-5.0) g/dL
[2021-08-15 13:49] VITALS: BP 126/82; PULSE 83; TEMP 97.4
[2021-08-15 15:10] LABS: HCT 29.1 % (34.0-46.0); HGB 8.8 gm/dL (11.4-16.0); Hypochromasia Marked; MCHC 30.2 g/dL (31.0-37.0); MCV 95.9 fL (80.0-100.0); Mean Platelet Volume 6.9; Platelet Count 423 k/uL (150-450); RBC 3.04 m/uL (3.80-5.40); RDW 14.8 % (11.5-15.5); WBC 8.6 k/uL (3.8-10.6)
--- NOTE | 2021-08-15 16:29 | P.DS ---
Providers Date of admission: 08/14/21 17:12 Expected date of discharge: 08/15/21 Attending physician: Maria Antonia Conde, Consults: 08/14/21 17:13 Consult Physician Routine Consulting Provider: Lul Campbell Consult Reason/Comments: Lower GI bleed Do you want consulting provider notified?: Already Contacted 08/15/21 01:28 Consult Physician Urgent Consulting Provider: Eloy Hodges Consult Reason/Comments: risk stratification for patient with recurrent GIB and antiplatelets Do you want consulting provider notified?: Yes Primary care physician: Sadia Celestin [facility] Course: Discharge Diagnosis: Acute blood loss anemia, hemoglobin stable GI bleeding Paroxysmal Atrial fibrillation Coronary artery disease History of CVA Hyperlipidemia Hypertension Hypothyroidism Hospital Course: The patient is a 76-year-old female with a PMH of A. fib (previously on Xarelto, discontinued due to GI bleeding, currently on aspirin and Plavix), CAD, history of CVA, hyperlipidemia, hypertension, hypothyroidism who presents to the emergency room with complaints of GI bleeding. Patient previously had lower GI bleeding in 08/2020 at which time colonoscopy revealed a nonbleeding AVM in the cecum. She was again admitted for GI bleeding in 02/23 and received 2 units of PRBCs and underwent a post discharge colonoscopy by surgery which as per the patient revealed no identifiable source of bleeding. In the emergency room, laboratory evaluation revealed a hemoglobin of 9.8, down from 10.9 on the day prior. Patient was admitted under our services with consultation to Gen. surgery and cardiology. Cardiology evaluating recommending discontinuation of Plavix and holding aspirin until further cleared by general surgery. General surgery evaluated and recommending patient follow up outpatient for colonoscopy as currently hemoglobin is stable. Patient denies any further episodes of bright red bleeding per rectum and continues to deny having any abdominal pain, cramping, or discomfort. She denies having any nausea or vomiting. Hemoglobin was measured/monitor throughout the night and is stable 8.4, 8.1, and 8.8. Plavix was discontinued and patient's aspirin held. Patient being discharged home and to follow up outpatient with general surgery for completion of colonoscopy and endoscopy. Patient has appointment scheduled in Dr. Campbell's office on 08/17/21 at 2:30 PM. Patient seen and examined at bedside. Vital signs reviewed and stable. General: Nontoxic, no distress and appears stated age. Derm: Skin warm and dry, normal coloration for ethnicity. Head: Atraumatic, normocephalic and symmetric. Eyes: EOMs intact, no lid lag, and anicteric sclera Mouth: no lip lesions, mucus membranes moist Cardiovascular: regular rate and rhythm with normal S1S2, no murmur, positive posterior tibial pulses bilaterally, and cap refill < 2 seconds. Lungs: Respirations even, regular, and unlabored on room air. Lungs CTA bilaterally, no rhonchi, no rales, no wheezing, and no accessory muscle usage. Abdominal: soft, nontender to palpation, no guarding, no appreciable organomegaly Ext: ROM intact. No gross muscle atrophy, no edema, no contractures Neuro: Speech clear, face symmetrical and CN II-XII grossly intact with no noted focal neuro deficits Psych: Alert and oriented to person, place, time, and situation. Appropriate and pleasant affect. A total of 35 minutes of time were spent preparing this complex discharge galvan mmary. Jalen Dickey NP rendered care for this patient independently, reviewed the findings and plan as documented in the note above. I did not physically speak with or examine the patient on this date. Patient Condition at Discharge: Stable Plan - Discharge Summary New Discharge Prescriptions: New Pantoprazole Sodium [Protonix] 40 mg PO BID 30 Days #60 tab Continue Levothyroxine Sodium [Synthroid] 100 mcg PO DAILY Venlafaxine HCl ER [Effexor XR] 150 mg PO BID Nitroglycerin Sl Tabs [Nitrostat] 0.4 mg SUBLINGUAL Q5M PRN #25 tab PRN Reason: Chest Pain lisinopriL [Zestril] 2.5 mg PO DAILY Cholecalciferol [Vitamin D3 (25 Mcg = 1000 Iu)] 25 mcg PO DAILY Zinc 50 mg PO DAILY Ascorbic Acid [Vitamin C] 500 mg PO DAILY ALPRAZolam [Xanax] 1 mg PO BID PRN PRN Reason: Anxiety Discontinued Clopidogrel [Plavix] 75 mg PO DAILY Aspirin [Adult Low Dose Aspirin EC] 81 mg PO DAILY Discharge Medication List Levothyroxine Sodium [Synthroid] 100 mcg PO DAILY 11/10/15 [History] Venlafaxine HCl ER [Effexor XR] 150 mg PO BID 11/10/15 [History] Nitroglycerin Sl Tabs [Nitrostat] 0.4 mg SUBLINGUAL Q5M PRN #25 tab 02/25/19 [Rx] lisinopriL [Zestril] 2.5 mg PO DAILY 08/31/20 [History] ALPRAZolam [Xanax] 1 mg PO BID PRN 08/13/21 [History] Ascorbic Acid [Vitamin C] 500 mg PO DAILY 08/13/21 [History] Cholecalciferol [Vitamin D3 (25 Mcg = 1000 Iu)] 25 mcg PO DAILY 08/13/21 [History] Zinc 50 mg PO DAILY 08/14/21 [History] Pantoprazole Sodium [Protonix] 40 mg PO BID 30 Days #60 tab 08/15/21 [Rx] Follow up Appointment(s)/Referral(s): Sadia Celestin PAC [Primary Care Provider] - 1-2 days Diego Goncalves DO [STAFF PHYSICIAN] - 1 Week Lul Campbell MD [STAFF PHYSICIAN] - 08/17/21 2:30 pm Ambulatory/Diagnostic Orders: Complete Blood Count w/diff [LAB.AMB] Time Frame: 3 Days, Location: None Selected Patient Instructions/Handouts: Gastrointestinal Bleeding (GEN) Activity/Diet/Wound Care/Special Instructions: Activity: As tolerated. Take breaks as needed. Diet: Heart healthy and carb consistent diet. Avoid salts, or foods with hidden salts such as canned or boxed foods and frozen dinners. Extra salt makes your heart work harder and traps the fluid in your body for longer. Special Instructions: Take all of your medications as directed and remember to keep all of your doctor's appointments and follow-up as needed. It is highly important for you to follow-up as we discussed with the surgeon, Dr. Campbell for endoscopy and colonoscopy as discussed. Pending follow up appointment and completion of endoscopy and colonoscopy, it is recommended by cardiology for you to remain off of your Plavix and aspirin until surgical procedure is completed and you are cleared to resume by general surgery and cardiology on follow-up appointments. If you at any time develop abdominal pain or discomfort, bright red blood per rectum, or experience any dizziness/lightheadness it is important that you return to the ER for evaluation. Thank you for allowing us to participate in your care, it was truly a pleasure having you for our patient!!!
[2021-08-15] MEDS ORDERED: ATORVASTATIN 40 MG TAB PO SCH (21:00)
[2021-08-16] MEDS ORDERED: POLYETHYLENE GLYCOL LYTES SOLN 4,000 ML SOLN.RECON PO ONE (09:00)
== END 2021-08-15 16:56 ==
LOC: EC 15:10 → 6NMEDSUR 17:12
PROVIDERS: ADMIT Internal Medicine; ATTEND Internal Medicine
DX: D62 Acute posthemorrhagic anemia (principal); K92.2 Gastrointestinal hemorrhage, unspecified; I48.0 Paroxysmal atrial fibrillation; K64.9 Unspecified hemorrhoids; K59.00 Constipation, unspecified; K55.20 Angiodysplasia of colon without hemorrhage; I25.10 Atherosclerotic heart disease of native coronary artery without angina pectoris; I10 Essential (primary) hypertension; F17.290 Nicotine dependence, other tobacco product, uncomplicated; E78.5 Hyperlipidemia, unspecified; D50.9 Iron deficiency anemia, unspecified; K21.9 Gastro-esophageal reflux disease without esophagitis; M19.90 Unspecified osteoarthritis, unspecified site; I25.2 Old myocardial infarction; E89.0 Postprocedural hypothyroidism; H40.9 Unspecified glaucoma; I08.3 Combined rheumatic disorders of mitral, aortic and tricuspid valves; Z79.82 Long term (current) use of aspirin; Z79.02 Long term (current) use of antithrombotics/antiplatelets; Z79.899 Other long term (current) drug therapy; Z79.890 Hormone replacement therapy; Z71.3 Dietary counseling and surveillance; Z85.828 Personal history of other malignant neoplasm of skin; Z86.73 Personal history of transient ischemic attack (TIA), and cerebral infarction without residual deficits; Z90.49 Acquired absence of other specified parts of digestive tract; Z87.442 Personal history of urinary calculi; Z90.710 Acquired absence of both cervix and uterus; Z91.048 Other nonmedicinal substance allergy status; Z95.5 Presence of coronary angioplasty implant and graft; Z86.010 Personal history of colon polyps; Z80.9 Family history of malignant neoplasm, unspecified; Z82.49 Family history of ischemic heart disease and other diseases of the circulatory system
CPT/HCPCS: 99285; 96376; 96374; 36415; 93005; 80053 ×2; 83735 ×2; 85025 ×2; 85027; 85610; 85730; G0378 ×2; C9113 ×2

== ENCOUNTER 2022-08-22 11:12 | Inpatient (IN) | payer MEDICARE ==
[2022-08-22] MEDS ORDERED: SODIUM CHLORIDE 0.9% 1,000 ML IV STA (11:37)
[2022-08-22] MEDS ORDERED: PANTOPRAZOLE 40 MG/10 ML VIAL IVP STA (11:37)
--- NOTE | 2022-08-22 11:40 | ED ---
General Adult HPI - General Chief complaint: GI Bleed Stated complaint: weakness Time Seen by Provider: 08/22/22 11:31 Source: patient, family, RN notes reviewed Mode of arrival: ambulatory Limitations: no limitations - History of Present Illness Initial comments: Patient is a pleasant 77-year-old female presenting to the emergency department with fatigue and general weakness. Onset of symptoms was a couple of days ago. Patient does have history of recent rectal bleeding, unclear why. Patient did have recent stent placement. Patient was an eloquent however recently started on Plavix secondary to stents. A bess did have similar problems previously with being on dual anticoagulation. Patient mainly complains of feeling fatigued all over. No isolated area of weakness. No confusion. Patient does have dark stools however does take iron supplements. - Related Data Home Medications Medication Instructions Recorded Confirmed Levothyroxine Sodium [Synthroid] 100 mcg PO DAILY 11/10/15 08/22/22 Venlafaxine HCl ER [Effexor XR] 150 mg PO BID 11/10/15 08/22/22 lisinopriL [Zestril] 2.5 mg PO DAILY 08/31/20 08/22/22 ALPRAZolam [Xanax] 1 mg PO BID PRN 08/13/21 08/22/22 Ascorbic Acid [Vitamin C] 500 mg PO DAILY 08/13/21 08/22/22 Cholecalciferol [Vitamin D3 (25 25 mcg PO DAILY 08/13/21 08/22/22 Mcg = 1000 Iu)] Zinc 50 mg PO DAILY 08/14/21 08/22/22 Aspirin [Adult Low Dose Aspirin EC] 81 mg PO DAILY 07/10/22 08/22/22 Metoprolol Tartrate 25 mg PO BID 07/10/22 08/22/22 dilTIAZem HCL [Cardizem LA] 120 mg PO DAILY 07/13/22 08/22/22 Apixaban [Eliquis] 5 mg PO BID 08/22/22 08/22/22 Ferrous Sulfate [Feosol] 325 mg PO DAILY 08/22/22 08/22/22 Previous Rx's Medication Instructions Recorded Nitroglycerin Sl Tabs [Nitrostat] 0.4 mg SUBLINGUAL Q5M PRN #25 tab 02/25/19 Pantoprazole Sodium [Protonix] 40 mg PO BID 30 Days #60 tab 08/15/21 Atorvastatin [Lipitor] 40 mg PO DAILY #90 tab 07/14/22 Clopidogrel [Plavix] 75 mg PO DAILY #90 tab 07/14/22 Allergies Allergy/AdvReac Type Severity Reaction Status Date / Time adhesive tape AdvReac "tears Verified 08/22/22 12:05 skin" Review of Systems ROS Statement: Those systems with pertinent positive or pertinent negative responses have been documented in the HPI. ROS Other: All systems not noted in ROS Statement are negative. Constitutional: Denies: fever Eyes: Denies: eye pain ENT: Denies: ear pain Respiratory: Denies: cough, dyspnea Cardiovascular: Denies: chest pain Endocrine: Reports: as per HPI, fatigue Gastrointestinal: Reports: as per HPI. Denies: abdominal pain Genitourinary: Denies: dysuria Musculoskeletal: Denies: back pain Skin: Denies: rash Neurological: Reports: as per HPI. Denies: headache, confusion Past Medical History Past Medical History: Blood Disorder, Coronary Artery Disease (CAD), Cancer, CVA/TIA, GERD/Reflux, GI Bleed, Hyperlipidemia, Hypertension, Myocardial Infarction (PR), Osteoarthritis (OA), Skin Disorder, Thyroid Disorder Additional Past Medical History / Comment(s): hx TIA., skin cancer, colitis, kidney stones, glaucoma., hospitalized with GI bleed -02/24/21 at [facility] and received blood transfusions. IRON DEFICIENCY ANEMIA. Last Myocardial Infarction Date:: 02/22/19 History of Any Multi-Drug Resistant Organisms: None Reported Past Surgical History: Heart Catheterization With Stent Additional Past Surgical History / Comment(s): 3 stents, alejandro bunionectomy, thyroidectomy, alejandro hand-"core vein release", rt breast biopsy, rt nipple removed, EGD, alejandro myringotomy, 2 eye stents Past Anesthesia/Blood Transfusion Reactions: Previous Problems w/ Anesthesia, Motion Sickness, Postoperative Nausea & Vomiting (PONV) Additional Past Anesthesia/Blood Transfusion Reaction / Comment(s): diff intubation " I was told I need a fiberoptic intubation" Date of Last Stent Placement:: 02/22/19 Past Psychological History: No Psychological Hx Reported Smoking Status: Vaper Past Alcohol Use History: None Reported Past Drug Use History: None Reported - Past Family History Mother Family Medical History: Cancer Father Additional Family Medical History / Comment(s): blood clots General Exam Limitations: no limitations General appearance: alert, in no apparent distress Head exam: Present: normocephalic Eye exam: Present: normal appearance Neck exam: Present: normal inspection Respiratory exam: Present: normal lung sounds bilaterally Cardiovascular Exam: Present: regular rate, normal rhythm GI/Abdominal exam: Present: soft. Absent: distended, tenderness, guarding, rebound, rigid Rectal exam: Present: black stool Extremities exam: Present: normal inspection Neurological exam: Present: alert, CN II-XII intact. Absent: motor sensory deficit Expanded Neurological exam: Present: protecting the airway Motor strength exam: RUE: 5, LUE: 5, RLE: 5, LLE: 5 Eye Response: (4) open spontaneously Motor Response: (6) obeys commands Verbal Response: (5) oriented Psychiatric exam: Present: normal affect, normal mood Skin exam: Present: normal color Course Vital Signs 08/22/22 11:26 Temperature 98.3 F Pulse Rate 84 Respiratory 18 Rate Blood Pressure 118/68 O2 Sat by Pulse 94 L Oximetry EKG Findings - EKG Results: EKG: interpreted by ERMD (Biphasic T waves laterally. EKG reviewed from 07/16/22 without biphasic T waves), sinus rhythm, normal axis, normal QRS Medical Decision Making - Medical Decision Making Was pt. sent in by a medical professional or institution (ADELIA Gonzalez, [employer] MANAGER, urgent care, hospital, or skilled nursing...) When possible be specific @ -No Did you speak to anyone other than the patient for history (EMS, parent, family, police, friend...)? What history was obtained from this source @ -[Patient's son is a nurse and does help provide history including history of previous GI hemorrhage Did you review nursing and triage notes (agree or disagree)? Why? @ -I reviewed and agree with nursing and triage notes Were old charts reviewed (outside hosp., previous admission, EMS record, old EKG, old radiological studies, urgent care reports/EKG's, skilled nursing records)? Report findings @ -No old charts were reviewed Differential Diagnosis (chest pain, altered mental status, abdominal pain women, abdominal pain men, vaginal bleeding, weakness, fever, dyspnea, syncope, headache, dizziness, GI bleed, back pain, seizure, CVA, palpatations, mental health)? @ -Differential GI Bleed: Esophageal varices, aortoenteric fistula, Stacia-Fuchs, gastritis, peptic ulcer disease, diverticulosis, inflammatory bowel disease, hemorrhoids, fissure, colitis, malignancy, Meckels diverticulum, this is not meant to be an all- inclusive list. EKG interpreted by me (3pts min.). @ -As above X-rays interpreted by me (1pt min.). @ -Chest x-ray shows no acute process CT interpreted by me (1pt min.). @ -None done U/S interpreted by me (1pt. min.). @ -None done What testing was considered but not performed or refused? (CT, X-rays, U/S, labs)? Why? @ -None What meds were considered but not given or refused? Why? @ -None Did you discuss the management of the patient with other professionals (professionals i.e. , PA, [employer]OOMING SALON MANAGER, lab, RT, psych nurse, social work manager, sheriffs officer, teacher, alumni relations officer, pillowcase maker)? Give summary @ -Case was discussed with Dr. tucker, who will admit covering Dr. Carver Was smoking cessation discussed for >3mins.? @ -No Was critical care preformed (if so, how long)? @ -No Were there social determinants of health that impacted care today? How? (Homelessness, low income, unemployed, alcoholism, drug addiction, transportation, low edu. Level, literacy, decrease access to med. care, senior living, rehab)? @ -No Was there de-escalation of care discussed even if they declined (Discuss DNR or withdrawal of care, Hospice)? DNR status @ -No What co-morbidities impacted this encounter? (DM, HTN, Smoking, COPD, CAD, Cancer, CVA, ARF, Chemo, Hep., AIDS, mental health diagnosis, sleep apnea, morbid obesity)? @ -Patient does have history of previous GI hemorrhage and is on anticoagulation which will need to be held Was patient admitted / discharged? Hospital course, mention meds given and route, prescriptions, significant lab abnormalities, going to OR and other pertinent info. @ -Patient reevaluated. Patient and family updated. Patient will be admitted for hemoglobin monitoring and GI consult. Undiagnosed new problem with uncertain prognosis? @ -No Drug Therapy requiring intensive monitoring for toxicity (Heparin, Nitro, Insulin, Cardizem)? @ -No Were any procedures done? @ -Lower GI hemorrhage Diagnosis/symptom? @ -Acute Acute, or Chronic, or Acute on Chronic? @ -default Uncomplicated (without systemic symptoms) or Complicated (systemic symptoms)? @ -default Side effects of treatment? @ -No Exacerbation, Progression, or Severe Exacerbation? @ -No Poses a threat to life or bodily function? How? (Chest pain, USA, PR, pneumonia, PE, COPD, DKA, ARF, appy, cholecystitis, CVA, Diverticulitis, Homicidal, Suicidal, threat to staff... and all critical care pts) @ -No - Lab Data Result diagrams: 08/22/22 12:35 08/22/22 12:35 Lab Results 08/22/22 08/22/22 08/22/22 Range/Units 12:35 12:35 12:35 WBC 12.5 H (3.8-10.6) k/uL RBC 2.79 L (3.80-5.40) m/uL Hgb 8.8 L D (11.4-16.0) gm/dL Hct 27.3 L (34.0-46.0) % MCV 97.9 D (80.0-100.0) fL MCH 31.5 (25.0-35.0) pg MCHC 32.2 (31.0-37.0) g/dL RDW 15.1 (11.5-15.5) % Plt Count 333 (150-450) k/uL MPV 7.1 Neutrophils % 82 % Lymphocytes % 10 % Monocytes % 4 % Eosinophils % 1 % Basophils % 0 % Neutrophils # 10.3 H (1.3-7.7) k/uL Lymphocytes # 1.3 (1.0-4.8) k/uL Monocytes # 0.5 (0-1.0) k/uL Eosinophils # 0.1 (0-0.7) k/uL Basophils # 0.0 (0-0.2) k/uL APTT 20.5 L (22.0-30.0) sec Sodium (137-145) mmol/L Potassium (3.5-5.1) mmol/L Chloride (98-107) mmol/L Carbon Dioxide (22-30) mmol/L Anion Gap mmol/L BUN (7-17) mg/dL Creatinine (0.52-1.04) mg/dL Est GFR (CKD-EPI)AfAm (>60 ml/min/1.73 sqM) Est GFR (CKD-EPI)NonAf (>60 ml/min/1.73 sqM) Glucose (74-99) mg/dL Calcium (8.4-10.2) mg/dL Magnesium (1.6-2.3) mg/dL Total Bilirubin (0.2-1.3) mg/dL AST (14-36) U/L ALT (4-34) U/L Alkaline Phosphatase (38-126) U/L Troponin I (0.000-0.034) ng/mL Total Protein (6.3-8.2) g/dL Albumin (3.5-5.0) g/dL Stool Occult Blood Positive H (Negative) 08/22/22 08/22/22 Range/Units 12:35 12:35 WBC (3.8-10.6) k/uL RBC (3.80-5.40) m/uL Hgb (11.4-16.0) gm/dL Hct (34.0-46.0) % MCV (80.0-100.0) fL MCH (25.0-35.0) pg MCHC (31.0-37.0) g/dL RDW (11.5-15.5) % Plt Count (150-450) k/uL MPV Neutrophils % % Lymphocytes % % Monocytes % % Eosinophils % % Basophils % % Neutrophils # (1.3-7.7) k/uL Lymphocytes # (1.0-4.8) k/uL Monocytes # (0-1.0) k/uL Eosinophils # (0-0.7) k/uL Basophils # (0-0.2) k/uL APTT (22.0-30.0) sec Sodium 142 (137-145) mmol/L Potassium 4.0 (3.5-5.1) mmol/L Chloride 110 H (98-107) mmol/L Carbon Dioxide 25 (22-30) mmol/L Anion Gap 7 mmol/L BUN 30 H (7-17) mg/dL Creatinine 0.85 (0.52-1.04) mg/dL Est GFR (CKD-EPI)AfAm 78 (>60 ml/min/1.73 sqM) Est GFR (CKD-EPI)NonAf 68 (>60 ml/min/1.73 sqM) Glucose 138 H (74-99) mg/dL Calcium 9.2 (8.4-10.2) mg/dL Magnesium 2.2 (1.6-2.3) mg/dL Total Bilirubin 0.2 (0.2-1.3) mg/dL AST 22 (14-36) U/L ALT 20 (4-34) U/L Alkaline Phosphatase 66 (38-126) U/L Troponin I <0.012 (0.000-0.034) ng/mL Total Protein 5.9 L (6.3-8.2) g/dL Albumin 3.6 (3.5-5.0) g/dL Stool Occult Blood (Negative) Disposition Clinical Impression: Lower gastrointestinal hemorrhage Disposition: ADMITTED IP TO THIS HOSP Is patient prescribed a controlled substance at d/c from ED?: No Referrals: Shae Spain MD [Primary Care Provider] - 1-2 days Time of Disposition: 13:49
--- NOTE | 2022-08-22 12:13 | XR ---
EXAMINATION TYPE: XR chest 2V DATE OF EXAM: 08/22/2022 12:08 PM COMPARISON: Chest radiographs from 05/01/2020 TECHNIQUE: XR chest 2V Frontal and lateral views of the chest. CLINICAL INDICATION:Female, 77 years old with history of pain; FINDINGS: Lungs/Pleura: There is flattening of the diaphragm with increased lucency of the lungs. No evidence o f pneumothorax, pleural effusion or focal consolidation. Pulmonary vascularity: Unremarkable. Heart/mediastinum: Cardiomediastinal silhouette is unremarkable. Musculoskeletal: Multiple level degenerative disc disease changes seen throughout the spine. No acute osseous abnormality. Other: Surgical clips in the upper abdomen. IMPRESSION: 1. No acute cardiopulmonary disease process. 2. COPD changes.
[2022-08-22 12:58] LABS: Basophils % (A) 0 %; Eosinophils # (A) 0.1 k/uL (0-0.7); Eosinophils % (A) 1 %; Lymphocytes # (A) 1.3 k/uL (1.0-4.8); Lymphocytes % (A) 10 %; MCH 31.5 pg (25.0-35.0); MCHC 32.2 g/dL (31.0-37.0); MCV 97.9 fL (80.0-100.0); Mean Platelet Volume 7.1; Monocytes # (A) 0.5 k/uL (0-1.0); Monocytes % (A) 4 %; Neutrophils # (A) 10.3 k/uL (1.3-7.7); Neutrophils % (A) 82 %; Platelet Count 333 k/uL (150-450); RBC 2.79 m/uL (3.80-5.40); RDW 15.1 % (11.5-15.5); WBC 12.5 k/uL (3.8-10.6)
[2022-08-22 13:00] LABS: Albumin 3.6 g/dL (3.5-5.0); Calcium 9.2 mg/dL (8.4-10.2); Magnesium 2.2 mg/dL (1.6-2.3); Total Bilirubin 0.2 mg/dL (0.2-1.3); Total Protein 5.9 g/dL (6.3-8.2)
[2022-08-22 13:02] LABS: HCT 27.3 % (34.0-46.0); HGB 8.8 gm/dL (11.4-16.0)
[2022-08-22] MEDS ORDERED: NALOXONE 0.4 MG/ML 1 ML VIAL IV PRN (13:49)
[2022-08-22] MEDS: SODIUM CHLORIDE 0.9% 1,000 ML IV SCH (14:35)
[2022-08-22] MEDS: PANTOPRAZOLE 40 MG/10 ML VIAL IV SCH (14:35)
[2022-08-22] MEDS ORDERED: ALPRAZolam 1 MG TAB PO PRN (15:54)
--- NOTE | 2022-08-22 18:44 | P.HPIM ---
History of Present Illness This is a pleasant 76. Female with multiple medical problems including previous history of coronary artery disease. Previous history of GI bleed that is been evaluated previously by Dr. Gilmore and has colonoscopy and EGD about 20 years ago as per patient. Patient presents because of generalized weakness and inability to walk properly for the last 2-3 days, patient says that recently last July she had placed on blood thinner Eliquis back by her or nurse manager Dr. Hernandez and also she is on aspirin and Plavix. She was also on iron pills however over the last 1 week noticed her stool is a black although she thinks this is due to iron. Of note patient was taken iron for about one month now. No fresh blood per stool. No overt bleeding from anywhere else. No trauma. She states she has tingling and weakness in her legs which make her difficult to walk and this episode he should have she has GI bleed. However patient denies any weakness numbness while she is lying in bed rest strength is 5/5 in both extremities. Portions also denies any headache, no back pain. No dizziness. No chest pain or dyspnea. No change in urine or bowel habits, no diarrhea abdominal pain or vomiting. No dysuria urgency. No dizziness weakness numbness or blurred vision or slurred speech. Patient drapes nicotine and she was counseled to quit but she declines nicotine patch. No alcohol or illicit tracts. She states she had colonoscopy and EGD done with Dr. Gilmore about one year ago -Patient had cardiac catheterization on 07/13/2022 showing severe LAD stenosis as well as severe stenosis of OM 1, with past 2 stents in the LAD and RCA with successful stenting of OM1 55% down to 0% as well as successful stenting of the LAD with recommendation to continue with aspirin and Plavix x 6 months. 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 Platelet count is normal. PTT is 20.5. BMP and liver enzymes are unremarkable. Troponin is negative. Occult blood in the stool is positive chest x-ray: No acute process. EKG: Showing normal sinus rhythm at [address]-T changes. QTC 398. Review of Systems Review of systems CONSTITUTIONAL: No fever, no malaise, no fatigue. HEENT: No recent visual problems or hearing problems. Denied any sore throat. CARDIOVASCULAR: No orthopnea, PND, no palpitations, no syncope. PULMONARY: No shortness of breath, no cough, no hemoptysis. GASTROINTESTINAL: No diarrhea, no nausea, no vomiting, no abdominal pain. Normoactive bowel sounds. NEUROLOGICAL: No headaches, no weakness, no numbness. HEMATOLOGICAL: Denies any bleeding or petechiae. GENITOURINARY: Denies any burning micturition, frequency, or urgency. MUSCULOSKELETAL/RHEUMATOLOGICAL: Denies any joint pain, swelling, or any muscle pain. ENDOCRINE: Denies any polyuria or polydipsia. Past Medical History Past Medical History: Blood Disorder, Coronary Artery Disease (CAD), Cancer, CVA/TIA, GERD/Reflux, GI Bleed, Hyperlipidemia, Hypertension, Myocardial Infarction ([place]), Osteoarthritis (OA), Skin Disorder, Thyroid Disorder Additional Past Medical History / Comment(s): hx TIA., skin cancer, colitis, kidney stones, glaucoma., hospitalized with GI bleed -02/24/[address] [facility] and received blood transfusions. IRON DEFICIENCY ANEMIA. Last Myocardial Infarction Date:: 02/22/19 History of Any Multi-Drug Resistant Organisms: None Reported Past Surgical History: Heart Catheterization With Stent Additional Past Surgical History / Comment(s): 3 stents, alejandro bunionectomy, thyroidectomy, alejandro hand-"core vein release", rt breast biopsy, rt nipple removed, EGD, alejandro myringotomy, 2 eye stents Past Anesthesia/Blood Transfusion Reactions: Previous Problems w/ Anesthesia, Motion Sickness, Postoperative Nausea & Vomiting (PONV) Additional Past Anesthesia/Blood Transfusion Reaction / Comment(s): diff intubation " I was told I need a fiberoptic intubation" Date of Last Stent Placement:: 02/22/19 Past Psychological History: No Psychological Hx Reported Smoking Status: Vaper Past Alcohol Use History: None Reported Past Drug Use History: None Reported - Past Family History Mother Family Medical History: Cancer Father Additional Family Medical History / Comment(s): blood clots Medications and Allergies Home Medications Medication Instructions Recorded Confirmed Type Levothyroxine Sodium [Synthroid] 100 mcg PO DAILY 11/10/15 08/22/22 History Venlafaxine HCl ER [Effexor XR] 150 mg PO BID 11/10/15 08/22/22 History Nitroglycerin Sl Tabs [Nitrostat] 0.4 mg SUBLINGUAL Q5M PRN #25 tab 02/25/19 Rx lisinopriL [Zestril] 2.5 mg PO DAILY 08/31/20 08/22/22 History ALPRAZolam [Xanax] 1 mg PO BID PRN 08/13/21 08/22/22 History Ascorbic Acid [Vitamin C] 500 mg PO DAILY 08/13/21 08/22/22 History Cholecalciferol [Vitamin D3 (25 25 mcg PO DAILY 08/13/21 08/22/22 History Mcg = 1000 Iu)] Zinc 50 mg PO DAILY 08/14/21 08/22/22 History Pantoprazole Sodium [Protonix] 40 mg PO BID 30 Days #60 tab 08/15/21 08/22/22 Rx Aspirin [Adult Low Dose Aspirin EC] 81 mg PO DAILY 07/10/22 08/22/22 History Metoprolol Tartrate 25 mg PO BID 07/10/22 08/22/22 History dilTIAZem HCL [Cardizem LA] 120 mg PO DAILY 07/13/22 08/22/22 History Atorvastatin [Lipitor] 40 mg PO DAILY #90 tab 07/14/22 08/22/22 Rx Clopidogrel [Plavix] 75 mg PO DAILY #90 tab 07/14/22 08/22/22 Rx Apixaban [Eliquis] 5 mg PO BID 08/22/22 08/22/22 History Ferrous Sulfate [Feosol] 325 mg PO DAILY 08/22/22 08/22/22 History Allergies Allergy/AdvReac Type Severity Reaction Status Date / Time adhesive tape AdvReac "tears Verified 08/22/22 12:05 skin" Physical Exam Vitals: Vital Signs Temp Pulse Resp BP Pulse Ox 08/22/22 11:26 98.3 F 84 18 118/68 94 L Intake and Output 0408/22/22 08/22/22 06:59 14:59 22:59 Other: Weight 63.049 kg GENERAL: The patient is alert and oriented x3, not in any acute distress. Well developed, well nourished. HEENT: Pupils are round and equally reacting to light. EOMI. No scleral icterus. No conjunctival pallor. Normocephalic, atraumatic. No pharyngeal erythema. No thyromegaly. CARDIOVASCULAR: S1 and S2 present. No murmurs, rubs, or gallops. PULMONARY: Chest is clear to auscultation, no wheezing or crackles. ABDOMEN: Soft, nontender, nondistended, normoactive bowel sounds. No palpable organomegaly. MUSCULOSKELETAL: No joint swelling or deformity. EXTREMITIES: No cyanosis, clubbing, or pedal edema. NEUROLOGICAL: Gross neurological examination did not reveal any focal deficits. SKIN: No rashes. no petechiae. Results CBC & Chem 7: 08/22/22 12:35 08/22/22 12:35 Labs: Abnormal Lab Results - Last 24 Hours (Table) 08/22/22 08/22/22 08/22/22 Range/Units 12:35 12:35 12:35 WBC 12.5 H (3.8-10.6) k/uL RBC 2.79 L (3.80-5.40) m/uL Hgb 8.8 L D (11.4-16.0) gm/dL Hct 27.3 L (34.0-46.0) % Neutrophils # 10.3 H (1.3-7.7) k/uL APTT 20.5 L (22.0-30.0) sec Chloride (98-107) mmol/L BUN (7-17) mg/dL Glucose (74-99) mg/dL Total Protein (6.3-8.2) g/dL Stool Occult Blood Positive H (Negative) 08/22/22 Range/Units 12:35 WBC (3.8-10.6) k/uL RBC (3.80-5.40) m/uL Hgb (11.4-16.0) gm/dL Hct (34.0-46.0) % Neutrophils # (1.3-7.7) k/uL APTT (22.0-30.0) sec Chloride 110 H (98-107) mmol/L BUN 30 H (7-17) mg/dL Glucose 138 H (74-99) mg/dL Total Protein 5.9 L (6.3-8.2) g/dL Stool Occult Blood (Negative) Assessment and Plan Assessment: Acute GI bleed Coronary artery disease with Recent history of cardiac cath and stent placement of the LAD and OM1 Chronic atrial fibrillation on blood thinner at home History of stroke/TIA Hyperlipidemia Hypertension History of a serositis Hypothyroidism History of glaucoma Plan: Patient is high-risk for thrombosis and bleeding, she may benefit from resuming her aspirin given her recent stent placement about one month ago, however it was put on hold and withdrawn to consult or nurse manager Dr. David chauhan patient very well. will we are going to consult GI service as well Monitor hemoglobin closely Continue with Protonix 40 mg IV twice a day Patient is at both high-risk of thrombosis and bleeding ELIQUIS and Plavix as well gentle hydration Labs and medication were reviewed.. Continue same treatment. Continue with symptomatic treatment. Resume home medication. Monitor labs and vitals. DVT and GI prophylaxis. Further recommendations as per clinical course of the patient DVT prophylaxis: no Subcutaneous heparin or Eliquis for GI bleed GI Prophylaxis: Ppi Prognosis is guarded
[2022-08-22 20:50] LABS: Hypochromasia Slight; MCH 31.3 pg (25.0-35.0); Macrocytosis Slight
[2022-08-22] MEDS: VENLAFAXINE HCL ER 150 MG CAP PO SCH (20:55)
[2022-08-22] MEDS: METOPROLOL TARTRATE 25 MG TAB PO SCH (20:55)
[2022-08-22 21:28] LABS: HCT 24.7 % (34.0-46.0); HGB 7.8 gm/dL (11.4-16.0); MCHC 31.7 g/dL (31.0-37.0); MCV 98.7 fL (80.0-100.0); Mean Platelet Volume 7.4; Platelet Count 304 k/uL (150-450); RDW 15.1 % (11.5-15.5); WBC 10.2 k/uL (3.8-10.6)
[2022-08-23] MEDS: LEVOTHYROXINE 100 MCG TAB PO SCH (06:23)
[2022-08-23] MEDS: SODIUM CHLORIDE 0.9% 1,000 ML IV SCH ×2 (06:23→11:37)
[2022-08-23] MEDS ORDERED: FERROUS SULFATE 325 MG TAB PO SCH (09:00)
[2022-08-23] MEDS: METOPROLOL TARTRATE 25 MG TAB PO SCH ×2 (09:42→20:09)
[2022-08-23] MEDS: CHOLECALCIFEROL 25 MCG (1000 IU) TABLET PO SCH (09:42)
[2022-08-23] MEDS: ASCORBIC ACID 500 MG TAB PO SCH (09:42)
[2022-08-23] MEDS: FERROUS SULFATE 325 MG TAB PO SCH ×2 (09:42→20:09)
[2022-08-23] MEDS: ATORVASTATIN 40 MG TAB PO SCH (09:42)
[2022-08-23] MEDS: DILTIAZEM CD 120 MG CAP.ER.24H PO SCH (09:42)
[2022-08-23] MEDS: VENLAFAXINE HCL ER 150 MG CAP PO SCH ×2 (09:43→20:09)
[2022-08-23] MEDS: PANTOPRAZOLE 40 MG/10 ML VIAL IV SCH (09:56)
[2022-08-23 10:27] LABS: Basophils # (A) 0.08 X 10*3/uL (0.00-0.10); Basophils % (A) 0.7 %; Eosinophils # (A) 0.25 X 10*3/uL (0.04-0.35); Eosinophils % (A) 2.1 %; HCT 25.7 % (37.2-46.3); HGB 7.5 g/dL (12.0-15.0); Immature Grans, Automated 0.3 %; Lymphocytes # (A) 4.27 X 10*3/uL (0.90-5.00); MCH 29.8 pg (27.0-32.0); MCHC 29.2 g/dL (32.0-37.0); Mean Platelet Volume 9.6 fL (9.5-12.2); Monocytes # (A) 0.78 X 10*3/uL (0.20-1.00); Monocytes % (A) 6.6 %; NRBC Per 100 WBC 0 /100 WBCS (0.0-0.0); Neutrophils # (A) 6.43 X 10*3/uL (1.80-7.70); Neutrophils % (A) 54.3 %; Platelet Count 332 X 10*3/uL (140-440); RBC 2.52 X 10*6/uL (4.10-5.20); RDW 15.5 % (11.5-14.5); WBC 11.85 X 10*3/uL (4.50-10.00)
--- NOTE | 2022-08-23 11:20 | P.CRDCN ---
History of Present Illness Consult date: 08/23/22 Reason for Consult (text): recent stent History of present illness: HISTORY OF PRESENT ILLNESS: This is a 77-year-old female patient of Dr. Hernandez with a past medical history significant for paroxysmal atrial fibrillation on eliquis, coronary artery disease with previous stenting, hypertension, hyperlipidemia, and former nicotine dependence. We have been asked to see the patient in consultation for risk stratification for patient with recurrent GI bleed and antiplatelets/anticoagulalants. Patient was recently hospitalized in July of this year underwent cardiac catheterization and stenting of the OM1 and ostium of the LAD on 07/13. During that hospitalization, patient's hemoglobin was 14.7. Patient states that yesterday she was weak to the point that she could hardly walk and could hardly put 1 foot in front of the other. She states she has similar episode a year ago but after testing nothing was found. Note the patient's hemoglobin was 14.7 in July and now presented with hemoglobin of 8.8. She had a rectal exam with occult blood positive in the emergency center. She denies any change in her stools. She is normally having dark stools due to iron supplements. She states the only rectal bleeding that she's had is a small amount after the rectal exam. She denies having any abdominal pain. No nausea or vomiting. She is currently on a clear liquid diet and GI workup is in process with plan for possible EGD tomorrow. Patient has refused colonoscopy. Patient has had a previous episode of GI bleeding requiring eliquis to be discontinued in August 2021. * EKG reveals sinus mechanism with no signs of acute ischemia * Chest x-ray no acute process * Laboratory data: WBC 11.8. Hemoglobin 7.5. Platelet count 332. Sodium 142. Potassium 4.0. BUN 30. Creatinine 0.85. * Current home cardiac medications include Eliquis 5 mg twice daily, aspirin 81 mg daily, atorvastatin 40 mg daily, Plavix 75 mg daily, Cardizem LA 120 mg daily, lisinopril 2.5 mg daily, metoprolol tartrate 25 mg twice daily, Nitrostat as needed, levothyroxine 100 g daily, ferrous sulfate 325 mg daily. * Most recent echocardiogram obtained in August 2021 revealed ejection fraction 55-60%, mild-moderate aortic regurgitation, moderate tricuspid regurgitation, est RVSP 40mmHg. * Lexiscan stress test in May 2022 normal EF, apical ischemia * Cardiac catheterization history: May 2019 with PCI to the LAD, July 2022 with PCI of the OM1 and ostium of the LAD. REVIEW OF SYSTEMS: At the time of my exam: CONSTITUTIONAL: Denies fever or chills. Reports weakness and feels tired. HEENT: Denies blurred vision, vision changes, or eye pain. Denies hemoptysis CARDIOVASCULAR: Denies chest pain. Denies orthopnea. Denies PND. Denies palpitations RESPIRATORY: Denies shortness of breath. GASTROINTESTINAL: Denies abdominal pain. Denies nausea or vomiting. HEMATOLOGIC: Denies bleeding disorders. GENITOURINARY: Denies any blood in urine. SKIN: Denies pruitis. Denies rash. PHYSICAL EXAM: VITAL SIGNS: Reviewed. GENERAL: Well-developed in no acute distress. HEENT: Head is normocephalic. Pupils are equal, round. Sclerae anicteric. Mucous membranes of the mouth are moist. Neck supple. No JVD or thyromegaly LUNGS: Respirations even and unlabored. Lungs essentially clear to auscultation bilaterally. HEART: Regular rate and rhythm. S1 and S2 heard. 2/6 systolic [id number] noted ABDOMEN: Soft. Nondistended. Nontender. EXTREMITIES: Normal range of motion. No clubbing or cyanosis. Peripheral pulses intact. No lower extremity edema NEUROLOGIC: Awake and alert. Oriented x 3. ASSESSMENT: acute blood loss anemia, most likely acute GI bleed Paroxysmal atrial fibrillation on eliquis Coronary artery disease with recent stenting 07/13 Hypertension Hyperlipidemia Hypothyroidism History of TIA Former nicotine dependence PLAN: No need to repeat echo at this time Continue to monitor hemoglobin Await GI recommendations Hold asa, plavix, eliquis Further recommendations pending patient course Nurse practitioner note has been reviewed by physician. Signing provider agrees with the documented findings, assessment, and plan of care. Past Medical History Past Medical History: Blood Disorder, Coronary Artery Disease (CAD), Cancer, CVA/TIA, GERD/Reflux, GI Bleed, Hyperlipidemia, Hypertension, Myocardial Infarction ([place]), Osteoarthritis (OA), Skin Disorder, Thyroid Disorder Additional Past Medical History / Comment(s): hx TIA., skin cancer, colitis, kidney stones, glaucoma., hospitalized with GI bleed 02/22/-02/24/21 at [facility] and received blood transfusions. IRON DEFICIENCY ANEMIA. Last Myocardial Infarction Date:: 02/22/19 History of Any Multi-Drug Resistant Organisms: None Reported Past Surgical History: Heart Catheterization With Stent Additional Past Surgical History / Comment(s): 3 stents, alejandro bunionectomy, thyroidectomy, alejandro hand-"core vein release", rt breast biopsy, rt nipple removed, EGD, alejandro myringotomy, 2 eye stents Past Anesthesia/Blood Transfusion Reactions: Previous Problems w/ Anesthesia, Motion Sickness, Postoperative Nausea & Vomiting (PONV) Additional Past Anesthesia/Blood Transfusion Reaction / Comment(s): diff intubation " I was told I need a fiberoptic intubation" Date of Last Stent Placement:: 02/22/19 Past Psychological History: No Psychological Hx Reported Smoking Status: Vaper Past Alcohol Use History: None Reported Past Drug Use History: None Reported - Past Family History Mother Family Medical History: Cancer Father Additional Family Medical History / Comment(s): blood clots Medications and Allergies Home Medications Medication Instructions Recorded Confirmed Type Levothyroxine Sodium [Synthroid] 100 mcg PO DAILY 11/10/15 08/22/22 History Venlafaxine HCl ER [Effexor XR] 150 mg PO BID 11/10/15 08/22/22 History Nitroglycerin Sl Tabs [Nitrostat] 0.4 mg SUBLINGUAL Q5M PRN #25 tab 02/25/19 08/22/22 Rx lisinopriL [Zestril] 2.5 mg PO DAILY 08/31/20 08/22/22 History ALPRAZolam [Xanax] 1 mg PO BID PRN 08/13/21 08/22/22 History Ascorbic Acid [Vitamin C] 500 mg PO DAILY 08/13/21 08/22/22 History Cholecalciferol [Vitamin D3 (25 25 mcg PO DAILY 08/13/21 08/22/22 History Mcg = 1000 Iu)] Zinc 50 mg PO DAILY 08/14/21 08/22/22 History Pantoprazole Sodium [Protonix] 40 mg PO BID 30 Days #60 tab 08/15/21 08/22/22 Rx Aspirin [Adult Low Dose Aspirin EC] 81 mg PO DAILY 07/10/22 08/22/22 History Metoprolol Tartrate 25 mg PO BID 07/10/22 08/22/22 History dilTIAZem HCL [Cardizem LA] 120 mg PO DAILY 07/13/22 08/22/22 History Atorvastatin [Lipitor] 40 mg PO DAILY #90 tab 07/14/22 08/22/22 Rx Clopidogrel [Plavix] 75 mg PO DAILY #90 tab 07/14/22 08/22/22 Rx Apixaban [Eliquis] 5 mg PO BID 08/22/22 08/22/22 History Ferrous Sulfate [Feosol] 325 mg PO DAILY 08/22/22 08/22/22 History Allergies Allergy/AdvReac Type Severity Reaction Status Date / Time adhesive tape AdvReac "tears Verified 08/22/22 12:05 skin" Physical Exam Vitals: Vital Signs Temp Pulse Pulse Resp BP BP Pulse Ox 08/23/22 07:09 98.3 F 71 16 117/67 96 08/23/22 01:17 98.5 F 72 14 131/69 95 08/22/22 21:00 16 08/22/22 17:41 98.7 F 78 16 145/64 97 08/22/22 15:48 68 18 08/22/22 15:45 98.0 F 68 18 135/52 96 08/22/22 11:26 98.3 F 84 18 118/68 94 L Intake and Output 08/22/22 08/23/22 08/23/22 22:59 06:59 14:59 Intake Total 900 Balance 900 Intake: Intake, IV Titration 900 Amount Sodium Chloride 0.9% 1, 900 000 ml @ 75 mls/hr IV . [id number] [facility] Rx#:[id number] Other: # Voids 1 Weight 63.049 kg Results 08/23/22 06:45 08/22/22 12:35 Cardiac Enzymes 08/22/22 08/22/22 Range/Units 12:35 12:35 AST 22 (14-36) U/L Troponin I <0.012 (0.000-0.034) ng/mL Coagulation 08/22/22 Range/Units 12:35 APTT 20.5 L (22.0-30.0) sec CBC 08/22/22 08/22/22 Range/Units 12:35 20:26 WBC 12.5 H 10.2 (3.8-10.6) k/uL RBC 2.79 L 2.50 L (3.80-5.40) m/uL Hgb 8.8 L D 7.8 L (11.4-16.0) gm/dL Hct 27.3 L 24.7 L (34.0-46.0) % Plt Count 333 304 (150-450) k/uL Comprehensive Metabolic Panel 08/22/22 Range/Units 12:35 Sodium 142 (137-145) mmol/L Potassium 4.0 (3.5-5.1) mmol/L Chloride 110 H (98-107) mmol/L Carbon Dioxide 25 (22-30) mmol/L BUN 30 H (7-17) mg/dL Creatinine 0.85 (0.52-1.04) mg/dL Glucose 138 H (74-99) mg/dL Calcium 9.2 (8.4-10.2) mg/dL AST 22 (14-36) U/L ALT 20 (4-34) U/L Alkaline Phosphatase 66 (38-126) U/L Total Protein 5.9 L (6.3-8.2) g/dL Albumin 3.6 (3.5-5.0) g/dL Current Medications Generic Name Dose Route Start Last Admin Trade Name Freq PRN Reason Stop Dose Admin Alprazolam 1 mg 08/22/22 15:54 Alprazolam 1 Mg Tab PO BID PRN Anxiety Ascorbic Acid 500 mg 08/23/22 09:00 Ascorbic Acid 500 Mg Tab PO DAILY [facility] Atorvastatin Calcium 40 mg 08/23/22 09:00 Atorvastatin 40 Mg Tab PO DAILY [facility] Cholecalciferol 25 mcg 08/23/22 09:00 Cholecalciferol 25 Mcg (1000 Iu) Tablet PO DAILY [facility] Diltiazem HCl 120 mg 08/23/22 09:00 Diltiazem Cd 120 Mg Cap.Er.24h PO DAILY [facility] Ferrous Sulfate 325 mg 08/23/22 09:00 Ferrous Sulfate 325 Mg Tab PO BID [facility] Sodium Chloride 1,000 mls @ 75 mls/hr 08/22/22 14:00 08/23/22 06:23 Saline 0.9% IV Not Given .[id number] [facility] Levothyroxine Sodium 100 mcg 08/23/22 06:30 08/23/22 06:23 Levothyroxine 100 Mcg Tab PO 100 mcg DAILY@0630 [facility] Administration Lisinopril 2.5 mg 08/23/22 09:00 Lisinopril 2.5 Mg Tab PO DAILY [facility] Metoprolol Tartrate 25 mg 08/22/22 21:00 08/22/22 20:55 Metoprolol Tartrate 25 Mg Tab PO 25 mg BID [facility] Administration Naloxone HCl 0.2 mg 08/22/22 13:49 Naloxone 0.4 Mg/Ml 1 Ml Vial IV Q2M PRN Opioid Reversal Pantoprazole Sodium 40 mg 08/22/22 14:00 08/22/22 14:35 Pantoprazole 40 Mg/10 Ml Vial IV 40 mg DAILY [facility] Administration Venlafaxine HCl 150 mg 08/22/22 21:00 08/22/22 20:55 Venlafaxine Hcl Er 150 Mg Cap PO 150 mg BID [facility] Administration Intake and Output 08/22/22 08/23/22 08/23/22 22:59 06:59 14:59 Intake Total 900 Balance 900 Intake: Intake, IV Titration 900 Amount Sodium Chloride 0.9% 1, 900 000 ml @ 75 mls/hr IV . [id number] [facility] Rx#:[id number] Other: # Voids 1 Weight 63.049 kg 08/22/22 20:26 08/22/22 12:35
--- NOTE | 2022-08-23 13:12 | P.CONS ---
History of Present Illness - Reason for Consult Consult date: 08/23/22 Lower GI hemorrhage Requesting physician: Nehemias Alexis - Chief Complaint Weakness - History of Present Illness This pleasant 77-year-old female with a past medical history of coronary artery disease with recent cardiac stent started on Plavix, CVA, GERD, history of GI bleed, hyperlipidemia, hypertension, NV, thyroid disorder who is also on Eliquis who presented to the emergency department yesterday afternoon with complaints of generalized weakness. States onset of symptoms were a few days ago. She recently underwent cardiac stent placement last month and was placed on Plavix. 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 Patient states she has had dark stool however she has been on iron. She states she is not having any abdominal pain, no nausea or vomiting. No acid reflux. On admission patient's hemoglobin was 8.8 with a drop today to 7.5. She also had a positive occult stool. BUN elevated at 30 on admission. Review of Systems REVIEW OF SYSTEMS: CARDIOPULMONARY: No chest pain or shortness of breath. Gastrointestinal: No epigastric pain, no abdominal pain.. No nausea or vomiting. No hematemesis, coffee-ground emesis. No rectal bleeding. Patient states stool has been dark. GENITOURINARY: No dysuria or hematuria. MUSCULOSKELETAL: Reports normal range of motion. SKIN: No rashes. No jaundice. ENDOCRINE: No chills, fevers. No excessive weight gain or loss. No polydipsia or polyuria. PSYCHIATRIC: Unremarkable. NEUROLOGY: No change in mental status. Denies dizziness, headache. ENT: Vision unremarkable. CONSTITUTIONAL: No recent weight loss. No fever, chills, night sweats. Increased weakness and fatigue over the last few days duration. Past Medical History Past Medical History: Blood Disorder, Coronary Artery Disease (CAD), Cancer, CVA/TIA, GERD/Reflux, GI Bleed, Hyperlipidemia, Hypertension, Myocardial Infarction (NV), Osteoarthritis (OA), Skin Disorder, Thyroid Disorder Additional Past Medical History / Comment(s): hx TIA., skin cancer, colitis, kidney stones, glaucoma., hospitalized with GI bleed 02/22/-02/24/21 at [facility] and received blood transfusions. IRON DEFICIENCY ANEMIA. Last Myocardial Infarction Date:: 02/22/19 History of Any Multi-Drug Resistant Organisms: None Reported Past Surgical History: Heart Catheterization With Stent Additional Past Surgical History / Comment(s): 3 stents, alejandro bunionectomy, thyroidectomy, alejandro hand-"core vein release", rt breast biopsy, rt nipple removed, EGD, alejandro myringotomy, 2 eye stents Past Anesthesia/Blood Transfusion Reactions: Previous Problems w/ Anesthesia, Motion Sickness, Postoperative Nausea & Vomiting (PONV) Additional Past Anesthesia/Blood Transfusion Reaction / Comm: diff intubation " I was told I need a fiberoptic intubation" Date of Last Stent Placement:: 02/22/19 Past Psychological History: No Psychological Hx Reported Smoking Status: Vaper Past Alcohol Use History: None Reported Past Drug Use History: None Reported - Past Family History Mother Family Medical History: Cancer Father Additional Family Medical History / Comment(s): blood clots Medications and Allergies Home Medications Medication Instructions Recorded Confirmed Type Levothyroxine Sodium [Synthroid] 100 mcg PO DAILY 11/10/15 08/22/22 History Venlafaxine HCl ER [Effexor XR] 150 mg PO BID 11/10/15 08/22/22 History Nitroglycerin Sl Tabs [Nitrostat] 0.4 mg SUBLINGUAL Q5M PRN #25 tab 02/25/19 08/22/22 Rx lisinopriL [Zestril] 2.5 mg PO DAILY 08/31/20 08/22/22 History ALPRAZolam [Xanax] 1 mg PO BID PRN 08/13/21 08/22/22 History Ascorbic Acid [Vitamin C] 500 mg PO DAILY 08/13/21 08/22/22 History Cholecalciferol [Vitamin D3 (25 25 mcg PO DAILY 08/13/21 08/22/22 History Mcg = 1000 Iu)] Zinc 50 mg PO DAILY 08/14/21 08/22/22 History Pantoprazole Sodium [Protonix] 40 mg PO BID 30 Days #60 tab 08/15/21 08/22/22 Rx Aspirin [Adult Low Dose Aspirin EC] 81 mg PO DAILY 07/10/22 08/22/22 History Metoprolol Tartrate 25 mg PO BID 07/10/22 08/22/22 History dilTIAZem HCL [Cardizem LA] 120 mg PO DAILY 07/13/22 08/22/22 History Atorvastatin [Lipitor] 40 mg PO DAILY #90 tab 07/14/22 08/22/22 Rx Clopidogrel [Plavix] 75 mg PO DAILY #90 tab 07/14/22 08/22/22 Rx Apixaban [Eliquis] 5 mg PO BID 08/22/22 08/22/22 History Ferrous Sulfate [Feosol] 325 mg PO DAILY 08/22/22 08/22/22 History Allergies Allergy/AdvReac Type Severity Reaction Status Date / Time adhesive tape AdvReac "tears Verified 08/22/22 12:05 skin" Physical Exam Vitals: Vital Signs Temp Pulse Pulse Resp BP BP Pulse Ox 08/23/22 01:17 98.5 F 72 14 131/69 95 08/22/22 21:00 16 08/22/22 17:41 98.7 F 78 16 145/64 97 08/22/22 15:48 68 18 08/22/22 15:45 98.0 F 68 18 135/52 96 08/22/22 11:26 98.3 F 84 18 118/68 94 L Intake and Output 08/22/22 08/23/22 08/23/22 22:59 06:59 14:59 Intake Total 900 Balance 900 Intake: Intake, IV Titration 900 Amount Sodium Chloride 0.9% 1, 900 000 ml @ 75 mls/hr IV . [id number] [facility] Rx#:[id number] Other: # Voids 1 Weight 63.049 kg General appearance: The patient is alert, oriented, appears in no acute distress. HET: Head is normocephalic and atraumatic. Conjunctiva pink. Sclera anicteric. Neck: Supple without lymphadenopathy. Trachea midline. Heart: S1 S2. Regular rate and rhythm. Lungs: Clear to auscultation. Abdomen: Soft, nontender, nondistended with bowel sounds. No guarding or rigidity. Skin: No rashes. No jaundice. Extremities: Normal skin color and turgor. No pedal edema. Neurological: No focal deficits. Alert and oriented x3. Results CBC & Chem 7: 08/23/22 06:45 08/23/22 06:45 Labs: Abnormal Lab Results - Last 24 Hours (Table) 04/19/23 04/19/23 04/19/23 Range/Units 12:35 12:35 12:35 WBC 12.5 H (3.8-10.6) k/uL RBC 2.79 L (3.80-5.40) m/uL Hgb 8.8 L D (11.4-16.0) gm/dL Hct 27.3 L (34.0-46.0) % Neutrophils # 10.3 H (1.3-7.7) k/uL APTT 20.5 L (22.0-30.0) sec Chloride (98-107) mmol/L BUN (7-17) mg/dL Glucose (74-99) mg/dL Total Protein (6.3-8.2) g/dL Stool Occult Blood Positive H (Negative) 08/22/22 08/22/22 Range/Units 12:35 20:26 WBC (3.8-10.6) k/uL RBC 2.50 L (3.80-5.40) m/uL Hgb 7.8 L (11.4-16.0) gm/dL Hct 24.7 L (34.0-46.0) % Neutrophils # (1.3-7.7) k/uL APTT (22.0-30.0) sec Chloride 110 H (98-107) mmol/L BUN 30 H (7-17) mg/dL Glucose 138 H (74-99) mg/dL Total Protein 5.9 L (6.3-8.2) g/dL Stool Occult Blood (Negative) Assessment and Plan (1) GI bleed Narrative/Plan: The 7-year-old female who is on dual antiplatelet therapy for coronary artery disease with recent stent and atrial fibrillation presented to the emergency department with increased weakness and fatigue. She was noted to be anemic with a continual drop in her hemoglobin. Reports black stools but states that she has been on oral iron. Patient does have a history of previous GI bleed with anticoagulation in the past. She underwent EGD colonoscopy at that time with Dr. Gilmore in August 2020 with findings of hiatal hernia and colonoscopy with a nonbleeding AVM in the cecum status post argon plasma coagulation. Unclear etiology at this time, would recommend EGD and colonoscopy however patient is refusing to undergo colonoscopy. Due to black stool elevated BUN looks more consistent with upper GI bleed. Reasonable to proceed with EGD. Hold anticoagulation at this time need to resume antiplatelet as soon as possible due to recent stent. Current Visit: No Status: Acute Code(s): K92.2 - GASTROINTESTINAL HEMORRHAGE, UNSPECIFIED SNOMED Code(s): 44178443 (2) Anemia Current Visit: No Status: Acute Code(s): D64.9 - ANEMIA, UNSPECIFIED SNOMED Code(s): 728725178 (3) Coronary artery disease Current Visit: Yes Status: Acute Code(s): I25.10 - ATHSCL HEART DISEASE OF [place] CORONARY ARTERY W/O ANG PCTRS SNOMED Code(s): 54866810 (4) Chronic atrial fibrillation Current Visit: No Status: Acute Code(s): I48.20 - CHRONIC ATRIAL FIBRILLATION, UNSPECIFIED SNOMED Code(s): 713770491 Plan: 1. Continue symptomatic and supportive care 2. Hold Eliquis and Plavix 3. Avoid NSAIDs 4. Protonix 40 mg twice a day 5. Clear liquid diet, nothing by mouth after midnight 6. Daily CBC, transfuse for hemoglobin less than 7 7. Recommend EGD and colonoscopy, however patient is refusing colonoscopy. She may proceed with EGD if Hg drops, otherwise patient states she does not want any further work up. Will tentatively plan EGD tomorrow Thank you for this consultation, we will continue to follow. Dr. Bill Gilmore I agree with the dictator's note, documented as a scribe by Deandra Pulido.
--- NOTE | 2022-08-23 13:25 | P.PN ---
Subjective This is a pleasant 76. Female with multiple medical problems including previous history of coronary artery disease. Previous history of GI bleed that is been evaluated previously by Dr. Gilmore and has colonoscopy and EGD about 20 years ago as per patient. Patient presents because of generalized weakness and inability to walk properly for the last 2-3 days, patient says that recently last July she had placed on blood thinner Eliquis back by her biofuels production technician Dr. Hernandez and also she is on aspirin and Plavix. She was also on iron pills however over the last 1 week noticed her stool is a black although she thinks this is due to iron. Of note patient was taken iron for about one month now. No fresh blood per stool. No overt bleeding from anywhere else. No trauma. She states she has tingling and weakness in her legs which make her difficult to walk and this episode he should have she has GI bleed. However patient denies any weakness numbness while she is lying in bed rest strength is 5/5 in both extremities. Portions also denies any headache, no back pain. No dizziness. No chest pain or dyspnea. No change in urine or bowel habits, no diarrhea abdominal pain or vomiting. No dysuria urgency. No dizziness weakness numbness or blurred vision or slurred speech. Patient drapes nicotine and she was counseled to quit but she declines nicotine patch. No alcohol or illicit tracts. She states she had colonoscopy and EGD done with Dr. Gilmore about one year ago -Patient had cardiac catheterization on 07/13/2022 showing severe LAD stenosis as well as severe stenosis of OM 1, with past 2 stents in the LAD and RCA with successful stenting of OM1 55% down to 0% as well as successful stenting of the LAD with recommendation to continue with aspirin and Plavix x 6 months. 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 Platelet count is normal. PTT is 20.5. BMP and liver enzymes are unremarkable. Troponin is negative. Occult blood in the stool is positive chest x-ray: No acute process. EKG: Showing normal sinus rhythm at [address]-T changes. QTC 398. 08/23/2022 Patient clinically doing well, she denies any symptoms, no abdominal pain, no dizziness, no chest pain or dyspnea. Hemoglobin 7.5 compared to 7.7 and 8.7 yesterday. Aspirin, Plavix and Eliquis remain on hold. Recommendation Plan for EGD tomorrow morning. Patient refuses colonoscopy GI and cardiology input is appreciated. Continue with normal saline 75 mL/h and Protonix IV 40 mg twice a day Objective - Vital Signs Vital signs: Vital Signs Temp 98.5 F 08/23/22 12:10 Pulse 65 08/23/22 12:10 Resp 18 08/23/22 12:10 BP 125/61 08/23/22 12:10 Pulse Ox 99 08/23/22 12:10 FiO2 Intake & Output 08/22/22 08/23/22 08/23/22 18:59 06:59 18:59 Intake Total 900 Balance 900 Weight 63.049 kg Intake: Intake, IV Titration 900 Amount Sodium Chloride 0.9% 1, 900 000 ml @ 75 mls/hr IV . [id number] [facility] Rx#:[id number] Other: # Voids 1 - Exam GENERAL: The patient is alert and oriented x3, not in any acute distress. Well developed, well nourished. HEENT: Pupils are round and equally reacting to light. EOMI. No scleral icterus. No conjunctival pallor. Normocephalic, atraumatic. No pharyngeal erythema. No thyromegaly. CARDIOVASCULAR: S1 and S2 present. No murmurs, rubs, or gallops. PULMONARY: Chest is clear to auscultation, no wheezing or crackles. ABDOMEN: Soft, nontender, nondistended, normoactive bowel sounds. No palpable organomegaly. MUSCULOSKELETAL: No joint swelling or deformity. EXTREMITIES: No cyanosis, clubbing, or pedal edema. NEUROLOGICAL: Gross neurological examination did not reveal any focal deficits. SKIN: No rashes. no petechiae. - Labs CBC & Chem 7: 08/23/22 06:45 08/22/22 12:35 Labs: Abnormal Lab Results - Last 24 Hours (Table) 08/22/22 08/23/22 Range/Units 20:26 06:45 WBC 11.85 H (4.50-10.00) X 10*3/uL RBC 2.50 L 2.52 L (3.80-5.40) m/uL Hgb 7.8 L 7.5 L (11.4-16.0) gm/dL Hct 24.7 L 25.7 L (34.0-46.0) % MCV 102.0 H (80.0-97.0) fL MCHC 29.2 L (32.0-37.0) g/dL RDW 15.5 H (11.5-14.5) % Assessment and Plan Assessment: Acute GI bleed Coronary artery disease with Recent history of cardiac cath and stent placement of the LAD and OM1 Chronic atrial fibrillation on blood thinner at home History of stroke/TIA Hyperlipidemia Hypertension History of a serositis Hypothyroidism History of glaucoma Plan: Patient is high-risk for thrombosis and bleeding, she may benefit from resuming her aspirin given her recent stent placement about one month ago, however it was put on hold and withdrawn to consult biofuels production technician Dr. David chauhan patient very well. will we are going to consult GI service as well Monitor hemoglobin closely Continue with Protonix 40 mg IV twice a day Patient is at both high-risk of thrombosis and bleeding Old aspirin, ELIQUIS and Plavix as well gentle hydration Labs and medication were reviewed.. Continue same treatment. Continue with symptomatic treatment. Resume home medication. Monitor labs and vitals. DVT and GI prophylaxis. Further recommendations as per clinical course of the patient DVT prophylaxis: no Subcutaneous heparin or Eliquis for GI bleed GI Prophylaxis: Ppi Prognosis is guarded
[2022-08-23 13:52] LABS: African American GFR (CKD) 83.6 (60.0-200.0); Anion Gap 7.8 mmol/L (10.00-18.00); BUN/Creat Ratio 21.5 Ratio (12.00-20.00); Blood Urea Nitrogen 17.2 mg/dL (9.0-27.0); Calcium 8.8 mg/dL (8.7-10.3); Carbon Dioxide 26.2 mmol/L (20.0-27.5); Non-African American GFR(CKD) 72.1 (60.0-200.0); Potassium 3.9 mmol/L (3.5-5.5)
[2022-08-23 13:59] LABS: % Iron Saturation 10.6 (12.00-45.00); Ferritin 41.6 ng/mL (10.0-291.0)
[2022-08-23 14:31] LABS: Reticulocyte % 6.6 % (0.5-2.0)
[2022-08-24] MEDS: SODIUM CHLORIDE 0.9% 1,000 ML IV SCH (01:41)
[2022-08-24] MEDS: LEVOTHYROXINE 100 MCG TAB PO SCH (06:35)
[2022-08-24 07:46] LABS: African American GFR (CKD) >90 (>60 ml/min/1.73 sqM); Anion Gap 7 mmol/L; Blood Urea Nitrogen 10 mg/dL (7-17); Calcium 8.5 mg/dL (8.4-10.2); Carbon Dioxide 25 mmol/L (22-30); Chloride 109 mmol/L (98-107); Glucose 90 mg/dL (74-99); Non-African American GFR(CKD) 86 (>60 ml/min/1.73 sqM); Potassium 3.5 mmol/L (3.5-5.1); Sodium 141 mmol/L (137-145)
[2022-08-24] MEDS: PANTOPRAZOLE 40 MG/10 ML VIAL IV SCH (08:27)
[2022-08-24] MEDS ORDERED: PROPOFOL 10 MG/ML 20 ML VIAL IV ONE (08:57)
[2022-08-24] MEDS ORDERED: LIDOCAINE 2% INJ 20 MG/ML (2 ML VIAL) ONE (08:57)
[2022-08-24] MEDS ORDERED: IV FLUID CONTINUATION 1,000 ML IV ONE (09:08)
--- NOTE | 2022-08-24 09:18 | P.PCN ---
Date of Procedure: 08/24/22 Procedure(s) Performed: BRIEF HISTORY: Patient is a 77-year-old, pleasant, white female admitted hospital with symptomatic anemia and hemoglobin of 7.5 g/dL. She has history of A. fib and is on a liquid and recent coronary artery stenting done for coronary artery disease in July of this year and since then has been on aspirin and Plavix. Her hemoglobin of 3 months ago was 14 g/dL. She has been having intermittent dark colored stool. She did have an EGD and colonoscopy 2 years ago which revealed nonbleeding cecal AVM and gastritis. the aspirin, Plavix and liquids have been on hold for the last 2 days. PROCEDURE PERFORMED: Esophagogastroduodenoscopy with argon plasma coagulation. PREOPERATIVE DIAGNOSIS: severe symptomatic anemia and Dr. gross IV sedation per anesthesia. PROCEDURE: After informed consent was obtained, the patient was brought into the endoscopy unit. IV sedation was administered by Anesthesia under continuous monitoring. Initially the Olympus GIF-140 video endoscope was inserted into the mouth. Esophagus intubated without any difficulty. It was gradually advanced in to the stomach and duodenum and carefully examined. The bulb and the second part of the duodenum appeared normal. The scope at this time was withdrawn to the stomach, adequately insufflated with air, and upon careful examination, mucosa of the antrum, body, cardia and the fundus appeared normal. The scope was then withdrawn into the esophagus. The GE junction was located at 39 cm from the incisors. The esophagus appeared normal. There were no erosions or ulcerations seen and the patient tolerated the procedure well. IMPRESSION: 1. Antral gastritis. 2. Linear erosions in the fundus of the stomach with some of these with active oozing status post argon plasma coagulation with good hemostasis RECOMMENDATIONS: The findings of this examination were discussed with the patient as well as a family. Diet will be resumed today. She can be started back on aspirin and Plavix today because of recent history of coronary artery stents. Start iron supplements daily and monitor CBC periodically. She can also resume eliquis as per cardiology recommendations.
--- NOTE | 2022-08-24 09:32 | P.PN ---
Subjective Progress Note Date: 08/24/22 HISTORY OF PRESENT ILLNESS: This is a 77-year-old female patient of Dr. Hernandez with a past medical history significant for paroxysmal atrial fibrillation on eliquis, coronary artery disease with previous stenting, hypertension, hyperlipidemia, and former nicotine dependence. We have been asked to see the patient in consultation for risk stratification for patient with recurrent GI bleed and antiplate lets/anticoagulalants. Patient was recently hospitalized in July of this year underwent cardiac catheterization and stenting of the OM1 and ostium of the LAD on 07/13. During that hospitalization, patient's hemoglobin was 14.7. Patient states that yesterday she was weak to the point that she could hardly walk and could hardly put 1 foot in front of the other. She states she has similar episode a year ago but after testing nothing was found. Note the patient's hemoglobin was 14.7 in July and now presented with hemoglobin of 8.8. She had a rectal exam with occult blood positive in the emergency center. She denies any change in her stools. She is normally having dark stools due to iron s upplements. She states the only rectal bleeding that she's had is a small amount after the rectal exam. She denies having any abdominal pain. No nausea or vomiting. She is currently on a clear liquid diet and GI workup is in process with plan for possible EGD tomorrow. Patient has refused colonoscopy. Patient has had a previous episode of GI bleeding requiring eliquis to be discontinued in August 2021. * EKG reveals sinus mechanism with no signs of acute ischemia * Chest x-ray no acute process * Laboratory data: WBC 11.8. Hemoglobin 7.5. Platelet count 332. Sodium 142. Potassium 4.0. BUN 30. Creatinine 0.85. * Current home cardiac medications include Eliquis 5 mg twice daily, aspirin 81 mg daily, atorvastatin 40 mg daily, Plavix 75 mg daily, Cardizem LA 120 mg daily, lisinopril 2.5 mg daily, metoprolol tartrate 25 mg twice daily, Nitrostat as needed, levothyroxine 100 g daily, ferrous sulfate 325 mg daily. * Most recent echocardiogram obtained in August 2021 revealed ejection fraction 55-60%, mild-moderate aortic regurgitation, moderate tricuspid regurgitation, est RVSP 40mmHg. * Lexiscan stress test in May 2022 normal EF, apical ischemia * Cardiac catheterization history: May 2019 with PCI to the LAD, July 2022 with PCI of the OM1 and ostium of the LAD. 08/24 Patient is undergoing EGD today with Dr. Bill Gilmore. Patient had blood drawn this morning and chemistry is reporting BUN of 10 and creatinine 0.67. Hematology report is pending. Heart rate has been in the 60s and 70s, blood pressure 131/66. Pulse ox 99% on room air. PHYSICAL EXAM: VITAL SIGNS: Reviewed. GENERAL: Well-developed in no acute distress. HEENT: Head is normocephalic. Pupils are equal, round. Sclerae anicteric. LUNGS: Respirations even and unlabored. Lungs essentially clear to auscultation bilaterally. HEART: Regular rate and rhythm. S1 and S2 heard. 2/6 systolic [id number] noted EXTREMITIES: Normal range of motion. No clubbing or cyanosis. Peripheral pulses intact. No lower extremity edema NEUROLOGIC: Awake and alert. Oriented x 3. ASSESSMENT: Acute blood loss anemia secondary to acute GI bleed Paroxysmal atrial fibrillation on eliquis-on hold Coronary artery disease with recent stenting 07/13 Hypertension Hyperlipidemia Hypothyroidism History of TIA Former nicotine dependence PLAN: No need to repeat echo at this time Continue to monitor hemoglobin and transfuse for hemoglobin of 7 or less Continue to hold asa, plavix, eliquis Once cleared by GI, would recommend resuming Plavix, resuming eliquis at lower dose of 2.5 mg twice daily and discontinuing aspirin Further recommendations pending patient course Nurse practitioner note has been reviewed by physician. Signing provider agrees with the documented findings, assessment, and plan of care. Objective - Vital Signs Vital signs: Vital Signs Temp 98.4 F 08/24/22 07:02 Pulse 68 08/24/22 07:02 Resp 15 08/24/22 07:02 BP 131/66 08/24/22 07:02 Pulse Ox 99 08/24/22 07:02 FiO2 Intake & Output 08/23/22 08/24/22 08/24/22 18:59 06:59 18:59 Intake Total 200 Balance 200 Intake: IV 200 Other: # Voids 3 1 - Labs CBC & Chem 7: 08/23/22 06:45 08/24/22 06:43 Labs: Abnormal Lab Results - Last 24 Hours (Table) 04/08/23/22 08/23/22 Range/Units 06:45 06:45 08:09 WBC 11.85 H (4.50-10.00) X 10*3/uL RBC 2.52 L (4.10-5.20) X 10*6/uL Hgb 7.5 L (12.0-15.0) g/dL Hct 25.7 L (37.2-46.3) % MCV 102.0 H (80.0-97.0) fL MCHC 29.2 L (32.0-37.0) g/dL RDW 15.5 H (11.5-14.5) % Retic Count (0.5-2.0) % Sodium 148 H (135-145) mmol/L Chloride 114 H (96-109) mmol/L Anion Gap 7.80 L (10.00-18.00) mmol/L BUN/Creatinine Ratio 21.50 H (12.00-20.00) Ratio Iron 33 L (50-170) ug/dL % Saturation 10.60 L (12.00-45.00) 08/23/22 08/24/22 Range/Units 08:09 06:43 WBC (4.50-10.00) X 10*3/uL RBC (4.10-5.20) X 10*6/uL Hgb (12.0-15.0) g/dL Hct (37.2-46.3) % MCV (80.0-97.0) fL MCHC (32.0-37.0) g/dL RDW (11.5-14.5) % Retic Count 6.6 H (0.5-2.0) % Sodium (135-145) mmol/L Chloride 109 H (96-109) mmol/L Anion Gap (10.00-18.00) mmol/L BUN/Creatinine Ratio (12.00-20.00) Ratio Iron (50-170) ug/dL % Saturation (12.00-45.00)
[2022-08-24] MEDS: ASCORBIC ACID 500 MG TAB PO SCH ×2 (09:43→09:48)
[2022-08-24] MEDS: CHOLECALCIFEROL 25 MCG (1000 IU) TABLET PO SCH (09:43)
[2022-08-24] MEDS: METOPROLOL TARTRATE 25 MG TAB PO SCH ×2 (09:45→20:51)
[2022-08-24] MEDS: VENLAFAXINE HCL ER 150 MG CAP PO SCH ×2 (09:45→20:50)
[2022-08-24] MEDS: FERROUS SULFATE 325 MG TAB PO SCH ×2 (09:45→20:51)
[2022-08-24] MEDS: DILTIAZEM CD 120 MG CAP.ER.24H PO SCH (09:45)
[2022-08-24] MEDS: ATORVASTATIN 40 MG TAB PO SCH (09:45)
[2022-08-24] MEDS ORDERED: SODIUM FERRIC GLUCONAT-SUCROSE 125 MG in SODIUM CHLORIDE 0.9% 100 ML IVPB ONE (10:01)
--- NOTE | 2022-08-24 10:11 | P.PN ---
Progress Note - Text Progress Note Date: 08/24/22 Patient was seen this morning and states no abdominal pain, nausea or vomiting, and no bowel movement. She was willing to proceed with EGD. Iron studies were consistent with iron deficiency anemia. She is status post EGD with findings of antral gastritis and linear erosions in the fundus of the stomach with some actively oozing status post argon plasma coagulation with good hemostasis. Patient may resume aspirin and Plavix due to recent coronary artery stents. Continue to hold Eliquis for 48 hours, and further discuss with dice table person continued use. Dr. Bill Gilmore I agree with the dictator's note, documented as a scribe by Deandra Pulido.
[2022-08-24 11:49] LABS: HCT 26.8 % (37.2-46.3); HGB 8.2 g/dL (12.0-15.0); MCH 31.1 pg (27.0-32.0); MCHC 30.6 g/dL (32.0-37.0); MCV 101.5 fL (80.0-97.0); Mean Platelet Volume 9.7 fL (9.5-12.2); NRBC Per 100 WBC 0 /100 WBCS (0.0-0.0); Platelet Count 357 X 10*3/uL (140-440); RBC 2.64 X 10*6/uL (4.10-5.20); RDW 15.7 % (11.5-14.5); WBC 12.84 X 10*3/uL (4.50-10.00)
--- NOTE | 2022-08-24 12:49 | P.PN ---
Subjective This is a pleasant 76. Female with multiple medical problems including previous history of coronary artery disease. Previous history of GI bleed that is been evaluated previously by Dr. Gilmore and has colonoscopy and EGD about 20 years ago as per patient. Patient presents because of generalized weakness and inability to walk properly for the last 2-3 days, patient says that recently last July she had placed on blood thinner Eliquis back by her clerical grader Dr. Hernandez and also she is on aspirin and Plavix. She was also on iron pills however over the last 1 week noticed her stool is a black although she thinks this is due to iron. Of note patient was taken iron for about one month now. No fresh blood per stool. No overt bleeding from anywhere else. No trauma. She states she has tingling and weakness in her legs which make her difficult to walk and this episode he should have she has GI bleed. However patient denies any weakness numbness while she is lying in bed rest strength is 5/5 in both extremities. Portions also denies any headache, no back pain. No dizziness. No chest pain or dyspnea. No change in urine or bowel habits, no diarrhea abdominal pain or vomiting. No dysuria urgency. No dizziness weakness numbness or blurred vision or slurred speech. Patient drapes nicotine and she was counseled to quit but she declines nicotine patch. No alcohol or illicit tracts. She states she had colonoscopy and EGD done with Dr. Gilmore about one year ago -Patient had cardiac catheterization on 07/13/2022 showing severe LAD stenosis as well as severe stenosis of OM 1, with past 2 stents in the LAD and RCA with successful stenting of OM1 55% down to 0% as well as successful stenting of the LAD with recommendation to continue with aspirin and Plavix x 6 months. 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 Platelet count is normal. PTT is 20.5. BMP and liver enzymes are unremarkable. Troponin is negative. Occult blood in the stool is positive chest x-ray: No acute process. EKG: Showing normal sinus rhythm at [address]-T changes. QTC 398. 08/23/2022 Patient clinically doing well, she denies any symptoms, no abdominal pain, no dizziness, no chest pain or dyspnea. Hemoglobin 7.5 compared to 7.7 and 8.7 yesterday. Aspirin, Plavix and Eliquis remain on hold. Recommendation Plan for EGD tomorrow morning. Patient refuses colonoscopy GI and cardiology input is appreciated. Continue with normal saline 75 mL/h and Protonix IV 40 mg twice a day 08/24/2022 This morning patient denies abdominal pain vomiting or diarrhea. No other new complaints. No chest pain or dyspnea. Family at bedside. Patient is status post EGD with findings of antral gastritis and linear erosions in the fundus of the stomach with some actively oozing status post argon plasma coagulation with good hemostasis. Postprocedure GI team recommended to start aspirin and Plavix and keep holding Eliquis for another 48 hours. Cardiology team recommended to discontinue aspirin and continue with Eliquis at a lower dose 2.5 mg and Plavix. Because Eliquis still on hold I started the patient on aspirin and Plavix today. Down the road Eliquis is going to be started then I would recommend discontinue aspirin per clerical grader and continue with Eliquis and Plavix. Patient and family declined colonoscopy, risks and benefits are explained Low normal vitamin B12 are placed. Recommend check level in 1-2 months Objective - Vital Signs Vital signs: Vital Signs Temp 98.8 F 08/24/22 11:27 Pulse 81 08/24/22 11:27 Resp 16 08/24/22 11:27 BP 107/57 08/24/22 11:27 Pulse Ox 98 08/24/22 11:27 FiO2 Intake & Output 08/23/22 08/24/22 08/24/22 18:59 06:59 18:59 Intake Total 200 Balance 200 Intake: IV 200 Other: # Voids 3 1 - Exam GENERAL: The patient is alert and oriented x3, not in any acute distress. Well developed, well nourished. HEENT: Pupils are round and equally reacting to light. EOMI. No scleral icterus. No conjunctival pallor. Normocephalic, atraumatic. No pharyngeal erythema. No thyromegaly. CARDIOVASCULAR: S1 and S2 present. No murmurs, rubs, or gallops. PULMONARY: Chest is clear to auscultation, no wheezing or crackles. ABDOMEN: Soft, nontender, nondistended, normoactive bowel sounds. No palpable organomegaly. MUSCULOSKELETAL: No joint swelling or deformity. EXTREMITIES: No cyanosis, clubbing, or pedal edema. NEUROLOGICAL: Gross neurological examination did not reveal any focal deficits. SKIN: No rashes. no petechiae. - Labs CBC & Chem 7: 08/24/22 06:43 08/24/22 06:43 Labs: Abnormal Lab Results - Last 24 Hours (Table) 08/23/22 08/23/22 08/23/22 Range/Units 06:45 08:09 08:09 WBC (4.50-10.00) X 10*3/uL RBC (4.10-5.20) X 10*6/uL Hgb (12.0-15.0) g/dL Hct (37.2-46.3) % MCV (80.0-97.0) fL MCHC (32.0-37.0) g/dL RDW (11.5-14.5) % Retic Count 6.6 H (0.5-2.0) % Sodium 148 H (135-145) mmol/L Chloride 114 H (96-109) mmol/L Anion Gap 7.80 L (10.00-18.00) mmol/L BUN/Creatinine Ratio 21.50 H (12.00-20.00) Ratio Iron 33 L (50-170) ug/dL % Saturation 10.60 L (12.00-45.00) 08/24/22 08/24/22 Range/Units 06:43 06:43 WBC 12.84 H (4.50-10.00) X 10*3/uL RBC 2.64 L (4.10-5.20) X 10*6/uL Hgb 8.2 L (12.0-15.0) g/dL Hct 26.8 L (37.2-46.3) % MCV 101.5 H (80.0-97.0) fL MCHC 30.6 L (32.0-37.0) g/dL RDW 15.7 H (11.5-14.5) % Retic Count (0.5-2.0) % Sodium (135-145) mmol/L Chloride 109 H (96-109) mmol/L Anion Gap (10.00-18.00) mmol/L BUN/Creatinine Ratio (12.00-20.00) Ratio Iron (50-170) ug/dL % Saturation (12.00-45.00) Assessment and Plan Assessment: Acute GI bleed, EGD, antral gastritis and linear erosions in the fundus of the stomach with some actively oozing status post argon plasma coagulation with good hemostasis. Coronary artery disease with Recent history of cardiac cath and stent placement of the LAD and OM1 Chronic atrial fibrillation on blood thinner at home History of stroke/TIA Hyperlipidemia Hypertension History of a serositis Hypothyroidism History of glaucoma Plan: Restart Plavix and aspirin (3 doses given over 3 days) , keep hold Eliquis. Cardiology recommended to discontinue aspirin and started Eliquis at lower dose Patient is high-risk for thrombosis and bleeding, she may benefit from resuming her aspirin given her recent stent placement about one month ago, however it was put on hold and withdrawn to consult clerical grader Dr. David chauhan patient very well. GI team and surgery team consult on the catalytic case operator hemoglobin closely Continue with Protonix 40 mg IV twice a day Patient is at both high-risk of thrombosis and bleeding gentle hydration Labs and medication were reviewed.. Continue same treatment. Continue with symptomatic treatment. Resume home medication. Monitor labs and vitals. DVT and GI prophylaxis. Further recommendations as per clinical course of the patient DVT prophylaxis: no Subcutaneous heparin or Eliquis for GI bleed GI Prophylaxis: Ppi Prognosis is guarded
[2022-08-24] MEDS: CLOPIDOGREL 75 MG TAB PO SCH (12:51)
[2022-08-24] MEDS: ASPIRIN 81 MG PO SCH (12:51)
[2022-08-25] MEDS: SODIUM CHLORIDE 0.9% 1,000 ML IV SCH ×2 (02:21→10:12)
[2022-08-25] MEDS: LEVOTHYROXINE 100 MCG TAB PO SCH (06:54)
[2022-08-25 09:28] LABS: Basophils # (A) 0.11 X 10*3/uL (0.00-0.10); Basophils % (A) 0.7 %; Eosinophils # (A) 0.13 X 10*3/uL (0.04-0.35); Eosinophils % (A) 0.8 %; HCT 27.8 % (37.2-46.3); HGB 8.3 g/dL (12.0-15.0); Immature Grans, Automated 0.6 %; Lymphocytes # (A) 3.34 X 10*3/uL (0.90-5.00); MCHC 29.9 g/dL (32.0-37.0); MCV 100.4 fL (80.0-97.0); Mean Platelet Volume 9.5 fL (9.5-12.2); Monocytes # (A) 0.96 X 10*3/uL (0.20-1.00); Monocytes % (A) 5.7 %; NRBC Per 100 WBC 0.4 /100 WBCS (0.0-0.0); Neutrophils # (A) 12.06 X 10*3/uL (1.80-7.70); Neutrophils % (A) 72.2 %; Platelet Count 365 X 10*3/uL (140-440); RBC 2.77 X 10*6/uL (4.10-5.20); RDW 15.8 % (11.5-14.5)
[2022-08-25] MEDS: ASPIRIN 81 MG PO SCH (09:38)
[2022-08-25] MEDS: ASCORBIC ACID 500 MG TAB PO SCH (09:38)
[2022-08-25] MEDS: ATORVASTATIN 40 MG TAB PO SCH (09:38)
[2022-08-25] MEDS: VENLAFAXINE HCL ER 150 MG CAP PO SCH ×2 (09:39→20:42)
[2022-08-25] MEDS: CLOPIDOGREL 75 MG TAB PO SCH (09:39)
[2022-08-25] MEDS: FERROUS SULFATE 325 MG TAB PO SCH ×2 (09:39→20:42)
[2022-08-25] MEDS: CHOLECALCIFEROL 25 MCG (1000 IU) TABLET PO SCH (09:39)
[2022-08-25] MEDS: DILTIAZEM CD 120 MG CAP.ER.24H PO SCH (09:40)
[2022-08-25] MEDS: CYANOCOBALAMIN 500 MCG TAB PO SCH (09:40)
[2022-08-25] MEDS: METOPROLOL TARTRATE 25 MG TAB PO SCH ×2 (09:40→20:42)
[2022-08-25 09:43] LABS: African American GFR (CKD) 98.2 (60.0-200.0); Anion Gap 9.8 mmol/L (10.00-18.00); BUN/Creat Ratio 17.57 Ratio (12.00-20.00); Blood Urea Nitrogen 12.3 mg/dL (9.0-27.0); Calcium 8.8 mg/dL (8.7-10.3); Carbon Dioxide 25.2 mmol/L (20.0-27.5); Non-African American GFR(CKD) 84.8 (60.0-200.0); Potassium 3.4 mmol/L (3.5-5.5)
[2022-08-25] MEDS: PANTOPRAZOLE 40 MG/10 ML VIAL IV SCH (10:12)
--- NOTE | 2022-08-25 14:10 | P.PN ---
Subjective Progress Note Date: 08/25/22 This is a 77-year-old female patient of Dr. Hernandez with a past medical history significant for paroxysmal atrial fibrillation on eliquis, coronary artery disease with previous stenting, hypertension, hyperlipidemia, and former nicotine dependence. We have been asked to see the patient in consultation for r isk stratification for patient with recurrent GI bleed and antiplatelets/anticoagulalants. Patient was recently hospitalized in July of this year underwent cardiac catheterization and stenting of the OM1 and ostium of the LAD on 07/13. During that hospitalization, patient's hemoglobin was 14.7. Patient states that yesterday she was weak to the point that she could hardly walk and could hardly put 1 foot in front of the other. She states she has similar episode a year ago but after testing nothing was found. Note the patient's hemoglobin was 14.7 in July and now presented with hemoglobin of 8.8. She had a rectal exam with occult blood positive in the emergency center. She denies any change in her stools. She is normally having dark stools due to iron supplements. She states the only rectal bleeding that she's had is a small amount after the rectal exam. She denies having any abdominal pain. No nausea or vomiting. She is currently on a clear liquid diet and GI workup is in pro cess with plan for possible EGD tomorrow. Patient has refused colonoscopy. Patient has had a previous episode of GI bleeding requiring eliquis to be discontinued in August 2021. 08/25/2022 She was seen and examined resting comfortably in bed. She's been restarted on aspirin and Plavix. EGD yesterday showed antral gastritis with linear erosions in the fundus of the stomach and some of these with active losing for which she underwent argon plasma coagulation with good hemostasis. At that time was recommended to resume aspirin and Plavix and resume out as per our recommendations. Hemoglobin is stable. Objective - Vital Signs Vital signs: Vital Signs Temp 99.1 F 08/25/22 11:23 Pulse 58 L 08/25/22 11:23 Resp 16 08/25/22 11:23 BP 149/72 08/25/22 11:23 Pulse Ox 94 L 08/25/22 11:23 FiO2 Intake & Output 08/24/22 08/25/22 08/25/22 18:59 06:59 18:59 Intake Total 200 Balance 200 Intake: IV 200 Other: # Voids 3 - Exam GENERAL: Well-developed in no acute distress. HEENT: Head is normocephalic. Pupils are equal, round. Sclerae anicteric. LUNGS: Respirations even and unlabored. Lungs essentially clear to auscultation bilaterally. HEART: Regular rate and rhythm. S1 and S2 heard. 2/6 systolic [id number] noted EXTREMITIES: Normal range of motion. No clubbing or cyanosis. Peripheral pulses intact. No lower extremity edema NEUROLOGIC: Awake and alert. Oriented x 3. - Labs CBC & Chem 7: 08/25/22 06:14 08/25/22 06:14 Labs: Abnormal Lab Results - Last 24 Hours (Table) 08/25/22 08/25/22 Range/Units 06:14 06:14 WBC 16.70 H (4.50-10.00) X 10*3/uL RBC 2.77 L (4.10-5.20) X 10*6/uL Hgb 8.3 L (12.0-15.0) g/dL Hct 27.8 L (37.2-46.3) % MCV 100.4 H (80.0-97.0) fL MCHC 29.9 L (32.0-37.0) g/dL RDW 15.8 H (11.5-14.5) % Absolute Nucleated RBC 0.06 H (0.00-0.00) X 10*3/uL Immature Gran # 0.10 H (0.00-0.04) X 10*3/uL Neutrophils # 12.06 H (1.80-7.70) X 10*3/uL Basophils # 0.11 H (0.00-0.10) X 10*3/uL NRBC/100 WBC Diff 0.4 H (0.0-0.0) /100 WBCS Sodium 146 H (135-145) mmol/L Potassium 3.4 L (3.5-5.5) mmol/L Chloride 111 H (96-109) mmol/L Anion Gap 9.80 L (10.00-18.00) mmol/L Assessment and Plan Assessment: Acute blood loss anemia secondary to acute GI bleed status post argon plasma coagulation Paroxysmal atrial fibrillation on eliquis-on hold Coronary artery disease with recent stenting 07/13 Hypertension Hyperlipidemia Hypothyroidism History of TIA Former nicotine dependence Plan: From american board certified orthotist perspective we will discontinue aspirin and continue Plavix. We'll resume Eliquis. Patient will likely benefit from outpatient workup for possible watchman procedure. Patient will follow-up in the office with Dr. Hernandez as an outpatient. CASINO GAMING WORKER note has been reviewed, I agree with a documented findings and plan of care. Patient was seen and examined.
[2022-08-25] MEDS ORDERED: Potassium Replacement Protocol 1 EACH MISC MISCELLANE PRN (20:24)
--- NOTE | 2022-08-25 20:33 | P.PN ---
Subjective This is a pleasant 76. Female with multiple medical problems including previous history of coronary artery disease. Previous history of GI bleed that is been evaluated previously by Dr. Gilmore and has colonoscopy and EGD about 20 years ago as per patient. Patient presents because of generalized weakness and inability to walk properly for the last 2-3 days, patient says that recently last July she had placed on blood thinner Eliquis back by her seat mender Dr. Hernandez and also she is on aspirin and Plavix. She was also on iron pills however over the last 1 week noticed her stool is a black although she thinks this is due to iron. Of note patient was taken iron for about one month now. No fresh blood per stool. No overt bleeding from anywhere else. No trauma. She states she has tingling and weakness in her legs which make her difficult to walk and this episode he should have she has GI bleed. However patient denies any weakness numbness while she is lying in bed rest strength is 5/5 in both extremities. Portions also denies any headache, no back pain. No dizziness. No chest pain or dyspnea. No change in urine or bowel habits, no diarrhea abdominal pain or vomiting. No dysuria urgency. No dizziness weakness numbness or blurred vision or slurred speech. Patient drapes nicotine and she was counseled to quit but she declines nicotine patch. No alcohol or illicit tracts. She states she had colonoscopy and EGD done with Dr. Gilmore about one year ago -Patient had cardiac catheterization on 07/13/2022 showing severe LAD stenosis as well as severe stenosis of OM 1, with past 2 stents in the LAD and RCA with successful stenting of OM1 55% down to 0% as well as successful stenting of the LAD with recommendation to continue with aspirin and Plavix x 6 months. 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 Platelet count is normal. PTT is 20.5. BMP and liver enzymes are unremarkable. Troponin is negative. Occult blood in the stool is positive chest x-ray: No acute process. EKG: Showing normal sinus rhythm at [address]-T changes. QTC 398. 08/23/2022 Patient clinically doing well, she denies any symptoms, no abdominal pain, no dizziness, no chest pain or dyspnea. Hemoglobin 7.5 compared to 7.7 and 8.7 yesterday. Aspirin, Plavix and Eliquis remain on hold. Recommendation Plan for EGD tomorrow morning. Patient refuses colonoscopy GI and cardiology input is appreciated. Continue with normal saline 75 mL/h and Protonix IV 40 mg twice a day 08/24/2022 This morning patient denies abdominal pain vomiting or diarrhea. No other new complaints. No chest pain or dyspnea. Family at bedside. Patient is status post EGD with findings of antral gastritis and linear erosions in the fundus of the stomach with some actively oozing status post argon plasma coagulation with good hemostasis. Postprocedure GI team recommended to start aspirin and Plavix and keep holding Eliquis for another 48 hours. Cardiology team recommended to discontinue aspirin and continue with Eliquis at a lower dose 2.5 mg and Plavix. Because Eliquis still on hold I started the patient on aspirin and Plavix today. Down the road Eliquis is going to be started then I would recommend discontinue aspirin per seat mender and continue with Eliquis and Plavix. Patient and family declined colonoscopy, risks and benefits are explained Low normal vitamin B12 are placed. Recommend check level in 1-2 months 08/25/2022 patient still feels generally weak but she is doing good overall. She ate more today. She denies abdominal pain. She says her bowel movement is regular and is not black. She tolerated aspirin and Plavix yesterday and her hemoglobin stable at 8.3, no more evidence of GI bleed. Today her aspirin was discontinued and she was started on Eliquis by seat mender recommendations. We will keep monitoring hemoglobin. Also patient was some evidence of leukocytosis. Could be reactive. Check urine analysis. No other signs of infection so far but will keep monitoring. Borderline vitamin B12 is been replaced. The potassium is been replaced. Currently she is off IV fluids of normal saline Objective - Vital Signs Vital signs: Vital Signs Temp 99.1 F 08/25/22 11:23 Pulse 58 L 08/25/22 11:23 Resp 16 08/25/22 11:23 BP 149/72 08/25/22 11:23 Pulse Ox 94 L 08/25/22 11:23 FiO2 Intake & Output 08/24/22 08/25/22 08/25/22 18:59 06:59 18:59 Intake Total 200 Balance 200 Intake: IV 200 Other: # Voids 3 - Exam GENERAL: The patient is alert and oriented x3, not in any acute distress. Well developed, well nourished. HEENT: Pupils are round and equally reacting to light. EOMI. No scleral icterus. No conjunctival pallor. Normocephalic, atraumatic. No pharyngeal erythema. No thyromegaly. CARDIOVASCULAR: S1 and S2 present. No murmurs, rubs, or gallops. PULMONARY: Chest is clear to auscultation, no wheezing or crackles. ABDOMEN: Soft, nontender, nondistended, normoactive bowel sounds. No palpable organomegaly. MUSCULOSKELETAL: No joint swelling or deformity. EXTREMITIES: No cyanosis, clubbing, or pedal edema. NEUROLOGICAL: Gross neurological examination did not reveal any focal deficits. SKIN: No rashes. no petechiae. - Labs CBC & Chem 7: 08/25/22 06:14 08/25/22 06:14 Labs: Abnormal Lab Results - Last 24 Hours (Table) 08/25/22 08/25/22 Range/Units 06:14 06:14 WBC 16.70 H (4.50-10.00) X 10*3/uL RBC 2.77 L (4.10-5.20) X 10*6/uL Hgb 8.3 L (12.0-15.0) g/dL Hct 27.8 L (37.2-46.3) % MCV 100.4 H (80.0-97.0) fL MCHC 29.9 L (32.0-37.0) g/dL RDW 15.8 H (11.5-14.5) % Absolute Nucleated RBC 0.06 H (0.00-0.00) X 10*3/uL Immature Gran # 0.10 H (0.00-0.04) X 10*3/uL Neutrophils # 12.06 H (1.80-7.70) X 10*3/uL Basophils # 0.11 H (0.00-0.10) X 10*3/uL NRBC/100 WBC Diff 0.4 H (0.0-0.0) /100 WBCS Sodium 146 H (135-145) mmol/L Potassium 3.4 L (3.5-5.5) mmol/L Chloride 111 H (96-109) mmol/L Anion Gap 9.80 L (10.00-18.00) mmol/L Assessment and Plan Assessment: Acute GI bleed, EGD, antral gastritis and linear erosions in the fundus of the stomach with some actively oozing status post argon plasma coagulation with good hemostasis. Coronary artery disease with Recent history of cardiac cath and stent placement of the LAD and OM1 Leukocytosis Chronic atrial fibrillation on blood thinner at home History of stroke/TIA Hyperlipidemia Hypertension History of a serositis Hypothyroidism History of glaucoma Plan: Continue with Plavix and Eliquis. Aspirate discontinued by Cardiology team Patient will need follow-up with her seat mender Dr. Hernandez GI team site of the case (no GI coverage in this facility over the weekend and next week) and surgery team consult on the telephonic case manager hemoglobin closely Continue with Protonix 40 mg IV daily Patient is at both high-risk of thrombosis and bleeding off IV fluid Labs and medication were reviewed.. Continue same treatment. Continue with symptomatic treatment. Resume home medication. Monitor labs and vitals. DVT and GI prophylaxis. Further recommendations as per clinical course of the patient DVT prophylaxis: on Eliquis GI Prophylaxis: Ppi Prognosis is guarded
[2022-08-25] MEDS: APIXABAN 5 MG TAB PO SCH (20:42)
[2022-08-26] MEDS: LEVOTHYROXINE 100 MCG TAB PO SCH (06:12)
[2022-08-26 06:49] LABS: Appearance,Urine Clear (Clear); Bacteria,Urine Occasional /hpf; Bilirubin,Urine Negative (Negative); Blood,Urine Negative (Negative); Color,Urine Light Yellow; Glucose,Urine (UA) Negative (Negative); Ketones,Urine Negative (Negative); Leukocyte Esterase,Urine Moderate (Negative); Mucus,Urine Occasional /hpf; Nitrite,Urine Negative (Negative); PH, Urine 5.5 (5.0-8.0); Protein,Urine Negative (Negative); RBC,Urine 1 /hpf (0-5); Squamous Epithelial Cell,Urine 1 /hpf (0-4); Urobilinogen,Urine <2.0 mg/dL (<2.0); WBC,Urine 13 /hpf (0-5)
[2022-08-26] MEDS: PANTOPRAZOLE 40 MG/10 ML VIAL IV SCH (08:35)
[2022-08-26] MEDS: VENLAFAXINE HCL ER 150 MG CAP PO SCH ×2 (09:25→20:08)
[2022-08-26] MEDS: CHOLECALCIFEROL 25 MCG (1000 IU) TABLET PO SCH (09:25)
[2022-08-26] MEDS: ASCORBIC ACID 500 MG TAB PO SCH (09:25)
[2022-08-26] MEDS: ATORVASTATIN 40 MG TAB PO SCH (09:25)
[2022-08-26] MEDS: CLOPIDOGREL 75 MG TAB PO SCH (09:25)
[2022-08-26] MEDS: FERROUS SULFATE 325 MG TAB PO SCH ×2 (09:25→20:07)
[2022-08-26] MEDS: CYANOCOBALAMIN 500 MCG TAB PO SCH (09:25)
[2022-08-26] MEDS: APIXABAN 5 MG TAB PO SCH ×2 (09:25→20:08)
[2022-08-26] MEDS: DILTIAZEM CD 120 MG CAP.ER.24H PO SCH (09:25)
[2022-08-26] MEDS: METOPROLOL TARTRATE 25 MG TAB PO SCH ×2 (09:29→20:08)
--- NOTE | 2022-08-26 09:39 | P.PN ---
Subjective Progress Note Date: 08/26/22 This is a 77-year-old female patient of Dr. Hernandez with a past medical history significant for paroxysmal atrial fibrillation on eliquis, coronary artery disease with previous stenting, hypertension, hyperlipidemia, and former nicotine dependence. We have been asked to see the patient in consultation for r isk stratification for patient with recurrent GI bleed and antiplatelets/anticoagulalants. Patient was recently hospitalized in July of this year underwent cardiac catheterization and stenting of the OM1 and ostium of the LAD on 07/13. During that hospitalization, patient's hemoglobin was 14.7. Patient states that yesterday she was weak to the point that she could hardly walk and could hardly put 1 foot in front of the other. She states she has similar episode a year ago but after testing nothing was found. Note the patient's hemoglobin was 14.7 in July and now presented with hemoglobin of 8.8. She had a rectal exam with occult blood positive in the emergency center. She denies any change in her stools. She is normally having dark stools due to iron supplements. She states the only rectal bleeding that she's had is a small amount after the rectal exam. She denies having any abdominal pain. No nausea or vomiting. She is currently on a clear liquid diet and GI workup is in pro cess with plan for possible EGD tomorrow. Patient has refused colonoscopy. Patient has had a previous episode of GI bleeding requiring eliquis to be discontinued in August 2021. 08/25/2022 She was seen and examined resting comfortably in bed. She's been restarted on aspirin and Plavix. EGD yesterday showed antral gastritis with linear erosions in the fundus of the stomach and some of these with active losing for which she underwent argon plasma coagulation with good hemostasis. At that time was recommended to resume aspirin and Plavix and resume out as per our recommendations. Hemoglobin is stable. 08/26/2022 The patient was seen and examined resting comfortably in bed. She has been res umed on the Plavix and Eliquis. She is overall feeling well. She has not had a bowel movement today. Labs are pending. Objective - Vital Signs Vital signs: Vital Signs Temp 98.4 F 08/26/22 08:09 Pulse 66 08/26/22 08:09 Resp 18 08/26/22 08:09 BP 125/64 08/26/22 08:09 Pulse Ox 96 08/26/22 08:09 FiO2 Intake & Output 08/25/22 08/26/22 08/26/22 18:59 06:59 18:59 Other: # Voids 3 1 - Exam GENERAL: Well-developed in no acute distress. HEENT: Head is normocephalic. Pupils are equal, round. Sclerae anicteric. LUNGS: Respirations even and unlabored. Lungs essentially clear to auscultation bilaterally. HEART: Regular rate and rhythm. S1 and S2 heard. 2/6 systolic [id number] noted EXTREMITIES: Normal range of motion. No clubbing or cyanosis. Peripheral pulses intact. No lower extremity edema NEUROLOGIC: Awake and alert. Oriented x 3. - Labs CBC & Chem 7: 08/26/22 04:44 08/26/22 04:44 Labs: Abnormal Lab Results - Last 24 Hours (Table) 08/25/22 08/25/22 Range/Units 06:14 06:20 Sodium 146 H (135-145) mmol/L Potassium 3.4 L (3.5-5.5) mmol/L Chloride 111 H (96-109) mmol/L Anion Gap 9.80 L (10.00-18.00) mmol/L Ur Leukocyte Esterase Moderate H (Negative) Urine WBC 13 H (0-5) /hpf Urine Bacteria Occasional H (None) /hpf Urine Mucus Occasional H (None) /hpf Assessment and Plan Assessment: Acute blood loss anemia secondary to acute GI bleed status post argon plasma coagulation Paroxysmal atrial fibrillation on eliquis Coronary artery disease with recent stenting 07/13/22 Hypertension Hyperlipidemia Hypothyroidism History of TIA Former nicotine dependence Plan: From track hoe operator perspective medications were reviewed and will continue the same. Patient will likely benefit from outpatient workup for possible watchman procedure. From our standpoint if labs are stable patient may be discharged home. Patient will follow-up in the office with Dr. Hernandez as an outpatient. TELESCOPE MAINTENANCE note has been reviewed, I agree with a documented findings and plan of care. Patient was seen and examined.
[2022-08-26 10:24] LABS: HGB 8.4 g/dL (12.0-15.0); MCH 31.6 pg (27.0-32.0); MCHC 31.1 g/dL (32.0-37.0); MCV 101.5 fL (80.0-97.0); Mean Platelet Volume 9.2 fL (9.5-12.2); NRBC Per 100 WBC 0.3 /100 WBCS (0.0-0.0); Platelet Count 375 X 10*3/uL (140-440); RBC 2.66 X 10*6/uL (4.10-5.20); RDW 16.5 % (11.5-14.5); WBC 15.27 X 10*3/uL (4.50-10.00)
[2022-08-26 10:33] LABS: African American GFR (CKD) 98.2 (60.0-200.0); Anion Gap 11.4 mmol/L (10.00-18.00); BUN/Creat Ratio 20.86 Ratio (12.00-20.00); Blood Urea Nitrogen 14.6 mg/dL (9.0-27.0); Calcium 9.2 mg/dL (8.7-10.3); Carbon Dioxide 24.6 mmol/L (20.0-27.5); Non-African American GFR(CKD) 84.8 (60.0-200.0); Potassium 3.4 mmol/L (3.5-5.5)
[2022-08-26 12:12] LABS: Basophils # (A) 0.09 X 10*3/uL (0.00-0.10); Basophils % (A) 0.6 %; Eosinophils # (A) 0.29 X 10*3/uL (0.04-0.35); Eosinophils % (A) 1.9 %; Immature Grans, Automated 0.7 %; Lymphocytes # (A) 4.65 X 10*3/uL (0.90-5.00); Lymphocytes % (A) 30.5 %; Monocytes # (A) 1.11 X 10*3/uL (0.20-1.00); Monocytes % (A) 7.3 %; Neutrophils # (A) 9.03 X 10*3/uL (1.80-7.70)
--- NOTE | 2022-08-26 22:00 | P.PN ---
Subjective This is a pleasant 76. Female with multiple medical problems including previous history of coronary artery disease. Previous history of GI bleed that is been evaluated previously by Dr. Gilmore and has colonoscopy and EGD about 20 years ago as per patient. Patient presents because of generalized weakness and inability to walk properly for the last 2-3 days, patient says that recently last July she had placed on blood thinner Eliquis back by her financial planning analyst Dr. Hernandez and also she is on aspirin and Plavix. She was also on iron pills however over the last 1 week noticed her stool is a black although she thinks this is due to iron. Of note patient was taken iron for about one month now. No fresh blood per stool. No overt bleeding from anywhere else. No trauma. She states she has tingling and weakness in her legs which make her difficult to walk and this episode he should have she has GI bleed. However patient denies any weakness numbness while she is lying in bed rest strength is 5/5 in both extremities. Portions also denies any headache, no back pain. No dizziness. No chest pain or dyspnea. No change in urine or bowel habits, no diarrhea abdominal pain or vomiting. No dysuria urgency. No dizziness weakness numbness or blurred vision or slurred speech. Patient drapes nicotine and she was counseled to quit but she declines nicotine patch. No alcohol or illicit tracts. She states she had colonoscopy and EGD done with Dr. Gilmore about one year ago -Patient had cardiac catheterization on 07/13/2022 showing severe LAD stenosis as well as severe stenosis of OM 1, with past 2 stents in the LAD and RCA with successful stenting of OM1 55% down to 0% as well as successful stenting of the LAD with recommendation to continue with aspirin and Plavix x 6 months. 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 Platelet count is normal. PTT is 20.5. BMP and liver enzymes are unremarkable. Troponin is negative. Occult blood in the stool is positive chest x-ray: No acute process. EKG: Showing normal sinus rhythm at [address]-T changes. QTC 398. 08/23/2022 Patient clinically doing well, she denies any symptoms, no abdominal pain, no dizziness, no chest pain or dyspnea. Hemoglobin 7.5 compared to 7.7 and 8.7 yesterday. Aspirin, Plavix and Eliquis remain on hold. Recommendation Plan for EGD tomorrow morning. Patient refuses colonoscopy GI and cardiology input is appreciated. Continue with normal saline 75 mL/h and Protonix IV 40 mg twice a day 08/24/2022 This morning patient denies abdominal pain vomiting or diarrhea. No other new complaints. No chest pain or dyspnea. Family at bedside. Patient is status post EGD with findings of antral gastritis and linear erosions in the fundus of the stomach with some actively oozing status post argon plasma coagulation with good hemostasis. Postprocedure GI team recommended to start aspirin and Plavix and keep holding Eliquis for another 48 hours. Cardiology team recommended to discontinue aspirin and continue with Eliquis at a lower dose 2.5 mg and Plavix. Because Eliquis still on hold I started the patient on aspirin and Plavix today. Down the road Eliquis is going to be started then I would recommend discontinue aspirin per financial planning analyst and continue with Eliquis and Plavix. Patient and family declined colonoscopy, risks and benefits are explained Low normal vitamin B12 are placed. Recommend check level in 1-2 months 08/25/2022 patient still feels generally weak but she is doing good overall. She ate more today. She denies abdominal pain. She says her bowel movement is regular and is not black. She tolerated aspirin and Plavix yesterday and her hemoglobin stable at 8.3, no more evidence of GI bleed. Today her aspirin was discontinued and she was started on Eliquis by financial planning analyst recommendations. We will keep monitoring hemoglobin. Also patient was some evidence of leukocytosis. Could be reactive. Check urine analysis. No other signs of infection so far but will keep monitoring. Borderline vitamin B12 is been replaced. The potassium is been replaced. Currently she is off IV fluids of normal saline 08/26/2022 Patient feels much improved today. No abdominal pain she tolerates diet, no blood in stool. She is currently on Eliquis and Plavix. Aspirin was discontinued. Patient informed with this medication changes and she is agreeable. She is aware of risk of bleeding. Currently there is no evidence of active bleeding. Hemoglobin is stable at 8.4 Patient also with persistent leukocytosis, 16,000 yesterday and 15,000 today, no evidence of infection and no need for antibiotics, patient is afebrile. Patient will benefit from hematology evaluation which can be done as inpatient or outpatient. Cardiology team on the case, they recommended outpatient watchman procedure, patient is aware with this recommendation and the need to follow-up with her financial planning analyst Dr. Hernandez. Possible discharge in 24-48 hours if she keeps improving Objective - Vital Signs Vital signs: Vital Signs Temp 98.2 F 08/26/22 12:02 Pulse 65 08/26/22 12:02 Resp 18 08/26/22 12:02 BP 123/69 08/26/22 12:02 Pulse Ox 96 08/26/22 12:02 FiO2 Intake & Output 08/25/22 08/26/22 08/26/22 18:59 06:59 18:59 Other: # Voids 3 1 - Exam GENERAL: The patient is alert and oriented x3, not in any acute distress. Well developed, well nourished. HEENT: Pupils are round and equally reacting to light. EOMI. No scleral icterus. No conjunctival pallor. Normocephalic, atraumatic. No pharyngeal erythema. No thyromegaly. CARDIOVASCULAR: S1 and S2 present. No murmurs, rubs, or gallops. PULMONARY: Chest is clear to auscultation, no wheezing or crackles. ABDOMEN: Soft, nontender, nondistended, normoactive bowel sounds. No palpable organomegaly. MUSCULOSKELETAL: No joint swelling or deformity. EXTREMITIES: No cyanosis, clubbing, or pedal edema. NEUROLOGICAL: Gross neurological examination did not reveal any focal deficits. SKIN: No rashes. no petechiae. - Labs CBC & Chem 7: 08/26/22 04:44 08/26/22 04:44 Labs: Abnormal Lab Results - Last 24 Hours (Table) 04/22/23 04/23/23 04/23/23 Range/Units 06:20 04:44 04:44 WBC 15.27 H (4.50-10.00) X 10*3/uL RBC 2.66 L (4.10-5.20) X 10*6/uL Hgb 8.4 L (12.0-15.0) g/dL Hct 27.0 L (37.2-46.3) % MCV 101.5 H (80.0-97.0) fL MCHC 31.1 L (32.0-37.0) g/dL RDW 16.5 H (11.5-14.5) % MPV 9.2 L (9.5-12.2) fL Absolute Nucleated RBC 0.04 H (0.00-0.00) X 10*3/uL Immature Gran # 0.10 H (0.00-0.04) X 10*3/uL Neutrophils # 9.03 H (1.80-7.70) X 10*3/uL Monocytes # 1.11 H (0.20-1.00) X 10*3/uL NRBC/100 WBC Diff 0.3 H (0.0-0.0) /100 WBCS Sodium 146 H (135-145) mmol/L Potassium 3.4 L (3.5-5.5) mmol/L Chloride 110 H (96-109) mmol/L BUN/Creatinine Ratio 20.86 H (12.00-20.00) Ratio Ur Leukocyte Esterase Moderate H (Negative) Urine WBC 13 H (0-5) /hpf Urine Bacteria Occasional H (None) /hpf Urine Mucus Occasional H (None) /hpf Assessment and Plan Assessment: Acute GI bleed, EGD, antral gastritis and linear erosions in the fundus of the stomach with some actively oozing status post argon plasma coagulation with good hemostasis. Coronary artery disease with Recent history of cardiac cath and stent placement of the LAD and OM1 Leukocytosis Chronic atrial fibrillation on blood thinner at home History of stroke/TIA Hyperlipidemia Hypertension History of a serositis Hypothyroidism History of glaucoma Plan: Continue with Plavix and Eliquis. Aspirate is discontinued per cardiology's recommendation Patient will need follow-up with her financial planning analyst Dr. Hernandez Follow up with GI as an outpatient, no GI service this facility during this weekend surgery team consult on the protective services case worker hemoglobin closely Monitor leukocyte closely and follow up with fitting room checker. Patient informed with this present from and recommended to follow up as an outpatient and she is agreeable. Dr. Ryan contact information a provided for the patient and discharge instructions Continue with Protonix 40 mg IV daily Patient is at both high-risk of thrombosis and bleeding off IV fluid Labs and medication were reviewed.. Continue same treatment. Continue with symptomatic treatment. Resume home medication. Monitor labs and vitals. DVT and GI prophylaxis. Further recommendations as per clinical course of the patient DVT prophylaxis: on Eliquis GI Prophylaxis: Ppi Prognosis is guarded
[2022-08-27 02:05] VITALS: TEMP 98.3
[2022-08-27] MEDS: LEVOTHYROXINE 100 MCG TAB PO SCH (05:43)
[2022-08-27] MEDS ORDERED: PANTOPRAZOLE 40 MG TABLET PO SCH (07:30)
[2022-08-27 08:16] VITALS: RESP 18
--- NOTE | 2022-08-27 08:34 | P.PN ---
Subjective Progress Note Date: 08/27/22 HISTORY OF PRESENT ILLNESS: This is a 77-year-old female patient of Dr. Hernandez with a past medical history significant for paroxysmal atrial fibrillation on eliquis, coronary artery disease with previous stenting, hypertension, hyperlipidemia, and former nicotine dependence. We have been asked to see the patient in consultation for risk stratification for patient with recurrent GI bleed and antiplatelets/anticoagulalants. Patient was recently hospitalized in July of this year underwent cardiac catheterization and stenting of the OM1 and ostium of the LAD on 07/13. During that hospitalization, patient's hemoglobin was 14.7. Patient states that yesterday she was weak to the point that she could hardly walk and could hardly put 1 foot in front of the other. She states she has similar episode a year ago but after testing nothing was found. Note the patient's hemoglobin was 14.7 in July and now presented with hemoglobin of 8.8. She had a rectal exam with occult blood positive in the emergency center. She denies any change in her stools. She is normally having dark stools due to iron supplements. She states the only rectal bleeding that she's had is a small debbi unt after the rectal exam. She denies having any abdominal pain. No nausea or vomiting. She is currently on a clear liquid diet and GI workup is in process with plan for possible EGD tomorrow. Patient has refused colonoscopy. Patient has had a previous episode of GI bleeding requiring eliquis to be discontinued in August 2021. 08/25/2022 She was seen and examined resting comfortably in bed. She's been restarted on aspirin and Plavix. EGD yesterday showed antral gastritis with linear erosions in the fundus of the stomach and some of these with active losing for which she underwent argon plasma coagulation with good hemostasis. At that time was recommended to resume aspirin and Plavix and resume out as per our recommendations. Hemoglobin is stable. 08/26/2022 The patient was seen and examined resting comfortably in bed. She has been resumed on the Plavix and Eliquis. She is overall feeling well. She has not had a bowel movement today. Labs are pending. 08/27/2022 Patient examined this morning at the bedside. Patient denies chest pain or pressure. She denies any shortness of breath. She denies any signs of GI bleeding. Vital signs are stable. PHYSICAL EXAM: VITAL SIGNS: Reviewed. GENERAL: Well-developed in no acute distress. NECK: Supple. No JVD or thyromegaly LUNGS: Respirations even and unlabored. Lungs essentially clear to auscultation bilaterally. HEART: Regular rate and rhythm. S1 and S2 heard. EXTREMITIES: Normal range of motion. No clubbing or cyanosis. Peripheral pulses intact. No lower extremity edema ASSESSMENT: Acute blood loss anemia secondary to acute GI bleed status post argon plasma coagulation Paroxysmal atrial fibrillation on eliquis Coronary artery disease with recent stenting 07/13/22 Hypertension Hyperlipidemia Hypothyroidism History of TIA Former nicotine dependence PLAN: Continue Eliquis and Plavix Continue additional cardiac medications Possible outpatient workup for Watchman procedure Patient is stable for discharge home today from a cardiac standpoint We will sign off. Please reconsult if needed. Nurse practitioner note has been reviewed by physician. Signing provider agrees with the documented findings, assessment, and plan of care. Objective - Vital Signs Vital signs: Vital Signs Temp 98.3 F 08/27/22 08:13 Pulse 74 08/27/22 08:13 Resp 18 08/27/22 08:13 BP 146/75 08/27/22 08:13 Pulse Ox 92 L 08/27/22 08:13 FiO2 Intake & Output 08/26/22 08/27/22 08/27/22 18:59 06:59 18:59 Intake Total 600 Balance 600 Intake: Oral 600 Other: Voiding Method Toilet # Voids 3 3 - Labs CBC & Chem 7: 08/26/22 04:44 08/26/22 04:44 Labs: Abnormal Lab Results - Last 24 Hours (Table) 08/26/22 08/26/22 Range/Units 04:44 04:44 WBC 15.27 H (4.50-10.00) X 10*3/uL RBC 2.66 L (4.10-5.20) X 10*6/uL Hgb 8.4 L (12.0-15.0) g/dL Hct 27.0 L (37.2-46.3) % MCV 101.5 H (80.0-97.0) fL MCHC 31.1 L (32.0-37.0) g/dL RDW 16.5 H (11.5-14.5) % MPV 9.2 L (9.5-12.2) fL Absolute Nucleated RBC 0.04 H (0.00-0.00) X 10*3/uL Immature Gran # 0.10 H (0.00-0.04) X 10*3/uL Neutrophils # 9.03 H (1.80-7.70) X 10*3/uL Monocytes # 1.11 H (0.20-1.00) X 10*3/uL NRBC/100 WBC Diff 0.3 H (0.0-0.0) /100 WBCS Sodium 146 H (135-145) mmol/L Potassium 3.4 L (3.5-5.5) mmol/L Chloride 110 H (96-109) mmol/L BUN/Creatinine Ratio 20.86 H (12.00-20.00) Ratio Microbiology - Last 24 Hours (Table) 08/25/22 06:20 Urine Culture - Preliminary Urine,Voided
[2022-08-27] MEDS: FERROUS SULFATE 325 MG TAB PO SCH (09:16)
[2022-08-27] MEDS: CYANOCOBALAMIN 500 MCG TAB PO SCH (09:16)
[2022-08-27] MEDS: CLOPIDOGREL 75 MG TAB PO SCH (09:16)
[2022-08-27] MEDS: ATORVASTATIN 40 MG TAB PO SCH (09:16)
[2022-08-27] MEDS: APIXABAN 5 MG TAB PO SCH (09:16)
[2022-08-27] MEDS: CHOLECALCIFEROL 25 MCG (1000 IU) TABLET PO SCH (09:16)
[2022-08-27] MEDS: METOPROLOL TARTRATE 25 MG TAB PO SCH (09:16)
[2022-08-27] MEDS: DILTIAZEM CD 120 MG CAP.ER.24H PO SCH (09:16)
[2022-08-27] MEDS: VENLAFAXINE HCL ER 150 MG CAP PO SCH (09:16)
[2022-08-27] MEDS: ASCORBIC ACID 500 MG TAB PO SCH (09:16)
[2022-08-27 11:17] LABS: Basophils # (A) 0.09 X 10*3/uL (0.00-0.10); Basophils % (A) 0.7 %; Eosinophils # (A) 0.48 X 10*3/uL (0.04-0.35); Eosinophils % (A) 3.8 %; HCT 29.9 % (37.2-46.3); HGB 8.9 g/dL (12.0-15.0); Immature Grans, Automated 0.6 %; Lymphocytes # (A) 3.22 X 10*3/uL (0.90-5.00); Lymphocytes % (A) 25.2 %; MCH 30.8 pg (27.0-32.0); MCHC 29.8 g/dL (32.0-37.0); MCV 103.5 fL (80.0-97.0); Mean Platelet Volume 9.2 fL (9.5-12.2); Monocytes # (A) 0.84 X 10*3/uL (0.20-1.00); Monocytes % (A) 6.6 %; NRBC Per 100 WBC 0 /100 WBCS (0.0-0.0); Neutrophils # (A) 8.08 X 10*3/uL (1.80-7.70); Neutrophils % (A) 63.1 %; Platelet Count 407 X 10*3/uL (140-440); RBC 2.89 X 10*6/uL (4.10-5.20); RDW 16.9 % (11.5-14.5); WBC 12.79 X 10*3/uL (4.50-10.00)
[2022-08-27 11:29] LABS: African American GFR (CKD) >90 (>60 ml/min/1.73 sqM); Anion Gap 7 mmol/L; Blood Urea Nitrogen 20 mg/dL (7-17); Carbon Dioxide 26 mmol/L (22-30); Chloride 109 mmol/L (98-107); Glucose 130 mg/dL (74-99); Non-African American GFR(CKD) 85 (>60 ml/min/1.73 sqM); Potassium 3.9 mmol/L (3.5-5.1); Sodium 142 mmol/L (137-145)
[2022-08-27 12:09] VITALS: BP 118/67; PULSE 66
--- NOTE | 2022-08-29 06:42 | P.DS ---
Providers Date of admission: 08/22/22 13:51 Expected date of discharge: 08/27/22 Attending physician: Elvin Flores MD Consults: 08/22/22 13:49 Consult Physician Urgent Consulting Provider: Nakita Gilmore Consult Reason/Comments: lower gi hemorrhage Do you want consulting provider notified?: Yes Primary care physician: Shae Langston Hospital Course: Final diagnosis Acute GI bleed, EGD, antral gastritis and linear erosions in the fundus of the stomach with some actively oozing status post argon plasma coagulation with good hemostasis. Coronary artery disease with Recent history of cardiac cath and stent placement of the LAD and OM1 Leukocytosis Chronic atrial fibrillation on blood thinner at home History of stroke/TIA Hyperlipidemia Hypertension History of a serositis Hypothyroidism History of glaucoma Discharge disposition Patient is being discharged in a stable condition with guarded prognosis to home. Patient will follow-up with Dr. Shae alngston in the outpatient setting upon discharge. Patient is to follow-up with multiple medical consultations as mentioned below as scheduled. Recommend follow-up labs in the next few days to monitor hemoglobin. Total time taken is greater than 35 minutes. Hospital course This is a 77-year-old female who was recently admitted with concerns of possible GI bleed with multiple medical comorbidities. Patient evaluated by surgery underwent EGD showed some antral gastritis and linear erosions and there was some active oozing was cauterized recommending close outpatient follow-up for results. Patient also to follow-up with cardiology, hematology and primary care provider on discharge. Patient's hemoglobin is stable at 8.9 with no active bleeding noted. Patient is tolerating diet and has been cleared by con tois. Please refer to consultation notes for further HPI. Family members present at bedside and questions and concerns were answered to the past for ability. Currently no reports of chest pain, shortness of breath, or palpitations. Patient is afebrile. No reports of nausea or vomiting and patient is tolerating diet. Patient will be discharged home today. Guarded prognosis. Physical exam: Gen: This is a 77-year-old female who is awake, alert and oriented 3, well- developed, well-nourished HEENT: Head is atraumatic, normocephalic. Pupils equal, round. Sclerae is anicteric. NECK: Supple. No JVD. No lymphadenopathy. No thyromegaly. LUNGS: Clear to auscultation. No wheezes or rhonchi. No intercostal retractions. HEART: Regular rate and rhythm. No murmur. ABDOMEN: Soft. Bowel sounds are present. No masses. No tenderness. EXTREMITIES: No pedal edema. No calf tenderness. NEUROLOGICAL: Patient is awake, alert and oriented x3. Cranial nerves 2 through 12 are grossly intact. Please refer to medication reconciliation sheet for a list of medications. The impression and plan of care has been dictated by Christianne Don, Nurse Practitioner as directed. Dr. Alex MD I have performed a history and examination and MDM of this patient, discussed the same with the dictator, and agree with the dictator's assessment and plan as written ,documented as a scribe. Based on total visit time, I have performed more than 50% of the visit. Patient Condition at Discharge: Stable Plan - Discharge Summary Discharge Rx Participant: No New Discharge Prescriptions: New Cyanocobalamin [Vitamin B-12] 500 mcg PO DAILY #30 tab Continue Levothyroxine Sodium [Synthroid] 100 mcg PO DAILY Venlafaxine HCl ER [Effexor XR] 150 mg PO BID Nitroglycerin Sl Tabs [Nitrostat] 0.4 mg SUBLINGUAL Q5M PRN #25 tab PRN Reason: Chest Pain lisinopriL [Zestril] 2.5 mg PO DAILY Cholecalciferol [Vitamin D3 (25 Mcg = 1000 Iu)] 25 mcg PO DAILY dilTIAZem HCL [Cardizem LA] 120 mg PO DAILY Atorvastatin [Lipitor] 40 mg PO DAILY #90 tab Ferrous Sulfate [Iron (65 MG Elemental)] 325 mg PO DAILY Ascorbic Acid [Vitamin C] 500 mg PO DAILY ALPRAZolam [Xanax] 1 mg PO BID PRN PRN Reason: Anxiety Pantoprazole Sodium [Protonix] 40 mg PO BID 30 Days #60 tab Metoprolol Tartrate 25 mg PO BID Clopidogrel [Plavix] 75 mg PO DAILY #90 tab Apixaban [Eliquis] 5 mg PO BID Discontinued Zinc 50 mg PO DAILY Aspirin [Adult Low Dose Aspirin EC] 81 mg PO DAILY Discharge Medication List Levothyroxine Sodium [Synthroid] 100 mcg PO DAILY 11/10/15 [History] Venlafaxine HCl ER [Effexor XR] 150 mg PO BID 11/10/15 [History] Nitroglycerin Sl Tabs [Nitrostat] 0.4 mg SUBLINGUAL Q5M PRN #25 tab 02/25/19 [Rx] lisinopriL [Zestril] 2.5 mg PO DAILY 08/31/20 [History] ALPRAZolam [Xanax] 1 mg PO BID PRN 08/13/21 [History] Ascorbic Acid [Vitamin C] 500 mg PO DAILY 08/13/21 [History] Cholecalciferol [Vitamin D3 (25 Mcg = 1000 Iu)] 25 mcg PO DAILY 08/13/21 [History] Pantoprazole Sodium [Protonix] 40 mg PO BID 30 Days #60 tab 08/15/21 [Rx] Metoprolol Tartrate 25 mg PO BID 07/10/22 [History] dilTIAZem HCL [Cardizem LA] 120 mg PO DAILY 07/13/22 [History] Atorvastatin [Lipitor] 40 mg PO DAILY #90 tab 07/14/22 [Rx] Clopidogrel [Plavix] 75 mg PO DAILY #90 tab 07/14/22 [Rx] Apixaban [Eliquis] 5 mg PO BID 08/22/22 [History] Ferrous Sulfate [Iron (65 MG Elemental)] 325 mg PO DAILY 08/22/22 [History] Cyanocobalamin [Vitamin B-12] 500 mcg PO DAILY #30 tab 08/27/22 [Rx] Follow up Appointment(s)/Referral(s): Catracho Ryan MD [STAFF PHYSICIAN] - 10 Days (basket braider (blood disease doctor) for your high white cell count. OFFICE WILL CALL YOU WITH APPOINTMENT DATE/TIME. 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
== END 2022-08-27 15:06 | disposition home or self-care (01) | DRG 378 ==
LOC: EC 11:12 → 5NMEDONC 13:51
PROVIDERS: ADMIT Internal Medicine; ATTEND Internal Medicine
PROC: 0W3P8ZZ Control Bleeding in Gastrointestinal Tract, Via Natural or Artificial Opening Endoscopic (ICD-10-PCS; principal; 2022-08-24 14:15)
DX: K29.71 Gastritis, unspecified, with bleeding (principal); D62 Acute posthemorrhagic anemia; K44.9 Diaphragmatic hernia without obstruction or gangrene; D50.9 Iron deficiency anemia, unspecified; E78.5 Hyperlipidemia, unspecified; E89.0 Postprocedural hypothyroidism; I10 Essential (primary) hypertension; I25.10 Atherosclerotic heart disease of native coronary artery without angina pectoris; I25.2 Old myocardial infarction; I48.0 Paroxysmal atrial fibrillation; Z28.310 Unvaccinated for COVID-19; M19.90 Unspecified osteoarthritis, unspecified site; D72.829 Elevated white blood cell count, unspecified; H40.9 Unspecified glaucoma; R26.2 Difficulty in walking, not elsewhere classified; K21.9 Gastro-esophageal reflux disease without esophagitis; Z86.73 Personal history of transient ischemic attack (TIA), and cerebral infarction without residual deficits; Z85.828 Personal history of other malignant neoplasm of skin; Z87.442 Personal history of urinary calculi; Z53.20 Procedure and treatment not carried out because of patient's decision for unspecified reasons; Z79.01 Long term (current) use of anticoagulants; Z79.02 Long term (current) use of antithrombotics/antiplatelets; Z79.82 Long term (current) use of aspirin; Z79.890 Hormone replacement therapy; Z79.899 Other long term (current) drug therapy; Z95.5 Presence of coronary angioplasty implant and graft; Z87.891 Personal history of nicotine dependence
CPT/HCPCS: 36415; 43255; 71046; 80048; 80053; 81001; 82272; 82607; 82728; 82746; 83540; 83550; 83735; 84145; 84484; 85025; 85027; 85045; 85730; 87086; 93005; 96361; 96374; 96376; 99285

== ENCOUNTER → 2022-10-26 | Outpatient (CLI) | payer MEDICARE ==
[2022-10-26 13:23] LABS: Prothrombin Time 10.4 sec (9.0-12.0)
[2022-10-26 21:19] LABS: Blood Urea Nitrogen 17.8 mg/dL (9.0-27.0); Carbon Dioxide 24.9 mmol/L (21.6-31.8); Chloride 108 mmol/L (96-109); Glucose 114 mg/dL (70-110); Potassium 4.7 mmol/L (3.5-5.5); Sodium 146 mmol/L (135-145)
[2022-10-26 21:37] LABS: Basophils # (A) 0.08 X 10*3/uL (0.00-0.10); Basophils % (A) 0.8 %; Eosinophils # (A) 0.18 X 10*3/uL (0.04-0.35); Eosinophils % (A) 1.9 %; HCT 45.9 % (37.2-46.3); HGB 13.6 d/dL (12.0-15.0); Lymphocytes # (A) 2.69 X 10*3/uL (0.90-5.00); Lymphocytes % (A) 27.7 %; MCH 27.8 pg (27.0-32.0); MCHC 29.6 d/dL (32.0-37.0); MCV 93.9 FL (80.0-97.0); Mean Platelet Volume 10.2 FL (9.5-12.2); Monocytes % (A) 6.2 %; NRBC Per 100 WBC 0 X 10*3/uL (0.00-0.01); Neutrophils # (A) 6.13 X 10*3/uL (1.80-7.70); Platelet Count 310 X 10*3/uL (140-440); RBC 4.89 X 10*6/uL (4.10-5.20); RDW 13.2 % (11.5-14.5); WBC 9.72 X 10*3/uL (4.50-10.00)
== END | disposition home or self-care (01) ==
LOC: LABWHC1 12:20
PROVIDERS: ATTEND Emergency Medicine
DX: I48.91 Unspecified atrial fibrillation (principal)
CPT/HCPCS: 36415; 80048; 85025; 85610